=== PATIENT | male | born 1940 | race Caucasian/White ===

== ENCOUNTER → 2018-10-20 07:19 | Outpatient (CLI) | payer MEDICARE ==
[2012-05-14 18:00] VITALS: BMI 34.3
== END | disposition home or self-care (01) ==
LOC: D.CT 07:19
PROVIDERS: ATTEND Family Medicine
DX: R41.82 Altered mental status, unspecified (principal)

== ENCOUNTER 2019-01-10 18:09 | Inpatient (IN) | payer MEDICARE ==
[~2019-01-10] VITALS: Ht 185.4 cm; Wt 106.1 kg
[2019-01-11] MEDS ORDERED: ALPHAGAN P 0.155 ML EACH EYE (14:04)
[2019-01-11] MEDS ORDERED: LIPITOR80 MG PO (14:04)
[2019-01-11] MEDS ORDERED: BUPROPION HCL200 M1 PO (14:06)
[2019-01-11] MEDS ORDERED: BUSPAR10 MG PO (14:07)
[2019-01-11] MEDS ORDERED: COREG6.25 MG PO (14:08)
[2019-01-11] MEDS ORDERED: VITAMIN D31000 UNIT PO (14:08)
[2019-01-11 14:14] VITALS: BP 109/64
[2019-01-11] MEDS ORDERED: BENADRYL25 MG PO (14:17)
[2019-01-11] MEDS ORDERED: COLACE100 MG PO (14:18)
[2019-01-11] MEDS ORDERED: FUROSEMIDE40 MG PO (14:18)
[2019-01-11] MEDS ORDERED: CYMBALTA30 MG PO (14:18)
[2019-01-11] MEDS ORDERED: HYDROCODON-ACE1 EA10 PO (14:19)
[2019-01-11] MEDS ORDERED: ISOSORBIDE MONO30 M1 PO (14:20)
[2019-01-11] MEDS ORDERED: LANTUS SOL100 UNIT/1 SC (14:20)
[2019-01-11] MEDS ORDERED: ROBAXIN500 MG PO (14:21)
[2019-01-11] MEDS ORDERED: OMEPRAZOLE20 M1 PO (14:21)
[2019-01-11] MEDS ORDERED: NYSTATIN OINTME15 GM TOPICAL (14:21)
[2019-01-11] MEDS ORDERED: FLOMAX0.4 MG PO (14:22)
--- NOTE | 2019-01-11 15:01 | NUR ---
ALERT AND ORIENTED. ADMITTED FROM [facility] TO ROOM 1118A. L BUTTOCK HAS [address] 2 PU. R BUTTOCK HAS [address] 2 PU. BUTT CREASE HAS LINEAR ST 2 PU. L HEEL HAS SMALL ST 2 OPEN AREA X2. BUTTOCKS AND L HEEL HAVE UNBLANCHABLE REDNESS. B LE HAVE SCRATCHES/SORES. PATIENT HAS A CHRONIC LORA CATH THAT HE HAS HAD FOR MTHS. STATES IT WAS CHANGED LAST MTH. SAFETY PRECAUTIONS GIVEN TO USE CL FOR ASSIST. 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
--- NOTE | 2019-01-11 18:31 | NUR ---
NO CHANGE IN ASSESSMENT. NO C/O PAIN. CL IN REACH. BED ALARM IS ON.
--- NOTE | 2019-01-11 19:26 | NUR ---
PT. LAYING IN BED VISITING WITH NEIGHBOR IN NEXT BED. RESPIRATIONS EVEN. NO S/S OF DISTRESS. STATES THAT PAIN IS 8/10 BACK, SHOULDERS. CALL LIGHT IN REACH.
[2019-01-11 22:00] VITALS: BP 134/79
--- NOTE | 2019-01-12 02:20 | NUR ---
PT. RESTING QUIETLY WITH EYES CLOSED. RESPIRATIONS EVEN. NO S/S OF DISTRESS. SR UP X 2. BED IN LOWEST POSITION. CALL LIGHT IN REACH.
[2019-01-12 06:22] LABS: BASOPHILS 0.4 % (0-2); EOSINOPHILS 4.9 % (0-7); HEMATOCRIT 26.4 % (42.0-54.0); HEMOGLOBIN 8.2 g/dL (13.5-17.5); IMMATURE GRANULOCYTES 0.2 % (0-5); LYMPHOCYTES 38.9 % (15-50); MCH 27.9 pg (26.0-34.0); MCHC 31.1 g/dL (31.0-37.0); MCV 89.8 fL (80.0-100.0); MEAN PLATELET VOLUME 9.4 fL (7.4-10.4); MONOCYTES 10.7 % (2-11); NEUTROPHILS 44.9 % (40-80); RBC 2.94 10x6/uL (4.20-6.10); RDW 17.9 % (11.5-14.5); WBC 5.7 10x3/uL (4.8-10.8)
[2019-01-12 06:25] LABS: PLATELET COUNT 199 10x3/uL (130-400)
[2019-01-12 06:28] LABS: APPEARANCE HAZY (CLEAR); BILIRUBIN NEGATIVE (NEGATIVE); COLOR YELLOW (YELLOW); GLUCOSE NEGATIVE (NEGATIVE); KETONE NEGATIVE (NEGATIVE); NITRITE POSITIVE (NEGATIVE); PROTEIN TRACE mg/dL (NEGATIVE); UROBILINOGEN NORMAL (NORMAL)
[2019-01-12 06:29] LABS: BACTERIA MODERATE /hpf (NEGATIVE); EPITHELIAL CELLS NSEEN /hpf (0-5); RED CELLS - URINE 0-5 /hpf (0-5); WHITE CELLS - URINE 25-50 /hpf (NEGATIVE)
[2019-01-12 06:46] LABS: ANION GAP 12.1 mmol/L (8-16); CALCIUM 7.6 mg/dL (8.5-10.1); CARBON DIOXIDE 25.5 mmol/L (21.0-32.0); CREATININE - SERUM 1.6 mg/dL (0.6-1.3); POTASSIUM - SERUM 3.6 mmol/L (3.5-5.1)
[2019-01-12 08:00] VITALS: BP 109/58
--- NOTE | 2019-01-12 08:00 | NUR ---
SHIFT ASSMT COMPLETED.
[2019-01-12 10:10] VITALS: BMI 30.8
[2019-01-12 10:13] VITALS: BP 104/60
--- NOTE | 2019-01-12 12:00 | NUR ---
SITTING UP EATING LUNCH.
--- NOTE | 2019-01-12 13:43 | RHP ---
PATIENT: ELLIOTT SILVERIO MEDICAL RECORD: [id number] ACCOUNT: [id number] LOCATION:[facility]1118 : 41 ADMISSION DATE: 01/11/19 REHABILITATION HISTORY AND PHYSICAL EXAMINATION POST ADMISSION PHYSICIAN EXAMINATION DATE OF ADMISSION: 01/11/2019 ADMITTING DIAGNOSIS: Acute metabolic encephalopathy. HISTORY OF PRESENT ILLNESS: The patient is a 78-year-old gentleman who was recently in the hospital from 01/02/2019 to 01/04/2019 with acute kidney injury, he was felt to be discharged home. He was sent home alone without any type of rehab or anything. He did not do well at home, was brought back to the ED on 01/10 with confusion, covered in his own feces. Got a history of chronic back pain, blindness, hyperlipidemia, MRSA. He has had a cervical and lumbar pain. He has had a femur and knee surgery in the past and surgery on his forearm. He has had angioplasty, neck surgery, shoulder surgery. He had an IM nailing on 09/14/2018. He has currently got an elevated BUN and creatinine, is being followed closely, he has got acute mental status that seemed to be clearing. He has got elevated blood pressure. He has got a noted history of impaired mobility, gait disturbance, deconditioning, debility, high fall risk and self-care deficits. These are all barriers to his discharge home. He lives at home alone, uses a rolling walker and wheelchair for mobility. He was independent with ADLs. His daughter lives next door to him in and checks on him often. He is currently set at mod assist for his ADLs and mod assist to max assist for his mobility. He and his family plan for him to be able to return home at his prior level of functioning or better. COMORBIDITIES: Include chronic back pain, peripheral vascular disease. He has had a history of electrolyte abnormalities, chronic diabetes, debility, UTI, acute metabolic encephalopathy, ambulatory dysfunction and chronic indwelling catheter. PAST MEDICAL HISTORY: Significant for chronic pain, blindness, depression, diabetes, hyperlipidemia, MRSA and peripheral vascular disease. PAST SURGICAL HISTORY: Includes forearm surgery, back surgery, angioplasty, neck surgery, shoulder surgery, femur and knee surgery and an IM nailing. ALLERGIES: IODINE. CURRENT MEDICATIONS: Include Flomax 0.4 mg daily, isosorbide 30 mg daily, insulin 32 units daily. He is on Cymbalta 60 mg daily, vitamin D 2000 units daily, Protonix 40 mg daily. He is on Calmoseptine ointment. He is on Nystatin to apply daily, Robaxin 750 mg b.i.d., Colace 100 mg b.i.d., Wellbutrin 200 mg b.i.d., atorvastatin 80 mg at bedtime, Coreg 6.25 mg b.i.d. with meals. He is on a low-resistant sliding scale with insulin. He is on Neurontin 400 mg t.i.d., BuSpar 10 mg t.i.d., Alphagan eyedrops 1 drop t.i.d., glucose replacement protocol as needed. He is on Sears 10/325 one tab every 4 hours p.r.n., Lasix 40 mg daily, and Benadryl 25 mg as needed. HABITS: No current alcohol or tobacco use. FAMILY HISTORY: Noncontributory. HISTORY AND PHYSICAL [id number] ELLIOTT SILVERIO SOCIAL HISTORY: The patient hopes to return back home and get back to his prior level of functioning. REVIEW OF SYSTEMS: GENERAL: Does complain of weakness and fatigue. HEENT: Denies cold, cough, or congestion. CARDIOVASCULAR: Denies chest pain. PHYSICAL EXAMINATION: VITAL SIGNS: Stable, afebrile. GENERAL: A morbidly obese gentleman in no acute distress, alert upon exam. HEENT: Normocephalic and atraumatic. Mucosa moist. NECK: Supple. No lymphadenopathy. LUNGS: Clear in upper saenz. HEART: Regular rate and rhythm. No murmurs, rubs, or gallops. ABDOMEN: Soft, benign, and nondistended. Positive bowel sounds times 4. EXTREMITIES: Does have some peripheral edema. NEUROLOGIC: He does have noted decreased muscular strength in his proximal muscles of his thighs at about 3/5. LABORATORY DATA: His admit UA does show trace blood and positive nitrites, 25-50 white blood cells and moderate bacteria. His white count is 5.7, H&H 8.2 and 26.4 and platelet count is 199. Sodium 139, potassium 3.6, BUN and creatinine of 14 and 1.6, and blood sugar is 105. ASSESSMENT: This is a 78-year-old gentleman admitted to the rehab with a working diagnosis of metabolic encephalopathy. The patient has potential to make improvement. We instituted the following multidisciplinary therapies including, but not limited to physical, occupational, respiratory, speech, nutritional services, prosthetics and orthotics. Given his complex medical condition and risks of more complications, rehabilitation services cannot be provided at a low level of care such as halfway. PLAN: 1. Admit to [facility] for intensive inpatient therapy to include the following disciplines; A. Physical therapy to improve gait, all transfer skills and bed mobility to a modified independent level. B. Occupational therapy to a modified independent level. C. Case management to assist with discharge planning and placement options. D. Nutrition to assist with nutritional needs. E. Rehabilitation nursing to assist in monitoring the patient's underlying medical conditions and to assist with any type of bowel or bladder management. 2. I am going to go ahead and culture his urine and we will treat appropriately. 3. Watch his H&H closely and transfuse as needed. I feel like this is probably secondary to renal insufficiency and chronic illness. 4. We will see again in the a.m. TRANSINT:[id number] Voice Confirmation ID: [id number] DOCUMENT ID: [id number] TREVON notes whether there has been none or any medical/functional change since admission: HISTORY AND PHYSICAL [id number] NUSRATELLIOTT R - No change since prescreen. TREVON attests patient continues to be appropriate for IRF: - Continues to be appropriate. SATYA DONOHUE MD at 1343 CC: [id number] DICTATION DATE: 01/12/1914 BUFFING WHEEL FORMER MACHINE: 01/12/19 1055 ADM IN [facility] [address] [id number]
--- NOTE | 2019-01-12 20:00 | NUR ---
PATIENT RECEIVED SITTING UP IN BED. ASSESSMENT & VITAL SIGNS DONE. BED LOW. LORA PATENT WITH YELLOW COLOR URINE. BED LOW. CALL LIGHT WITHIN REACH. WILL CONTINUE TO MONITOR.
[2019-01-12 21:16] VITALS: BP 129/72
--- NOTE | 2019-01-13 02:32 | NUR ---
PATIENT EYES CLOSED. RESPIRATIONS 18 & EVEN. BED LOW. URINAL & CALL LIGHT WITHIN REACH. WILL CONTINUE TO MONITOR.
--- NOTE | 2019-01-13 02:35 | NUR ---
PAIN MEDICATION EFFECTIVE. BED LOW. CALL LIGTH WITHIN REACH. WILL CONTINUE TO MONITOR.
[2019-01-13 06:06] LABS: BASOPHILS 0.2 % (0-2); EOSINOPHILS 4.3 % (0-7); HEMATOCRIT 26.7 % (42.0-54.0); HEMOGLOBIN 8.3 g/dL (13.5-17.5); IMMATURE GRANULOCYTES 0.2 % (0-5); LYMPHOCYTES 32.8 % (15-50); MCH 27.7 pg (26.0-34.0); MCHC 31.1 g/dL (31.0-37.0); MEAN PLATELET VOLUME 9.1 fL (7.4-10.4); MONOCYTES 10.7 % (2-11); NEUTROPHILS 51.8 % (40-80); PLATELET COUNT 215 10x3/uL (130-400); RDW 17.9 % (11.5-14.5); WBC 6.3 10x3/uL (4.8-10.8)
[2019-01-13 06:31] LABS: ANION GAP 9.4 mmol/L (8-16); CALCIUM 7.4 mg/dL (8.5-10.1); CARBON DIOXIDE 29.8 mmol/L (21.0-32.0); CREATININE - SERUM 1.6 mg/dL (0.6-1.3)
[2019-01-13 06:32] LABS: POTASSIUM - SERUM 4.2 mmol/L (3.5-5.1)
[2019-01-13 08:00] VITALS: BP 128/71
--- NOTE | 2019-01-13 08:00 | NUR ---
SHIFT ASSMT COMPLETED.
--- NOTE | 2019-01-13 16:00 | NUR ---
WILL CONTINUE TO MONITOR
[2019-01-13 19:48] VITALS: BP 116/65
--- NOTE | 2019-01-13 19:52 | NUR ---
PT IS RESTING IN BED WITH EYES CLOSED. OPENED EYES TO VERBAL STIMULI. ALERT AND ORIENTED X 3. DENIES ACUTE PAIN OR DISCOMFORT. NO NEEDS VOICED. LORA CATH IS PAIENT AND DRAINING TO A GRAVITY BAG. SR'S ARE UP X2 IN BED. CALL LIGHT AND BEDSIDE TABLE ARE WITHIN EASY REACH.
--- NOTE | 2019-01-13 22:09 | NUR ---
PT IS RESTING QUIETLY IN BED WITH EYES CLOSED. NO DISTRESS NOTED.
--- NOTE | 2019-01-13 23:59 | NUR ---
I have reviewed this patient and I concur with the Shift Assessment completed by the Licensed Practical Nurse today this shift.
--- NOTE | 2019-01-14 03:32 | NUR ---
PT LYING IN BED EYES CLOSED RESTING QUIETLY. CL IN REACH.
--- NOTE | 2019-01-14 06:06 | NUR ---
PT RESTING IN BED WITH EYES CLOSED.
[2019-01-14 08:18] VITALS: BP 128/74
--- NOTE | 2019-01-14 18:02 | NUR ---
HAD SHOWER WITH MAX ASST. F/C PATENT WITH CLOUDY URINE. HAD LARGE BM.
--- NOTE | 2019-01-14 19:29 | NUR ---
PT IS RESTING IN WC AT BEDSIDE. ALERT AND ORIENTED X 3. PT IS NEARLY BLIND, AND IS VERY [place]. PT ASSISTED INTO BED WITH MIN ASSIST. LORA CATH IS PATENT AND DRAINING TO A GRAVITY BAG. SR'S ARE UP X 2 IN BED. CALL LIGHT AND BEDSIDE TABLE ARE WITHIN EASY REACH.
[2019-01-14 19:45] VITALS: BP 133/84
--- NOTE | 2019-01-14 21:46 | NUR ---
RESTING IN BED WITH EYES CLOSED.
--- NOTE | 2019-01-14 23:20 | NUR ---
I have reviewed this patient and I concur with the Shift Assessment completed by the Licensed Practical Nurse today this shift.
--- NOTE | 2019-01-15 03:09 | NUR ---
PT RESTING QUIETLY IN BED WITH EYES CLOSED. RESPS ARE EVEN AND UNLABORED. NO ACUTE DISTRESS NOTED.
--- NOTE | 2019-01-15 05:49 | NUR ---
PT IS RESTING IN BED WITH EYES CLOSED. AWOKE EASILY TO VERBAL STIMULI. NO NEEDS VOICED. TOLERATED AM MEDS WITHOUT DIFFICULTY.
[2019-01-15 08:00] VITALS: BP 117/57
--- NOTE | 2019-01-15 08:37 | NUR ---
SITTING UP IN BED FOR BREAKFAST. DENIES NEEDS OR C/O. FEEDS SELF. CALL LIGHT IN REACH
--- NOTE | 2019-01-15 17:23 | NUR ---
SITTING UP IN BED EATING SUPPER. IS PLEASANT BUT FORGETS WHAT RECENT EVENTS HAPPENED.....THINKS THIS NURSE JUST STARTED HER SHIFT AND IT IS 12:00 MIDNIGHT (IT WAS 1700 PM AND NURSE HAD BEEN HERE WITH HIM ALL DAY). CALL LIGHT IN REACH
--- NOTE | 2019-01-15 19:54 | NUR ---
PT IS RESTING IN BED WITH BLANKET PULLED UP OVER HIS HEAD. NO ACUTE DISTRESS NOTED. CALL LIGHT AND BEDSIDE TABLE ARE WITHIN EASY REACH.
[2019-01-15 20:51] VITALS: BP 129/74
--- NOTE | 2019-01-15 22:00 | NUR ---
PT INC. OF A MOD AMOUNT OF WATERY STOOL. MAX ASSIST GIVEN WITH NIKA CARE AND LINEN CHANGE.
--- NOTE | 2019-01-16 00:52 | NUR ---
PT RESTING QUIETLY IN BED WITH EYES CLOSED. RESPS ARE EVEN AND UNLABORED. NO ACUTE DISTRESS NOTED.
--- NOTE | 2019-01-16 01:45 | NUR ---
I have reviewed this patient and I concur with the Shift Assessment completed by the Licensed Practical Nurse today this shift.
--- NOTE | 2019-01-16 03:50 | NUR ---
PT LYING IN BED SUPINE EYES CLOSED RESTING QUIETLY. CL IN REACH
--- NOTE | 2019-01-16 06:16 | NUR ---
PT VOICED COMPLAINT OF BACK PAIN LEVEL OF 7. MEDICATED PER MAR.
[2019-01-16 06:29] LABS: BASOPHILS 0.2 % (0-2); EOSINOPHILS 3.7 % (0-7); HEMATOCRIT 24.6 % (42.0-54.0); HEMOGLOBIN 7.7 g/dL (13.5-17.5); LYMPHOCYTES 34.9 % (15-50); MCHC 31.3 g/dL (31.0-37.0); MCV 89.5 fL (80.0-100.0); MEAN PLATELET VOLUME 8.6 fL (7.4-10.4); MONOCYTES 10.5 % (2-11); NEUTROPHILS 50.7 % (40-80); PLATELET COUNT 179 10x3/uL (130-400); RBC 2.75 10x6/uL (4.20-6.10); RDW 18.4 % (11.5-14.5)
[2019-01-16 06:51] LABS: ANION GAP 11.7 mmol/L (8-16); CALCIUM 7.9 mg/dL (8.5-10.1); CARBON DIOXIDE 28.6 mmol/L (21.0-32.0); CREATININE - SERUM 1.5 mg/dL (0.6-1.3); POTASSIUM - SERUM 4.3 mmol/L (3.5-5.1)
[2019-01-16 07:47] VITALS: BP 24/64
[2019-01-16 14:06] VITALS: BMI 30.8
--- NOTE | 2019-01-16 14:52 | NUR ---
RESTING QUIETLY IN BED. EYES CLOSED. NO S/S DISTRESS. CALL LIGHT IN REACH
--- NOTE | 2019-01-16 19:40 | NUR ---
PT IS RESTING IN BED WITH EYES OPEN. ALERT TO SELF. CONFUSED TO TIME, PLACE AND SITUATION. PT TALKING ABOUT RANDOM SUBJECTS THAT MAKE NO SENSE TO ME. LORA CATH IS PATENT AND DRAINING TO A GRAVITY BAG. SR'S ARE UP X 3 IN BED. CALL LIGHT AND BEDSIDE TABLE ARE WITHIN EASY REACH.
[2019-01-16 20:47] VITALS: BP 131/68
--- NOTE | 2019-01-16 21:33 | NUR ---
PT IS RESTING QUIETLY IN BED WITH EYES CLOSED. RESPS ARE EVEN AND UNLABORED. NO ACUTE DISTRESS NOTED.
--- NOTE | 2019-01-16 23:00 | NUR ---
PATIENT RECEIVED LYING IN BED WITH HIS EYES CLOSED. RESPIRATIONS 18 & EVEN. BED LOW. ALARM ON. CALL LIGHT WITHIN REACH. WILL CONTINUE TO MONITOR.
--- NOTE | 2019-01-17 02:41 | NUR ---
PATIENT LYING ON BACK. C/O BEING COLD. BLANKETS APPLIED ON PATIENT'S BODY. HEAT ALSO TURNED ON. PATIENT BED LOW. CALL LIGHT WITHIN REACH. WILL CONTINUE TO MONITOR.
--- NOTE | 2019-01-17 03:33 | NUR ---
I have reviewed this patient and I concur with the Shift Assessment completed by the Licensed Practical Nurse today this shift.
--- NOTE | 2019-01-17 06:28 | NUR ---
PATIENT FSBS 93. PATIENT GIVEN VANILLA PUDDING PER HIS REQUEST. CALL LIGHT WITHIN REACH. WILL CONTINUE TO MONITOR.
--- NOTE | 2019-01-17 08:00 | NUR ---
SHIFT ASSMT COMPLETED.
[2019-01-17 08:22] VITALS: BP 114/60
--- NOTE | 2019-01-17 16:00 | NUR ---
WILL CONTIINUE TO MONITOR.
--- NOTE | 2019-01-17 20:00 | NUR ---
PATIENT RECEIVED LYING IN BED. ASSESSMENT & VITAL SIGNS DONE. NO C/O PAIN OR DISTRESS. BED LOW. CALL LIGHT WITHIN REACH. WILL CONTINUE TO MONITOR.
[2019-01-17 20:37] VITALS: BP 112/60
[2019-01-18 01:36] VITALS: BP 152/73
--- NOTE | 2019-01-18 01:36 | NUR ---
PATIENT WANTED FSBS CHECKED. FSBS 101. PATIENT GIVEN COLA & VANILLA PUDDING. WILL CONTINUE TO MONITOR.
--- NOTE | 2019-01-18 02:15 | NUR ---
I have reviewed this patient and I concur with the Shift Assessment completed by the Licensed Practical Nurse today this shift.
--- NOTE | 2019-01-18 02:36 | NUR ---
PATIENT EYES CLOSED. RESPIRATIONS 18 & EVEN. BED LOW. CALL LIGHT WITHIN REACH. WILL CONTINUE TO MONITOR.
[2019-01-18 03:10] VITALS: BP 94/45
--- NOTE | 2019-01-18 03:21 | NUR ---
PATIENT FSBS 82. WILL ORDER SANDWICH TRAY FOR NIGHT ON HIS MENU.
[2019-01-18 07:49] VITALS: BP 140/68
--- NOTE | 2019-01-18 08:00 | NUR ---
SHIFT ASSMT COMPLETED.DENIES NEEDS.MEAL SET-UP PROVIDED.CL IN REACH.
--- NOTE | 2019-01-18 12:00 | NUR ---
EATING LUNCH.DENIES NEEDS.
--- NOTE | 2019-01-18 16:00 | NUR ---
WILL CONTINUE TO MONITOR.
--- NOTE | 2019-01-18 16:47 | NUR ---
CARE TEAM MEETING: PATIENT DOING WELL IN THERAPY AND TENATIVE DSICHARGE DATE IS 01/26/19. WILL CONTINUE TO FOLLOW WITH PATIENT
--- NOTE | 2019-01-18 20:04 | NUR ---
PATIENT RECEIVED LYING IN BED. ASSESSMENT & VITAL SIGNS DONE. NO C/O PAIN OR DISTRESS. LORA CATHETER PATENT WITH DARK YELLOW COLOR URINE. BED LOW. CALL LIGHT WITHIN REACH. WILL CONTINUE TO MONITOR.
[2019-01-18 21:13] VITALS: BP 106/55
--- NOTE | 2019-01-19 01:05 | NUR ---
PATIENT FSBS 130. PATIENT GIVEN TURKEY SANDWICH & GRAPES. BED LOW. CALL LIGTH WITHIN REACH. WILL CONTINUE TO MONITOR.
--- NOTE | 2019-01-19 02:14 | NUR ---
I have reviewed this patient and I concur with the Shift Assessment completed by the Licensed Practical Nurse today this shift.
--- NOTE | 2019-01-19 03:45 | NUR ---
PATIENT AWAKE. PAIN LEVEL 2. BED LOW. CALL LIGHT WITHIN REACH. WILL CONTINUE TO MONITOR.
[2019-01-19 08:41] VITALS: BP 100/68
--- NOTE | 2019-01-19 10:06 | NUR ---
NUTRITION F/U CHART REVIEWED, PT OOR TO THERAPY. TOLERATING REG LOW FAT DIET WITH 75 TO 100% INTAKE RECENT MEALS. RD FOLLOWING
--- NOTE | 2019-01-19 10:40 | NUR ---
PARTICIPATED IN THERAPY THIS AM. NO C/O PAIN. RESTING IN BED AT THIS TIME. CL IN REACH.
--- NOTE | 2019-01-19 18:33 | NUR ---
NO CHANGE IN ASSESSMENT. CL IN REACH. RESP EVEN AND UNLABORED.
--- NOTE | 2019-01-19 19:20 | NUR ---
GREETED PATIENT AND INTRODUCED MYSELF HIS NURSE. PATIENT IS LAYING IN BED VISITING WITH NEIGHBOR FROM BED B. RESPIRATIONS EVEN. NO S/S OF DISTRESS. DENIES ANY PAIN AT THIS TIME. DENIES ANY FURTHER NEEDS. CALL LIGHT IN REACH.
[2019-01-19 19:40] VITALS: BP 113/68
--- NOTE | 2019-01-20 00:42 | NUR ---
PATIENT LAYING IN BED AWAKE. DENIES ANY NEEDS AT THIS TIME. CALL LIGHT IN REACH.
[2019-01-20 05:57] LABS: BASOPHILS 0.2 % (0-2); EOSINOPHILS 4.6 % (0-7); HEMATOCRIT 26.9 % (42.0-54.0); HEMOGLOBIN 8.4 g/dL (13.5-17.5); IMMATURE GRANULOCYTES 0.2 % (0-5); LYMPHOCYTES 37.8 % (15-50); MCH 28.1 pg (26.0-34.0); MCHC 31.2 g/dL (31.0-37.0); MEAN PLATELET VOLUME 9.5 fL (7.4-10.4); MONOCYTES 9.4 % (2-11); NEUTROPHILS 47.8 % (40-80); RBC 2.99 10x6/uL (4.20-6.10); RDW 18.6 % (11.5-14.5); WBC 5.6 10x3/uL (4.8-10.8)
[2019-01-20 06:12] LABS: PLATELET COUNT 230 10x3/uL (130-400)
[2019-01-20 06:22] LABS: ANION GAP 8.6 mmol/L (8-16); CALCIUM 8.3 mg/dL (8.5-10.1); CARBON DIOXIDE 29.8 mmol/L (21.0-32.0); CREATININE - SERUM 1.4 mg/dL (0.6-1.3); POTASSIUM - SERUM 4.4 mmol/L (3.5-5.1)
[2019-01-20 08:00] VITALS: BP 149/72
--- NOTE | 2019-01-20 08:00 | NUR ---
PATIENT IS ALERT/OREINT. CALL LIGHT WITHIN REACH. VOICES NO NEEDS AT THIS TIME. WILL CONTINUE WITH PLAN OF CARE
--- NOTE | 2019-01-20 10:10 | NUR ---
OCCUPATIONAL THERAPIST WORKING WITH PATIENT. PATIENT HELPED WITH SHOWER
--- NOTE | 2019-01-20 13:59 | NUR ---
PATIENT RESTING BACK IN BED AFTER LUNCH AND THERAPY. CALL LIGHT WITHIN REACH.
[2019-01-20 19:46] VITALS: BP 106/50
--- NOTE | 2019-01-20 19:55 | NUR ---
PT IS RESTING IN BED WITH EYES OPEN. AWOKE EASILY TO VERBAL STIMULI. PT IS CONFUSED TO TIME AND PLACE. I WAS UNABLE TO REORIENT PT AT THIS TIME. VSS. SR'S ARE UP X 3 IN BED. CALL LIGHT AND BEDSIDE TABLE ARE WITHIN EASY REACH.
--- NOTE | 2019-01-20 21:38 | NUR ---
PT RESTING IN BED WITH EYES OPEN. HE IS VERY CONFUSED TO TIME AND PLACE, AND SITUATION. UNABLE TO REORIENT PT. DENIES ANY NEEDS AT THIS TIME.
--- NOTE | 2019-01-21 00:10 | NUR ---
I have reviewed this patient and I concur with the Shift Assessment completed by the Licensed Practical Nurse today this shift.
--- NOTE | 2019-01-21 01:40 | NUR ---
PT CONTINUES TO BE CONFUSED. HE ATTEMPTS TO GET UP OUT OF BED OFTEN, SETTING OFF HIS BED ALARM. HE EITHER STATES HE WANT[facility] TO GO [facility].
--- NOTE | 2019-01-21 04:38 | NUR ---
PT CONTINUOUSLY ATTEMPTING TO CLIMB OUT OF BED.
--- NOTE | 2019-01-21 04:50 | NUR ---
PT SHOUTED OUT, OH OH OH, BED ALARM GOING OFF. PT NOTED SITTING ON THE FLOOR BETWEEN THE TWO BEDS IN HIS ROOM. NO OBVIOUS INJURY NOTED, BUT PT VOICED COMPLIANT OF LEFT HIP PAIN. PT ASSISTED INTO BED WITH 4 PERSON LIFT. BP 129/75, P 94, R 24, PULSE OX 92 %. TEMP 98.0.
--- NOTE | 2019-01-21 07:15 | NUR ---
PT ATTEMPTED TO GET OOB.ALARM RESET.POSITIONED UP IN BED.REMAINS VERY CONFUSED.CL IN REACH,WILL CLOSELY MONITOR.
[2019-01-21 08:00] VITALS: BP 131/92
--- NOTE | 2019-01-21 08:30 | NUR ---
FEEDING PT BREAKFAST D/T INABLE TO FEED SELF;SPILLING DRINKS ALL-OVER SELF.CONSUMED 50% OF MEAL AND CONTINUES TO TRY TO GET OOB W/O ASSIST.TAKEN TO BATHROOM.LARGE BM ;CLEANED AND PLACED BACK TO WC WITH PT YELLING OUT.NOTIFIED DAUGHTER.NO ANSWER.
--- NOTE | 2019-01-21 09:15 | NUR ---
PT YELLING AND TRYING TO BE COMBATIVE,TAKEN TO ROOM AND PLACED IN BED X3 PEOPLE.DOES NOT FOLLOW DIRECTION.TRYING TO KICK.CURSING.AND HALLUCINATING;TALKING TO PEOPLE THAT IS NOT THERE.PICKING IN AIR.DAUGHTER CALLED BACK AND STATED OK TO MOVE IF NEEDED.CONSULT PLACED FOR EVAL DETENTION PER .ALARM ON.
[2019-01-21 11:06] LABS: BASOPHILS 0.2 % (0-2); EOSINOPHILS 2.6 % (0-7); HEMATOCRIT 26.7 % (42.0-54.0); HEMOGLOBIN 8.4 g/dL (13.5-17.5); LYMPHOCYTES 31.7 % (15-50); MCH 28.3 pg (26.0-34.0); MCHC 31.5 g/dL (31.0-37.0); MCV 89.9 fL (80.0-100.0); MEAN PLATELET VOLUME 9.7 fL (7.4-10.4); MONOCYTES 12.1 % (2-11); NEUTROPHILS 53.4 % (40-80); PLATELET COUNT 222 10x3/uL (130-400); RBC 2.97 10x6/uL (4.20-6.10); RDW 18.4 % (11.5-14.5); WBC 6.2 10x3/uL (4.8-10.8)
[2019-01-21 11:13] LABS: ANION GAP 13.2 mmol/L (8-16); CALCIUM 8.3 mg/dL (8.5-10.1); CARBON DIOXIDE 24.8 mmol/L (21.0-32.0); CREATININE - SERUM 2.4 mg/dL (0.6-1.3)
--- NOTE | 2019-01-21 11:20 | NUR ---
AND TOM HARDWICK.ORDERS TO FOLLOW.
--- NOTE | 2019-01-21 12:00 | NUR ---
SITTING UP FOR MEAL.COOPERATIVE AND APPERCIATIVE.LUNCH GIVEN.FSBS 153.WILL NOT COVER WITH ss D/T POOR APPETITE.
[2019-01-21 12:06] LABS: APPEARANCE TURBID (CLEAR); BILIRUBIN NEGATIVE (NEGATIVE); COLOR YELLOW (YELLOW); GLUCOSE NEGATIVE (NEGATIVE); KETONE NEGATIVE (NEGATIVE); NITRITE NEGATIVE (NEGATIVE); PROTEIN 1+ mg/dL (NEGATIVE); SPECIFIC GRAVITY 1.015 (1.005-1.020); UROBILINOGEN NORMAL (NORMAL)
[2019-01-21 12:07] LABS: BACTERIA MODERATE /hpf (NEGATIVE); RED CELLS - URINE OCC /hpf (0-5); WHITE CELLS - URINE >50 /hpf (NEGATIVE)
--- NOTE | 2019-01-21 17:15 | NUR ---
AWAKENED OUT OF SLEEP.CONFUSED AND YELLS TO LEAVE HIM ALONE.CL IN REACH.
[2019-01-21 19:29] VITALS: BP 113/66
--- NOTE | 2019-01-21 19:39 | NUR ---
RESTING IN BED DOZING ON AND OFF. NOTED CONFUSED BUT CURRENTLY CALM. VITAL SIGNS TAKEN. AFEBRILE. RESPIRATIONS UNLABORED. NO ACUTE DISTRESS NOTED. CALL LIGHT IN REACH.
--- NOTE | 2019-01-22 00:48 | NUR ---
SLEEPING WITH RESPIRATIONS UNLABORED. NO DISTRESS NOTED. GENO PATENT. CALL LIGHT IN REACH.
--- NOTE | 2019-01-22 03:52 | NUR ---
HAS SLEPT IN LONG INTERVALS TONIGHT. WOKE UP AND REQUESTED TO GO TO BATHROOM FOR BM. ASSISTED X 2 STAFF TO TRANSFER TO BATHROOM AND HE TRANSFERRED WITH MODERATED ASSIST. HE PARTICIPATED BY STANDING AND FOLLOWING COMMANDS AND WAS VERY COOPERATIVE. APPEARS ORIENTED AND CALM. HAD VERY LARGE BM, CLEAN PAJAMAS PUT ON AND ASSISTED BACK TO BED. LEMON-NIKOLAI DRINK GIVEN AFTER HE REQUESTED A SPRITE. NOW RESTING IN BED WATCHING TV. NO ACUTE DISTRESS NOTED. CALL LIGHT IN REACH.
[2019-01-22 08:00] VITALS: BP 145/98
--- NOTE | 2019-01-22 09:00 | NUR ---
PATIENT ALERT/LESS CONFUSED. BED ALARM ON. CALL LIGHT WITHIN REACH. VOICES NO NEEDS AT THIS TIME. WILL CONTINUE WITH PLAN OF CARE
--- NOTE | 2019-01-22 10:45 | CN ---
PATIENT NAME:ELLIOTT SILVERIO MEDICAL RECORD: [id number] : 42 LOCATION:[facility].1110 ADMIT DATE: 01/11/19 ACCOUNT: [id number] CONSULTING PHYSICIAN: LINDEN SANTOS MD REFERRING PHYSICIAN: SATYA DONOHUE MD DATE OF CONSULTATION: 01/21/2019 PSYCHIATRIC CONSULTATION IDENTIFYING DATA: The patient is 78 years old and he is admitted to the rehabilitation service secondary to deconditioning. CHIEF COMPLAINT: Confusion and aggression. HISTORY OF PRESENT ILLNESS: The patient had an acute kidney injury in late December and was hospitalized for several days. He subsequently was sent home, but then on the 10 of January represented to the Emergency Department confused and covered in excrement. He was subsequently admitted to rehabilitation. He has a history of chronic back pain, visual impairment, MRSA, diabetes and some sort of visual impairment I am unclear on. He has been on rehab for about a week, but last night he became acutely agitated and combative with the nursing staff. MENTAL STATUS EXAMINATION: The patient is alert and oriented to person and place and somewhat to situation. He is not oriented to the date. His mood is euthymic. His affect is appropriate. Thought processes are generally goal directed. He denies that he would seek to harm himself or others as well as overt psychotic symptoms. ASSESSMENT: 1. Dementia, type uncertain. 2. Delirium. PLAN: At this time, the patient will be started on Namenda for the dementia. He is taking two antidepressants, Celexa and Wellbutrin. The Wellbutrin is at an unusually high dose of 400 mg a day. I am going to just flatly discontinue this since a significant portion of Wellbutrin is metabolized into an amphetamine type compound and this may be causing some of his agitation. He is also taking BuSpar, presumably for antidepressant enhancement and/or extra anxiolytic benefit, but I do not think that this medicine is needed. I am going to discontinue it. He has some p.r.n. Benadryl, which should absolutely not be given to him. I did not believe it was given, but it should not be given as with his age and dementia. Any medicine with antihistaminic or anticholinergic properties will cause a great deal of confusion. On the whole, I think the confusion is going to be intermittent and likely can be treated with a low dose of p.r.n. John. I will just go ahead and order that. He does have a Porter catheter. Thank you for allowing me to participate in the care of this patient. TRANSINT:[id number] Voice Confirmation ID: [id number] DOCUMENT ID: [id number] CONSULT REPORT [id number] NUSRAT,LINDEN LOPEZ MD at 1045 CC: [id number] DICTATION DATE: 01/21/19 1155 ANALOG CIRCUIT DESIGNER: 01/21/19 1239 ADM IN [id number] [place] [address]
--- NOTE | 2019-01-22 12:38 | NUR ---
PATIENT SITTING UP IN BED TO EAT LUNCH. GLUCOSE LEVEL 112. NO SLIDING SCALE INSULIN GIVEN PER ORDER. CALL LIGHT WITHIN REACH. NURSE ABLE TO WATCH PATIENT FROM NURSING STATION
--- NOTE | 2019-01-22 15:15 | NUR ---
PATIENT GIVEN SHOWER BY THIS NURSE. TOTAL ASST OF TWO FROM BED TO WHEELCHAIR AND WHEELCHAIR TO SHOWER CHAIR. PATIENT ABLE TO WASH AND DRY BODY. THIS NURSE HAD TO WASH AND DRY BACK AND LOWER EXTREMITIES
--- NOTE | 2019-01-22 16:48 | NUR ---
GLUCOSE LEVEL 156. PATIENT REFUSED REGULAR SLIDING SCALE INSULIN. WILL NOT TAKE SLIDING SCALE INSULIN UNLESS GLUCOSE LEVEL OVER 250
[2019-01-22 19:26] VITALS: BP 144/72
--- NOTE | 2019-01-22 19:29 | NUR ---
AWAKE AND ALERT. RESTING IN BED WITH RESPIRATIONS UNLABORED. CALM AND COOPERATIVE AT THIS TIME. ASK WHEN HE WAS MOVED TO THIS ROOM. I REMINDED HIM IT WAS WEDNESDAY AFTER HE HAD A FALL. HE STATES HE DOESNT REMEMBER IT. EDUCATION DONE ON FALL PRECAUTIONS. VOICES UNDERSTANDING. LORA PATENT. NO ACUTE DISTRESS NOTED. CALL LIGHT IN REACH.
--- NOTE | 2019-01-23 01:08 | NUR ---
SLEEPING WITH RESPIRATIONS UNLABORED. NO DISTRESS NOTED. GENO PATENT. CALL LIGHT IN REACH.
--- NOTE | 2019-01-23 05:24 | NUR ---
QUIET HOURS. NO ACUTE CHANGES IN CONDITION THIS SHIFT. GENO PHILIP. ASSISTED UP EARLIER TO BATHROOM AND HE TRANSFERED WITH MINIMAL ASSIST AND PROMPTING. RESTING IN BED NOW. MEDICATED FOR PAIN. SEE MAR. NO ACUTE DISTRESS NOTED. CALL LIGHT IN REACH.
[2019-01-23 06:31] LABS: BASOPHILS 0.4 % (0-2); HEMATOCRIT 28.2 % (42.0-54.0); HEMOGLOBIN 8.8 g/dL (13.5-17.5); IMMATURE GRANULOCYTES 0.2 % (0-5); LYMPHOCYTES 39.3 % (15-50); MCH 28.2 pg (26.0-34.0); MCHC 31.2 g/dL (31.0-37.0); MCV 90.4 fL (80.0-100.0); MEAN PLATELET VOLUME 9.5 fL (7.4-10.4); MONOCYTES 10.1 % (2-11); PLATELET COUNT 251 10x3/uL (130-400); RBC 3.12 10x6/uL (4.20-6.10); RDW 18.8 % (11.5-14.5); WBC 5.5 10x3/uL (4.8-10.8)
[2019-01-23 07:23] LABS: ANION GAP 9.4 mmol/L (8-16); CALCIUM 8.7 mg/dL (8.5-10.1); CARBON DIOXIDE 28.3 mmol/L (21.0-32.0); POTASSIUM - SERUM 3.7 mmol/L (3.5-5.1)
[2019-01-23 07:26] LABS: CREATININE - SERUM 1.3 mg/dL (0.6-1.3)
--- NOTE | 2019-01-23 07:59 | NUR ---
AELRT AND ORIENTED. RESP EVEN AND UNLABORED. EATING BREAKFAST. CL IN REACH.
[2019-01-23 08:03] VITALS: BP 141/67
--- NOTE | 2019-01-23 10:01 | NUR ---
REQUESTED VIT D FROM PHARMACY THIS AM. NONE IN PYXIS AT THIS TIME.
--- NOTE | 2019-01-23 12:58 | NUR ---
RESTING IN BED. NO DISTRESS. CL IN REACH.
--- NOTE | 2019-01-23 15:04 | NUR ---
late entry: Patient admitted to Rehab from an outside facility. His PCP is Dr. Love. dishcarge plans are for patient to return to his home. will continue to follow with patient.
--- NOTE | 2019-01-23 15:45 | NUR ---
NO CHANGE IN ASSESSMENT. ASSISTED TO BED FROM ASSIST X1. CL IN REACH.
--- NOTE | 2019-01-23 19:15 | NUR ---
BEDSIDE REPORT COMPLETE. PT LYING IN BED EYES CLOSED RESTING QUIETLY. RR EVEN AND UNLABORED. NO SIGNS OF DISTRESS NOTED. VS STABLE. SHIFT ASSESSMENT COMPLETE. CL IN REACH. FALL PRECAUTIONS IN PLACE. WILL CONTINUE TO MONITOR
[2019-01-23 21:02] VITALS: BP 142/69
--- NOTE | 2019-01-23 23:10 | NUR ---
QUIET HOURS. PT LYING IN BED SUPINE EYES CLOSED RESTING QUIETLY. NO SIGNS OF DISTRESS NOTED. CL IN REACH. WILL CONTINUE TO MONITOR
--- NOTE | 2019-01-24 03:25 | NUR ---
PT LYING IN BED SUPINE EYES CLOSED RESTING QUIETLY. RR EVEN AND UNLABORED. CL IN REACH
[2019-01-24 07:57] VITALS: BP 147/70
--- NOTE | 2019-01-24 14:49 | NUR ---
VISITING WITH PATIENT AND AT THIS TIME [facility] AND HAS CALLED [employer] TO [place] FOR HOME ASSISTANCE. [facility] . PATIENT HAS MEALS ON WHEELS. WILL CONTINUE TO FOLLOW WITH PATIENT AND WILL ASSIST NEEDED.
--- NOTE | 2019-01-24 15:15 | NUR ---
Nutrition Follow-up: Chart reviewed. Diet: Regular, low cholesterol, low fat PO intake: 77% average; Patient reports a good appetite. He was complaining of not getting any salt on his diet. Explained that diet was low cholesterol and low fat. There was not a sodium restriction written into original diet order however, noted that pt is on lasix. Noted pt was drinking a regular soda. Changed diet to Diabetic, AHA cardiac due to patient with PMH of diabetes and noted elevated blood sugars. Labs noted: glucose 132. Significant meds: levaquin, lantus, SSI, lasix. Noted stage II PU to left heel and buttocks in nursing skin assessment. Wt: 234# (01/16/19). +BM Diabetic diet restrition added. Cardiac diet restriction. Will add Leandro BID to meal trays to nutritionally aid in wound healing. RD will continue to follow.
--- NOTE | 2019-01-24 18:08 | NUR ---
PT UP WITH PT TOLERATING WELL WILL MONITER
--- NOTE | 2019-01-24 19:35 | NUR ---
BEDSIDE REPORT COMPLETE. PT LYING IN BED ALERT AND ORIENTED X3. DENIES ANY NEEDS OR PAIN. NO SIGNS OF DISTRESS NOTED. VS STABLE. SHIFT ASSESSMENT COMPLETE. CL IN REACH. FALL PRECAUTIONS IN PLACE. WILL CONTINUE TO MONITOR
[2019-01-24 20:56] VITALS: BP 118/62
--- NOTE | 2019-01-24 23:52 | NUR ---
QUIET HOURS. PT LYING IN BED ON LEFT SIDE EYES CLOSED RESTING. NO SIGNS OF ACUTE DISTRESS NOTED. CL IN REACH
--- NOTE | 2019-01-25 03:49 | NUR ---
PT LYING IN BED EYES CLOSED RESTING. NO SIGNS OF ACUTE DISTRESS NOTED. CL IN REACH
[2019-01-25 06:33] LABS: BASOPHILS 0.2 % (0-2); EOSINOPHILS 3.7 % (0-7); HEMATOCRIT 30.2 % (42.0-54.0); HEMOGLOBIN 9.4 g/dL (13.5-17.5); IMMATURE GRANULOCYTES 0.2 % (0-5); LYMPHOCYTES 35.4 % (15-50); MCH 28.2 pg (26.0-34.0); MCHC 31.1 g/dL (31.0-37.0); MCV 90.7 fL (80.0-100.0); MEAN PLATELET VOLUME 9.8 fL (7.4-10.4); MONOCYTES 10.3 % (2-11); NEUTROPHILS 50.2 % (40-80); PLATELET COUNT 250 10x3/uL (130-400); RBC 3.33 10x6/uL (4.20-6.10); RDW 18.4 % (11.5-14.5); WBC 5.7 10x3/uL (4.8-10.8)
[2019-01-25 06:46] LABS: ANION GAP 7.2 mmol/L (8-16); CALCIUM 8.5 mg/dL (8.5-10.1); CARBON DIOXIDE 30.4 mmol/L (21.0-32.0); CREATININE - SERUM 1.4 mg/dL (0.6-1.3); POTASSIUM - SERUM 3.6 mmol/L (3.5-5.1)
[2019-01-25 08:08] VITALS: BP 130/72
--- NOTE | 2019-01-25 09:43 | NUR ---
PT PARTICIPATING IN THERAPY. NOTIFIED OF PT HAVING LOOSE STOOLS, HEADACHED AND DIZZINESS. PT BP CHECKED, 74/47. PT ASSISTED BACK INTO BED, FEET ELEVATED. PT BP RECHEKED AT THIS TIME, 122/60. WCTM.
--- NOTE | 2019-01-25 11:40 | NUR ---
PT RETURNING FROM THERAPY AND AFTER STANDING WITH THERAPIST AND SITTING ON EDGE OF BED PT BECAME WEAK, DIZZY AND PASSED OUT MOMENTARILY. BP'S WHILE IN THERAPY WERE LAYING 146/68 SITTING 120/65, 114/60 STANDING 77/46, 80/48 AND CURRENTLY 70/38 PT FEEL ELEVATED.
--- NOTE | 2019-01-25 12:05 | NUR ---
PT BP RECHECK AT 119/65. PT SAT UP FOR LUNCH. WCTM.
--- NOTE | 2019-01-25 14:40 | NUR ---
Nutrition Note: Discussed in care team meeting. Patient has been having episodes of low BP. Changed diet to Diabetic, low cholesterol and discountinued Leandro (L-arginine in Leandro may exacerbate low BP). RD following.
--- NOTE | 2019-01-25 16:19 | NUR ---
CARE TEAM MEETING: PATIENT DISCHARGE IS PLACED ON HOLD AT THIS TIME DUE TO CHANGE IN MEDICAL CONDTITION. WILL CONTINUE TO FOLLOW WITH PATIENT.
--- NOTE | 2019-01-25 17:28 | NUR ---
PT EATING DINNER, BREA NEEDS. WCTM.
--- NOTE | 2019-01-25 19:41 | NUR ---
AWAKE AND ALERT. RESTING IN BED WITH RESPIRATIONS UNLABOBORED. LORA PATENT. NO ACUTE DISTRESS NOTED. CALL LIGHT IN REACH.
[2019-01-25 20:37] VITALS: BP 154/71
--- NOTE | 2019-01-26 02:39 | NUR ---
SLEEPING WITH RESPIRATIONS UNLABOBORED. NO DISTRESS NOTED. CALL LIGHT IN REACH.
--- NOTE | 2019-01-26 06:15 | NUR ---
QUIET HOURS. NO ACUTE CHANGES IN CONDITION THIS SHIFT. GENO RODRIGUEZ . INSTRUCTED TO NOTIFY NURSE WHEN HE VOIDS OR IF HE DOESNT VOID IN 4 HOURS. VOICES UNDERSTANDING.
[2019-01-26 08:28] VITALS: BP 146/66
--- NOTE | 2019-01-26 09:45 | NUR ---
PT AM MEDS ADMINISTERED. PT DENIES NEEDS. WCTM.
--- NOTE | 2019-01-26 19:59 | NUR ---
AWAKE AND ALERT. RESTING IN BED WITH RESPIRATIONS UNLABORED. NO DISTRESS NOTED. CALL LIGHT IN REACH.
[2019-01-26 21:11] VITALS: BP 128/66
--- NOTE | 2019-01-27 01:36 | NUR ---
SLEEPING WITH RESPIRATIONS UNLABORED. HAS VOIDED ONE TIME THIS SHIFT. WILL CONTINUE TO MONITOR. NO ACUTE DISTRESS NOTED. CALL LIGHT IN REACH.
--- NOTE | 2019-01-27 04:01 | NUR ---
HAS VOIDED 800ML SO FAR THIS SHIFT. STATES "YEAH I FINALLY STARTED GOING GOOD" NO DISTRESS NOTED.
[2019-01-27 08:00] VITALS: BP 164/84
--- NOTE | 2019-01-27 09:01 | NUR ---
PATIENT IS ALERT/FORGETFULL AT TIMES. CALL LIGHT WITHIN REACH. VOICES NO NEEDS AT THIS TIME. THERAPY IN ROOM TO WORK WITH PATIENT. B/P MONITORED. WILL CONTINUE WITH PLAN OF CARE
--- NOTE | 2019-01-27 12:58 | NUR ---
K.H. DR BRANDIN LYNNE MADE AWARE OF DROP IN BLOODPRESSURE WHEN PATIENT IS IN THERAPY
[2019-01-27 13:13] LABS: ANION GAP 10.4 mmol/L (8-16); CALCIUM 8.5 mg/dL (8.5-10.1); CARBON DIOXIDE 26.4 mmol/L (21.0-32.0); CREATININE - SERUM 1.4 mg/dL (0.6-1.3); POTASSIUM - SERUM 3.8 mmol/L (3.5-5.1)
--- NOTE | 2019-01-27 17:14 | NUR ---
PATIENT SITTING UP IN BED TO EAT SUPPER. VOICES NO NEEDS AT THIS TIME.
--- NOTE | 2019-01-27 21:00 | NUR ---
PT RESTING IN BED WITH EYES CLOSED. AWOKE EASILY TO VERBAL STIMULI. PT IS ALERT AND ORIENTED X 3. DENIES ANY DISCOMFORT AT THIS TIME. NO NEEDS VOICED. TOLERATED PM MEDS WITHOUT DIFFICULTY. SR'S ARE UP X 3 IN BED. CALL LIGHT AND BEDSIDE TABLE ARE WITHIN EASY REACH.
[2019-01-27 21:05] VITALS: BP 130/67
--- NOTE | 2019-01-27 23:17 | NUR ---
I have reviewed this patient and I concur with the Shift Assessment completed by the Licensed Practical Nurse today this shift.
--- NOTE | 2019-01-28 01:16 | NUR ---
PT IS RESTING IN BED WITH EYES CLOSED. NO DISTRESS NOTED.
--- NOTE | 2019-01-28 04:44 | NUR ---
RESTING IN BED WITH EYES CLOSED.
[2019-01-28 08:00] VITALS: BP 170/82
--- NOTE | 2019-01-28 08:50 | NUR ---
PATIENT HELPED INTO BATHROOM AFTER BREAKFAST. WASHED UP AT THE SINK. LINENS ON BED CHANGED. PATIENT IS ALERT/ORIENT. VOICES NO OTHER NEEDS AT THIS TIME. WILL CONTINUE WITH PLAN OF CARE
--- NOTE | 2019-01-28 12:43 | NUR ---
PATIENT DID NOT HAVE ANY THERAPY TODAY. SITTING UP IN BED TO EAT LUNCH. VOICES NO NEEDS. CALL LIGHT WITHIN REACH. VOICES NO NEEDS AT THIS TIME.
--- NOTE | 2019-01-28 21:09 | NUR ---
PT IS RESTING IN BED WITH EYES CLOSED. AWAKENS EASILY TO VERBAL STIMULI. DENIES ACUTE DISCOMFORT. PT STATES HE FEELS LIKE HE IS GETTING MUCH STRONGER, AND IS VERY THANKFUL FOR IT. SR'S ARE UP X 2 IN BED. CALL LIGHT AND BEDSIDE TABLE ARE WITHIN EASY REACH.
--- NOTE | 2019-01-29 00:11 | NUR ---
I have reviewed this patient and I concur with the Shift Assessment completed by the Licensed Practical Nurse today this shift.
--- NOTE | 2019-01-29 04:05 | NUR ---
RESITNG IN BED WITH EYES CLOSED.
--- NOTE | 2019-01-29 07:42 | NUR ---
PT RESTING IN BED WITH EYES OPEN CALL LIGHT IN REACH WILL MONITER
[2019-01-29 09:03] VITALS: BP 129/71
--- NOTE | 2019-01-29 17:59 | NUR ---
PT RESTING IN BED WITH EYES OPEN CALL LIGHT IN REACH NO PROBLEMS WILL MONITER
--- NOTE | 2019-01-29 19:00 | NUR ---
PATIENT ALERT AND ORIENTED IN BED WHEN ENTERING ROOM. PATIENT HAD BOWEL MOVEMENT IN BRIEF. ASSISTED TO BATHROOM VIA WHEELCHAIR. PATIENT TRANSFERRED SELF TO AND FROM WHEEL CHAIR WITH MINIMAL ASSISTANCE. PATIENT TO TOILET AND FINISHED BOWEL MOVEMENT WITH NO ISSUES. PROVIDED LINEN AND BRIEF CHANGE. ASSESSED VITAL SIGNS. STABLE AT THIS TIME. CURRENT OXYGEN SATURATION 98% ON ROOM AIR. NO IV AT THIS TIME. DENIES FURTHER NEEDS. DENIES DISCOMFORT, RETURNED TO BED WITH NO PROBLEMS. CALL LIGHT IN REACH. CPOC.
[2019-01-29 20:00] VITALS: BP 99/59
--- NOTE | 2019-01-29 21:00 | NUR ---
WOUND CARE PROVIDED TO LEFT HEEL AND BUTTOCKS
--- NOTE | 2019-01-30 02:55 | NUR ---
I have reviewed this patient and I concur with the Shift Assessment completed by the Licensed Practical Nurse today this shift.
[2019-01-30 05:48] LABS: BASOPHILS 0.1 % (0-2); EOSINOPHILS 4.2 % (0-7); HEMATOCRIT 31.4 % (42.0-54.0); HEMOGLOBIN 9.7 g/dL (13.5-17.5); IMMATURE GRANULOCYTES 0.3 % (0-5); LYMPHOCYTES 36.4 % (15-50); MCH 28.4 pg (26.0-34.0); MCHC 30.9 g/dL (31.0-37.0); MCV 91.8 fL (80.0-100.0); MEAN PLATELET VOLUME 9.6 fL (7.4-10.4); MONOCYTES 9.4 % (2-11); NEUTROPHILS 49.6 % (40-80); PLATELET COUNT 239 10x3/uL (130-400); RBC 3.42 10x6/uL (4.20-6.10); RDW 18.6 % (11.5-14.5); WBC 7.1 10x3/uL (4.8-10.8)
--- NOTE | 2019-01-30 06:04 | NUR ---
FSBS 87. PROVIDED AM MEDICATIONS. PATIENT TOLERATED WELL. DENIES FURTHER NEEDS AT THIS TIME. CALL LIGHT IN REACH. CPOC.
[2019-01-30 06:06] LABS: ANION GAP 11.6 mmol/L (8-16); CALCIUM 8.6 mg/dL (8.5-10.1); CARBON DIOXIDE 27.3 mmol/L (21.0-32.0); CREATININE - SERUM 1.3 mg/dL (0.6-1.3); POTASSIUM - SERUM 3.9 mmol/L (3.5-5.1)
--- NOTE | 2019-01-30 07:54 | NUR ---
REPORT RECIEVED. PT LYING IN BED. RR EVEN AND UNLABORED. NO DISTRESS NOTED. BED LOCKED AND IN LOWEST POSITION, CALL LIGHT WITHIN REACH. WILL CTM
[2019-01-30 08:14] VITALS: BP 128/56
--- NOTE | 2019-01-30 13:05 | NUR ---
Nutrition Follow-up. Charted reviewed. Note pt "still with orthostatic changes at times." per MD notes. Diet: Diabetic, low cholesterol PO intake: ~72% average x last 9 meals; patient reports a good appetite. Labs reviewed. Significant meds: lantus, SSI. Noted PU to L heel and reddened area to buttocks per nursing skin assessment. Wt: 234# (01/16/19), no new wt. Last BM 01/30/19. Continue current nutrition regimen. RD Following.
--- NOTE | 2019-01-30 19:43 | NUR ---
REC'D CHGE OF SHIFT WALKING ROUNDS IN BED ALERT ORIENTED X3.C/O SHOULDER PAIN/ HEADACHE. NORCO 10 ONE GIVEN PO REQUESTED. DENIES ANY OTHER DISCOMFORT WILL CONTINUE TO MONITOR FOR ANY CHGES. AND FOLLOW CURRENT PLAN OF CARE.
[2019-01-30 21:00] VITALS: BP 108/66
--- NOTE | 2019-01-31 02:38 | NUR ---
I have reviewed this patient and I concur with the Shift Assessment completed by the Licensed Practical Nurse today this shift.
--- NOTE | 2019-01-31 06:44 | NUR ---
FSBS 73 NONSYMPTOMATIC. REQUEST REGULAR COKE AT HOME WHEN SUGAR LOW WILL CONTINUE TO MONITOR FOR AND FOLLOW CURRENT PLAN OF CARE
[2019-01-31 08:21] VITALS: BP 145/74
--- NOTE | 2019-01-31 10:10 | NUR ---
PT AM MEDS ADMINISTERED. PT DENIES NEEDS. WCTM.
--- NOTE | 2019-01-31 13:27 | NUR ---
PT BP 64/40 IN THERAPY. PT RETURNED TO BED. BP NOW 99/51. WCTM.
[2019-01-31 15:41] VITALS: Ht 185.4 cm; Wt 106.1 kg
--- NOTE | 2019-01-31 17:10 | NUR ---
MAGED ROSENBAUM, PLACED ORDERS FOR TELEMETRY. STEAM TURBINE OPERATOR NOTIFIED. WILL OBTAIN.
--- NOTE | 2019-01-31 17:24 | NUR ---
TELEMETRY IN PLACE. PT RUNNING SR 75 AT THIS TIME.
--- NOTE | 2019-01-31 19:38 | NUR ---
AWAKE AND ALERT. RESTING IN BED. RESPIRATIONS UNLABORED. NO DISTRESS NOTED. CALL LIGHT IN REACH
[2019-01-31 21:05] VITALS: BP 103/55
--- NOTE | 2019-02-01 02:48 | NUR ---
SLEEPING WITH RESPIRATIONS UNLABORED. NO DISTRESS NOTED. CALL LIGHT IN REACH.
--- NOTE | 2019-02-01 05:56 | NUR ---
QUIET HOURS. RESTING IN BED. MEDICATED FOR C/O GENERALIZED PAIN. NO ACUTE DISTRESS NOTED. CALL LIGHT IN REACH.
[2019-02-01 08:16] VITALS: BP 121/79
--- NOTE | 2019-02-01 09:11 | NUR ---
PT AM MEDS ADMINISTERED. PT RESTING IN BED. PT DENIES NEEDS. WCTM.
--- NOTE | 2019-02-01 19:20 | NUR ---
BEDSIDE REPORT COMPLETE. PT SITTING UP IN BED WATCHING TV. DENIES ANY NEEDS OR PAIN. NO SIGNS OF ACUTE DISTRESS NOTED. VS STABLE. SHIFT ASSESSMENT COMPLETE. CL IN REACH. FALL PRECAUTIONS IN PLACE. WILL CONTINUE TO MONITOR
[2019-02-01 21:20] VITALS: BP 134/57
--- NOTE | 2019-02-01 23:10 | NUR ---
QUIET HOURS. PT SITTING UP IN BED EATING TURKEY SANDWICH. DENIES ANY NEEDS OR PAIN. NO SIGNS OF ACUTE DISTRESS NOTED. CL IN REACH.
--- NOTE | 2019-02-02 03:35 | NUR ---
PT LYING IN BED EYES CLOSED RESTING QUIETLY. RR EVEN AND UNLABORED. CL IN REACH
--- NOTE | 2019-02-02 06:34 | NUR ---
PT LYING IN BED WATCHING MORNING NEWS. DENIES ANY NEEDS OR PAIN. NO SIGNS OF ACUTE DISTRESS NOTED. CL IN REACH
--- NOTE | 2019-02-02 07:37 | NUR ---
REPORT RECIEVED. PT IN PT AT THIS TIME. RR EVEN AND UNLABORED. NO DISTRESS NOTED. WILL CTM
[2019-02-02 08:00] VITALS: BP 91/54
--- NOTE | 2019-02-02 08:00 | NUR ---
I have reviewed this patient and I concur with the Shift Assessment completed by the Licensed Practical Nurse today this shift.
--- NOTE | 2019-02-02 13:18 | NUR ---
NUTRITION F/U PT UP TO CHAIR FOR LUNCH. 100% INTAKE. +BM RECORDED 02/02/19. WILL CONTINUE TO PROVIDE DIABETIC DIET, MONITOR PO INTAKE. RD FOLLOWING
[2019-02-02 19:22] VITALS: BP 102/52
--- NOTE | 2019-02-02 19:30 | NUR ---
BEDSIDE REPORT COMPLETE. PT LYING IN BED EYES CLOSED RESTING. EASILY AROUSED WITH VERBAL STIMULI. DENIES ANY NEEDS OR PAIN. RR EVEN AND UNLABORED. VS STABLE. SHIFT ASSESSMENT COMPLETE. CL IN REACH. FALL PRECAUTIONS IN PLACE. WILL CONTINUE TO MONTIOR
--- NOTE | 2019-02-02 23:36 | NUR ---
QUIET HOURS. PT LYING IN BED EYES CLOSED RESTING QUIETLY. RR EVEN AND UNLABORED. CL IN REACH
--- NOTE | 2019-02-03 02:29 | NUR ---
PT LYING IN BED EYES CLOSED RESTING. RR EVEN AND UNLABORED. CL IN REACH
--- NOTE | 2019-02-03 07:56 | NUR ---
REPORT RECIEVED. PT DOING PT AT THIS TIME. RR EVEN AND UNLABORED. NO DISTRESS NOTED. WILL CTM
[2019-02-03 07:57] VITALS: BP 150/75
--- NOTE | 2019-02-03 10:10 | NUR ---
The patient is sitting up in bed. He is [place], but he is pleasant and says he is having a good day. He says he went to the gym already this am and worked out.
[2019-02-03 19:17] VITALS: BP 120/55
--- NOTE | 2019-02-03 19:26 | NUR ---
RESTING IN BED WITH RESPIRATIONS UNLABORED. NO ACUTE DISTRESS NOTED. CALL LIGHT IN REACH.
--- NOTE | 2019-02-03 23:19 | NUR ---
SLEEPING WITH RESPIRATIONS UNLABORED. NO DISTRESS NOTED. CALL LIGHT IN REACH.
--- NOTE | 2019-02-04 01:13 | NUR ---
CONTINUES SLEEPING WITH RESPIRATIONS UNLABORED. NO DISTRESS NOTED. CALL LIGHT IN REACH.
--- NOTE | 2019-02-04 06:23 | NUR ---
QUIET HOURS. NO ACUTE CHANGES IN CONDITION THIS SHIFT. MEDICATED FOR PAIN. SEE MAR. CALL LIGHT IN REACH.
[2019-02-04 07:46] VITALS: BP 158/74
--- NOTE | 2019-02-04 07:46 | NUR ---
PT SITTING UP EATING BREAKFAST, DENIES NEEDS. WCTM.
--- NOTE | 2019-02-04 08:22 | NUR ---
PT AM MEDS ADMINISTERED. PT DENIES NEEDS. WCTM.
--- NOTE | 2019-02-04 18:13 | NUR ---
PT RESTING IN BED, DENIES NEEDS. WCTM.
[2019-02-04 19:14] VITALS: BP 125/61
--- NOTE | 2019-02-04 19:27 | NUR ---
AWAKE AND ALERT. RESTING IN BED WITH RESPIRATIONS UNLABORED. NO DISTRESS NOTED. CALL LIGHT IN REACH.
--- NOTE | 2019-02-05 00:52 | NUR ---
SLEEPING WITH NO DISTRESS NOTED. CALL LIGHT IN REACH.
--- NOTE | 2019-02-05 02:17 | NUR ---
CONTINUES RESTING IN BED WITH RESPIRATIONS UNLABORED. NO DISTRESS NOTED. CALL LIGHT IN REACH.
--- NOTE | 2019-02-05 06:24 | NUR ---
QUIET HOURS. MEDICATED FOR C/O GENERALIZED PAIN. SEE MAR. NO ACUTE CHANGES IN CONDITION THIS SHIFT. NO DISTRESS NOTED.
--- NOTE | 2019-02-05 09:00 | NUR ---
PT AM MEDS ADMINISTERED. PT ASSISTED IN TO BATHROOM FOR SHOWER. PT SHOWERED SELF AND THEN ASSISTED BACK TO BED. BED LINENS CHANGED. PT DENIES NEEDS. AT THIS TIME. SILVIA.
[2019-02-05 10:02] VITALS: BP 126/81
[2019-02-05 18:58] VITALS: BP 132/57
--- NOTE | 2019-02-05 19:03 | NUR ---
AWAKE AND ALERT. RESTING IN BED WITH RESPIRATIONS UNLABORED. NO ACUTE DISTRESS NOTED. CALL LIGHT IN REACH.
--- NOTE | 2019-02-05 23:58 | NUR ---
RESTING IN BED WITH RESPIRATIONS UNLABORED. NO DISTRESS NOTED.
--- NOTE | 2019-02-06 02:49 | NUR ---
CONTINUES SLEEPING WITH RESPIRATIONS UNLABORED. NO DISTRESS NOTED.
[2019-02-06 06:24] LABS: BASOPHILS 0.2 % (0-2); EOSINOPHILS 3.2 % (0-7); HEMATOCRIT 32.3 % (42.0-54.0); HEMOGLOBIN 10.2 g/dL (13.5-17.5); IMMATURE GRANULOCYTES 0.2 % (0-5); LYMPHOCYTES 29.1 % (15-50); MCH 28.9 pg (26.0-34.0); MCHC 31.6 g/dL (31.0-37.0); MCV 91.5 fL (80.0-100.0); MEAN PLATELET VOLUME 9.9 fL (7.4-10.4); MONOCYTES 10.5 % (2-11); NEUTROPHILS 56.8 % (40-80); PLATELET COUNT 226 10x3/uL (130-400); RBC 3.53 10x6/uL (4.20-6.10); RDW 17.6 % (11.5-14.5); WBC 8.2 10x3/uL (4.8-10.8)
[2019-02-06 06:39] LABS: ANION GAP 10.9 mmol/L (8-16); CALCIUM 9.1 mg/dL (8.5-10.1); CARBON DIOXIDE 26.5 mmol/L (21.0-32.0); CREATININE - SERUM 1.1 mg/dL (0.6-1.3); POTASSIUM - SERUM 4.4 mmol/L (3.5-5.1)
[2019-02-06 07:45] VITALS: BP 97/66
--- NOTE | 2019-02-06 13:38 | NUR ---
SPOKE WITH ILSA BLACKMON WITH CARDIOLOGY. ILSA STATED SHE WOULD BE BY THIS AFTERNOON TO SEE PT .
[2019-02-06 19:25] VITALS: BP 107/48
--- NOTE | 2019-02-06 19:25 | NUR ---
BEDSIDE REPORT COMPLETE. PT LYING IN BED SUPINE WATCHING TV. ALERT AND ORIENTED X4. DENIES ANY NEEDS. C/O MILD NECK DISCOMFORT. LAST PAIN MEDICATION ADMININSTERED 1710. NO SIGNS OF ACUTE DISTRESS NOTED. VS STABLE. SHIFT ASSESSMENT COMPLETE. 64 SR WITH BB PER BUSINESS PLANNING ANALYST. CL IN REACH. FALL PRECAUTIONS IN PLACE. WILL CONTINUE TO MONITOR
--- NOTE | 2019-02-07 00:40 | NUR ---
QUIET HOURS. PT LYING IN BED SUPINE EYES CLOSED RESTING QUIETLY. RR EVEN AND UNLABORED. CL IN REACH
--- NOTE | 2019-02-07 04:12 | NUR ---
PT LYING IN BED SUPINE EYES CLOSED RESTING. RR EVEN AND UNLABORED. CL IN REACH
--- NOTE | 2019-02-07 06:43 | NUR ---
PT LYING IN BED SUPINE EYES CLOSED RESTING. RR EVEN AND UNLABORED. CL IN REACH
[2019-02-07 08:09] VITALS: BP 132/67
--- NOTE | 2019-02-07 14:24 | NUR ---
LEFT HEEL IS NEARLY HEALED. THERE IS A 0.3CM X 0.3CM SCABBED AREA WITH NO DEPTH OR DRAINAGE. THE SKIN BELOW IS DRY AND PEELING. COVERED WITH MEPILEX BORDER TO PROTECT.
[2019-02-07 19:10] VITALS: BP 119/59
--- NOTE | 2019-02-07 19:10 | NUR ---
BEDSIDE REPORT COMPLETE. PT LYING IN BED SUPINE EYES CLOSED RESTING. EASILY AROUSED WITH VERBAL STIMULI. DENIES ANY NEEDS OR PAIN. NO SIGNS OF ACUTE DISTRESS NOTED. LEFT HEEL DRESSING C/D/I. VS STABLE. SHIFT ASSESSMENT COMPLETE. CL IN REACH. FALL PRECAUTIONS IN PLACE. WILL CONTINUE TO MONITOR
--- NOTE | 2019-02-07 23:48 | NUR ---
QUIET HOURS. PT LYING IN BED SUPINE EYES CLOSED RESTING. RR EVEN AND UNLABORED. CL IN REACH
[2019-02-08] VITALS (8 sets, daily range): BP systolic 74–161; BP diastolic 43–80
--- NOTE | 2019-02-08 03:35 | NUR ---
PT LYING IN BED EYES CLOSED RESTING. NO SIGN OF ACUTE DISTRESS NOTED. CL IN REACH
--- NOTE | 2019-02-08 06:37 | NUR ---
PT LYING IN BED EYES CLOSED RESTING. RR EVEN AND UNLABORED. CL IN REACH.
--- NOTE | 2019-02-08 08:00 | NUR ---
SHIFT ASSMT COMPLETED.
[2019-02-08] MEDS ORDERED: NAMENDA5 MG PO (08:09)
[2019-02-08] MEDS ORDERED: COREG 3.1253.125 MG PO (08:10)
--- NOTE | 2019-02-08 11:09 | NUR ---
ILSA WITH CARDIOLOGY NOTIFIED D/T BP DROPPING IN 60'S/30'S.FOR MOMENT C/O DIZZIENESS.HAD TO PLACE BACK TO BED TO GET BP BACK UP TO 118/69.
--- NOTE | 2019-02-08 13:04 | NUR ---
Nutrition Follow-up: Diet: Diabetic PO intake: 100% Noted in new diet order pt is allowed regular soda with lunch and dinner trays. Wound to "left heel is nearly healed" per supplier specialist notes. Last BM= 02/08/19 x 2. Wt: 234# (01/16/19), no new wt. Significant meds: lantus, SSI. Labs noted: Glu 134. Continue current nutrition regimen. RD Following.
--- NOTE | 2019-02-08 14:07 | EC ---
PATIENT:ELLIOTT SILVERIO DATE OF SERVICE: 01/11/19 SEX: M MEDICAL RECORD: [id number] DATE OF : 42 LOCATION:[place] [address] AGE OF PATIENT: 78 ADMISSION DATE: 01/11/19 REFERRING PHYSICIAN: INTERPRETING PHYSICIAN: REINIER TERRY MD ECHOCARDIOGRAM REPORT ECHO CHARGES 4 ECHO COMPLETE Date: 02/01/19 CLINICAL DIAGNOSIS: MURMUR HX CAD/HTN ECHOCARDIOGRAPHIC MEASUREMENTS (adult normal given) AC root (d.<3.7cm) 4.2 cm LV Septum d (<1.2 cm> 1.3 cm Valve Excursion 1.4 cm LV Septum (systole) 1.5 cm Left Atria (s.<4.0cm> 3.9 cm LVPW d(<1.2cm) 1.3 cm RV (d.<2.3cm) 4.0 cm LVPW (sytole) 1.6 cm LV diastole(<5.6CM) 6.0 cm MV E-F(>70mm/sec) cm LV systole 4.6 cm LVOT Diameter 2.7 cm MV exc.(>10mm) 1.3 cm Est.ejection fraction (50-75%) % DOPPLER: LVIT cm/sec A 134.0cm/sec E 72.0 cm/sec LA cm/sec RVSP 24 mmHg LVOT 117 cm/sec AOP1/2T m/s Asc. Ao 235 cm/sec RVOT 61 cm/sec RA cm/sec PA 140 cm/sec AV Gradient Peak 22.0 mmHg AV Mean 11.26mmHg AV Area 3.1 cm MV Gradient Peak 10.32mmHg MV Mean 3.24 mmHg MV Area cm COMMENTS: Golf Cart Repairer: Mary Anne BLANCAS Assistant Track Coach: 1 Dr. Terry TAPE# PACS Pericardial Effusion N DATE OF SERVICE: 02/01/2019 FINDINGS: 1. Left ventricular chamber size is within normal limits. Left ventricular systolic function is normal. Overall ejection fraction estimated at 55% to 60%. 2. Left atrium is within normal limits at 3.9 cm. Right atrium and right ventricular chamber sizes are within normal limits. 3. Valvular structures: Aortic valve demonstrates mild calcific aortic stenosis. There is a gradient of 22 mm across the valve. The valve area calculates greater than 2.0 cm-squared. The remaining valvular structures have ECHOCARDIOGRAM REPORT [id number] NUSRAT,ELLIOTT Tra normal structure and motion. 4. Doppler interrogation elsewise reveals no other valvular insufficiency or stenosis. Pulmonary systolic pressure is normal estimated at 24 mmHg. 5. No evidence of pericardial effusion or left ventricular thrombus. TRANSINT:[id number] Voice Confirmation ID: [id number] DOCUMENT ID: [id number] REINIER TERRY MD at 1407 CC: [id number] DICTATION DATE: 02/01/19 1602 ROOFER APPLICATOR: 02/02/19 0020 ADM IN [place] [id number] [place] [id number]
--- NOTE | 2019-02-08 14:30 | NUR ---
ILSA LYNNE WITH CARDIOLOGY VISITED.WILL PLAN DC IN AM
--- NOTE | 2019-02-08 15:41 | NUR ---
CARE TEAM MEETING: PATIENT DOING WELL IN THERAPY. TENTIVE DISCHARGE DATE IS 02/09/19. WILL CONTINUE TO FOLLOW WITH PATIENT
--- NOTE | 2019-02-08 19:56 | NUR ---
AWAKE AND ALERT. RESTING IN BED WITH RESPIRATIONS UNLABORED. NO DISTRESS NOTED. CALL LIGHT IN REACH.
--- NOTE | 2019-02-09 03:13 | NUR ---
ASSISTED TO BATHROOM AND BACK TO BED. RESTING NOW WITH NO DISTRESS NOTED.
--- NOTE | 2019-02-09 06:17 | NUR ---
QUIET HOURS. NO ACUTE CHANGES IN CONDITION THIS SHIFT. NO DISTRESS NOTED. CALL LIGHT IN REACH.
--- NOTE | 2019-02-09 08:00 | NUR ---
SHIFT ASSMT COMPLETED.BREAKFAST GIVEN.CL IN REACH.
[2019-02-09 08:34] VITALS: BP 181/87
--- NOTE | 2019-02-09 09:39 | NUR ---
PATIENT DISCHARGING HOME TODAY WITH FAMILY. NO NEW DME NEEDED AT THIS TIME. [facility] FORM SIGNED, COPY GIVEN TO PATIENT AND FILED IN CHART. PATIENT WILL HAVE TO SEE PCP AT [place] BEFORE HOME HEALTH CAN BE ORDERED. DR. ARTEAGA AT [facility] 02/23/19 @ 1:00. DISCHARGE INSTRUCTIONS FAXED TO PCP.
--- NOTE | 2019-02-09 12:00 | NUR ---
DENIES NEEDS.REVIEWED MEDS.STATES [facility] TO TAKE CARE OF MEDICATIONS.EXPLAINED THAT MEDICATIONS HAS CHANGED.WILL SPEAK WITH SON IN LAW.
--- NOTE | 2019-02-09 17:10 | NUR ---
SON IN LAW HERE REVIEWED MEDS AND F/U APPT.DISCHARGED IN STABLE CONDITION.
== END 2019-02-09 17:13 | disposition home health service (06) | DRG 71 ==
LOC: D.REHAB 18:09
PROVIDERS: ADMIT Emergency Medicine; ATTEND Emergency Medicine
DX: G93.41 Metabolic encephalopathy (principal); N39.0 Urinary tract infection, site not specified; N17.9 Acute kidney failure, unspecified; R26.9 Unspecified abnormalities of gait and mobility; I73.9 Peripheral vascular disease, unspecified; G89.29 Other chronic pain; E11.9 Type 2 diabetes mellitus without complications; R53.81 Other malaise; E87.8 Other disorders of electrolyte and fluid balance, not elsewhere classified; I95.1 Orthostatic hypotension; E78.5 Hyperlipidemia, unspecified

== ENCOUNTER 2019-02-18 12:03 | Inpatient (IN) | payer MEDICARE ==
[~2019-02-18] VITALS: Ht 185.4 cm; Wt 106.1 kg
[~2019-02-18 12:03] MED LIST: ALPHAGAN P 0.155 ML EACH EYE; BENADRYL25 MG PO; BUPROPION HCL200 M1 PO; BUSPAR10 MG PO; COLACE100 MG PO; COREG 3.1253.125 MG PO; COREG6.25 MG PO; CYMBALTA30 MG PO; FLOMAX0.4 MG PO; FUROSEMIDE40 MG PO; HYDROCODON-ACE1 EA10 PO; ISOSORBIDE MONO30 M1 PO; LANTUS SOL100 UNIT/1 SC; LIPITOR80 MG PO; NAMENDA5 MG PO; NYSTATIN OINTME15 GM TOPICAL; OMEPRAZOLE20 M1 PO; ROBAXIN500 MG PO; VITAMIN D31000 UNIT PO
--- NOTE | 2019-02-18 12:31 | NUR ---
NIKA CARE PROVIDED TO PATIENT. LINENS CHANGED. PT REPORTS HE HAS BEEN SITTING IN HIS FECES FOR 2 DAYS. "MY DAUGHTER GOT A NEW BOYFRIEND AND SHE DON'T CARE ABOUT ME ANYMORE." PT REPORTS SINCE FRACTURING HIS FEMUR EARLIER IN THE YEAR, HE HAS BEEN IN AND OUT OF DIFFERENT REHABS AND CONTINUES TO BE UNABLE TO TAKE CARE OF HIMSELF.
[2019-02-18 12:42] LABS: APPEARANCE CLEAR (CLEAR); BILIRUBIN NEGATIVE (NEGATIVE); COLOR YELLOW (YELLOW); EPITHELIAL CELLS 0-5 /hpf (0-5); GLUCOSE 50 mg/dL (NEGATIVE); KETONE NEGATIVE (NEGATIVE); NITRITE NEGATIVE (NEGATIVE); PROTEIN NEGATIVE (NEGATIVE); RED CELLS - URINE 0-5 /hpf (0-5); UROBILINOGEN NORMAL (NORMAL)
[2019-02-18 12:43] LABS: BACTERIA MODERATE /hpf (NEGATIVE)
--- NOTE | 2019-02-18 12:44 | NUR ---
PATIENT ON BED BUI. HAD BM. PERICARE PROVIDED TO PATIENT.
[2019-02-18 13:11] LABS: UDS - AMPHET NEGATIVE QUAL (NEGATIVE); UDS - BARB NEGATIVE QUAL (NEGATIVE); UDS - BENZO NEGATIVE QUAL (NEGATIVE); UDS - COCAINE NEGATIVE QUAL (NEGATIVE); UDS - OPIATE POSITIVE QUAL (NEGATIVE); UDS - PCP NEGATIVE QUAL (NEGATIVE); UDS - THC NEGATIVE QUAL (NEGATIVE)
[2019-02-18 13:18] LABS: BASOPHILS 0.2 % (0-2); EOSINOPHILS 1.8 % (0-7); HEMATOCRIT 30.5 % (42.0-54.0); HEMOGLOBIN 9.7 g/dL (13.5-17.5); IMMATURE GRANULOCYTES 0.3 % (0-5); LYMPHOCYTES 16.3 % (15-50); MCH 28.9 pg (26.0-34.0); MCHC 31.8 g/dL (31.0-37.0); MCV 90.8 fL (80.0-100.0); MONOCYTES 7.5 % (2-11); NEUTROPHILS 73.9 % (40-80); RBC 3.36 10x6/uL (4.20-6.10); RDW 17.2 % (11.5-14.5); WBC 10.7 10x3/uL (4.8-10.8)
[2019-02-18 13:20] LABS: PLATELET COUNT 280 10x3/uL (130-400)
[2019-02-18 13:29] LABS: CALCIUM 8.9 mg/dL (8.5-10.1); CARBON DIOXIDE 26.7 mmol/L (21.0-32.0); CREATININE - SERUM 2.8 mg/dL (0.6-1.3); POTASSIUM - SERUM 4.7 mmol/L (3.5-5.1)
[2019-02-18 13:51] LABS: ALBUMIN 2.8 g/dL (3.4-5.0); BILIRUBIN - TOTAL 0.45 mg/dL (0.2-1.3); PROTEIN - SERUM 7.8 g/dL (6.4-8.2); THYROID STIMULATING HORMONE 2.32 uIU/mL (0.36-3.74)
[2019-02-18 13:52] LABS: TROPONIN-I 0.275 ng/mL (0.000-0.060)
[2019-02-18 14:29] VITALS: BP 162/77
--- NOTE | 2019-02-18 14:29 | NUR ---
PT HAD ANOTHER BM. PERICARE PROVIDED AND LINENS CHANGED. WILL MONITOR.
[2019-02-18 14:34] LABS: CKMB 5.9 U/L (0.0-3.6); CREATINE KINASE 532 UL (21-232); PRO BNP 6579 pg/mL (0-450)
[2019-02-18 14:49] LABS: INR 1.03 (0.85-1.17); PROTIME 13.1 SECONDS (11.6-15.0)
[2019-02-18 16:15] VITALS: BP 152/66
--- NOTE | 2019-02-18 17:00 | NUR ---
PT RESTING IN BED AT THIS TIME.
[2019-02-18 17:32] VITALS: BMI 30.9
--- NOTE | 2019-02-18 17:50 | NUR ---
ASSESSMENT COMPLETE RESP UNLABORED PT CONFUSED HALLUCINATING AND DELUSIONAL SEES THINGS THAT ARE NOT THERE AND SEES ITEMS AND THINKS THEY ARE SOMETHING ELSE ORIENTED TO SELF BED IN LOW POSITION YANICK MAT ON BED AND ALARM SET CALL LIGHT IN REACH SIDE RAILS UP X2 WILL MONITOR FREQUENTLY PT UNABLE TO TELL WHAT HOME MEDICATIONS HE IS PRESENTLY ON
--- NOTE | 2019-02-18 19:27 | NUR ---
INITIAL ROUNDS COMPLETED. PT INCONTINENT OF STOOL. VOIDED 150 OF CONCENTRATED URINE PER URINE. PT CLEANED, BED LINENS CHANGED. SR UP X2,CALL LIGHT WITHIN REACH AND BED ALRM ON.
[2019-02-18 20:00] VITALS: BP 152/72
--- NOTE | 2019-02-18 23:13 | NUR ---
ASSESSMENT COMPLETED AT 2000 HRS. VSS. PT ALERT, ORIENTED TO PERSON ONLY. PT HAVING VISUAL HALLUCINATIONS STATING THERE ARE 8 PEOPLE IN THE ROOM DANCING. INFORMED PT ONLY THE NURSE AND HIM ARE IN THE ROOM. PT THEN SAID" OH, I'M HAVING SOME MORE HALLUCINATIONS.". IV TO R WRIST WITH NS AT 100CC/HR. IV PATENT. LUNGS DIMINISHED IN BASES BILAT. BUTTOCKS EXCORIATED. LOWER LEGS RED WITH 1+ PITTING EDEMA. NUMEROUS SORES NOTED TO R FOOT. SORES NOTED TO L HAND. PT CURRENTLY RESTING WITH EYES CLOSED. RESP EVEN AND REGULAR. SR UPX2, CALL LIGHT WITHIN REACH AND BED ALARM ON.
[2019-02-19] VITALS (7 sets, daily range): BP systolic 103–154; BP diastolic 46–82
--- NOTE | 2019-02-19 00:38 | NUR ---
PT INCONTINENT OF URINE AND STOOL. INCONTINENT CARE DONE, BED LINENS CHANGED. PT TOLERATED ACTIVITY WELL. SR UP X2, CALL LIGHT WITHIN REACH AND BED ALARM ON.
--- NOTE | 2019-02-19 01:23 | NUR ---
PT RESTING WITH EYES CLOSED. RESP EVEN AND REGULAR. SR UP X2, CALL LIGHT WITHIN REACH AND BED ALARM ON.
--- NOTE | 2019-02-19 03:18 | NUR ---
PT RESTING WITH EYES CLOSED. RESP EVEN AND REGULAR. SR UP X2, CALL LIGHT WITHIN REACH.
--- NOTE | 2019-02-19 04:10 | NUR ---
PT RESTING WITH EYES CLOSED. RESP EVEN AND REGULAR. SR UP X2, CALL LIGHT WITHIN REACH.
--- NOTE | 2019-02-19 04:31 | NUR ---
PT INCONTINENT OF BOWEL AND BLADDER. INCONTINENT CARE DONE, BED LINENS CHANGED. PT TOLERTED ACTIVITY WELL. SR UP X2, CALL LIGHT WITHIN REACH AND BED ALARM ON.
[2019-02-19 05:41] LABS: BASOPHILS 0.3 % (0-2); EOSINOPHILS 5.3 % (0-7); HEMATOCRIT 30.3 % (42.0-54.0); HEMOGLOBIN 9.5 g/dL (13.5-17.5); IMMATURE GRANULOCYTES 0.3 % (0-5); LYMPHOCYTES 31.1 % (15-50); MCH 28.4 pg (26.0-34.0); MCHC 31.4 g/dL (31.0-37.0); MCV 90.7 fL (80.0-100.0); MEAN PLATELET VOLUME 9.9 fL (7.4-10.4); MONOCYTES 7.8 % (2-11); NEUTROPHILS 55.2 % (40-80); PLATELET COUNT 272 10x3/uL (130-400); RBC 3.34 10x6/uL (4.20-6.10); RDW 17.4 % (11.5-14.5); WBC 7.3 10x3/uL (4.8-10.8)
[2019-02-19 06:15] LABS: ALBUMIN 2.6 g/dL (3.4-5.0); ALKALINE PHOSPHATASE 203 U/L (46-116); ALT (SGPT) 49 U/L (10-68); BILIRUBIN - TOTAL 0.49 mg/dL (0.2-1.3); CALCIUM 8.9 mg/dL (8.5-10.1); CARBON DIOXIDE 24.4 mmol/L (21.0-32.0); CHLORIDE - SERUM 105 mmol/L (98-107); CREATINE KINASE 213 UL (21-232); CREATININE - SERUM 2.1 mg/dL (0.6-1.3); PROTEIN - SERUM 6.9 g/dL (6.4-8.2); SODIUM 138 mmol/L (136-145); UREA NITROGEN 77 mg/dL (7-18); eGFR NON AFRICAN AMERICAN 33 mL/min (90-120)
[2019-02-19 06:16] LABS: CALC OSMOLALITY 300 mosm/kg (275-300); GLUCOSE 129 mg/dL (74-106); POTASSIUM - SERUM 3.5 mmol/L (3.5-5.1); TROPONIN-I 0.215 ng/mL (0.000-0.060)
--- NOTE | 2019-02-19 06:16 | NUR ---
VSS THROUGHOUT NIGHT. SR PER CM. PT INCONTINENT OF URINE AND STOOL X3 DURING SHIFT. CONTINUES TO HAVE VISUAL HALLUCINATIONS. NEEDS MET; WILL CONTINUE TO MONITOR.
--- NOTE | 2019-02-19 07:00 | NUR ---
RECEIVED REPORT. BEDSIDE SHIFT REPORT COMPLETE. ASSUMED CARE OF PATIENT. PT RESTING WITH EYES CLOSED. EASILY AROUSED. RESP EVEN AND UNLABORED. IV IS POSITIONAL TO RIGHT THUMB/HAND. DENIES NEEDS. CALL LIGHT WITHIN REACH. NO DISTRESS.
--- NOTE | 2019-02-19 07:40 | NUR ---
20 GAUGE IV PLACED TO LEFT WRIST X 1 STICK. GOOD BLOOD RETURN, EASY FLUSH. TAPED, DATED, AND SECURED. TOLERATED IV PLACEMENT WELL. IV FLUIDS INFUSING ORDERED AT THIS TIME. CALL LIGHT WITHIN REACH. NO DISTRESS.
--- NOTE | 2019-02-19 11:30 | NUR ---
FSBS 208. 4 UNITS HUMULIN ADMINISTERED PER SLIDING SCALE. NO DISTRESS.
[2019-02-19 12:01] LABS: % SATURATION 18 % (15-55); IRON 28 ug/dl (35-150); TOTAL IRON BIND CAPACITY 151 ug/dl (260-445); UNSAT IRON BIND CAPACITY 123 ug/dl (150-375)
--- NOTE | 2019-02-19 14:00 | NUR ---
WOUND CARE PROVIDED TO LEFT HEEL PRESSURE INJURY. CLEANSED, ADAPTIC APPLIED TO WOUND BED AND COVER WITH DRY DRESSING. NO DRAINAGE NOTED. WOUND BED APPEARS RED AND HEALTHLY.
--- NOTE | 2019-02-19 16:25 | NUR ---
PHARMACY TO RETIME [facility] FOR 2099.
--- NOTE | 2019-02-19 16:56 | NUR ---
FSBS 256. 6 UNITS HUMULIN ADMINISTERED PER SLIDING SCALE. NO DISTRESS.
--- NOTE | 2019-02-19 19:20 | NUR ---
INITIAL ROUNDS COMPLETED. PT INCONTINENT OF STOOL. INCONTINENT CARE DONE, BED LINENS CHANGED. PT TOLERATED ACTIVITY WELL. SR UP X2, CALL LIGHT WITHIN REACH.
--- NOTE | 2019-02-19 22:36 | NUR ---
ASSESSMENT COMPLETED AT 2000 HRS. VSS. ALERT AND ORIENTED TO PERSON, PLACE AND TIME. ESPITIA. IV TO LFA WITH NS AT 75CC/HR. IV PATENT. LUNGS DIMINISHED IN BASES BILAT. BUTTOCKS EXCORIATED. DRESSING TO L HEEL CLEAN,DRY AND INTACT. NUMEROUS SORES NOTED TO LARM, L AND AND R FOOT. BILAT LOWER LEGS RE WITH 1+PITTING EDEMA. LUNGS DIMINISHED IN BASES BILAT. ABD SOFT WITH ACTIVE BS NOTED. 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 PM MEDS IGVEN. PM FSBS 141. NO COVERAGE NEEDED. PEANUT BUTTER AND CRACKERS GIVEN PER REQUEST. PT CURRENTLY RESTING WITH EYES CLOSED. RESP EVEN AND REGULAR. SR UP X2, CALL LIGHT WITHIN REACH AND BED ALARM ON.
[2019-02-20] VITALS: BP 101/40
--- NOTE | 2019-02-20 00:36 | NUR ---
PT STATES BACK PAIN NOW 07/13. STATES IV HURTING. SITE SWOLLEN. IV STOPPED.
--- NOTE | 2019-02-20 01:01 | NUR ---
IV TO INNER L FA DC'D WITH CATHETER INTACT. NEW IV STARTED #20 TO LFA WITH ATTEMPT X1. PT TOLERATED ACTIVITY WELL. NS RESTARTED AT 75CC/HR. SR UP X2, CALL LIGHT WITHIN REACH AND BED ALARM ON.
--- NOTE | 2019-02-20 01:50 | NUR ---
PT AWAKE; STATES CHRONIC BACK PIAN IN TOLERABLE. SR UP X2,CALL LIGHT WITHIN REACH AND BED ALARM ON.
--- NOTE | 2019-02-20 03:46 | NUR ---
PT INCONTINENT OF STOOL. INCONTINENT CARE DONE. CALL LIGHT WITHIN REACH.
[2019-02-20 04:00] VITALS: BP 104/45
[2019-02-20 05:26] LABS: BASOPHILS 0.3 % (0-2); EOSINOPHILS 5.7 % (0-7); HEMATOCRIT 25.8 % (42.0-54.0); HEMOGLOBIN 8.2 g/dL (13.5-17.5); IMMATURE GRANULOCYTES 0.3 % (0-5); LYMPHOCYTES 35.4 % (15-50); MCH 28.9 pg (26.0-34.0); MCHC 31.8 g/dL (31.0-37.0); MCV 90.8 fL (80.0-100.0); MEAN PLATELET VOLUME 9.9 fL (7.4-10.4); MONOCYTES 8.5 % (2-11); NEUTROPHILS 49.8 % (40-80); RBC 2.84 10x6/uL (4.20-6.10); RDW 17.7 % (11.5-14.5); WBC 7.2 10x3/uL (4.8-10.8)
[2019-02-20 05:32] LABS: PLATELET COUNT 216 10x3/uL (130-400)
[2019-02-20 05:51] LABS: CALCIUM 7.8 mg/dL (8.5-10.1); CARBON DIOXIDE 26.3 mmol/L (21.0-32.0); CREATININE - SERUM 1.9 mg/dL (0.6-1.3); POTASSIUM - SERUM 3.3 mmol/L (3.5-5.1)
--- NOTE | 2019-02-20 05:55 | NUR ---
VSS THROUGHOUT NIGHT. SR PER CM. PT STATED [place]CO CONTROLLED CHRONIC BACK PAIN. NEEDS MET; WILL CONTINUE TO MONITOR.
--- NOTE | 2019-02-20 09:29 | CN ---
PATIENT NAME:ELLIOTT SILVERIO MEDICAL RECORD: [id number] : 42 LOCATION:D. D.2124 ADMIT DATE: 02/18/19 ACCOUNT: [id number] CONSULTING PHYSICIAN: REINIER GARRISON MD REFERRING PHYSICIAN: MELISSA RAMIREZ MD DATE OF CONSULTATION: 02/19/2019 DIAGNOSES: 1. Non-Q-wave myocardial infarction, elevated troponin. 2. Anemia. 3. Mental status changes, confusion. 4. Hypertension. 5. Hyperlipidemia. 6. Diabetes. 7. Abnormal ECG. HISTORY OF PRESENT ILLNESS: This is a gentleman who was brought here by his family for a detention evaluation, now brought here for cardiac reasons, found to have elevated troponin at 0.25. He does have T-wave inversions in the lateral leads. He denies any chest pain. He is very confused. He does admit to shortness of breath. He has a history of hypertension, hyperlipidemia, diabetes. No history of ischemic heart disease. PHYSICAL EXAMINATION: CONSTITUTIONAL/GENERAL APPEARANCE: Well nourished, well developed, appears stated age. EYES: Lids and conjunctivae noninjected. No discharge. No pallor. ENT: Lips within normal limit. No cyanosis. No pallor. NECK: Carotid arteries, bilateral normal upstroke. No bruits. No thrills. No jugular venous pressure or distention. CERVICAL LYMPH NODES: Nontender. Nonenlarged. THYROID: Not enlarged. No nodules. CARDIOVASCULAR: Precordial exam, nondisplaced. No heaves or pericardial thrills. Rate and rhythm, regular. Heart sounds, normal S1, normal S2. No S3, no gallop, no rub. Systolic murmur, not heard. Diastolic murmur, not heard. RESPIRATORY: Respiratory effort, unlabored. Normal curvature. No thoracic deformity. No chest wall tenderness. Percussion, resonant. Auscultation, clear. No wheezes, no rales, no rhonchi. ABDOMEN: Soft, nondistended, nontender. No abdominal pain, no vomiting and normal appetite. MUSCULOSKELETAL: No joint tenderness, normal gait, normal tone. SKIN: Warm and dry. OVERALL IMPRESSION: Non-Q-wave myocardial infarction. At this time, due to his mental status changes in his other medical problems, we will treat medically. No other cardiac workup or treatment is necessary. He recently had an echocardiogram with a normal ejection fraction, mild calcific aortic stenosis. TRANSINT:[id number] Voice Confirmation ID: [id number] DOCUMENT ID: [id number] CONSULT REPORT [id number] NUSRAT,REINIER ACEVEDO MD at 0929 CC: [id number] DICTATION DATE: 02/19/19 1043 MERCHANDISING REPRESENTATIVE: 02/19/19 1058 ADM IN [place] [id number] [place] [id number]
[2019-02-20 11:13] VITALS: BP 98/51
--- NOTE | 2019-02-20 11:35 | NUR ---
BLOOD SUGAR OF 171, 2UNITS OF HUMULIN GIVEN PER S/S. PT RESTING COMFORTABLY IN BED, DENIES ANY NEEDS AT THIS TIME. CALL LIGHT IN REACH, NAD NOTED, WILL CONTINUE TO MONITOR.
--- NOTE | 2019-02-20 14:32 | NUR ---
PT HAS A HEALING STAGE 2 PRESSURE INJURY ON HIS LEFT HEEL. HE STATES IT HAS HEALED AND OPENED BACK UP NUMEROUS TIMES. THE WOUND MEASURES 1CM X 3CM X 0.5CM. WOUND BED IS RED AND PERIWOUND IS DRY. THERE IS NO ODOR OR DRAINAGE NOTED. PROTECTED WITH MEPILEX. RECOMMEND KEEPING COVERED WITH MEPILEX. BRIDGE/FLOAT HEELS WOUND CARE WILL CONTINUE MONITORING.
[2019-02-20 14:48] VITALS: Ht 185.4 cm; Wt 106.1 kg
[2019-02-20 14:57] VITALS: BP 123/52
[2019-02-20 17:33] VITALS: BP 140/66
--- NOTE | 2019-02-20 19:58 | NUR ---
RECEIVED BEDSIDE REPORT. PATIENT IS ALERT AND ORIENTED, RESTING COMFORTABLY IN BED. RESPIRATIONS ARE EVEN AND UNLABORED. NO S/S OF DISTRESS. NO C/O PAIN. CALL LIGHT WITHIN REACH. WILL CPOC.
[2019-02-20 20:34] VITALS: BP 112/67
[2019-02-21 01:10] VITALS: BP 150/72
[2019-02-21 05:30] LABS: BASOPHILS 0.1 % (0-2); EOSINOPHILS 6.3 % (0-7); HEMATOCRIT 27.9 % (42.0-54.0); HEMOGLOBIN 8.8 g/dL (13.5-17.5); IMMATURE GRANULOCYTES 0.3 % (0-5); LYMPHOCYTES 29.4 % (15-50); MCH 28.8 pg (26.0-34.0); MCHC 31.5 g/dL (31.0-37.0); MCV 91.2 fL (80.0-100.0); MEAN PLATELET VOLUME 9.8 fL (7.4-10.4); MONOCYTES 10.1 % (2-11); NEUTROPHILS 53.8 % (40-80); PLATELET COUNT 236 10x3/uL (130-400); RBC 3.06 10x6/uL (4.20-6.10); RDW 17.7 % (11.5-14.5); WBC 6.9 10x3/uL (4.8-10.8)
--- NOTE | 2019-02-21 05:30 | NUR ---
LEFT HEEL CLEANED. MEPILEX BORDERED GAUZE APPLIED TO LEFT HEEL.
[2019-02-21 05:33] LABS: ANION GAP 11.7 mmol/L (8-16); CALCIUM 8.1 mg/dL (8.5-10.1); CARBON DIOXIDE 25.8 mmol/L (21.0-32.0); CREATININE - SERUM 1.8 mg/dL (0.6-1.3); POTASSIUM - SERUM 3.5 mmol/L (3.5-5.1)
[2019-02-21 05:58] VITALS: BP 150/63
--- NOTE | 2019-02-21 08:43 | NUR ---
AM MEDS GIVEN AT THIS TIME. ALSO GAVE NORCO FOR PAIN LEVEL OF 10/10. PT DENIES ANY OTHER NEEDS AT THIS TIME. CALL LIGHT IN REACH, NAD NOTED,WILL CONTINUE TO MONITOR.
[2019-02-21 09:04] VITALS: BP 157/71
[2019-02-21 12:25] VITALS: BP 140/45
[2019-02-21 16:17] VITALS: BP 126/59
--- NOTE | 2019-02-21 17:05 | MORECARE ---
CASE MANAGEMENT DISCHARGE SUMMARY PATIENT: ELLIOTT SILVERIO UNIT: [id number] ADM DATE: 02/18/19 AGE: 78 : 41 SEX: M ROOM/BED: D.2124 AUTHOR: KATIE BLANCAS PHYSICIAN: REFERRING PHYSICIAN: MELISSA RAMIREZ MD DATE OF SERVICE: 02/21/19 Discharge Plan Patient Name: ELLIOTT SILVERIO [facility] [place] [facility] 1940 Planned Disposition: Assisted Living Anticipated Discharge Date: Discharge Date: Expected LOS: Initial Reviewer: [id number] Initial Review Date: 02/18/2019 Generated: 02/21/19 6:05 pm DCPIA - Discharge Planning Initial Assessment Updated by [id number]: Wil Dewitt on 02/21/19 5:01 pm * Is the patient Alert and Oriented? Yes * How many steps to enter\exit or inside your home? * PCP DR. ARTEAGA, [facility] * Pharmacy [facility] * Preadmission Environment Home Alone * ADLs Independent * Equipment Bedside Commode Cane Crutch Walker Wheelchair * Other Equipment [facility] * List name and contact numbers for known caregivers / representatives who currently or will assist patient after discharge: HARITHA SILVERIO, DTR, * Verbal permission to speak to the caregivers and representatives has been obtained from the patient. N/A * Community resources currently utilized None * Please name any agencies selected above. NONE * Additional services required to return to the preadmission environment? No * Can the patient safely return to the preadmission environment? Yes * Has this patient been hospitalized within the prior 30 days at any hospital? Yes Patient Name: ELLIOTT SILVERIO Page [phone] at 1705 All edits/amendments must be made on the electronic document DICTATION DATE: 02/21/191703 MOTOR GRADER OPERATOR: ERIC 02/21/191703 RPT#: [id number] DC DATE: STATUS: ADM IN [facility] [address] [place] [address] END OF REPORT
--- NOTE | 2019-02-21 17:07 | NUR ---
NOTIFIED BY MEDICAL ASSISTANT PRN THAT PT HAD 13 BEAT RUN OF [place]. NOTIFIED ILSA Lemons APRN WITH CARDIOLOGY.
--- NOTE | 2019-02-21 17:14 | MORECARE ---
CASE MANAGEMENT DISCHARGE SUMMARY PATIENT: ELLIOTT SILVERIO UNIT: [id number] ADM DATE: 02/18/19 AGE: 78 : 41 SEX: M ROOM/BED: D.8757 AUTHOR: MAGALIS,DOC PHYSICIAN: REFERRING PHYSICIAN: MELISSA RAMIREZ MD DATE OF SERVICE: 02/21/19 Discharge Plan Patient Name: ELLIOTT SILVERIO Facility: [facility]:[place] : 1940 Planned Disposition: Assisted Living Anticipated Discharge Date: Discharge Date: Expected LOS: Initial Reviewer: [id number] Initial Review Date: 02/18/2019 Generated: 02/21/19 6:13 pm Comments DCP- Discharge Planning Updated by [email or web address]: Wil Dewitt on 02/21/19 4:[address] Patient Name: ELLIOTT SILVERIO Admission Status: ER Accout number: [id number] Admission Date: 02-18-2019 : 1940 Admission Diagnosis: Attending: MELISSA RAMIREZ Current LOS: 3 Anticipated DC Date: Planned Disposition: Assisted Living Primary Insurance: MEDICARE PART A ONLY PLANNED EXTERNAL PROVIDER: [facility] Discharge Planning Comments: CM MET WITH PT IN ROOM TO DISCUSS DISCHARGE PLANNING AND NEEDS. PT REPORTS LIVING AT HOME INDEPENDENTLY AND ALONE. PT'S ADULT DAUGHTER AND SON IN LAW HAVE BEEN COMING OVER TO HELP PICK HIM UP WHEN HE FALLS AND CAN'T GET UP AND NOW ADULT PROTECTIVE SERVICES IS INVOLVED. PT REPORTS HE WANTS TO GO HOME BUT CANNOT CARE FOR HIMSELF ANY LONGER. PT HAS BEDSIDE COMMODE, CR[facility] PT HAS NO OUTSIDE SERVICES ASSISTING IN THE HOME. CM DISCUSSED AVAILABILITY OF HOME HEALTH, REHAB SERVICES AND MEDICAL EQUIPMENT. [facility]. CHOICE SIGNED FOR [facility] OR NO [facility]REFERENCE ON [facility]. IMPORTANT MESSAGE FROM MEDICARE PROVIDED AND EXPLAINED. CM TO WORK ON PLACEMENT IN [facility] FOR [facility] CARE. SECOND CHOICE IS ANY CORRECTION. Floors Buffer: Wil Dewitt DCPIA - Discharge Planning Initial Assessment Updated by [email or web address]: Wil Dewitt on 02/21/19 5:01 pm * Is the patient Alert and Oriented? Yes * How many steps to enter\exit or inside your home? * PCP DR. ARTEAGA, [facility] * Pharmacy [facility] * Preadmission Environment Home Alone * ADLs Independent * Equipment Bedside Commode Cane Crutch Walker Wheelchair * Other Equipment [facility] * List name and contact numbers for known caregivers / representatives who currently or will assist patient after discharge: HARITHA TABARESRP, DTR, * Verbal permission to speak to the caregivers and representatives has been obtained from the patient. N/A * Community resources currently utilized None * Please name any agencies selected above. NONE * Additional services required to return to the preadmission environment? No * Can the patient safely return to the preadmission environment? Yes * Has this patient been hospitalized within the prior 30 days at any hospital? Yes Coverage Notice Reviewer: ROMAINE Dewitt Notice Issued Date-Time: 02/21/2019 15:20 Notice Type: Patient Choice Letter Notice Delivered To: Patient Relationship to Patient: Digital Controls Technical Officer Name: Delivery Method: HAND - Hand Delivered Jessenia Days: Prior Verbal Notification: Recipient Understood Notice: Yes Recipient Signature: Yes Med Rec Note Co-signed by Attending: Coverage Notice Comment: [facility], NO PREFERENCE Reviewer: [id number] Dewitt Notice Issued Date-Time: 02/21/2019 15:20 Notice Type: IM Discharge Notice Notice Delivered To: Patient Relationship to Patient: Digital Controls Technical Officer Name: Delivery Method: HAND - Hand Delivered Jessenia Days: Prior Verbal Notification: Recipient Understood Notice: Yes Recipient Signature: Yes Med Rec Note Co-signed by Attending: Coverage Notice Comment: Last DP export: 02/21/19 4:05 Patient Name: ELLIOTT SILVERIO Page [phone] at 1714 All edits/amendments must be made on the electronic document DICTATION DATE: 02/21/191712 OPTIMIZATION CONSULTANT: ERIC 02/21/191712 RPT#: [id number] DC DATE: STATUS: ADM IN [facility] [address] [place] [address] END OF REPORT
[2019-02-21 20:00] VITALS: BP 119/54
--- NOTE | 2019-02-21 20:26 | NUR ---
EVENING ROUNDS COMPLETED. PT AAOX4, TANACROSS. NO S/S OF DISTRESS. ALTHOUGH PT C/O GENERALIZED PAIN 10/12. PRN NORCO GIVEN. FSBS 101. NO INSULIN GIVEN PER SLIDING SC. PT DENIES ANY FURTHER NEEDS AT THIS TIME. WILL CPOC.
[2019-02-22] VITALS: BP 136/56
[2019-02-22 04:00] VITALS: BP 143/66
[2019-02-22 06:02] LABS: HEMATOCRIT 29.6 % (42.0-54.0); HEMOGLOBIN 9.2 g/dL (13.5-17.5); IMMATURE GRANULOCYTES 0.3 % (0-5); MCH 28.4 pg (26.0-34.0); MCHC 31.1 g/dL (31.0-37.0); MCV 91.4 fL (80.0-100.0); PLATELET COUNT 248 10x3/uL (130-400); RBC 3.24 10x6/uL (4.20-6.10); RDW 17.8 % (11.5-14.5); WBC 7.1 10x3/uL (4.8-10.8)
[2019-02-22 06:12] LABS: ANION GAP 10.5 mmol/L (8-16); CALCIUM 8.1 mg/dL (8.5-10.1); CARBON DIOXIDE 26.2 mmol/L (21.0-32.0); POTASSIUM - SERUM 3.7 mmol/L (3.5-5.1)
[2019-02-22 06:20] LABS: CREATININE - SERUM 1.3 mg/dL (0.6-1.3)
--- NOTE | 2019-02-22 06:22 | NUR ---
PT FSBS 53. ALTHOUGH LAB STATES 93. 3 CANS OF OJ GIVEN WITH 2 PACKS OF SUGAR. AT THIS TIME. WILL CTM.
[2019-02-22 08:00] VITALS: BP 118/47; BP 150/66
[2019-02-22 09:30] LABS: EOSINOPHILS 7 % (0-7); LYMPHOCYTES 23 % (15-50); MONOCYTES 9 % (2-11); NEUTROPHILS 61 % (40-80); PLATELET ESTIMATE NORMAL
[2019-02-22 09:32] LABS: ROULEAUX OCC
--- NOTE | 2019-02-22 10:07 | NUR ---
AM MEDS GIVEN AT THIS TIME. ALSO GAVE NORCO FOR PAIN LEVEL OF 7/10. PT GOT PT UP TO BATHROOM AND BACK TO BED. PT RESTING COMFORTABLY NOW IN BED, DENIES ANY OTHER NEEDS AT THIS TIME. CALL LIGHT IN REACH, NAD NOTED, WILL CONTINUE TO MONITOR.
--- NOTE | 2019-02-22 11:02 | MORECARE ---
CASE MANAGEMENT DISCHARGE SUMMARY PATIENT: ELLIOTT SILVERIO UNIT: [id number] ADM DATE: 02/18/19 AGE: 78 : 41 SEX: M ROOM/BED: D.7443 AUTHOR: MAGALIS,DOC PHYSICIAN: REFERRING PHYSICIAN: MELISSA RAMIREZ MD DATE OF SERVICE: 02/22/19 Discharge Plan Patient Name: ELLIOTT SILVERIO Facility: [facility]:[place] : 1940 Planned Disposition: Inpatient Rehab Anticipated Discharge Date: 02/22/19 Discharge Date: Expected LOS: 4 Initial Reviewer: [email or web address] Initial Review Date: 02/18/2019 Generated: 02/22/19 12:01 pm Comments DCP- Discharge Planning Updated by [id number]: Wil Dewitt on 02/21/19 4:[address] Patient Name: ELLIOTT SILVERIO Admission Status: ER Accout number: [id number] Admission Date: 02-18-2019 : 1940 Admission Diagnosis: Attending: MELISSA RAMIREZ Current LOS: 3 Anticipated DC Date: Planned Disposition: Assisted Living Primary Insurance: MEDICARE PART A ONLY PLANNED EXTERNAL PROVIDER: [facility] Discharge Planning Comments: CM MET WITH PT IN ROOM TO DISCUSS DISCHARGE PLANNING AND NEEDS. PT REPORTS LIVING AT HOME INDEPENDENTLY AND ALONE. PT'S ADULT DAUGHTER AND SON IN LAW HAVE BEEN COMING OVER TO HELP PICK HIM UP WHEN HE FALLS AND CAN'T GET UP AND NOW ADULT PROTECTIVE SERVICES IS INVOLVED. PT REPORTS HE WANTS TO GO HOME BUT CANNOT CARE FOR HIMSELF ANY LONGER. PT HAS BEDSIDE COMMODE, CRUTCHES, CANE, WALKER AND [facility]IR [facility] [place] [facility]. PT HAS NO OUTSIDE SERVICES ASSISTING IN THE HOME. CM DISCUSSED AVAILABILITY OF HOME HEALTH, REHAB SERVICES AND MEDICAL EQUIPMENT. PT [place]ACEMENT IN [place] [facility] OR [facility]ED [facility]SING. [facility]ICE S[facility] FOR [facility] OR NO [facility]REFERENCE ON SKILLED NURSING. IMPORTANT MESSAGE FROM MEDICARE PROVIDED AND EXPLAINED. CM TO WORK ON PLACEMENT IN [facility] FOR [facility] CARE. SECOND CHOICE IS ANY SKILLED NURSING. Production Planning Manager: Wil Dewitt DCPIA - Discharge Planning Initial Assessment Updated by [id number]: Wil Dewitt on 02/21/19 5:01 pm * Is the patient Alert and Oriented? Yes * How many steps to enter\exit or inside your home? * PCP DR. ARTEAGA, [facility] * [facility]acy [facility] * Preadmission Environment Home Alone * ADLs Independent * Equipment Bedside Commode Cane Crutch Walker Wheelchair * Other Equipment [facility] * List name and contact numbers for known caregivers / representatives who currently or will assist patient after discharge: HARITHA SILVERIO, DTR, * Verbal permission to speak to the caregivers and representatives has been obtained from the patient. N/A * Community resources currently utilized None * Please name any agencies selected above. NONE * Additional services required to return to the preadmission environment? No * Can the patient safely return to the preadmission environment? Yes * Has this patient been hospitalized within the prior 30 days at any hospital? Yes Coverage Notice Reviewer: [id number] Dewitt Notice Issued Date-Time: 02/21/2019 15:20 Notice Type: Patient Choice Letter Notice Delivered To: Patient Relationship to Patient: Casino Dealer Name: Delivery Method: HAND - Hand Delivered Jessenia Days: Prior Verbal Notification: Recipient Understood Notice: Yes Recipient Signature: Yes Med Rec Note Co-signed by Attending: Coverage Notice Comment: [facility]UR[facility], NO PREFERENCE Reviewer: [id number] Dewitt Notice Issued Date-Time: 02/21/2019 15:20 Notice Type: IM Discharge Notice Notice Delivered To: Patient Relationship to Patient: Casino Dealer Name: Delivery Method: HAND - Hand Delivered Jessenia Days: Prior Verbal Notification: Recipient Understood Notice: Yes Recipient Signature: Yes Med Rec Note Co-signed by Attending: Coverage Notice Comment: Last DP export: 02/21/19 4:14 Patient Name: ELLIOTT SILVERIO Page [phone] at 1102 All edits/amendments must be made on the electronic document DICTATION DATE: 02/22/19 110 FARM IMPLEMENT ENGINE MECHANIC: ERIC 02/22/19 110 RPT#: [id number] DC DATE: STATUS: ADM IN [facility] [address] [place] [address] END OF REPORT
--- NOTE | 2019-02-22 11:19 | MORECARE ---
CASE MANAGEMENT DISCHARGE SUMMARY PATIENT: ELLIOTT SILVERIO UNIT: [id number] ADM DATE: 02/18/19 AGE: 78 : 41 SEX: M ROOM/BED: D.7817 AUTHOR: KATIE BLANCAS PHYSICIAN: REFERRING PHYSICIAN: MELISSA RAMIREZ MD DATE OF SERVICE: 02/22/19 Discharge Plan Patient Name: ELLIOTT SILVERIO [facility] [facility] 1940 Planned Disposition: Inpatient Rehab Anticipated Discharge Date: 02/22/19 Discharge Date: Expected LOS: 4 Initial Reviewer: [id number] Initial Review Date: 02/18/2019 Generated: 02/22/19 12:18 pm Comments DCP- Discharge Planning Updated by [email or web address]: Wil Dewitt on 02/22/19 10:[address] Patient Name: ELLIOTT SILVERIO Encounter No: [id number] : 1940 Primary Insurance: MEDICARE PART A ONLY Anticipated DC Date: 02-22-2019 Planned Disposition: Inpatient Rehab External Planned Provider: [facility] DCP follow-up note: CM CALLED [facility], , SPOKE TO KATHELEN WHO ADVISED THAT THE [facility] IS A PROCESS THAT MAY TAKE SOME TIME. SHE WILL HAVE CHEVY CALL CM BACK TO DISCUSS REFERRAL. PT'S CARE AND DISCHARGE PLANNING DISCUSSED IN INTERDISCIPLINARY TEAM MEETING, SUZY OF INPATIENT REHAB FEELS PT IS GOOD CANDIATE FOR REHAB, [facility] SCREENING FOR PLACEMENT IS NOT A QUICK PROCESS. MAGED SALINAS ORDERED INPATIENT REHAB PRESCREENING. CM SPOKE TO PT IN ROOM, DISCUSSED INPATIENT REHAB AT [facility], PT STATES HE WOULD LIKE TO RETURN THERE, HE HAS BEEN THERE IN THE PAST AND THEY GOT HIM TO WALKING IN 7 DAYS AND HE KNOWS THE PROGRAM THERE. PT IS ALSO INTERESTED IN LIVING IN A [facility]. CM WAITING INPATIENT REHAB PRESCREENING RESULTS AND ADMISSION DETERMINATION FROM [facility]. Wil Dewitt, CASE MANAGEMENT DCP- Discharge Planning Updated by [id number]: Wil Dewitt on 02/21/19 4:[address] Patient Name: ELLIOTT SILVERIO Admission Status: ER Accout number: [id number] Admission Date: 02-18-2019 : 1940 Admission Diagnosis: Attending: MELISSA RAMIREZ Current LOS: 3 Anticipated DC Date: Planned Disposition: Assisted Living Primary Insurance: MEDICARE PART A ONLY PLANNED EXTERNAL PROVIDER: [facility] Discharge Planning Comments: CM MET WITH PT IN ROOM TO DISCUSS DISCHARGE PLANNING AND NEEDS. PT REPORTS LIVING AT HOME INDEPENDENTLY AND ALONE. PT'S ADULT DAUGHTER AND SON IN LAW HAVE BEEN COMING OVER TO HELP PICK HIM UP WHEN HE FALLS AND CAN'T GET UP AND NOW ADULT PROTECTIVE SERVICES IS INVOLVED. PT REPORTS HE WANTS TO GO HOME BUT CANNOT CARE FOR HIMSELF ANY LONGER. PT HAS BEDSIDE COMMODE, CRUTCHES, CANE, WALKER AND WHEELCHAIR FROM [place] [facility]. PT HAS NO OUTSIDE SERVICES ASSISTING IN THE HOME. CM DISCUSSED AVAILABILITY OF HOME HEALTH, REHAB SERVICES AND MEDICAL EQUIPMENT. PT [facility]. CHOICE SIGNED FOR [facility] OR NO [facility]REFERENCE [facility]. IMPORTANT MESSAGE FROM MEDICARE PROVIDED AND EXPLAINED. CM TO WORK ON PLACEMENT IN [facility] FOR RETIREMENT CARE. SECOND CHOICE IS ANY [facility]. Inspector Metal Can: Wil Dewitt DCPIA - Discharge Planning Initial Assessment Updated by [id number]: Wil Dewitt on 02/21/19 5:01 pm * Is the patient Alert and Oriented? Yes * How many steps to enter\exit or inside your home? * PCP DR. ARTEAGA, [facility] * Pharmacy [facility] * Preadmission Environment Home Alone * ADLs Independent * Equipment Bedside Commode Cane Crutch Walker Wheelchair * Other Equipment [facility] * List name and contact numbers for known caregivers / representatives who currently or will assist patient after discharge: HARITHA SILVERIO, DTR, * Verbal permission to speak to the caregivers and representatives has been obtained from the patient. N/A * Community resources currently utilized None * Please name any agencies selected above. NONE * Additional services required to return to the preadmission environment? No * Can the patient safely return to the preadmission environment? Yes * Has this patient been hospitalized within the prior 30 days at any hospital? Yes Coverage Notice Reviewer: [id number] Sonia Dewitt Notice Issued Date-Time: 02/21/2019 15:20 Notice Type: Patient Choice Letter Notice Delivered To: Patient Relationship to Patient: Mac Developer Name: Delivery Method: HAND - Hand Delivered Jessenia Days: Prior Verbal Notification: Recipient Understood Notice: Yes Recipient Signature: Yes Med Rec Note Co-signed by Attending: Coverage Notice Comment: [facility], NO PREFERENCE Reviewer: [id number] Sonia Dewitt Notice Issued Date-Time: 02/21/2019 15:20 Notice Type: IM Discharge Notice Notice Delivered To: Patient Relationship to Patient: Mac Developer Name: Delivery Method: HAND - Hand Delivered Jessenia Days: Prior Verbal Notification: Recipient Understood Notice: Yes Recipient Signature: Yes Med Rec Note Co-signed by Attending: Coverage Notice Comment: Last DP export: 02/22/19 10:02 Patient Name: ELLIOTT SILVERIO Page [phone] at 1119 All edits/amendments must be made on the electronic document DICTATION DATE: 02/22/191117 BUYER RENTER: ERIC 02/22/191117 RPT#: [id number] DC DATE: STATUS: ADM IN [facility] [address] [place] [address] END OF REPORT
--- NOTE | 2019-02-22 11:32 | MORECARE ---
CASE MANAGEMENT DISCHARGE SUMMARY PATIENT: ELLIOTT SILVERIO UNIT: [id number] ADM DATE: 02/18/19 AGE: 78 : 41 SEX: M ROOM/BED: D.1241 AUTHOR: MAGALISDOC PHYSICIAN: REFERRING PHYSICIAN: MELISSA RAMIREZ MD DATE OF SERVICE: 02/22/19 Discharge Plan Patient Name: ELLIOTT SILVERIO [facility] [facility] 1940 Planned Disposition: Inpatient Rehab Anticipated Discharge Date: 02/22/19 Discharge Date: Expected LOS: 4 Initial Reviewer: [id number] Initial Review Date: 02/18/2019 Generated: 02/22/19 12:32 pm Comments DCP- Discharge Planning Updated by [id number]: Wil Dewitt on 02/22/19 10:[address] Patient Name: ELLIOTT SILVERIO Encounter No: [id number] : 1940 Primary Insurance: MEDICARE PART A ONLY Anticipated DC Date: 02-22-2019 Planned Disposition: Inpatient Rehab External Planned Provider: [facility] INPATIENT REHAB DCP follow-up note: [facility]ED [facility], , SPOKE TO KATHLEEN WHO ADVISED THAT THE [facility] PLACEMENT IS A PROCESS THAT MAY TAKE SOME TIME. SHE WILL HAVE CHEVY CALL CM BACK TO DISCUSS REFERRAL. PT'S CARE AND DISCHARGE PLANNING DISCUSSED IN INTERDISCIPLINARY TEAM MEETING, SUZY OF INPATIENT REHAB FEELS PT IS GOOD CANDIATE FOR REHAB, [facility] SCREENING FOR PLACEMENT IS NOT A QUICK PROCESS. MAGED SALINAS ORDERED INPATIENT REHAB PRESCREENING. CM SPOKE TO PT IN ROOM, DISCUSSED INPATIENT REHAB AT [place], PT STATES HE WOULD LIKE TO RETURN THERE, HE HAS BEEN THERE IN THE PAST AND THEY GOT HIM TO WALKING IN 7 DAYS AND HE KNOWS THE PROGRAM THERE. PT IS ALSO INTERESTED IN LIVING IN A [place] SHELTER. CM WAITING INPATIENT REHAB PRESCREENING RESULTS AND ADMISSION DETERMINATION FROM [facility] INPATIENT REH[facility]. Wil Dewitt, CASE MANAGEMENT Appended by Wli Dewitt on 02/22/2019 11:27 CARPENTER MOLD: CM RECEIVED CALL FROM CHEVY OF [facility], ; PT'S SOCIAL SECURITY IS $1759 MONTH, SAVINGS IS $600. PT'S WAS IN THE [employer] FROM FOR 4 1/2 YEARS. PT IS NOT A WARTIME . CHEVY ADVISED THAT PT DOES NOT QUALIFY FOR [facility]. CM TO WORK ON WALE SCREENING. REFERRAL [facility]ED TO [facility] P[facility]IT[facility] CARE. CM WAITING INPATIENT REHAB PRESCREENING RESULTS AND ADMISSION DETERMINATION FROM [facility] INPATIENT REHAB. Wil Dewitt, CASE MANAGEMENT DCP- Discharge Planning Updated by [id number]: Wil Dewitt on 02/21/19 4:[address] Patient Name: ELLIOTT SILVERIO Admission Status: ER Accout number: [id number] Admission Date: 02-18-2019 : 1940 Admission Diagnosis: Attending: MELISSA RAMIREZ Current LOS: 3 Anticipated DC Date: Planned Disposition: Assisted Living Primary Insurance: MEDICARE PART A ONLY PLANNED EXTERNAL PROVIDER: [facility] Discharge Planning Comments: CM MET WITH PT IN ROOM TO DISCUSS DISCHARGE PLANNING AND NEEDS. PT REPORTS LIVING AT HOME INDEPENDENTLY AND ALONE. PT'S ADULT DAUGHTER AND SON IN LAW HAVE BEEN COMING OVER TO HELP PICK HIM UP WHEN HE FALLS AND CAN'T GET UP AND NOW ADULT PROTECTIVE SERVICES IS INVOLVED. PT REPORTS HE WANTS TO GO HOME BUT CANNOT CARE FOR HIMSELF ANY LONGER. PT HAS BEDSIDE COMMODE, CRUTCHES, CANE, [facility]. PT HAS NO OUTSIDE SERVICES ASSISTING IN THE HOME. CM DISCUSSED AVAILABILITY OF HOME HEALTH, REHAB SERVICES AND MEDICAL EQUIPMENT. PT [facility]ACEMENT [facility]. CHOICE SIGNED FOR [facility] OR NO PREFERENCE ON SENIOR LIVING. IMPORTANT MESSAGE FROM MEDICARE PROVIDED AND EXPLAINED. CM TO WORK ON PLACEMENT IN [facility] C[facility]. SECOND CHOICE IS ANY SENIOR LIVING. Aircraft Load Controller: Wil Dewitt DCPIA - Discharge Planning Initial Assessment Updated by [id number]: Wil Dewitt on 02/21/19 5:01 pm * Is the patient Alert and Oriented? Yes * How many steps to enter\exit or inside your home? * PCP DR. ARTEAGA, [facility] * Pharmacy [facility] * Preadmission Environment Home Alone * ADLs Independent * Equipment Bedside Commode Cane Crutch Walker Wheelchair * Other Equipment [facility] * List name and contact numbers for known caregivers / representatives who currently or will assist patient after discharge: HARITHA SILVERIO, DTR, * Verbal permission to speak to the caregivers and representatives has been obtained from the patient. N/A * Community resources currently utilized None * Please name any agencies selected above. NONE * Additional services required to return to the preadmission environment? No * Can the patient safely return to the preadmission environment? Yes * Has this patient been hospitalized within the prior 30 days at any hospital? Yes Coverage Notice Reviewer: [id number] Dewitt Notice Issued Date-Time: 02/21/2019 15:20 Notice Type: Patient Choice Letter Notice Delivered To: Patient Relationship to Patient: Manager City Name: Delivery Method: HAND - Hand Delivered Jessenia Days: Prior Verbal Notification: Recipient Understood Notice: Yes Recipient Signature: Yes Med Rec Note Co-signed by Attending: Coverage Notice Comment: [facility] SHELTER OR SENIOR LIVING, NO PREFERENCE Reviewer: [id number] Dewitt Notice Issued Date-Time: 02/21/2019 15:20 Notice Type: IM Discharge Notice Notice Delivered To: Patient Relationship to Patient: Manager City Name: Delivery Method: HAND - Hand Delivered Jessenia Days: Prior Verbal Notification: Recipient Understood Notice: Yes Recipient Signature: Yes Med Rec Note Co-signed by Attending: Coverage Notice Comment: Last DP export: 02/22/19 10:19 Patient Name: ELLIOTT SILVERIO Page [id number] at 1132 All edits/amendments must be made on the electronic document DICTATION DATE: 02/22/19 113 DELINQUENT TAX COLLECTOR ASSISTANT: ERIC 02/22/19 1132 RPT#: [id number] DC DATE: STATUS: ADM IN [facility] [address] [place] [address] END OF REPORT
--- NOTE | 2019-02-22 11:39 | MORECARE ---
CASE MANAGEMENT DISCHARGE SUMMARY PATIENT: ELLIOTT SILVERIO UNIT: [id number] ADM DATE: 02/18/19 AGE: 78 : 41 SEX: M ROOM/BED: D.1466 AUTHOR: MAGALISDOC PHYSICIAN: REFERRING PHYSICIAN: MELISSA RAMIREZ MD DATE OF SERVICE: 02/22/19 Discharge Plan Patient Name: ELLIOTT SILVERIO [facility] [facility] 1940 Planned Disposition: Inpatient Rehab Anticipated Discharge Date: 02/22/19 Discharge Date: Expected LOS: 4 Initial Reviewer: [id number] Initial Review Date: 02/18/2019 Generated: 02/22/19 12:39 pm Comments DCP- Discharge Planning Updated by [id number]: Wil Dewitt on 02/22/19 10:[address] Patient Name: ELLIOTT SILVERIO Encounter No: [id number] : 1940 Primary Insurance: MEDICARE PART A ONLY Anticipated DC Date: 02-22-2019 Planned Disposition: Inpatient Rehab External Planned Provider: [facility] INPATIENT REH[facility] DCP follow-up note: CM CALLED [facility], , SPOKE TO KATHLEEN WHO ADVISED THAT THE [facility] PLACEMENT IS A PROCESS THAT MAY TAKE SOME TIME. SHE WILL HAVE CHEVY CALL CM BACK TO DISCUSS REFERRAL. PT'S CARE AND DISCHARGE PLANNING DISCUSSED IN INTERDISCIPLINARY TEAM MEETING, SUZY OF INPATIENT REHAB FEELS PT IS GOOD CANDIATE FOR REHAB, [facility] SCREENING FOR PLACEMENT IS NOT A QUICK PROCESS. MAGED SALINAS ORDERED INPATIENT REHAB PRESCREENING. CM SPOKE TO PT IN ROOM, DISCUSSED INPATIENT REHAB AT [place], PT STATES HE WOULD LIKE TO RETURN THERE, HE HAS BEEN THERE IN THE PAST AND THEY GOT HIM TO WALKING IN 7 DAYS AND HE KNOWS THE PROGRAM THERE. PT IS ALSO INTERESTED IN LIVING IN A [facility] INTER[facility]. CM WAITING INPATIENT REHAB PRESCREENING RESULTS AND ADMISSION DETERMINATION FROM [facility] INPATIENT REH[facility]. Wil Dewitt, CASE MANAGEMENT Appended by Wil Dewitt on 02/22/2019 11:27 DATA STORAGE SPECIALIST: CM RECEIVED CALL FROM CHEVY OF [facility], ; PT'S SOCIAL SECURITY IS $1759 MONTH, SAVINGS IS $600. PT'S WAS IN THE [employer] FROM FOR 4 1/2 YEARS. PT IS NOT A WARTIME . [facility] ADVISED THAT PT DOES NOT QUALIFY FOR [facility]. CM TO WORK ON WALE SCREENING. REFERRAL FAXED TO [facility] FOR ALF CARE. CM WAITING INPATIENT REHAB PRESCREENING RESULTS AND ADMISSION DETERMINATION FROM [facility] INPATIENT RE[facility]. Wil Dewitt, CASE MANAGEMENT DCP- Discharge Planning Updated by [id number]: Wil Dewitt on 02/21/19 4:[address] Patient Name: ELLIOTT SILVERIO Admission Status: ER Accout number: [id number] Admission Date: 02-18-2019 : 1940 Admission Diagnosis: Attending: MELISSA RAMIREZ Current LOS: 3 Anticipated DC Date: Planned Disposition: Assisted Living Primary Insurance: MEDICARE PART A ONLY PLANNED EXTERNAL PROVIDER: [facility] INTERMEDIATE Discharge Planning Comments: CM MET WITH PT IN ROOM TO DISCUSS DISCHARGE PLANNING AND NEEDS. PT REPORTS LIVING AT HOME INDEPENDENTLY AND ALONE. PT'S ADULT DAUGHTER AND SON IN LAW HAVE BEEN COMING OVER TO HELP PICK HIM UP WHEN HE FALLS AND CAN'T GET UP AND NOW ADULT PROTECTIVE SERVICES IS INVOLVED. PT REPORTS HE WANTS TO GO HOME BUT CANNOT CARE FOR HIMSELF ANY LONGER. PT HAS BEDSIDE COMMODE, CRUTCHES, CANE, WALKER AND [facility]. PT HAS NO OUTSIDE SERVICES ASSISTING IN THE HOME. CM DISCUSSED AVAILABILITY OF HOME HEALTH, REHAB SERVICES AND MEDICAL EQUIPMENT. PT WANTS PLACEMENT IN [facility] OR [facility]. CHOICE SIGNED FOR [facility] OR NO PREFERENCE ON USP. IMPORTANT MESSAGE FROM MEDICARE PROVIDED AND EXPLAINED. CM TO WORK ON PLACEMENT IN [facility] FOR [facility]F CARE. SECOND CHOICE IS ANY USP. Brick Loader: Wil Dewitt DCPIA - Discharge Planning Initial Assessment Updated by [email or web address]: Wil Dewitt on 02/21/19 5:01 pm * Is the patient Alert and Oriented? Yes * How many steps to enter\exit or inside your home? * PCP [facility] ARTEAGA, [facility] * [facility]acy [facility] * Preadmission Environment Home Alone * ADLs Independent * Equipment Bedside Commode Cane Crutch Walker Wheelchair * Other Equipment [facility] * List name and contact numbers for known caregivers / representatives who currently or will assist patient after discharge: HARITHA SILVERIO, DTR, * Verbal permission to speak to the caregivers and representatives has been obtained from the patient. N/A * Community resources currently utilized None * Please name any agencies selected above. NONE * Additional services required to return to the preadmission environment? No * Can the patient safely return to the preadmission environment? Yes * Has this patient been hospitalized within the prior 30 days at any hospital? Yes External [facility]iders [facility] Contact Date: 02/22/2019 Service Request Date: Service Type: Resolution: Reviewer: Comments: Coverage Notice Reviewer: [id number] Dewitt Notice Issued Date-Time: 02/21/2019 15:20 Notice Type: Patient Choice Letter Notice Delivered To: Patient Relationship to Patient: Steel Box Toe Inserter Name: Delivery Method: HAND - Hand Delivered Jessenia Days: Prior Verbal Notification: Recipient Understood Notice: Yes Recipient Signature: Yes Med Rec Note Co-signed by Attending: Coverage Notice Comment: [facility] OR [facility], NO PREFERENCE Reviewer: ROMAINE Dewitt Notice Issued Date-Time: 02/21/2019 15:20 Notice Type: IM Discharge Notice Notice Delivered To: Patient Relationship to Patient: Steel Box Toe Inserter Name: Delivery Method: HAND - Hand Delivered Jessenia Days: Prior Verbal Notification: Recipient Understood Notice: Yes Recipient Signature: Yes Med Rec Note Co-signed by Attending: Coverage Notice Comment: Last DP export: 02/22/19 10:32 Patient Name: ELLIOTT SILVERIO Page [phone] at 1139 All edits/amendments must be made on the electronic document DICTATION DATE: 02/22/19 113 VALIDATION ARCHITECT: ERIC 02/22/19 1139 RPT#: [id number] DC DATE: STATUS: ADM IN [facility] [address] [place] [address] END OF REPORT
[2019-02-22 12:00] VITALS: BP 151/72
--- NOTE | 2019-02-22 12:29 | NUR ---
Rehab Prescreening Consult recieved and the chart has been reviewed. He meets criteria and will be accepted today if physician agrees. Discussed with the CM Silver Dewitt. Simley Ortiz RN Clinical Liaison, Rehab
--- NOTE | 2019-02-22 13:48 | NUR ---
Nutrition Follow-up: Pt reports that he was eating well but now reports decreased appetite/PO intake 2/2 stress associated with family issues and placement. Ate ~75% of breakfast this AM but did not touch lunch tray. Agreed to drink Glucerna. Diet: Diabetic No new wt Last BM: 02/21 Labs noted: Glu 54, Ca 8.1 Meds noted: Lantus, Colace -Add Glucerna with meals. -RD following.
--- NOTE | 2019-02-22 14:10 | NUR ---
PT JUST GOT DONE WITH SHOWER BACK IN BED NOW, COMPLETE LINEN CHANGE PROVIDED BY BUILDINGS PAINTER. PT RESTING COMFORTABLY IN BED, DENIES ANY NEEDS AT THIS TIME, CALL LIGHT IN REACH, NAD NOTED, WILL CONTINUE TO MONITOR.
--- NOTE | 2019-02-22 14:46 | MORECARE ---
CASE MANAGEMENT DISCHARGE SUMMARY PATIENT: ELLIOTT SILVERIO UNIT: [id number] ADM DATE: 02/18/19 AGE: 78 : 41 SEX: M ROOM/BED: D.5865 AUTHOR: MAGALISDOC PHYSICIAN: REFERRING PHYSICIAN: MELISSA RAMIREZ MD DATE OF SERVICE: 02/22/19 Discharge Plan Patient Name: ELLIOTT SILVERIO [facility] [facility] 1940 Planned Disposition: Inpatient Rehab Anticipated Discharge Date: 02/22/19 Discharge Date: Expected LOS: 4 Initial Reviewer: [id number] Initial Review Date: 02/18/2019 Generated: 02/22/19 3:46 pm Comments DCP- Discharge Planning Updated by [id number]: Wil Godinez on 02/22/19 1:[address] Patient Name: ELLIOTT SILVERIO Encounter No: [id number] : 1940 Primary Insurance: MEDICARE PART A ONLY Anticipated DC Date: 02-22-2019 Planned Disposition: Inpatient Rehab External Planned Provider: [facility] DCP follow-up note: [facility]ED [facility], , SPOKE TO KATHLEEN WHO ADVISED THAT THE [facility] IS A PROCESS THAT MAY TAKE SOME TIME. SHE WILL HAVE CHEVY CALL CM BACK TO DISCUSS REFERRAL. PT'S CARE AND DISCHARGE PLANNING DISCUSSED IN INTERDISCIPLINARY TEAM MEETING, SUZY OF INPATIENT REHAB FEELS PT IS GOOD CANDIATE FOR REHAB, [facility] SCREENING FOR PLACEMENT IS NOT A QUICK PROCESS. MAGED SALINAS ORDERED INPATIENT REHAB PRESCREENING. CM SPOKE TO PT IN ROOM, DISCUSSED INPATIENT REHAB AT [place], PT STATES HE WOULD LIKE TO RETURN THERE, HE HAS BEEN THERE IN THE PAST AND THEY GOT HIM TO WALKING IN 7 DAYS AND HE KNOWS THE PROGRAM THERE. PT IS ALSO INTERESTED IN LIVING IN A [facility]. CM WAITING INPATIENT REHAB PRESCREENING RESULTS AND ADMISSION DETERMINATION FROM [facility]. Wil Godinez, CASE MANAGEMENT Appended by Wil Godinez on 02/22/2019 11:27 MARINE EQUIPMENT ENGINEER: CM RECEIVED CALL FROM CHEVY OF [facility], ; PT'S SOCIAL SECURITY IS $1759 MONTH, SAVINGS IS $600. PT'S WAS IN THE [employer] FROM FOR 4 1/2 YEARS. PT IS NOT A WARTIME . CHEVY ADVISED THAT PT DOES NOT QUALIFY FOR [facility]. CM TO WORK ON WALE SCREENING. REFERRAL FAXED TO [facility] FOR [facility] C[facility]. CM WAITING INPATIENT REHAB PRESCREENING RESULTS AND ADMISSION DETERMINATION FROM [facility]. Wil Godinez, CASE MANAGEMENT Appended by Wil Godinez on 02/22/2019 14:43 MARINE EQUIPMENT ENGINEER: CM SPOKE TO SUZY OF INPATIENT REHAB, THEY PLAN TO ACCEPT PT TODAY FOR REHAB; PT WILL BE BILLED FOR H&P AND DC SUMMARY MEDICARE PART A WILL NOT PAY FOR THIS. CM NOTIFIED PT WHO THINKS THE [facility] MAY PA[facility] FOR THIS HE DID NOT GET A BILL FOR HIS LAST STAY DOWN THERE. CM EXPLAINED THAT THE [facility] MAY NOT AND PT MAY GET A BILL FOR THE [facility]. PT IN AGREEMENT WITH DISCHARGE TO INPATIENT REHAB. MAGED SALINAS NOTIFIED AND WILL DISCHARGE TO REHAB TODAY. CM NOTIFED SUZY OF INPATIENT REHAB. PT ASSISTED WITH COMPLETING WALE ASSESSMENT. CM OBTAINED MAGED SALINASS SIGNATURE. PT STATES THAT HE MAY DECIDE TO GO HOME AFTER REHAB IF HE IS DOING WELL ENOUGH. CM EXPLAINED THAT PT MAY STILL CONSIDER [facility] CARE AND THAT THE PAPERWORK WILL BE FAXED IN CASE PT NEEDS PLACEMENT. PT REPORTED UNDERSTANDING. CM FAXED WALE SCREENING TO [facility].. CM CALLED AND NOTIFIED NAOMY WRIGHT OF ADULT PROTECTIVE SERVICES, , OF REHAB PLACEMENT AT [place]. [facility] TO CONTACT MED 2 NURSE WITH ROOM NUMBER WHEN READY TO ACCEPT PT AND NURSE REPORT. WIL GODINEZ, CASE MANAGEMENT DCP- Discharge Planning Updated by [id number]: Wil Godinez on 02/21/19 4:[address] Patient Name: ELLIOTT SILVERIO Admission Status: ER Accout number: [id number] Admission Date: 02-18-2019 : 1940 Admission Diagnosis: Attending: MELISSA RAMIREZ Current LOS: 3 Anticipated DC Date: Planned Disposition: Assisted Living Primary Insurance: MEDICARE PART A ONLY PLANNED EXTERNAL PROVIDER: [facility] CUSTODIAL Discharge Planning Comments: CM MET WITH PT IN ROOM TO DISCUSS DISCHARGE PLANNING AND NEEDS. PT REPORTS LIVING AT HOME INDEPENDENTLY AND ALONE. PT'S ADULT DAUGHTER AND SON IN LAW HAVE BEEN COMING OVER TO HELP PICK HIM UP WHEN HE FALLS AND CAN'T GET UP AND NOW ADULT PROTECTIVE SERVICES IS INVOLVED. PT REPORTS HE WANTS TO GO HOME BUT CANNOT CARE FOR HIMSELF ANY LONGER. PT HAS BEDSIDE COMMODE, CRUTCHES, CANE, WALKER AND [facility]IR [facility]. PT HAS NO OUTSIDE SERVICES ASSISTING IN THE HOME. CM DISCUSSED AVAILABILITY OF HOME HEALTH, REHAB SERVICES AND MEDICAL EQUIPMENT. PT WANTS PLACEMENT IN [facility] OR ASSISTED. CHOICE SIGNED FOR [facility]UST[facility] OR NO PREFERENCE ON ASSISTED. IMPORTANT MESSAGE FROM MEDICARE PROVIDED AND EXPLAINED. CM TO WORK ON PLACEMENT IN [facility] CUSTODIAL FOR APPEALS COURT ASSOCIATE JUSTICE CARE. SECOND CHOICE IS ANY ASSISTED. Wall Scraper: Wil Godinez DCPIA - Discharge Planning Initial Assessment Updated by ROMAINE: Wil Godinez on 02/21/19 5:01 pm * Is the patient Alert and Oriented? Yes * How many steps to enter\exit or inside your home? * PCP [facility] ARTEAGA, [facility] * [facility] * Preadmission Environment Home Alone * ADLs Independent * Equipment Bedside Commode Cane Crutch Walker Wheelchair * Other Equipment [employer] * List name and contact numbers for known caregivers / representatives who currently or will assist patient after discharge: HARITHA SILVERIO, DTR, * Verbal permission to speak to the caregivers and representatives has been obtained from the patient. N/A * Community resources currently utilized None * Please name any agencies selected above. NONE * Additional services required to return to the preadmission environment? No * Can the patient safely return to the preadmission environment? Yes * Has this patient been hospitalized within the prior 30 days at any hospital? Yes Coverage Notice Reviewer: [id number] Sonia Godinez Notice Issued Date-Time: 02/21/2019 15:20 Notice Type: Patient Choice Letter Notice Delivered To: Patient Relationship to Patient: Gold Prospector Name: Delivery Method: HAND - Hand Delivered Jessenia Days: Prior Verbal Notification: Recipient Understood Notice: Yes Recipient Signature: Yes Med Rec Note Co-signed by Attending: Coverage Notice Comment: [facility] OR [facility]ED, NO PREFERENCE Reviewer: [id number] Sonia Godinez Notice Issued Date-Time: 02/21/2019 15:20 Notice Type: IM Discharge Notice Notice Delivered To: Patient Relationship to Patient: Gold Prospector Name: Delivery Method: HAND - Hand Delivered Jessenia Days: Prior Verbal Notification: Recipient Understood Notice: Yes Recipient Signature: Yes Med Rec Note Co-signed by Attending: Coverage Notice Comment: Last DP export: 02/22/19 10:39 Patient Name: ELLIOTT SILVERIO Page [phone] at 1446 All edits/amendments must be made on the electronic document DICTATION DATE: 02/22/191445 QUALITY ASSURANCE CALIBRATOR: ERIC 02/22/19 1446 RPT#: [id number] DC DATE: STATUS: ADM IN [facility] [address] [place] [address] END OF REPORT
--- NOTE | 2019-02-22 15:06 | MORECARE ---
CASE MANAGEMENT DISCHARGE SUMMARY PATIENT: ELLIOTT SILVERIO UNIT: [id number] ADM DATE: 02/18/19 AGE: 78 : 41 SEX: M ROOM/BED: D.1203 AUTHOR: MAGALISDOC PHYSICIAN: REFERRING PHYSICIAN: MELISSA RAMIREZ MD DATE OF SERVICE: 02/22/19 Discharge Plan Patient Name: ELLIOTT SILVERIO [facility] [facility] 1940 Planned Disposition: Inpatient Rehab Anticipated Discharge Date: 02/22/19 Discharge Date: Expected LOS: 4 Initial Reviewer: [email or web address] Initial Review Date: 02/18/2019 Generated: 02/22/19 4:06 pm Comments DCP- Discharge Planning Updated by [id number]: Barbara Godinez on 02/22/19 1:[address] Patient Name: ELLIOTT SILVERIO Encounter No: [id number] : 1940 Primary Insurance: MEDICARE PART A ONLY Anticipated DC Date: 02-22-2019 Planned Disposition: Inpatient Rehab External Planned Provider: [facility] DCP follow-up note: CM CALLED [facility], , SPOKE TO KATHLEEN WHO ADVISED THAT THE [facility]AC[facility] IS A PROCESS THAT MAY TAKE SOME TIME. SHE WILL HAVE CHEVY CALL CM BACK TO DISCUSS REFERRAL. PT'S CARE AND DISCHARGE PLANNING DISCUSSED IN INTERDISCIPLINARY TEAM MEETING, [facility] OF INPATIENT REHAB FEELS PT IS GOOD CANDIATE FOR REHAB, [facility] SCREENING FOR PLACEMENT IS NOT A QUICK PROCESS. MAGED SALINAS ORDERED INPATIENT REHAB PRESCREENING. CM SPOKE TO PT IN ROOM, DISCUSSED INPATIENT REHAB AT [place], PT STATES HE WOULD LIKE TO RETURN THERE, HE HAS BEEN THERE IN THE PAST AND THEY GOT HIM TO WALKING IN 7 DAYS AND HE KNOWS THE PROGRAM THERE. PT IS ALSO INTERESTED IN LIVING IN A [facility]. CM WAITING INPATIENT REHAB PRESCREENING RESULTS AND ADMISSION DETERMINATION FROM [facility]. Barbara Godinez, CASE MANAGEMENT Appended by Barbara Godinez on 02/22/2019 11:27 TRUCK TRAILER MECHANIC: CM RECEIVED CALL FROM CHEVY OF [facility], ; PT'S SOCIAL SECURITY IS $1759 MONTH, SAVINGS IS $600. PT'S WAS IN THE [employer] FROM FOR 4 1/2 YEARS. PT IS NOT A W[employer]IME . CHEVY ADVISED THAT PT DOES NOT QUALIFY FOR [facility]. CM TO WORK ON WALE SCREENING. REFERRAL FAXED TO THE [facility] FOR LONG-TERM CARE. CM WAITING INPATIENT REHAB PRESCREENING RESULTS AND ADMISSION DETERMINATION FROM [facility]. Barbara Godinez, CASE MANAGEMENT Appended by Barbara Godinez on 02/22/2019 14:43 TRUCK TRAILER MECHANIC: CM SPOKE TO [facility] OF INPATIENT REHAB, THEY PLAN TO ACCEPT PT TODAY FOR REHAB; PT WILL BE BILLED FOR H&P AND DC SUMMARY MEDICARE PART A WILL NOT PAY FOR THIS. CM NOTIFIED PT WHO [facility] HE DID NOT GET A BILL FOR HIS LAST STAY DOWN THERE. CM EXPLAINED THAT [facility] MAY NOT AND PT MAY GET A BILL FOR THE [facility]. PT IN AGREEMENT WITH DISCHARGE TO INPATIENT REHAB. MAGED SALINAS NOTIFIED AND WILL DISCHARGE TO REHAB TODAY. CM NOTIFED [facility] OF INPATIENT REHAB. PT ASSISTED WITH COMPLETING WALE ASSESSMENT. CM OBTAINED MAGED SALINASS SIGNATURE. PT STATES THAT HE MAY DECIDE TO GO HOME AFTER REHAB IF HE IS DOING WELL ENOUGH. CM EXPLAINED THAT PT MAY STILL CONSIDER LONG-TERM CARE AND THAT THE PAPERWORK WILL BE FAXED IN CASE PT NEEDS PLACEMENT. PT REPORTED UNDERSTANDING. CM FAXED WALE SCREENING TO [facility].. CM CALLED AND NOTIFIED NAOMY WRIGHT OF [facility], , OF REHAB PLACEMENT AT [place]. [facility] IN[facility] TO CONTACT MED 2 NURSE WITH ROOM NUMBER WHEN READY TO ACCEPT PT AND NURSE REPORT. BARBARA GODINEZ, CASE MANAGEMENT DCP- Discharge Planning Updated by [email or web address]: Barbara Godinez on 02/21/19 4:[address] Patient Name: ELLIOTT SILVERIO Admission Status: ER Accout number: [id number] Admission Date: 02-18-2019 : 1940 Admission Diagnosis: Attending: MELISSA RAMIREZ Current LOS: 3 Anticipated DC Date: Planned Disposition: Assisted Living Primary Insurance: MEDICARE PART A ONLY PLANNED EXTERNAL PROVIDER: [facility] Discharge Planning Comments: CM MET WITH PT IN ROOM TO DISCUSS DISCHARGE PLANNING AND NEEDS. PT REPORTS LIVING AT HOME INDEPENDENTLY AND ALONE. PT'S ADULT DAUGHTER AND SON IN LAW HAVE BEEN COMING OVER TO HELP PICK HIM UP WHEN HE FALLS AND CAN'T GET UP AND NOW [facility]ULT PROTECTIVE SERVICES IS INVOLVED. PT REPORTS HE WANTS TO GO HOME BUT CANNOT CARE FOR HIMSELF ANY LONGER. PT HAS BEDSIDE COMMODE, CRUTCHES, CANE, [facility]. PT HAS NO OUTSIDE SERVICES ASSISTING IN THE HOME. CM DISCUSSED AVAILABILITY OF HOME HEALTH, REHAB SERVICES AND MEDICAL EQUIPMENT. PT [facility] PLACEMENT IN [facility]. CHOICE SIGNED FOR [facility] OR NO PREFERENCE ON PENITENTIARY. IMPORTANT MESSAGE FROM MEDICARE PROVIDED AND EXPLAINED. CM TO WORK ON PLACEMENT IN [facility] FOR [facility] C[facility]. SECOND CHOICE IS ANY PENITENTIARY. Ruling Machine Feeder: Barbara Godinez DCPIA - Discharge Planning Initial Assessment Updated by ROMAINE: Barbara Godinez on 02/21/19 5:01 pm * Is the patient Alert and Oriented? Yes * How many steps to enter\exit or inside your home? * PCP DR. ARTEAGA, [facility] * Pharmacy [facility] * Preadmission Environment Home Alone * ADLs Independent * Equipment Bedside Commode Cane Crutch Walker Wheelchair * Other Equipment [facility] * List name and contact numbers for known caregivers / representatives who currently or will assist patient after discharge: HARITHA SILVERIO, DTR, * Verbal permission to speak to the caregivers and representatives has been obtained from the patient. N/A * Community resources currently utilized None * Please name any agencies selected above. NONE * Additional services required to return to the preadmission environment? No * Can the patient safely return to the preadmission environment? Yes * Has this patient been hospitalized within the prior 30 days at any hospital? Yes External Providers External Provider: GIOVANNY Guillermo Next Contact Date: 02/22/2019 Service Request Date: Service Type: Resolution: Reviewer: Comments: Coverage Notice Reviewer: [id number] Sonia Godinez Notice Issued Date-Time: 02/21/2019 15:20 Notice Type: Patient Choice Letter Notice Delivered To: Patient Relationship to Patient: Hat Marker Name: Delivery Method: HAND - Hand Delivered Jessenia Days: Prior Verbal Notification: Recipient Understood Notice: Yes Recipient Signature: Yes Med Rec Note Co-signed by Attending: Coverage Notice Comment: [facility], NO PREFERENCE Reviewer: [id number] Godinez Notice Issued Date-Time: 02/21/2019 15:20 Notice Type: IM Discharge Notice Notice Delivered To: Patient Relationship to Patient: Hat Marker Name: Delivery Method: HAND - Hand Delivered Jessenia Days: Prior Verbal Notification: Recipient Understood Notice: Yes Recipient Signature: Yes Med Rec Note Co-signed by Attending: Coverage Notice Comment: Last DP export: 02/22/19 1:46 Patient Name: ELLIOTT SILVERIO Page [id number] at 1506 All edits/amendments must be made on the electronic document DICTATION DATE: 02/22/19 1506 POLYETHYLENE COMBINER: ERIC 02/22/19 1506 RPT#: [id number] DC DATE: STATUS: ADM IN [facility] [address] [place] [address] END OF REPORT
[2019-02-22 16:00] VITALS: BP 144/68
[2019-02-22] MEDS ORDERED: COREG6.25 MG PO (16:33)
--- NOTE | 2019-02-22 17:02 | NUR ---
ASKED PT IF HE WANTED THE FLU SHOT AND PT WANTS TO WAIT UNTIL AFTER HE GETS OUT FROM REHAB.
--- NOTE | 2019-02-22 17:23 | NUR ---
REPORT CALLED TO LORETTA DELEON IN INPATIENT REHAB, PT WILL HAVE DINNER AND THEN BE TAKEN DOWN TO REHAB.
--- NOTE | 2019-02-22 17:30 | NUR ---
PROVIDED VERBAL AND WRITTEN DISCHARGE TEACHING TO PT, WHO VERBALIZED UNERSTANDING REGARDING TEACHING. HEART MONITOR REMOVED AND TAKEN TO AIR HAMMER STRIPPER.
--- NOTE | 2019-02-22 18:18 | NUR ---
PT TRANSFERED TO DIALYSIS VIA BED, WITH ALL BELONGINGS, NAD NOTED.
== END 2019-02-22 18:19 | DRG 280 ==
LOC: D.ER 12:03 → D.M2 16:30
PROVIDERS: Family Medicine; ADMIT Internal Medicine Nephrology; ATTEND Internal Medicine Nephrology
DX: I21.4 Non-ST elevation (NSTEMI) myocardial infarction (principal); G92 Toxic encephalopathy; N39.0 Urinary tract infection, site not specified; N17.9 Acute kidney failure, unspecified; T43.95XA Adverse effect of unspecified psychotropic drug, initial encounter; D64.9 Anemia, unspecified; S91.302A Unspecified open wound, left foot, initial encounter; I10 Essential (primary) hypertension; E78.5 Hyperlipidemia, unspecified; E11.9 Type 2 diabetes mellitus without complications; F41.8 Other specified anxiety disorders; M54.2 Cervicalgia; M54.9 Dorsalgia, unspecified; G89.29 Other chronic pain; L89.622 Pressure ulcer of left heel, stage 2; E11.621 Type 2 diabetes mellitus with foot ulcer

== ENCOUNTER 2019-02-22 16:24 | Inpatient (IN) | payer MEDICARE ==
[~2019-02-22] VITALS: Ht 185.4 cm; Wt 106.1 kg
[2019-02-22] MEDS ORDERED: COREG6.25 MG PO (16:33)
--- NOTE | 2019-02-22 19:41 | NUR ---
AMITTED TO PHYSICAL REHAB AND SERVICES OF DR DONOHUE, AWAKE AND ALERT. RESPIRATIONS UNLABORED. MODERATE ASSIST FOR TRANSFERS. ASSISTED TO BATHROOM AND BACK TO BED. SEE ADMISSION ASSESSMENT. HAS SMALL STATE TWO WOUND ON LEFT HEEL. SKIN TEARS ON BILATERAL UPPER EXTREMITIES. VISION POOR WITH RIGHT EYE TUNNEL VISION AND BLIND IN LEFT EYE. RESTING NOW WITH NO DISTRESS NOTED. CALL LIGHT IN REACH.
[2019-02-22 19:54] VITALS: BP 142/70
[2019-02-22 20:12] VITALS: BP 142/70; BMI 30.9
--- NOTE | 2019-02-22 22:58 | NUR ---
COUOGHING AND CRYING. STATES HE WAS SEEING THINGS LIKE AN COW IN HIS BED. SINUSES DRAINING AND COUGHING. BLEW NOSE AND SIT UP ON SIDE OF BED. MEDICATED WITH BENADRYL. SEE MAR. REPORIENTED WITH PROMPTING FROM NURSE. WILL CONTINUE TO MONITOR.
--- NOTE | 2019-02-23 00:53 | NUR ---
ASSISTED TO BATHROOM AND BACK TO BED. HAD SMALL BM. SEEMS CALMER NOW.
--- NOTE | 2019-02-23 02:46 | NUR ---
SLEEPING NOW WITH NO DISTRESS NOTED. CALL LIGHT IN REACH.
--- NOTE | 2019-02-23 05:12 | NUR ---
RESTING WITH RESPIRATIONS UNLABORED. NO DISTRESS NOTED. CALL LIGHT IN REACH. HAS SLEPT IN SHORT INTERVALS THIS SHIFT.
[2019-02-23 08:00] VITALS: BP 144/61
[2019-02-23 08:08] LABS: BASOPHILS 0.3 % (0-2); EOSINOPHILS 5.3 % (0-7); HEMATOCRIT 28.8 % (42.0-54.0); IMMATURE GRANULOCYTES 0.2 % (0-5); LYMPHOCYTES 35.6 % (15-50); MCH 28.4 pg (26.0-34.0); MCHC 31.3 g/dL (31.0-37.0); MCV 90.9 fL (80.0-100.0); MEAN PLATELET VOLUME 9.9 fL (7.4-10.4); NEUTROPHILS 46.6 % (40-80); PLATELET COUNT 157 10x3/uL (130-400); RBC 3.17 10x6/uL (4.20-6.10); RDW 17.7 % (11.5-14.5); WBC 5.9 10x3/uL (4.8-10.8)
[2019-02-23 08:13] LABS: ANION GAP 9.9 mmol/L (8-16); CALCIUM 8.1 mg/dL (8.5-10.1); CARBON DIOXIDE 26.1 mmol/L (21.0-32.0); CREATININE - SERUM 1.3 mg/dL (0.6-1.3)
--- NOTE | 2019-02-23 08:36 | NUR ---
Pt has a healing stage 2 pressure injury on his left heel. Pt states it has healed and opened back up numerous times. Measurements 1cm x 3cm x 0.5cm. It is being protected with mepilex border. Recommendations: Protect with mepilex border Float heels off mattress/pillow while in bed Wound care will monitor.
[2019-02-23 08:50] VITALS: Ht 185.4 cm; Wt 106.1 kg
--- NOTE | 2019-02-23 20:00 | NUR ---
PATIENT RECEIVED SITTING UP IN BED. ASSESSMENT & VITAL SIGNS DONE. PATIENT TOILETED & HAD VOID & BM. PATIENT RETURNED TO LOW BED. ALARM ON. WILL CONTINUE TO MONITOR.
[2019-02-23 20:13] VITALS: BP 150/68
--- NOTE | 2019-02-24 01:00 | NUR ---
I have reviewed this patient and I concur with the Shift Assessment completed by the Licensed Practical Nurse today this shift.
--- NOTE | 2019-02-24 04:13 | NUR ---
PATIENT EYES CLOSED. RESPIRATIONS 18 & EVEN. BED LOW. CALL LIGHT WITHIN REACH. ALARM ON. WILL CONTINUE TO MONITOR.
[2019-02-24 08:00] VITALS: BP 136/72
[2019-02-24 08:04] LABS: CALCIUM 8.3 mg/dL (8.5-10.1); CARBON DIOXIDE 28.4 mmol/L (21.0-32.0); CREATININE - SERUM 1.2 mg/dL (0.6-1.3); POTASSIUM - SERUM 3.4 mmol/L (3.5-5.1)
[2019-02-24 08:20] LABS: HEMATOCRIT 27.6 % (42.0-54.0); HEMOGLOBIN 9.2 g/dL (13.5-17.5); LYMPHOCYTES 36.1 % (15-50); MCH 29.9 pg (26.0-34.0); MCHC 33.3 g/dL (31.0-37.0); MCV 89.6 fL (80.0-100.0); MEAN PLATELET VOLUME 9.6 fL (7.4-10.4); NEUTROPHILS 51.5 % (40-80); RBC 3.08 10x6/uL (4.20-6.10); RDW 17.4 % (11.5-14.5); WBC 6.2 10x3/uL (4.8-10.8)
[2019-02-24 08:21] LABS: PLATELET COUNT 196 10x3/uL (130-400)
--- NOTE | 2019-02-24 09:26 | RHP ---
PATIENT: ELLIOTT SILVERIO MEDICAL RECORD: [id number] ACCOUNT: [id number] LOCATION:[facility]1113 : [birth year] ADMISSION DATE: 02/22/19 REHABILITATION HISTORY AND PHYSICAL EXAMINATION POST ADMISSION PHYSICIAN EXAMINATION POST ADMISSION PHYSICAL EXAM AND HISTORY AND PHYSICAL DATE OF ADMISSION: 02/22/2019 ADMITTING DIAGNOSES: Non-Q-wave myocardial infarction. HISTORY OF PRESENT ILLNESS: The patient is a 78-year-old gentleman with a history of chronic back pain, depression, anxiety, hypertension, hyperlipidemia, who has got a history of coronary artery disease and had stent placement in the past. He came to the ED on 02/18/2019 with increasing confusion, shortness of breath, unable to care for himself. Lab work showed elevated troponin and cardiac enzymes. He had T-wave inversions in lateral leads. He is admitted to the [facility] for cardiac workup and cardiology consult. He was found to have a non-Q-wave UT. He is currently on telemetry. He has got acute pain. He has had a decreased H&H. His mental status is clearing slowly. He got impaired mobility, gait disturbance, deconditioning, weakness, debility, high fall risk and self-care deficits. These are barriers to his discharge home. He lives at home alone with using a rolling walker and a wheelchair for mobility. He was independent with ADLs. He has recently been in our rehab in the past and did very well, was discharged home. His daughter lives next door to him, checks on him often. He is currently set up for mod assist with his ADLs, mod assist to max assist for mobility. Him and his family would like for him to return home after this. COMORBIDITIES: Include elevated troponin, mental status changes, anemia, confusion, hyperlipidemia, diabetes, encephalopathy, anemia, kidney injury, depression, anxiety, fatigue, weakness, chronic back and neck pain. PAST MEDICAL HISTORY: Significant for cataracts, got a history of cardiovascular disease, had a history of constipation, arthritis, chronic back pain, chronic neck pain. He has got a history of postherpetic neuralgia, depression, and anxiety. PAST SURGICAL HISTORY: Please see previous charts. ALLERGIES: IODINE. CURRENT MEDICATIONS: Include Flomax 0.4 mg daily. He is on insulin. He is on a long-acting 32 mg or Lantus 32 units daily. He is on furosemide 40 mg daily, Cymbalta 60 mg daily, vitamin D 2000 units daily, carvedilol 6.25 mg b.i.d. with meals, Protonix 40 mg daily. He is on Alphagan drops 1 drop daily. He is on Robaxin 750 b.i.d., Namenda 5 mg b.i.d., Colace 100 mg b.i.d., Buspar 10 mg t.i.d., atorvastatin 80 mg at bedtime, Benadryl 25 mg q.6 hours p.r.n., and [place] 10/325 one tablet q.4-6 4 hours p.r.n. pain. HABITS: No alcohol or tobacco use. FAMILY HISTORY: Noncontributory. HISTORY AND PHYSICAL [id number] ELLIOTT SILVERIO SOCIAL HISTORY: The patient hopes to return back home and get back to his prior level of functioning. REVIEW OF SYSTEMS: GENERAL: Does complain of weakness and fatigue. HEENT: Denies cold, cough, or congestion. CARDIOVASCULAR: He denies any chest pain. LUNGS: He does complain of some shortness of breath with ambulation. PHYSICAL EXAMINATION: VITAL SIGNS: Stable, afebrile. GENERAL: A well-developed elderly gentleman, in no acute distress, alert upon exam. HEENT: Normocephalic and atraumatic. Mucosa moist. NECK: Supple. No lymphadenopathy. LUNGS: Clear in upper saenz, decreased breath sounds in the bases. CARDIOVASCULAR: Irregular rate and rhythm. He does have a II/ systolic ejection murmur. ABDOMEN: Soft, benign, nondistended. Positive bowel sounds times 4. EXTREMITIES: No clubbing, cyanosis or edema. NEUROLOGIC: He does have noted decreased strength in his proximal muscles of his thighs at 3/5. He has got good hand strength at 4/5 in his upper extremities. LABORATORY DATA: White count is 5.9, H&H 9 and 28, and platelet count is noted to be 157. His sodium is 139, potassium 4.0, BUN and creatinine of 22 and 1.3, and blood sugar is noted to be 93. ASSESSMENT: This is a 79-year-old gentleman admitted to the rehab with a working diagnosis of debility secondary to non-Q-wave. The patient has potential to make improvement. We instituted the following multidisciplinary therapies including, but not limited to, physical, occupational, respiratory, speech, nutritional services, prosthetics and orthotics. Given his complex medical condition and risks for more complications, rehabilitation services cannot be provided at a low level of care such as skilled facility. PLAN: 1. Admit to [facility] for intensive inpatient therapy to include the following disciplines: A. Physical therapy to improve gait, all transfer skills and bed mobility to a modified independent level. B. Occupational therapy to a modified independent level. C. Case management to assist with discharge planning and placement options. D. Nutrition to assist with nutritional needs. E. Rehabilitation nursing to assist in monitoring the patient's medical conditions and to assist with any type of bowel or bladder management. 2. The patient's current medications and medical care will be continued. 3. The patient will be placed on standard fall precautions. 4. The patient's estimated length of stay is approximately 7-10 days. 5. We will discuss this patient during care team staff meeting this week. TRANSINT:[id number] Voice Confirmation ID: [id number] DOCUMENT ID: [id number] TREVON notes whether there has been none or any medical/functional HISTORY AND PHYSICAL [id number] ELLIOTT SILVERIO change since admission: - No change since prescreen. TREVON attests patient continues to be appropriate for IRF: - Continues to be appropriate. SATYA DONOHUE MD at 0926 CC: [id number] DICTATION DATE: 02/23/19 0836 COTTON PULLER: 02/23/19 1032 ADM IN [address] [place] [address]
--- NOTE | 2019-02-24 13:48 | NUR ---
SITTING IN WC IN ROOM. CALL LIGHT IN REACH. POOR VISION AND WEAKNESS NOTED. FALLS RISK PRECAUTIONS IN PLACE. CALL LIGHT IN HAND
--- NOTE | 2019-02-24 19:25 | NUR ---
ASSISTED TO AND FROM BATHROOM VIA WALKER. MIN ASSIST. PT URINATED. PT BACK IN BED. CL IN REACH. DENIES FURTHER NEEDS. BED IN LOW SIDE RAILS X2. RESP EVEN AND UNLABORED. A/O X4. LUNGS CLEAR BOWEL ACTIVE X4. WILL CONTINUE TO MONITOR.
[2019-02-24 20:18] VITALS: BP 138/72
--- NOTE | 2019-02-25 02:17 | NUR ---
I have reviewed this patient and I concur with the Shift Assessment completed by the Licensed Practical Nurse today this shift.
[2019-02-25 09:52] VITALS: BP 121/75
--- NOTE | 2019-02-25 15:52 | NUR ---
RESTING QUIETLY IN BED. USES A WALKER FOR WALKING ASST FROM BED TO BATHROOM. STAFF IS WITH PT BUT STAND BY ASST IS OFTEN ALL HE NEEDS. PT IS BLIND IN ONE EYE AND CANT SEE OUT OF THE OTHER (RT SIDE HAS POOR VISION, LEFT SIDE IS BLIND). HE MOSTLY NEEDS HIS PANTS PULLED UP FROM THE FLOOR WHEN HE HAS URGE TO VISIT BATHROOM. CALL LIGHT IN REACH
--- NOTE | 2019-02-25 19:32 | NUR ---
ASSISTED TO AND FROM BATHROOM VIA WALKER. PT IS MIN ASSIST TO BATHROOM. PT BACK IN BED SITTING ON SIDE EATING SUPPER. DENIES NEEDS AT THIS TIME. BED IN LOW. A/O X4. LUNGS CLEAR. BOWEL ACTIVE X4. RESP EVEN AND UNLABORED. WILL CONTINUE TO MONITOR.
[2019-02-25 20:29] VITALS: BP 131/35
--- NOTE | 2019-02-26 00:03 | NUR ---
QUIET HOURS. PT LYING IN BED EYES CLOSED RESTING QUIETLY. RR EVEN AND UNLABORED. CL IN REACH. BED ALARM ON
--- NOTE | 2019-02-26 05:59 | NUR ---
I have reviewed this patient and I concur with the Shift Assessment completed by the Licensed Practical Nurse today this shift.
--- NOTE | 2019-02-26 06:34 | NUR ---
FSBS 84
[2019-02-26 08:00] VITALS: BP 127/62
--- NOTE | 2019-02-26 12:40 | NUR ---
SITTING ON POTTY "PRAYING". PO LAXATIVES GIVEN THIS AM REQUESTED. PT IS AMBULATORY WITH WALKER AND CONT OF B/B. POOR VISION NOTED. PLEASANT AND COOPERATIVE. DECLINED SHOWER AGAIN STATING HIS STOMACH IS "NOT RIGHT"...
--- NOTE | 2019-02-26 18:14 | NUR ---
RESTING QUIETLY IN BED. REFUSED SHOWER AGAIN STATING HE WAS TOO TIRED. IS PASSING SOME GAS BUT NO BM YET. DENIES CHANGES IN PAIN. CALL LIGHT IN REACH
--- NOTE | 2019-02-26 19:38 | NUR ---
ASSISTED TO AND FROM BATHROOM VIA WALKER. PT BACK IN BED. DENIES FURTHER NEEDS. CL IN REACH. BED IN LOW SIDE RAILS X2. A/O X4. LUNGS CLEAR. BOWEL ACTIVE X4. RESP EVEN AND UNLABORED. WILL CONTINUE TO MONITOR. BED ALARM ON.
[2019-02-26 20:32] VITALS: BP 140/41
--- NOTE | 2019-02-26 23:08 | NUR ---
QUIET HOURS. PT LYING IN BED SUPINE EYES CLOSED RESTING QUIETLY. RR EVEN AND UNLABORED. CL IN REACH
--- NOTE | 2019-02-27 02:32 | NUR ---
PT LYING IN BED ON LEFT SIDE EYES CLOSED RESTING COMFORTABLY. RR EVEN AND UNLABORED. CL IN REACH. BED ALARM ON
[2019-02-27 06:22] LABS: BASOPHILS 0.5 % (0-2); EOSINOPHILS 3.6 % (0-7); HEMATOCRIT 29.9 % (42.0-54.0); HEMOGLOBIN 9.3 g/dL (13.5-17.5); IMMATURE GRANULOCYTES 0.2 % (0-5); LYMPHOCYTES 35.6 % (15-50); MCH 28.4 pg (26.0-34.0); MCHC 31.1 g/dL (31.0-37.0); MCV 91.2 fL (80.0-100.0); MEAN PLATELET VOLUME 10.2 fL (7.4-10.4); MONOCYTES 10.5 % (2-11); NEUTROPHILS 49.6 % (40-80); PLATELET COUNT 230 10x3/uL (130-400); RBC 3.28 10x6/uL (4.20-6.10); RDW 17.5 % (11.5-14.5); WBC 6.7 10x3/uL (4.8-10.8)
[2019-02-27 06:53] LABS: ANION GAP 10.2 mmol/L (8-16); CALCIUM 8.2 mg/dL (8.5-10.1); CARBON DIOXIDE 29.6 mmol/L (21.0-32.0); CREATININE - SERUM 1.3 mg/dL (0.6-1.3); POTASSIUM - SERUM 3.8 mmol/L (3.5-5.1)
[2019-02-27 07:31] VITALS: BP 160/71
--- NOTE | 2019-02-27 14:51 | NUR ---
SITTING IN WC IN ROOM. HEAD LEANED DOWN AND EYES CLOSED. HAD LARGE BM FEW MINUTES AGO AND STATES HE FEELS SO MUCH BETTER. POOR EYESIGHT NOTED. USES WALKER AND WC FOR MOTION ASST. CALL LIGHT IN REACH
--- NOTE | 2019-02-27 15:37 | NUR ---
Nutrition Follow-up: Diet: Diabetic diet PO intake: ~54% average x last 6 meals. Reports appetite is "improved." He wants Glucerna on trays. States that he does not have an iodine allergy and is wanting salt on trays. He c/o constipation. Last BM: 02/24/19. Wt: 234# (02/23/19) Significant meds: lantus, lasix. Labs reviewed, noted Glu currently WNL. Continue current nutrition regimen. Will add Glucerna to trays per request. RD Following.
--- NOTE | 2019-02-27 18:20 | NUR ---
NOW HAVING LOOSE STOOLS....
--- NOTE | 2019-02-27 19:20 | NUR ---
ASSISTED TO AND FROM BATHROOM. PT IS HAVING DIARRHEA. PT SITTING UP IN WHEELCHAIR. CL IN REACH. DENIES NEEDS AT THIS TIME. RESP EVEN AND UNLABORED. A/O X4. LUNGS CLEAR. BOWEL ACTIVE X4. WILL CONTINUE TO MONITOR.
[2019-02-27 19:23] VITALS: BP 102/61
--- NOTE | 2019-02-28 02:53 | NUR ---
PT LYING IN BED EYES OPEN AND ALERT. DENIES ANY NEEDS OR PAIN. RR EVEN AND UNLABORED. CL IN REACH
--- NOTE | 2019-02-28 03:54 | NUR ---
I have reviewed this patient and I concur with the Shift Assessment completed by the Licensed Practical Nurse today this shift.
--- NOTE | 2019-02-28 08:00 | NUR ---
PT RESTING IN BED WITH EYES OPEN CALL LIGHT IN REACH NO PROBLEMS WILL MONITER
[2019-02-28 08:18] VITALS: BP 115/58
--- NOTE | 2019-02-28 11:00 | NUR ---
I have reviewed this patient and I concur with the Shift Assessment completed by the Licensed Practical Nurse today this shift.
--- NOTE | 2019-02-28 18:20 | NUR ---
PT RESTING IN BED WITH EYES OPEN CALL LIGHT IN REACH NO PROBLEMS WILL MONITER
--- NOTE | 2019-02-28 19:18 | NUR ---
GREETED PATIENT AND INTRODUCED MYSELF HIS NURSE. PATIENT IS SITTING ON SIDE OF THE BED AT THIS TIME. RESPIRATIONS EVEN. NO S/S OF DISTRESS. CALL LIGHT IN REACH. ASSISTED PATIENT TO BATHROOM USING WHEELCHAIR. PATIENT BACK TO BED AND REPOSITIONED FOR COMFORT.
[2019-02-28 20:00] VITALS: BP 117/63
--- NOTE | 2019-03-01 00:51 | NUR ---
PT. RESTING QUIETLY WITH EYES OPEN LAYING IN BED. RESPIRATIONS EVEN. NO S/S OF DISTRESS. SR UP X 2. BED IN LOWEST POSITION. CALL LIGHT IN REACH. DENIES ANY NEEDS AT THIS TIME.
[2019-03-01 05:58] LABS: BASOPHILS 0.3 % (0-2); EOSINOPHILS 4.7 % (0-7); HEMATOCRIT 29.1 % (42.0-54.0); HEMOGLOBIN 9.1 g/dL (13.5-17.5); IMMATURE GRANULOCYTES 0.1 % (0-5); MCH 28.4 pg (26.0-34.0); MCHC 31.3 g/dL (31.0-37.0); MCV 90.9 fL (80.0-100.0); MEAN PLATELET VOLUME 10.4 fL (7.4-10.4); MONOCYTES 9.5 % (2-11); NEUTROPHILS 54.4 % (40-80); PLATELET COUNT 214 10x3/uL (130-400); RDW 17.3 % (11.5-14.5); WBC 6.8 10x3/uL (4.8-10.8)
[2019-03-01 06:00] LABS: ANION GAP 8.4 mmol/L (8-16); CALCIUM 8.1 mg/dL (8.5-10.1); CARBON DIOXIDE 29.4 mmol/L (21.0-32.0); CREATININE - SERUM 1.4 mg/dL (0.6-1.3); POTASSIUM - SERUM 3.8 mmol/L (3.5-5.1)
[2019-03-01 08:00] VITALS: BP 127/58
--- NOTE | 2019-03-01 08:00 | NUR ---
PATIENT SITTING UP IN WHEELCHAIR FOR BREAKFAST. ALERT/ORIENT. CALL LIGHT WITHIN REACH. VOICES NO NEEDS AT THIS TIME. WILL CONTINUE WITH PLAN OF CARE
--- NOTE | 2019-03-01 09:49 | NUR ---
PATIENT IN REHAB ROOM. WORKIGN WITH PHYSICAL THERAPIST. DENIES ANY PAIN/DISC AT THIS TIME.
--- NOTE | 2019-03-01 11:00 | NUR ---
I have reviewed this patient and I concur with the Shift Assessment completed by the Licensed Practical Nurse today this shift.
--- NOTE | 2019-03-01 13:05 | NUR ---
PATIENT TAKING A SHOWER. NURSE ASST HELPING WITH SHOWER.
--- NOTE | 2019-03-01 13:57 | NUR ---
Nutrition Follow-up: Diet: Diabetic + Glucerna TID PO intake: 75-100%. Reports good appetite. Last BM: 02/28/19 x 7. Wt: 234# (02/23/19) Significant meds: MOM, dulcolax, lantus, lasix. Labs and nursing skin assessment reviewed. Continue current nutrition regimen. RD Following.
--- NOTE | 2019-03-01 14:54 | NUR ---
CARE TEAM MEETING: PATIENT DOING WELL IN THERAPY. TENATIVE DISCHARGE DATE IS 03/08/19. WILL CONTINUE TO FOLLOW WITH PATIENT.
--- NOTE | 2019-03-01 17:33 | NUR ---
PATIENT SITTING UP IN BED TO EAT SUPPER. VOICES NO NEEDS. CALL LIGHT WITHIN REACH
--- NOTE | 2019-03-01 19:35 | NUR ---
GREETED PATIENT AND INTRODUCED MYSELF HIS NURSE. PATIENT IS LAYING IN BED RESTING QUIETLY AT THIS TIME. RESPIRATIONS EVEN. NO S/S OF DISTRESS. CALL LIGHT IN REACH. DENIES ANY FURTHER NEEDS AT THIS TIME.
[2019-03-01 20:00] VITALS: BP 128/65
--- NOTE | 2019-03-02 02:08 | NUR ---
PATIENT RESTING QUIETLY WITH EYES CLOSED LAYING IN SUPINE POSITION. HOB AT 15 DEGREES. RESPIRATIONS EVEN. NO S/S OF DISTRESS. CALL LIGHT IN REACH.
[2019-03-02 08:00] VITALS: BP 110/52
--- NOTE | 2019-03-02 09:00 | NUR ---
PT AM MEDS ADMINISTERED. PT DENIES NEEDS. WCTM.
--- NOTE | 2019-03-02 19:57 | NUR ---
PATIENT RECIEVED SITTING UP IN BED. ASSESSMENT & VITAL SIGNS DONE. C/O PAIN TO BACK,SIDE & NECK LEVEL 8. PAIN MEDICATION GIVEN. BED LOW. ALARM ON. CALL LIGHT & URINAL WITHIN REACH. WILL CONTINUE TO MONITOR.
[2019-03-02 20:00] VITALS: BP 154/82
--- NOTE | 2019-03-03 00:21 | NUR ---
QUIET HOURS. PT LYING IN BED ON LEFT SIDE EYES CLOSED RESTING QUIETLY. RR EVEN AND UNLABORED. CL IN REACH. BED ALARM ON.
--- NOTE | 2019-03-03 01:59 | NUR ---
I have reviewed this patient and I concur with the Shift Assessment completed by the Licensed Practical Nurse today this shift.
--- NOTE | 2019-03-03 03:30 | NUR ---
PATIENT EYES CLOSED. RESPIRATIONS 18 & EVEN. BED LOW. ALARM ON. CALL LIGHT WITHIN REACH. WILL CONTINUE TO MONITOR.
[2019-03-03 06:12] LABS: CALCIUM 8.3 mg/dL (8.5-10.1); CARBON DIOXIDE 27.4 mmol/L (21.0-32.0); CREATININE - SERUM 1.5 mg/dL (0.6-1.3); POTASSIUM - SERUM 4.4 mmol/L (3.5-5.1)
[2019-03-03 06:23] LABS: BASOPHILS 0.5 % (0-2); EOSINOPHILS 5.1 % (0-7); HEMATOCRIT 30.2 % (42.0-54.0); HEMOGLOBIN 9.3 g/dL (13.5-17.5); IMMATURE GRANULOCYTES 0.2 % (0-5); LYMPHOCYTES 27.8 % (15-50); MCH 28.4 pg (26.0-34.0); MCHC 30.8 g/dL (31.0-37.0); MCV 92.4 fL (80.0-100.0); MONOCYTES 8.7 % (2-11); NEUTROPHILS 57.7 % (40-80); PLATELET COUNT 208 10x3/uL (130-400); RBC 3.27 10x6/uL (4.20-6.10); RDW 17.3 % (11.5-14.5); WBC 6.7 10x3/uL (4.8-10.8)
[2019-03-03 08:00] VITALS: BP 140/62
--- NOTE | 2019-03-03 08:00 | NUR ---
PATIENT IS ALERT/ORIENT. SITTING UP AT THE SIDE OF THE BED TO EAT BREAKFAST. CALL LIGHT WITHIN REACH. VOICES NO NEEDS AT THIS TIME. WILL CONTINUE WITH PLAN OF CARE
--- NOTE | 2019-03-03 14:12 | NUR ---
PATIENT IN REHAB ROOM. WORKING WITH OCCUPATIONAL THERPIST. DENIES ANY PAIN/DISC AT THIS TIME.
--- NOTE | 2019-03-03 16:45 | NUR ---
PATIENT REFUSED SHOWER AT THIS TIME. STATED HE WOULD TAKE AFTER SUPPER. NURSE ASST AWARE OF
--- NOTE | 2019-03-03 19:00 | NUR ---
PT IS RESTING IN BED WITH EYES OPEN. ALERT AND ORIENTED X 3. DENIES ACUTE PAIN OR DISCOMFORT AT THIS TIME. NO NEEDS VOICED. PT IS HARD OF HEARING, AND HAS VERY POOR VISION. MIN ASSIST REQUIRED FOR MOST CARE. SR'S ARE UP X 2 IN BED. CALL LIGHT AND BEDSIDE TABLE ARE WITHIN EASY REACH.
[2019-03-03 19:46] VITALS: BP 135/71
--- NOTE | 2019-03-03 22:00 | NUR ---
PT IS RESTING IN BED WITH EYES OPEN. NO NEEDS VOICED.
--- NOTE | 2019-03-04 01:00 | NUR ---
PT RESTING IN BED WITH EYES CLOSED.
--- NOTE | 2019-03-04 02:10 | NUR ---
I have reviewed this patient and I concur with the Shift Assessment completed by the Licensed Practical Nurse today this shift.
--- NOTE | 2019-03-04 04:59 | NUR ---
PT RESTING IN BED WITH EYES CLOSED. NO DISTRESS NOTED.
--- NOTE | 2019-03-04 07:07 | NUR ---
GREETED PATIENT AND INTRODUCED MYSELF HIS NURSE. PATIENT IS LAYING IN BED RESTING AT THIS TIME. RESPIRATIONS EVEN. NO S/S OF DISTRESS. STATES THAT PAIN IS 6/10 IN BACK. CALL LIGHT IN REACH. DENIES ANY FURHTER NEEDS AT THIS TIME.
[2019-03-04 07:45] VITALS: BP 110/56
--- NOTE | 2019-03-04 10:00 | NUR ---
PT. IN THERAPY AT THIS TIME.
--- NOTE | 2019-03-04 12:43 | NUR ---
PT. BACK TO ROOM FROM THERAPY AND BACK TO BED AND REPOSITIONED FOR COMFORT. CALL LIGHT IN REACH.
[2019-03-04 19:30] VITALS: BP 144/65
--- NOTE | 2019-03-04 19:43 | NUR ---
PT ASSISTED UP TO THE BATHROOM WITH MIN ASSIST. VOIDED WITHOUT DIFFICULTY. SMALL BM NOTED. NO FURTHER NEEDS VOICED.
--- NOTE | 2019-03-04 22:26 | NUR ---
PT IS RESTING QUIETLY IN BED WITH EYES CLOSED. RESPS ARE EVEN AND UNLABORED. NO ACUTE DISTRESS NOTED.
--- NOTE | 2019-03-05 00:42 | NUR ---
RESTING QUIETLY IN BED WITH EYES CLOSED. RESPS ARE EVEN AND UNLABORED. NO ACUTE DISTRESS NOTED.
--- NOTE | 2019-03-05 01:30 | NUR ---
I have reviewed this patient and I concur with the Shift Assessment completed by the Licensed Practical Nurse today this shift.
--- NOTE | 2019-03-05 06:25 | NUR ---
PT ASSISTED TO THE BATHROOM WITH MIN ASSIST.
--- NOTE | 2019-03-05 06:55 | NUR ---
GREETED PATIENT AND INTRODUCED MYSELF HIS NURSE. PATIENT IS LAYING IN BED RESTING QUIETLY AT THIS TIME. RESPIRATIONS EVEN. NO S/S OF DISTRESS. DENIES ANY NEEDS AT THIS TIME. CALL LIGHT IN REACH.
[2019-03-05 07:30] VITALS: BP 155/71
--- NOTE | 2019-03-05 13:18 | NUR ---
PT. SITTING UP EATING LUNCH. DENIES ANY NEEDS AT THIS TIME. CALL LIGHT IN REACH.
--- NOTE | 2019-03-05 16:30 | NUR ---
PTS. SHOWER COMPLETE. BACK TO BED AND REPOSITIONED FOR COMFORT. CALL LIGHT IN REACH.
--- NOTE | 2019-03-05 17:16 | NUR ---
PT. SITTING ON SIDE OF BED EATING DINNER. DENIES ANY NEEDS AT THIS TIME. CALL LIGHT IN REACH.
--- NOTE | 2019-03-05 19:16 | NUR ---
PT IS RESTING QUIETLY IN BED WITH EYES CLOSED.
[2019-03-05 20:58] VITALS: BP 148/71
--- NOTE | 2019-03-05 22:02 | NUR ---
RESTING QUIETLY IN BED WITH EYES CLOSED. NO DISTRESS NOTED.
--- NOTE | 2019-03-06 00:07 | NUR ---
I have reviewed this patient and I concur with the Shift Assessment completed by the Licensed Practical Nurse today this shift.
--- NOTE | 2019-03-06 04:46 | NUR ---
RESTING IN BED WITH EYES CLOSED.
[2019-03-06 07:15] LABS: BASOPHILS 0.3 % (0-2); HEMATOCRIT 28.4 % (42.0-54.0); IMMATURE GRANULOCYTES 0.2 % (0-5); MCH 28.8 pg (26.0-34.0); MCHC 31.7 g/dL (31.0-37.0); MEAN PLATELET VOLUME 10.2 fL (7.4-10.4); MONOCYTES 10.5 % (2-11); PLATELET COUNT 207 10x3/uL (130-400); RBC 3.12 10x6/uL (4.20-6.10); RDW 17.3 % (11.5-14.5); WBC 6.6 10x3/uL (4.8-10.8)
[2019-03-06 07:17] LABS: ANION GAP 7.6 mmol/L (8-16); CALCIUM 8.6 mg/dL (8.5-10.1); CARBON DIOXIDE 30.2 mmol/L (21.0-32.0); CREATININE - SERUM 1.2 mg/dL (0.6-1.3); POTASSIUM - SERUM 3.8 mmol/L (3.5-5.1)
[2019-03-06 07:46] VITALS: BP 115/56
--- NOTE | 2019-03-06 09:13 | NUR ---
NUTRITION F/U PT REPORTS HE "TORE IT UP" WHEN ASKED ABOUT BREAKFAST THIS MORNING. 100% PLUS 100% GLUCERNA SHAKE. NO COMPLAINTS. BM RECORDED 03/06/19. RD FOLLOWING
--- NOTE | 2019-03-06 12:18 | NUR ---
SITTING UP IN ROOM FOR LUNCH. HAS BEEN UP MOST OF MORNING FOR THERAPY. DENIES INCREASED PAIN. CALL LIGHT IN REACH
--- NOTE | 2019-03-06 14:57 | NUR ---
SITTING ON BED IN HIS ROOM WORKING WITH Lesly
[2019-03-06 20:00] VITALS: BP 148/77
--- NOTE | 2019-03-06 20:00 | NUR ---
PATIENT USED CALL LIGHT FOR ASSIST. PATIENT STOOD UP. ALARM ON & TURNED OFF. PATIENT USED WALKER, SLOW STEADY GAIT. PATIENT HAD VOID ONLY. PATIENT RETURNED TO BED. ALARM ON. CALL LIGHT WITHIN REACH. BED LOW. WILL CONTINUE TO MONITOR.
--- NOTE | 2019-03-06 20:00 | NUR ---
PATIENT RECEIVED SITTING UP IN BED. ASSESSMENT & VITAL SIGNS DONE. ALARM ON. BED LOW. CALL LIGHT WITHIN REACH. WILL CONTINUE TO MONITOR.
--- NOTE | 2019-03-06 23:09 | NUR ---
PATIENT TOILETED. HAD VOID & SMALL BM. PATIENT RETURNED TO BED. CALL LIGHT WITHIN REACH. ALARM ON. WILL CONTINUE TO MONITOR.
--- NOTE | 2019-03-07 02:11 | NUR ---
PATIENT USED CALL LIGHT WITHIN REACH FOR ASSIST. PATIENT STOOD UP & AMBULATED WITH SLOW, STEADY GAIT USING HIS WALKER. PATIENT HAD VOID & RETURNED TO BED. ALARM ON. CALL LIGHT WITHIN REACH. WILL CONTINUE TO MONITOR.
--- NOTE | 2019-03-07 04:02 | NUR ---
I have reviewed this patient and I concur with the Shift Assessment completed by the Licensed Practical Nurse today this shift.
--- NOTE | 2019-03-07 04:07 | NUR ---
PATIENT EYES CLOSED. RESPIRATIONS 18 & EVEN. BED LOW. ALARM ON. CALL LIGHT WITHIN REACH. WILL CONTINUE TO MONITOR.
--- NOTE | 2019-03-07 07:54 | NUR ---
ALERT AND ORIENTED. NO DISTRESS NOTED. CL IN REACH. RESP EVEN AND UNLAOBRD.
[2019-03-07 08:08] VITALS: BP 139/60
--- NOTE | 2019-03-07 08:41 | NUR ---
SHOWER PER OT.
--- NOTE | 2019-03-07 12:53 | NUR ---
SPOKE WITH DAUGHTER HARITHA AND SHE IS WORKING ON GETTING HER FATHER ON MEDICAID. SHE WILL CALL BHAVNA ACEVEDO REGARDING BEING ADMITTED TO [facility].
--- NOTE | 2019-03-07 13:30 | NUR ---
NO C/O PAIN. RESP EVEN AND UNLABORED. CL IN REACH.
--- NOTE | 2019-03-07 15:22 | NUR ---
PT HAS A STAGE 2 PRESSURE INJURY ON HIS LEFT HEEL MEASURING 1CM X 3CM X 0.4CM. SURROUNDING SKIN IS MACERATED CALLOUS. NO DRAINAGE OR ODOR IS NOTED. RIGHT HEEL HAS A RUPTURED BLLISTER (STAGE 2 PRESSURE INJURY) MEASURING 3CM X 4CM. SURROUNDING SKIN IS MACERATED. RECOMMENDED KEEPING DRY AND COVERED FOR PROTECTION. WOUND CARE CONTINUES TO MONITOR.
--- NOTE | 2019-03-07 16:41 | NUR ---
NO CHANGE IN ASSESSMENT. SITTING IN WC FOR DINNER. NO DISTRESS. CL IN REACH.
--- NOTE | 2019-03-07 19:40 | NUR ---
BEDSIDE REPORT COMPLETE. PT LYING IN BED SUPINE EYES CLOSED RESTING. RR EVEN AND UNLABORED. CL IN REACH. BED ALARM ON. WILL CONTINUE TO MONITOR
[2019-03-07 19:50] VITALS: BP 142/64
--- NOTE | 2019-03-08 00:50 | NUR ---
ASSISTED PT TO RESTROOM AND BACK TO BED WITH SBA. CL IN REACH. BED ALARM ON
--- NOTE | 2019-03-08 03:43 | NUR ---
PT LYING IN BED EYES CLOSED RESTING QUIETLY. RR EVEN AND UNLABORED. CL IN REACH. BED ALARM ON
[2019-03-08 08:04] VITALS: BP 145/58
--- NOTE | 2019-03-08 13:02 | NUR ---
I have reviewed this patient and I concur with the Shift Assessment completed by the Licensed Practical Nurse today this shift.
--- NOTE | 2019-03-08 17:48 | NUR ---
PT RESTING IN BED WITH EYES OPEN CALL LIGHT IN REACH NO PROBLEMS WILL MONITER
--- NOTE | 2019-03-08 19:23 | NUR ---
GREETED PATIENT AND INTRODUCED MYSELF HIS NURSE. PATIENT IS LAYING IN BED RESTING AT THIS TIME. STATES THAT PAIN IS 7/10 IN BACK AT THIS TIME. RESPIRATIONS EVEN. NO S/S OF DISTRESS. CALL LIGHT IN REACH.
[2019-03-08 19:30] VITALS: BP 100/50
--- NOTE | 2019-03-09 02:12 | NUR ---
SITTING ON SIDE OF BED WATCHING TV. DENIES ANY NEEDS AT THIS TIME. CALL LIGHT IN REACH.
--- NOTE | 2019-03-09 06:30 | NUR ---
PT. AWAKE LAYING IN BED. DENIES ANY NEEDS. CALL LIGHT IN REACH.
--- NOTE | 2019-03-09 08:00 | NUR ---
PATIENT IS ALERT/ORIENT. CALL LIGHT WITHIN REACH. VOICES NO NEEDS AT THIS TIME. PLAN TO DISCHARGE PATIENT TO [facility]
[2019-03-09 08:23] VITALS: BP 101/58
--- NOTE | 2019-03-09 08:23 | NUR ---
PRN PAIN MEDICATION GIVEN PER PATIENT REQUEST
[2019-03-09] MEDS ORDERED: COREG 3.1253.125 MG PO (08:28)
--- NOTE | 2019-03-09 08:30 | NUR ---
DR Cleveland DONOHUE INTO SEE PATIENT NEW ORDERS RECEIVED FOR DISCHARGE
--- NOTE | 2019-03-09 12:00 | NUR ---
I have reviewed this patient and I concur with the Shift Assessment completed by the Licensed Practical Nurse today this shift.
[2019-03-09 19:00] VITALS: BP 142/77
--- NOTE | 2019-03-09 19:11 | NUR ---
GREETED PATIENT AND INTRODUCED MYSELF HIS NURSE. PATIENT IS LAYING IN BED WATCHING TV AT THIS TIME. RESPIRATIONS EVEN. NO S/S OF DISTRESS. STATES THAT PAIN IS 7/10 IN BACK AT THIS TIME. CALL LIGHT IN REACH.
--- NOTE | 2019-03-10 00:25 | NUR ---
PT. RESTING QUIETLY WITH EYES CLOSED. RESPIRAITONS EVEN. NO S/S OF DISTRESS. CALL LIGHT IN REACH.
--- NOTE | 2019-03-10 05:00 | NUR ---
PT. HAS HAD THREE DIARRHEA EPISODES.
[2019-03-10 08:13] VITALS: BP 98/56
[2019-03-10] MEDS ORDERED: HYDROCODON-ACE1 EA10 PO (08:26)
--- NOTE | 2019-03-10 10:46 | NUR ---
IS SCHEDULED TO GO HOME TODAY. HAS BEEN SOME CHANGES IN DC PLANS OF TODAY. HE HAS BEEN RESTING IN BED THIS MORNING. DENIES NEEDS OR INCREASED PAIN. CALL LIGHT IN REACH
--- NOTE | 2019-03-10 11:55 | NUR ---
PATIENT DISCHARGING HOME TODAY. [facility] WILL TRANSPORT PATIENT HOME. DR. ARTEAGA AT THE [facility] WILL CALL PATIENT WITH AN APPOINTMENT AND WILL EVAL FOR HOME HEALTH. NO NEW DME NEEDED AT THIS TIME. [facility] FORM SIGNED, COPY GIVEN TO PATIENT AND FILED IN CHART. DISCHARGE RECORDS HAVE BEEN FAXED TO PCP AT [facility] AND REVIEWED WITH PATIENT.
--- NOTE | 2019-03-10 18:05 | NUR ---
FINISHING SUPPER. RESTING QUIETLY IN BED. DENIES NEEDS OR C/O. CALL LIGHT IN REACH
--- NOTE | 2019-03-10 19:30 | NUR ---
PT IS RESTING IN BED WATCHING TV. ALERT AND ORIENTED X 3. DENIES ACUTE PAIN OR DISCOMFORT AT THIS TIME. NO NEEDS VOICED. PT IS HARD OF HEARING AND HAS POOR VISION, BUT COMMUNICATES WELL. ANXIOUS TO DC IN AM. SR'S ARE UP X 2 IN BED. CALL LIGHT AND BEDSIDE TABLE ARE WITHIN EASY REACH.
--- NOTE | 2019-03-10 22:20 | NUR ---
PT ASSISTED TO THE BATHROOM WITH SBA. NO FURTHER NEEDS VOICED.
--- NOTE | 2019-03-11 01:11 | NUR ---
I have reviewed this patient and I concur with the Shift Assessment completed by the Licensed Practical Nurse today this shift.
--- NOTE | 2019-03-11 05:21 | NUR ---
RESTING IN BED WITH EYES CLOSED.
[2019-03-11 08:00] VITALS: BP 169/88
--- NOTE | 2019-03-11 08:00 | NUR ---
PATIENT IS ALERT/ORIENT. CALL LIGHT WITHIN REACH. VOICES NO NEEDS AT THIS TIME. PLAN IS TO DISCHARGE TO HOME.
--- NOTE | 2019-03-11 09:00 | NUR ---
DR Cleveland DONOHUE INTO SEE PATIENT. NEW ORDER FOR DISCHARGE TO HOME.
--- NOTE | 2019-03-11 13:18 | NUR ---
DISCHARGE INSTRUCTIONS GONE OVER WITH PATIENTS. DISCHARGE MEDICATIONS CALLED INTO [facility] ON [address]. SON IN LAW HERE TO TAKE HOME. STAFF HELPED PATIENT OUT TO CAR
== END 2019-03-11 13:28 | disposition home or self-care (01) | DRG 280 ==
LOC: D.REHAB 16:24
PROVIDERS: ADMIT Emergency Medicine; ATTEND Emergency Medicine
DX: I21.4 Non-ST elevation (NSTEMI) myocardial infarction (principal); G92 Toxic encephalopathy; N39.0 Urinary tract infection, site not specified; N17.9 Acute kidney failure, unspecified; D64.9 Anemia, unspecified; S91.302A Unspecified open wound, left foot, initial encounter; I10 Essential (primary) hypertension; E78.5 Hyperlipidemia, unspecified; R53.81 Other malaise; Z91.81 History of falling; F41.8 Other specified anxiety disorders; N40.0 Benign prostatic hyperplasia without lower urinary tract symptoms; R53.83 Other fatigue; R53.1 Weakness

== ENCOUNTER 2019-03-16 10:19 | Emergency (ER) | payer OTHER ==
[~2019-03-16] VITALS: Ht 185.4 cm; Wt 106.4 kg
[2019-03-16 10:25] VITALS: Ht 185.4 cm; Wt 106.4 kg
[2019-03-16 11:09] LABS: BASOPHILS 0.4 % (0-2); EOSINOPHILS 2.8 % (0-7); HEMOGLOBIN 9.3 g/dL (13.5-17.5); IMMATURE GRANULOCYTES 0.3 % (0-5); LYMPHOCYTES 32.1 % (15-50); MCH 28.6 pg (26.0-34.0); MCHC 32.1 g/dL (31.0-37.0); MCV 89.2 fL (80.0-100.0); MEAN PLATELET VOLUME 9.9 fL (7.4-10.4); MONOCYTES 9.3 % (2-11); NEUTROPHILS 55.1 % (40-80); PLATELET COUNT 206 10x3/uL (130-400); RBC 3.25 10x6/uL (4.20-6.10); RDW 16.5 % (11.5-14.5); WBC 7.9 10x3/uL (4.8-10.8)
[2019-03-16 11:12] LABS: CALC OSMOLALITY 283 mosm/kg (275-300); CALCIUM 8.7 mg/dL (8.5-10.1); CARBON DIOXIDE 26.5 mmol/L (21.0-32.0); CHLORIDE - SERUM 98 mmol/L (98-107); SODIUM 131 mmol/L (136-145); UREA NITROGEN 52 mg/dL (7-18); eGFR NON AFRICAN AMERICAN 34 mL/min (90-120)
[2019-03-16 11:13] LABS: GLUCOSE 228 mg/dL (74-106)
[2019-03-16 11:16] LABS: INR 1.06 (0.85-1.17); PROTIME 13.3 SECONDS (11.6-15.0)
[2019-03-16 11:17] LABS: D-DIMER-QUANTITATIVE 2.54 ug/mLFEU (0.20-0.54)
[2019-03-16 11:31] LABS: ALKALINE PHOSPHATASE 144 U/L (46-116); ALT (SGPT) 17 U/L (10-68); CKMB 3.1 U/L (0.0-3.6); CREATINE KINASE 130 UL (21-232); MAGNESIUM - SERUM 1.7 mg/dL (1.8-2.4); PRO BNP 2757 pg/mL (0-450); PROTEIN - SERUM 7.3 g/dL (6.4-8.2); THYROID STIMULATING HORMONE 2.77 uIU/mL (0.36-3.74)
[2019-03-16 11:43] LABS: UDS - AMPHET NEGATIVE QUAL (NEGATIVE); UDS - BARB NEGATIVE QUAL (NEGATIVE); UDS - BENZO NEGATIVE QUAL (NEGATIVE); UDS - COCAINE NEGATIVE QUAL (NEGATIVE); UDS - OPIATE POSITIVE QUAL (NEGATIVE); UDS - PCP NEGATIVE QUAL (NEGATIVE); UDS - THC NEGATIVE QUAL (NEGATIVE)
[2019-03-16 12:03] LABS: APPEARANCE SL CLDY (CLEAR); BACTERIA FEW /hpf (NEGATIVE); BILIRUBIN NEGATIVE (NEGATIVE); COLOR YELLOW (YELLOW); EPITHELIAL CELLS 0-5 /hpf (0-5); GLUCOSE NEGATIVE (NEGATIVE); KETONE NEGATIVE (NEGATIVE); MUCUS <1+ /lpf (NONE SEEN); NITRITE NEGATIVE (NEGATIVE); PROTEIN NEGATIVE (NEGATIVE); RED CELLS - URINE RARE /hpf (0-5); UROBILINOGEN NORMAL (NORMAL); WHITE CELLS - URINE 0-5 /hpf (NEGATIVE)
[2019-03-16 17:04] VITALS: BP 129/64
== END 2019-03-16 17:05 | disposition other institution (70) ==
LOC: D.ER 10:19
PROVIDERS: Family Medicine
DX: D64.89 Other specified anemias (principal); R55 Syncope and collapse; R79.1 Abnormal coagulation profile; R53.1 Weakness; E11.9 Type 2 diabetes mellitus without complications; Z79.4 Long term (current) use of insulin; N28.9 Disorder of kidney and ureter, unspecified; I10 Essential (primary) hypertension; H40.9 Unspecified glaucoma; F32.9 Major depressive disorder, single episode, unspecified; M54.9 Dorsalgia, unspecified; M50.90 Cervical disc disorder, unspecified, unspecified cervical region

== ENCOUNTER 2020-06-14 13:54 | Inpatient (IN) | payer OTHER ==
[~2020-06-14] VITALS: Ht 185.4 cm; Wt 107.0 kg
[2020-06-14 14:02] VITALS: BP 136/73
--- NOTE | 2020-06-14 14:07 | NUR ---
CHART PLACED IN RACK IN DOCTOR'S STATION.
[2020-06-14 15:26] VITALS: BP 172/90
[2020-06-14 15:35] LABS: BASOPHILS 0.1 % (0-2); EOSINOPHILS 0.1 % (0-7); HEMATOCRIT 35.7 % (42.0-54.0); HEMOGLOBIN 11.9 g/dL (13.5-17.5); IMMATURE GRANULOCYTES 0.4 % (0-5); LYMPHOCYTE ABS# 1.45 10x3/uL (1.32-3.57); LYMPHOCYTES 8.7 % (15-50); MCH 30.4 pg (26.0-34.0); MCHC 33.3 g/dL (31.0-37.0); MCV 91.1 fL (80.0-100.0); MEAN PLATELET VOLUME 9.5 fL (7.4-10.4); MONOCYTES 10.2 % (2-11); NEUTROPHIL ABS# 13.36 10x3/uL (1.78-5.38); NEUTROPHILS 80.5 % (40-80); RBC 3.92 10x6/uL (4.20-6.10); RDW 14.6 % (11.5-14.5); WBC 16.6 10x3/uL (4.8-10.8)
[2020-06-14 15:59] LABS: APTT 24.8 SECONDS (22.8-39.4)
[2020-06-14 16:00] LABS: INR 1.29 (0.85-1.17); PROTIME 14.9 SECONDS (11.6-15.0)
[2020-06-14 16:02] LABS: PLATELET COUNT 271 10x3/uL (130-400)
[2020-06-14 16:05] LABS: ALBUMIN 2.2 g/dL (3.4-5.0); ALKALINE PHOSPHATASE 131 U/L (30-120); ALT (SGPT) 32 U/L (10-68); BILIRUBIN - TOTAL 1.07 mg/dL (0.2-1.3); CALC OSMOLALITY 281 mosm/kg (275-300); CALCIUM 8.5 mg/dL (8.5-10.1); CARBON DIOXIDE 26.5 mmol/L (21.0-32.0); CHLORIDE - SERUM 100 mmol/L (98-107); CKMB 2.8 U/L (0.0-3.6); CREATINE KINASE 285 UL (21-232); CREATININE - SERUM 1.9 mg/dL (0.6-1.3); GLUCOSE 189 mg/dL (74-106); PROTEIN - SERUM 7.1 g/dL (6.4-8.2); SODIUM 135 mmol/L (136-145); UREA NITROGEN 31 mg/dL (7-18); eGFR NON AFRICAN AMERICAN 36 mL/min (90-120)
[2020-06-14 16:07] LABS: POTASSIUM - SERUM 2.8 mmol/L (3.5-5.1); TROPONIN-I 0.066 ng/mL (0.000-0.060)
--- NOTE | 2020-06-14 16:55 | NUR ---
URINE COLLECTED VIA IN AND OUT CATH AND SENT TO LAB.
[2020-06-14 17:15] LABS: BILIRUBIN NEGATIVE (NEGATIVE); KETONE NEGATIVE (NEGATIVE); NITRITE NEGATIVE (NEGATIVE); UROBILINOGEN NORMAL mg/dL (< 2)
--- NOTE | 2020-06-14 17:30 | NUR ---
ALERT AND ORIENTED TO SELF AND PLACE. PATINET ABLE TO ROLL TO BED UNASISTED WITH TRANSFER. DIABETIC ULCERS NOTED TO BILAT FEET WITH ULDERS TO DIGITS AND MEDIAL ASPECT OF PLANTER ON RIGHT FOOT. SKIN WARM AND DRY WITH ESHCAR NOTED TO FEET. DENIES ANY PAIN OR DISCOMFORT AT THIS TIME.DR. DIAS AND DR. HALE HERE FOR CONSULT.IVF INFUSING TO RIGHT F/A WITH NO S/S OF INFECTION/INFILTRATION
[2020-06-14 18:40] VITALS: BP 164/74
[2020-06-14 20:16] VITALS: BP 120/78
[2020-06-14 22:43] LABS: CKMB 2.3 U/L (0.0-3.6); CREATINE KINASE 192 UL (21-232)
[2020-06-15 00:38] VITALS: BP 132/75
--- NOTE | 2020-06-15 02:36 | NUR ---
I have reviewed this patient and I concur with the Shift Assessment completed by the Licensed Practical Nurse today this shift.
[2020-06-15 03:45] LABS: BASOPHILS 0.1 % (0-2); EOSINOPHILS 0.5 % (0-7); HEMOGLOBIN 11.4 g/dL (13.5-17.5); IMMATURE GRANULOCYTES 0.3 % (0-5); LYMPHOCYTES 13.4 % (15-50); MCH 30.5 pg (26.0-34.0); MCHC 33.5 g/dL (31.0-37.0); MCV 90.9 fL (80.0-100.0); MEAN PLATELET VOLUME 9.5 fL (7.4-10.4); MONOCYTES 10.2 % (2-11); NEUTROPHIL ABS# 8.98 10x3/uL (1.78-5.38); NEUTROPHILS 75.5 % (40-80); PLATELET COUNT 286 10x3/uL (130-400); RBC 3.74 10x6/uL (4.20-6.10); RDW 14.6 % (11.5-14.5)
[2020-06-15 03:47] LABS: WBC 11.9 10x3/uL (4.8-10.8)
[2020-06-15 04:15] LABS: ALKALINE PHOSPHATASE 116 U/L (30-120); ALT (SGPT) 25 U/L (10-68); BILIRUBIN - TOTAL 0.88 mg/dL (0.2-1.3); CALC OSMOLALITY 280 mosm/kg (275-300); CALCIUM 7.9 mg/dL (8.5-10.1); CARBON DIOXIDE 28.4 mmol/L (21.0-32.0); CHLORIDE - SERUM 103 mmol/L (98-107); CKMB 2.4 U/L (0.0-3.6); CREATINE KINASE 179 UL (21-232); CREATININE - SERUM 1.9 mg/dL (0.6-1.3); GLUCOSE 107 mg/dL (74-106); PROTEIN - SERUM 6.4 g/dL (6.4-8.2); SODIUM 137 mmol/L (136-145); UREA NITROGEN 31 mg/dL (7-18); VANCOMYCIN - RANDOM 10.6 ug/mL (10.0-20.0); eGFR NON AFRICAN AMERICAN 36 mL/min (90-120)
[2020-06-15 04:22] LABS: POTASSIUM - SERUM 2.7 mmol/L (3.5-5.1)
[2020-06-15 04:23] LABS: TROPONIN-I 0.062 ng/mL (0.000-0.060)
[2020-06-15 04:27] LABS: ERYTHROCYTE SEDIMENTATION RATE 24 mm/hr (0-20)
[2020-06-15 04:57] VITALS: BP 126/53
[2020-06-15 07:13] VITALS: BMI 31.1
[2020-06-15 07:39] VITALS: BP 127/75
[2020-06-15 09:06] VITALS: Ht 185.4 cm; Wt 107.0 kg
[2020-06-15 09:36] LABS: CREATINE KINASE 136 UL (21-232); TROPONIN-I 0.045 ng/mL (0.000-0.060)
[2020-06-15 11:47] VITALS: BP 156/118
[2020-06-15 15:30] VITALS: BP 140/67
--- NOTE | 2020-06-15 19:00 | NUR ---
BEDSIDE REPORT RECEIVED AND CARE OF PT ASSUMED. PT LYING IN LOW VAN'S POSITION. IV TO RIGHT WRIST PATENT WITH NS INFUSING AT 75 ML/HR. IS AT BEDSIDE AND ENCOURAGED USE BY PT. TELEMETRY IN PLACE PER ORDER AND PT READING 78 SR AT THIS ASSESSMENT. WILL MONITOR FOR NEEDS.
--- NOTE | 2020-06-15 19:58 | NUR ---
HS MEDICATIONS GIVEN. FSBS 148 THIS CHECK REQUIRING NO COVERAGE PER SLIDING SCALE.
[2020-06-15 20:02] VITALS: BP 143/59
[2020-06-16 00:41] VITALS: BP 119/80
[2020-06-16 04:52] VITALS: BP 136/71
[2020-06-16 06:49] LABS: MAGNESIUM - SERUM 1.4 mg/dL (1.8-2.4); VANCOMYCIN - RANDOM 10.2 ug/mL (10.0-20.0)
[2020-06-16] MEDS ORDERED: BUPROPION HCL200 M1 PO (07:31)
[2020-06-16] MEDS ORDERED: DORZOLAMIDE-TI1 EACH EACH EYE (07:33)
[2020-06-16] MEDS ORDERED: NEURONTIN800 MG PO (07:33)
[2020-06-16] MEDS ORDERED: OSTEO BI-FLEX1 EAC1 PO (07:35)
[2020-06-16] MEDS ORDERED: HYDROCHLOROTHIA25 MG PO (07:35)
[2020-06-16] MEDS ORDERED: MELATONIN 3 MG1 TAB PO (07:36)
[2020-06-16] MEDS ORDERED: LIDODERM 5 %1 PATCH TRANSDERM (07:36)
[2020-06-16] MEDS ORDERED: METHOCARBAMOL750 MG NG (07:37)
[2020-06-16] MEDS ORDERED: PIOGLITAZONE15 MG PO (07:37)
[2020-06-16] MEDS ORDERED: SUDAFED 30 MG T30 MG PO (07:38)
[2020-06-16] MEDS ORDERED: TRAZODONE HCL50 MG PO (07:40)
--- NOTE | 2020-06-16 09:00 | NUR ---
DRESSING CHANGE DONE TO BLE WITH WET TO DRY DRESSINGS. NORCO GIVEN FOR PAIN MANAGEMENT 5/10 PRIOR TO DRESSING CHANGE. REQUIRES ASSIST AND VERBAL CUES WITH MEALS. FALL PERCAUTIONS IN PLACE WITH HEELS FLOATED AND SHEET OFF OF FEET.
[2020-06-16 09:33] VITALS: BP 127/57
[2020-06-16 12:23] VITALS: BP 117/58
[2020-06-16 16:00] VITALS: BP 116/58
--- NOTE | 2020-06-16 19:00 | NUR ---
BEDSIDE REPORT RECEIVED AND CARE OF PT ASSUMED. PT LYING IN SUPINE POSITION WITH EYES CLOSED AND EASY RESPIRATIONS. IV TO RIGHT WRIST PATENT WITH NS INFUSING AT 75 ML/HR. TELEMETRY IN PLACE PER ORDER AND READING 67 SR AT THIS ASSESSMENT. SCD'S IN PLACE ON BLE PER ORDER. LORA CATHETER DRAINING TO GRAVITY WITH YELLOW URINE IN COLLECTION BAG. WILL MONITOR FOR NEEDS.
[2020-06-16 19:44] VITALS: BP 126/68
--- NOTE | 2020-06-16 20:22 | NUR ---
HS MEDICATIONS GIVEN, TO INCLUDE MAG-OX 400 MG PO PER THE ELECTROLYTE PROTOCOL. WILL RE-CHECK IN AM.
[2020-06-17 04:52] LABS: BASOPHILS 0.1 % (0-2); HEMOGLOBIN 10.5 g/dL (13.5-17.5); IMMATURE GRANULOCYTES 0.4 % (0-5); LYMPHOCYTE ABS# 1.24 10x3/uL (1.32-3.57); LYMPHOCYTES 11.7 % (15-50); MCH 29.7 pg (26.0-34.0); MCHC 31.8 g/dL (31.0-37.0); MCV 93.5 fL (80.0-100.0); MEAN PLATELET VOLUME 9.5 fL (7.4-10.4); MONOCYTES 8.2 % (2-11); NEUTROPHIL ABS# 8.37 10x3/uL (1.78-5.38); NEUTROPHILS 78.6 % (40-80); PLATELET COUNT 238 10x3/uL (130-400); RBC 3.53 10x6/uL (4.20-6.10); RDW 15.4 % (11.5-14.5); WBC 10.6 10x3/uL (4.8-10.8)
[2020-06-17 05:18] LABS: ANION GAP 7.2 mmol/L (8-16); CALCIUM 7.8 mg/dL (8.5-10.1); CARBON DIOXIDE 27.1 mmol/L (21.0-32.0); CREATININE - SERUM 1.6 mg/dL (0.6-1.3); MAGNESIUM - SERUM 1.5 mg/dL (1.8-2.4); POTASSIUM - SERUM 3.3 mmol/L (3.5-5.1); VANCOMYCIN - RANDOM 17.9 ug/mL (10.0-20.0)
[2020-06-17 08:36] VITALS: BP 112/55
[2020-06-17 12:26] VITALS: BP 126/60
--- NOTE | 2020-06-17 16:30 | MORECARE ---
CASE MANAGEMENT DISCHARGE SUMMARY PATIENT: ELLIOTT SILVERIO UNIT: [id number] ADM DATE: 06/14/20 AGE: 80 : 41 SEX: M ROOM/BED: D.2222 AUTHOR: KATIE BLANCAS PHYSICIAN: REFERRING PHYSICIAN: BRIAN DIAS MD DATE OF SERVICE: 06/17/20 Discharge Plan Patient Name: ELLIOTT SILVERIO Facility: [facility]:[place] : 1940 Planned Disposition: Inpatient Rehab Anticipated Discharge Date: Discharge Date: Expected LOS: Initial Reviewer: [email or web address] Initial Review Date: 06/14/2020 Generated: 06/17/20 5:30 pm Comments DCP- Discharge Planning Updated by [email or web address]: Kate Hoover on 06/17/20 2:[address] Patient Name: ELLIOTT SILVERIO Admission Status: ER Accout number: [id number] Admission Date: 06-14-2020 : 1940 Admission Diagnosis:SEPSIS, UNSPECIFIED ORGANISM Attending: BRIAN DIAS Current LOS: 3 Anticipated DC Date: Planned Disposition: Inpatient Rehab Primary Insurance: [employer] Discharge Planning Comments: CM met with patient at bedside after obtaining verbal consent. CM discussed availability / needs of home health, REHAB and medical equipment. Patient states he will need inpatient rehab if he decides to have the leg surgery. He is still thinking about it and says he may want to go home first and think on it. MIESHA signed for [facility] inpatient Rehab. Tammy at the [place] is his case aide. I will contact her to assist with DC planning since he is [place]. Cm to follow and assist as needed. Director Card: Kate Hoover DCPIA - Discharge Planning Initial Assessment Updated by [email or web address]: Kate Hoover on 06/17/20 4:26 pm * Is the patient Alert and Oriented? Yes * PCP [facility] [place] * Pharm[place] * Preadmission Environment Home with Family * Other Equipment CANE, WALKER, WC * List name and contact numbers for known caregivers / representatives who currently or will assist patient after discharge: CHALO, DAUGHTER, * Community resources currently utilized Private Duty Care * Please name any agencies selected above. HOME CARE THREE DAYS A WEEK * Can the patient safely return to the preadmission environment? Yes * Has this patient been hospitalized within the prior 30 days at any hospital? No Coverage Notice Reviewer: [id number] Sonia Hoover Notice Issued Date-Time: 06/17/2020 16:28 Notice Type: Patient Choice Letter Notice Delivered To: Patient Relationship to Patient: Technician Test Systems Name: Delivery Method: - Jessenia Days: Prior Verbal Notification: Recipient Understood Notice: Yes Recipient Signature: Yes Med Rec Note Co-signed by Attending: Coverage Notice Comment: [facility] Patient Name: ELLIOTT SILVERIO Page [phone] at 1630 All edits/amendments must be made on the electronic document DICTATION DATE: 06/17/201629 INDEPENDENT DISTRIBUTOR: ERIC 06/17/20 1630 RPT#: [id number] DC DATE: STATUS: ADM IN [facility] [address] [place] [address] END OF REPORT
[2020-06-17 17:00] VITALS: BP 110/55
--- NOTE | 2020-06-17 19:00 | NUR ---
BEDSIDE REPORT RECEIVED AND CARE OF PT ASSUMED. PT LYING IN LOW VAN'S POSITION WITH EYES CLOSED AND EASY RESPIRAITONS. IV TO RIGHT WRIST PATENT WITH NS INFUSING AT 75 ML/HR. TELEMETRY IN PLACE AND READING SR AT THIS ASSESSMENT. LORA CATHETER DRAINING TO GRAVITY WITH YELLOW URINE IN COLLECTION BAG. DRESSINGS ON BILATERAL FEET CLEAN AND DRY...CHANGED TODAY BY DAY SHIFT NURSE.
[2020-06-17 20:00] VITALS: BP 103/52
--- NOTE | 2020-06-17 21:07 | NUR ---
HS MEDICATIONS GIVEN. WILL CONTINUE TO MONITOR FOR NEEDS.
[2020-06-18 04:00] VITALS: BP 112/61
--- NOTE | 2020-06-18 06:16 | NUR ---
PT WAS NPO AFTER MIDNIGHT EXCEPT FOR SIPS WITH MEDS. HE REFUSED TO SIGN CONSENTS FOR SURGERY TODAY, STATING THAT HE NEEDS MORE TIME TO THINK ABOUT IT.
[2020-06-18 06:30] LABS: BASOPHILS 0.1 % (0-2); EOSINOPHILS 0.7 % (0-7); IMMATURE GRANULOCYTES 0.3 % (0-5); LYMPHOCYTE ABS# 1.06 10x3/uL (1.32-3.57); LYMPHOCYTES 9.1 % (15-50); MCH 29.3 pg (26.0-34.0); MCHC 31.3 g/dL (31.0-37.0); MCV 93.8 fL (80.0-100.0); MEAN PLATELET VOLUME 9.8 fL (7.4-10.4); MONOCYTES 8.1 % (2-11); NEUTROPHIL ABS# 9.55 10x3/uL (1.78-5.38); NEUTROPHILS 81.7 % (40-80); PLATELET COUNT 232 10x3/uL (130-400); RBC 3.41 10x6/uL (4.20-6.10); RDW 15.6 % (11.5-14.5); WBC 11.7 10x3/uL (4.8-10.8)
[2020-06-18 06:44] LABS: ANION GAP 9.9 mmol/L (8-16); CARBON DIOXIDE 23.6 mmol/L (21.0-32.0); CREATININE - SERUM 1.3 mg/dL (0.6-1.3); MAGNESIUM - SERUM 1.7 mg/dL (1.8-2.4); POTASSIUM - SERUM 3.5 mmol/L (3.5-5.1); VANCOMYCIN - RANDOM 22.1 ug/mL (10.0-20.0)
--- NOTE | 2020-06-18 06:56 | NUR ---
POTASSIUM LEVEL 3.5 THIS AM REQUIRING COVERAGE WITH 40 MEQ K DUR, AND MAG LEVEL 1.7 REQUIRING COVERAGE WITH 400 MG MAG OZ Q4HR X2 DOSES...FIRST DOSE GIVEN.
[2020-06-18 08:26] VITALS: BP 122/55
[2020-06-18 12:43] VITALS: BP 122/62
--- NOTE | 2020-06-18 13:16 | NUR ---
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 RDN will follow-up: 06/20/20
--- NOTE | 2020-06-18 18:00 | NUR ---
PATIENT BACK TO ROOM FROM SURGERY. NO COMPLAINTS OR SIGNS OF DISTRESS. VS STABLE. SAYS HE HAS NO PAIN. LORA AND IV INTACT. CALL LIGHT WITHIN REACH. WILL CONTINUE TO MONITOR.
--- NOTE | 2020-06-18 18:45 | NUR ---
PATIENT IN BED WITH IV INTACT. NO COMPLAINTS OR SIGNS OF DISTRESS. VS STABLE. WILL CONTINUE TO MONITOR. CALL LIGHT WITHIN REACH.
--- NOTE | 2020-06-18 19:15 | NUR ---
PATIENT PULLED IV OUT. LORA INTACT. TELEMETRY PLACED ON PATIENT. STILL NO COMPLAINTS OR PAIN. FAMILY AT BEDSIDE. CALL LIGHT WITHIN REACH.
--- NOTE | 2020-06-18 21:00 | NUR ---
PT RIGHT BKA DRESSING CDI AND LEFT FOOT DRESSING CDI, PROPPED ON PILLOWS. PT INCONTINENT OF BOWEL, PROVIDED NIKA CARE AND LINENS CHANGED, GOWN CHANGED, LORA CARE. TELE IN PLACE. PLACED IV TO LEFT AC X1 ATTEMPT. TOOK HS MEDS WITHOUT DIFFICULTY. STATES PAIN TO BILAT LEGS 10/10, GAVE NORCO ORDERED. DENIES OTHER NEEDS. BED ALARM ON, CL IN REACH
--- NOTE | 2020-06-18 23:03 | OP ---
PATIENT NAME: ELLIOTT SILVERIO MEDICAL RECORD: [id number] :[birth year] LOCATION:[facility] ADMISSION DATE:06/14/20 SURGEON: ANDREW SHIN DO DATE OF OPERATION: 06/18/2020 PROCEDURE PERFORMED: Right below-knee amputation and left second through fifth toe amputation on the left foot. PREOPERATIVE DIAGNOSES: Left foot infection, osteomyelitis and right foot infection, osteomyelitis. POSTOPERATIVE DIAGNOSES: Left foot infection, osteomyelitis and right foot infection, osteomyelitis. INDICATIONS: Mr. Silverio is a 80-year-old male who is unknown how long the infection of his left and right feet. The right was certainly worse. It is red and inflamed, has osteomyelitis. On the CT of the left foot, he has necrotic toes. The second through fifth toes are all necrotic. He was admitted a few days ago, started on IV antibiotics and I started to discuss with him and his family via telephone what we needed to do due to the infection as there is low likelihood of healing as he had an open ulcer approximately 4-5 cm in diameter on the medial aspect of the right foot. I would be doing an amputation on that one, a below-knee amputation, and the left toe is essentially rotten off and totally necrotic and I would take them off leaving the great toe. He would be at risk for further infection, bleeding, damage to nerves, vessel in the area, continued pain, stump site pain, phantom limb pain, need for further surgery, continued infection, bleeding and even and they signed the consent. SURGEON: Andrew Shin DO. DESCRIPTION OF PROCEDURE: The patient was taken to the operative suite, laid in supine position, given general anesthetic and LMA was placed. He was given 2 grams of Ancef as he was on scheduled antibiotics. The right lower extremity was addressed first and I lifted it up to exsanguinate it and tourniquet was inflated to 350 mmHg. It was up for 17 minutes. I then began by marking out a fishmouth incision, making careful dissection down through the skin and going compartment by compartment, then cutting the tibia and the fibula 1 cm proximal to the tibial cut, then tied off the vessels and did a traction neurotomy of the posterior tibial nerve. I then let the tourniquet down and coagulated bleeding with Aquamantys and Bovie, debulked through the stump site. I drilled holes in the tibia and bevelled it and brought the gastroc up over the tip of the tibia with #2 Ethibond in a Bob-Atul type stitch. I then closed the fascia with #1 Vicryl in giemvi-qz-oufog fashion and the skin with 2-0 Prolene and 0 Prolene in a modified Donati in horizontal mattress fashion. I then addressed the left foot. The foot had been prepped and draped prior to doing the right wound. The incision was marked out and then cut down through the incision making full flaps. We then removed the toes except the great toe and I rongeured back the heads of the metatarsals at each toe. We then irrigated and closed with a modified Donati using 2-0 Prolene. He was then dressed with Adaptic, 4 x 4, ABD, Kerlix and Laurent wrap on both sides. He was awakened and taken to recovery in stable condition. BLOOD LOSS: Minimal. COMPLICATIONS: None. OPERATIVE REPORT [id number] ELLIOTT SILVERIO TRANSINT:[id number] Voice Confirmation ID: [id number] DOCUMENT ID: [id number] ANDREW SHIN DO at 2303 CC: [id number] DICTATION DATE: 06/18/20 170 DRAPERY EXAMINER: 06/18/202135 ADM IN [facility] [address] [place] [address]
[2020-06-19] VITALS: BP 121/67
[2020-06-19 04:00] VITALS: BP 122/57
[2020-06-19 06:39] LABS: CREATININE - SERUM 1.3 mg/dL (0.6-1.3); MAGNESIUM - SERUM 1.5 mg/dL (1.8-2.4); VANCOMYCIN - RANDOM 17.5 ug/mL (10.0-20.0)
[2020-06-19 08:17] VITALS: BP 146/76
--- NOTE | 2020-06-19 10:31 | NUR ---
ASSESSMENT PER FLOW SHEET. PATIENT IS WITHOUT DISTRESS.FALL PREVENTION WITH BED ALARM. VERY SLEEPY THIS AM. DOOR OPEN TO MONITOR
[2020-06-19 12:12] VITALS: BP 121/55
--- NOTE | 2020-06-19 15:57 | NUR ---
SLEEPING NOW,BUT HAD FAMILY TO VISIT EARLIER. HE IS WITHOUT SIGNS OF DISTRESS.MONITOR
[2020-06-19 17:30] VITALS: BP 149/56
--- NOTE | 2020-06-19 21:00 | NUR ---
PT SITTING UP IN BED WITHOUT DISTRESS, CONFUSED TO TIME AND SITUATION AT TIMES. IV LEFT AC INFUSING NS @ 75. DRESSINGS TO BILAT LOWER EXT CDI. PROPPED ON PILLOWS. PT HAD LIQUID BM, PROVIDED NIKA CARE AND LORA CARE. DENIES PAIN OR NEEDS AT THIS TIME. CL IN REACH BED ALARM ON
[2020-06-20] VITALS: BP 95/58
--- NOTE | 2020-06-20 03:00 | NUR ---
PT GIVEN BED BATH AT THIS TIME. LINENS CHANGE, LORA CARE PROVIDED
[2020-06-20 04:00] VITALS: BP 161/73
[2020-06-20 06:28] LABS: BASOPHILS 0.1 % (0-2); EOSINOPHILS 1.2 % (0-7); HEMATOCRIT 28.9 % (42.0-54.0); HEMOGLOBIN 9.3 g/dL (13.5-17.5); IMMATURE GRANULOCYTES 0.5 % (0-5); LYMPHOCYTE ABS# 0.79 10x3/uL (1.32-3.57); LYMPHOCYTES 7.9 % (15-50); MCH 29.6 pg (26.0-34.0); MCHC 32.2 g/dL (31.0-37.0); MEAN PLATELET VOLUME 9.1 fL (7.4-10.4); MONOCYTES 9.2 % (2-11); NEUTROPHIL ABS# 8.16 10x3/uL (1.78-5.38); NEUTROPHILS 81.1 % (40-80); PLATELET COUNT 228 10x3/uL (130-400); RBC 3.14 10x6/uL (4.20-6.10); RDW 15.4 % (11.5-14.5); WBC 10.1 10x3/uL (4.8-10.8)
[2020-06-20 07:04] LABS: ANION GAP 12.1 mmol/L (8-16); CALCIUM 7.4 mg/dL (8.5-10.1); CARBON DIOXIDE 22.7 mmol/L (21.0-32.0); CREATININE - SERUM 1.2 mg/dL (0.6-1.3); MAGNESIUM - SERUM 1.7 mg/dL (1.8-2.4); POTASSIUM - SERUM 3.8 mmol/L (3.5-5.1); VANCOMYCIN - RANDOM 17.4 ug/mL (10.0-20.0)
[2020-06-20 08:14] VITALS: BP 128/68
--- NOTE | 2020-06-20 09:00 | NUR ---
ASSESSMENT PER FLOW SHEET. PATIENT IS WITHOUT DISTRESS.MONITOR FOR NEEDS. BED ALARM ON FOR FALL PREVENTION.DOOR OPEN
--- NOTE | 2020-06-20 11:10 | NUR ---
CM SPOKE WITH LUIS ALBERTO AT [facility] IN [place] AND REFAXED CLINICALS TO [phone]. WAITING CALL BACK TO SEE IF THEY ARE GOING TO ACCEPT PATIENT. CM TO FOLLOW AND ASSIST NEEDED.
--- NOTE | 2020-06-20 11:15 | NUR ---
IV SITED TO RIGHT WRIST X3 STICKS,ASEPTIC TECH.22G. IV DCD FROM LEFT AC WITH CATH TIP INTACT.
--- NOTE | 2020-06-20 12:01 | MORECARE ---
CASE MANAGEMENT DISCHARGE SUMMARY PATIENT: ELLIOTT SILVERIO UNIT: [id number] ADM DATE: 06/14/20 AGE: 80 : 41 SEX: M ROOM/BED: D.2222 AUTHOR: MAGALIS,DOC PHYSICIAN: REFERRING PHYSICIAN: BRIAN DIAS MD DATE OF SERVICE: 06/20/20 Case Management Discharge Planning Summary DCP REVIEW SUMMARY ANTICIPATED D/C DATE: EXPECTED LOS : CASE STATUS: DCP Initiated INITIAL REVIEW: 06/18/2020 INITIAL REVIEWER: Kate Hoover FINAL DISCHARGE DISPOSITION: : FINAL REVIEWER: FINAL REVIEW DATE: DCP Focus Questions & Answers - Added on: QUESTION: ANSWER : PATIENT: ELLIOTT SILVERIO ENCOUNTER: [id number] MEDICAL RECORD#: [id number] ADMISSION DATE: 06/14/2020 DISCHARGE DATE: ATTENDING MD: BRIAN DEE : AGE: 80 MARITAL STATUS: D DC PLAN ID: [id number] FACILITY: [facility] PRINTED ON: 06/20/20 12:01 CT All edits/amendments must be made on the electronic document DICTATION DATE: 06/20/20 120 OUTSOLE SCHEDULER: DM 06/20/20 1201 RPT#: [id number] DC DATE: STATUS: ADM IN [facility] [address] [place] [address] END OF REPORT
[2020-06-20 12:24] VITALS: BP 134/66
--- NOTE | 2020-06-20 15:29 | NUR ---
REPORT TO [facility] ON REHAB. PATIENT WILL GO TO ROOM 1111A.
--- NOTE | 2020-06-20 15:38 | NUR ---
OT NOTE: PERFORMED BED MOB WITH MOD/MAX ASSIST TO GET TO EOB; SITTING BALANCE WAS FAIR. PT REMAINS VERY LETHARGIC.. CONTINUAL CUES TO KEEP EYES OPEN WHILE SITTING UP.. ATTEMPTED TO STAND WITH WALKER X 2 ATTEMPTS WITH MAX ASSIST X2.. PT HAVING DIFFICULTY WITH WT BEARING THROUGH HEAL. UE AROM EXS WHILE ON EOB WITH CONSTANT CUES. ABLE TO WASH FACE WITH CLOTH AND SET UP; MOD ASSIST TO COMB HAIR. MIN ASSIST TO HOLD CUP OF WATER (DUE TO LETHARGY) DUSTY BAKER, OTR/L [id number]
--- NOTE | 2020-06-20 15:54 | NUR ---
PATIENT MAX ASST TO GET UP TO BEDSIDE. PATIENT MAX ASST X2 TO ATTEMPT TO STAND , BUT WAS UNABLE TO STAND PATIENT FULLY UP.
--- NOTE | 2020-06-20 16:15 | NUR ---
TO REHAB BED
--- NOTE | 2020-06-20 16:19 | NUR ---
DRESSING CHANGE TO BLE ORDERED. PATIENT TOLERATED WELL. SON IN ROOM THIS AFTERNOON, INSTRUCTED OF PATIENTS DISCHARGE TO REHAB EVENING.
--- NOTE | 2020-06-20 16:42 | NUR ---
CALL TO [facility]. SHE IS INFORMED OF PATIENT TRANSFER TO REHAB 1111A.
--- NOTE | 2020-06-20 16:42 | MORECARE ---
CASE MANAGEMENT DISCHARGE SUMMARY PATIENT: ELLIOTT SILVERIO UNIT: [id number] ADM DATE: 06/14/20 AGE: 80 : 41 SEX: M ROOM/BED: D.2222 AUTHOR: MAGALIS,DOC PHYSICIAN: REFERRING PHYSICIAN: BRIAN DIAS MD DATE OF SERVICE: 06/20/20 Case Management Discharge Planning Summary DCP REVIEW SUMMARY ANTICIPATED D/C DATE: EXPECTED LOS : CASE STATUS: DCP Initiated INITIAL REVIEW: 06/18/2020 INITIAL REVIEWER: Kate Hoover FINAL DISCHARGE DISPOSITION: : FINAL REVIEWER: FINAL REVIEW DATE: DCP Focus Questions & Answers - Added on: QUESTION: ANSWER : PATIENT: ELLIOTT SILVERIO ENCOUNTER: [id number] MEDICAL RECORD#: [id number] ADMISSION DATE: 06/14/2020 DISCHARGE DATE: 06/20/2020 ATTENDING MD: BRIAN DEE : AGE: 80 MARITAL STATUS: D DC PLAN ID: [id number] FACILITY: [facility] PRINTED ON: 06/20/20 16:42 CT All edits/amendments must be made on the electronic document DICTATION DATE: 06/20/201641 LEAD SHIPPER: DM 06/20/201641 RPT#: [id number] DC DATE:06/20/20 STATUS: DIS IN [facility] [address] [place] [address] END OF REPORT
--- NOTE | 2020-06-20 17:00 | NUR ---
OT NOTE: PT REQUIRED MAX A FOR SIMPLE BED MOB TASKS. PT COMPLETED SUPINE TO SIT WITH MAX A. PT COMPLETED FACE HYGIENE WITH SETUP. PT COMPLETED ORAL CARE WITH MIN A. [id number] JONNATHAN MALAGON COTA
--- NOTE | 2020-06-21 08:29 | MORECARE ---
CASE MANAGEMENT DISCHARGE SUMMARY PATIENT: ELLIOTT SILVERIO UNIT: [id number] ADM DATE: 06/14/20 AGE: 80 : 41 SEX: M ROOM/BED: D.2222 AUTHOR: MAGALIS,DOC PHYSICIAN: REFERRING PHYSICIAN: BRIAN DIAS MD DATE OF SERVICE: 06/21/20 Case Management Discharge Planning Summary DCP REVIEW SUMMARY ANTICIPATED D/C DATE: EXPECTED LOS : CASE STATUS: DCP Initiated INITIAL REVIEW: 06/18/2020 INITIAL REVIEWER: Kate Hoover FINAL DISCHARGE DISPOSITION: : FINAL REVIEWER: FINAL REVIEW DATE: DCP Focus Questions & Answers - Added on: QUESTION: ANSWER : PATIENT: ELLIOTT SILVERIO ENCOUNTER: [id number] MEDICAL RECORD#: [id number] ADMISSION DATE: 06/14/2020 DISCHARGE DATE: 06/20/2020 ATTENDING MD: BRIAN DEE : AGE: 80 MARITAL STATUS: D DC PLAN ID: [id number] FACILITY: [facility] PRINTED ON: 06/21/20 8:29 CT All edits/amendments must be made on the electronic document DICTATION DATE: 06/21/20828 COUNTER WEIGHER: DM 06/21/20828 RPT#: [id number] DC DATE:06/20/20 STATUS: DIS IN [place] [address] [place] [address] END OF REPORT
== END 2020-06-20 16:15 | DRG 853 ==
LOC: D.ER 13:54 → D.MS 16:45
PROVIDERS: Emergency Medicine; Orthopaedic Surgery; ADMIT Family Medicine; ATTEND Family Medicine
PROC: 0Y6Y0Z0 Detachment at Left 5th Toe, Complete, Open Approach (ICD-10-PCS; 2020-06-18)
PROC: 0Y6W0Z0 Detachment at Left 4th Toe, Complete, Open Approach (ICD-10-PCS; 2020-06-18)
PROC: 0Y6U0Z0 Detachment at Left 3rd Toe, Complete, Open Approach (ICD-10-PCS; 2020-06-18)
PROC: 0Y6H0Z1 Detachment at Right Lower Leg, High, Open Approach (ICD-10-PCS; principal; 2020-06-18 12:30)
PROC: 0Y6S0Z0 Detachment at Left 2nd Toe, Complete, Open Approach (ICD-10-PCS; 2020-06-18 12:30)
DX: A41.9 Sepsis, unspecified organism (principal); G93.41 Metabolic encephalopathy; I21.4 Non-ST elevation (NSTEMI) myocardial infarction; I13.0 Hypertensive heart and chronic kidney disease with heart failure and stage 1 through stage 4 chronic kidney disease, or unspecified chronic kidney disease; M86.171 Other acute osteomyelitis, right ankle and foot; M86.172 Other acute osteomyelitis, left ankle and foot; R65.20 Severe sepsis without septic shock; S91.302A Unspecified open wound, left foot, initial encounter; S91.301A Unspecified open wound, right foot, initial encounter; E11.22 Type 2 diabetes mellitus with diabetic chronic kidney disease; N18.9 Chronic kidney disease, unspecified; D72.829 Elevated white blood cell count, unspecified

== ENCOUNTER 2020-06-20 16:21 | Inpatient (IN) | payer OTHER ==
[~2020-06-20] VITALS: Ht 185.4 cm; Wt 102.1 kg
[~2020-06-20 16:21] MED LIST changes: +DORZOLAMIDE-TI1 EACH EACH EYE; +HYDROCHLOROTHIA25 MG PO; +LIDODERM 5 %1 PATCH TRANSDERM; +MELATONIN 3 MG1 TAB PO; +METHOCARBAMOL750 MG NG; +NEURONTIN800 MG PO; +OSTEO BI-FLEX1 EAC1 PO; +PIOGLITAZONE15 MG PO; +SUDAFED 30 MG T30 MG PO; +TRAZODONE HCL50 MG PO
[2020-06-20 18:27] VITALS: BP 125/55; BMI 29.7
[2020-06-20 19:58] VITALS: BP 108/59
[2020-06-20 22:55] LABS: BILIRUBIN NEGATIVE (NEGATIVE); KETONE NEGATIVE (NEGATIVE); NITRITE NEGATIVE (NEGATIVE); UROBILINOGEN NORMAL mg/dL (< 2)
[2020-06-20 22:57] LABS: BACTERIA MODERATE HPF (NONE SEEN); SQUAMOUS EPITHELIAL NONE SEEN HPF (0-4); WHITE CELLS - URINE 0-5 HPF (0-1)
[2020-06-20 22:58] LABS: AMORPHOUS SEDIMENT MODERATE LPF (NONE SEEN)
--- NOTE | 2020-06-21 00:43 | NUR ---
PT RESTING WITH EYES CLOSED. REPIRATIONS EVEN AND UNLABORED. HIS BED IS LOW, BED ALARM ON AND CALL LIGHT WITHIN REACH.
[2020-06-21 07:06] LABS: BASOPHILS 0.2 % (0-2); EOSINOPHILS 1.7 % (0-7); HEMATOCRIT 32.2 % (42.0-54.0); HEMOGLOBIN 9.9 g/dL (13.5-17.5); IMMATURE GRANULOCYTES 0.5 % (0-5); LYMPHOCYTE ABS# 1.64 10x3/uL (1.32-3.57); LYMPHOCYTES 17.2 % (15-50); MCHC 30.7 g/dL (31.0-37.0); MCV 97.6 fL (80.0-100.0); MEAN PLATELET VOLUME 9.2 fL (7.4-10.4); MONOCYTES 10.2 % (2-11); NEUTROPHIL ABS# 6.67 10x3/uL (1.78-5.38); NEUTROPHILS 70.2 % (40-80); PLATELET COUNT 212 10x3/uL (130-400); RDW 15.8 % (11.5-14.5); WBC 9.5 10x3/uL (4.8-10.8)
[2020-06-21 07:11] LABS: ANION GAP 11.2 mmol/L (8-16); CALCIUM 7.7 mg/dL (8.5-10.1); CARBON DIOXIDE 21.4 mmol/L (21.0-32.0); CREATININE - SERUM 1.2 mg/dL (0.6-1.3); POTASSIUM - SERUM 3.6 mmol/L (3.5-5.1)
--- NOTE | 2020-06-21 07:29 | NUR ---
PT RESTING IN BED WITH OPEN CALL LIGHT IN REACH WILL MONITER
--- NOTE | 2020-06-21 10:04 | NUR ---
PATIENT ADMITTED TO REHAB FROM ACUTE FLOOR. HE IS A VET. DISCHARGE PLANS ARE UNCERTAIN AT THIS TIME. WILL CONTINUE TO FOLLOW WITH PATIENT.
[2020-06-21 13:55] VITALS: BP 126/57
[2020-06-21 15:27] VITALS: Ht 185.4 cm; Wt 102.1 kg
--- NOTE | 2020-06-21 18:43 | NUR ---
PT RESTING IN BED WITH EYES OPEN CALL LIGHT IN REACH NO PROBLEMS WILL MONITER
[2020-06-21 20:03] VITALS: BP 152/68
--- NOTE | 2020-06-21 20:30 | NUR ---
PATIENT RECEIVED LAYING IN BED. ASSESSMENT & VITAL SIGNS DONE. NO C/O PAIN OR DISTRESS. BED LOW. CALL LIGHT & BEDSIDE TABLE WITHIN REACH. WILL CONTINUE TO MONITOR.
--- NOTE | 2020-06-22 03:56 | NUR ---
PATIENT EYES CLOSED. RESPIRATIONS 20 & EVEN. URINALYSIS RESULT NO GROWTH IN 2 DAYS. BED LOW. ALARM ON. CALL LIGHT WITHIN REACH. WILL CONTINUE TO MONITOR.
--- NOTE | 2020-06-22 04:13 | NUR ---
I have reviewed this patient and I concur with the Shift Assessment completed by the Licensed Practical Nurse today this shift.
--- NOTE | 2020-06-22 05:20 | NUR ---
PATIENT AWAKE. FSBS 74. PATIENT ATE VANILLA PUDDING. DRANK MORE WATER. WILL CONTINUE TO MONITOR
[2020-06-22 08:18] VITALS: BP 112/51
--- NOTE | 2020-06-22 10:40 | NUR ---
HE HAS BEEN WORKING WITH PT THIS MORNING. HE TOOK HIS MEDICAITONS WITHOUT ANY PROBLEMS. HE HAS A DRESSING ON HIS LEFT FOOT AND A DRESSING TO HIS RIGHT STUMP. THE CALL LIGHT IS WITHIN REACH AND THE BED ALARM IS ON.
[2020-06-22 17:06] VITALS: BP 121/67
--- NOTE | 2020-06-22 18:26 | NUR ---
PLACED 16 [place] LORA CATH, TIMES 2 ATTEMPTS, USED HIBICLENS, HE HAS AN IODINE ALLERGY. BLADDER SCAN SAID [id number] CC, GOT 700 CC IN THE LORA. THE CALL LIGHT IS WITHIN REACH.
[2020-06-22 19:00] VITALS: BP 118/62
--- NOTE | 2020-06-22 19:48 | NUR ---
PATIENT RECEIVED SITTING UP IN BED. ASSESSMENT & VITAL SIGNS DONE. LORA PATENT WITH YELLOW COLOR URINE. BED LOW. ALARM ON. CALL LIGHT WITHIN REACH. WILL CONTINUE TO MONITOR.
--- NOTE | 2020-06-23 03:36 | NUR ---
PATIENT EYES CLOSED. RESPIRATIONS 20 & EVEN. BED LOW. BEDSIDE TABLE & CALL LIGHT WITHIN REACH. WILL CONTINUE TO MONITOR.
[2020-06-23 08:48] VITALS: BP 120/55
[2020-06-23 16:25] VITALS: BP 119/58
--- NOTE | 2020-06-23 18:41 | NUR ---
I SPOKE WITH DR. SHIN REGARDING THE RIGHT STUMP AND THE LEFT AMPUTATED TOES. HE STATED TO PLACE ADD AN ABD PAD TO THE STUMP FOR THE BLISTERS. THE STUMP IS RED AND WARM, DARK ON THE OUTER SIDE OF THE KNEE, SUTURES INTACT, BLISTERS. THE LEFT FOOT HAS A DARK AREA BY THE BIG TOE.
[2020-06-23 19:00] VITALS: BP 129/66
--- NOTE | 2020-06-23 19:34 | NUR ---
PATIENT RECEIVED SITTING UP IN BED. ASSESSMENT & VITAL SIGNS DONE. NO C/O PAIN OR DISTRESS. ALARM ON. CALL LIGTH & BEDSIDE TABLE WITHIN REACH. WILL CONTINUE TO MONITOR.
--- NOTE | 2020-06-23 20:20 | NUR ---
PATIENT FSBS 70. PATIENT ENCOURAGED TO EAT D/T LOW BLOOD SUGAR. PATIENT ATE HIS STEAK, MASHED POTATOES, & GRAPES. DRANK ALL OF HIS 2% MILK. PATIENT BEDSIDE TABLE & CALL LIGHT WITHIN REACH. WILL CONTINUE TO MONITOR.
--- NOTE | 2020-06-24 01:35 | NUR ---
I have reviewed this patient and I concur with the Shift Assessment completed by the Licensed Practical Nurse today this shift.
--- NOTE | 2020-06-24 03:11 | NUR ---
PATIENT C/O PAIN TO LOWER BACK. PAIN MEDICATION GIVEN. BED LOW. ALARM ON. CALL LIGHT WITHIN REACH. WILL CONTINUE TO MONITOR.
[2020-06-24 07:27] LABS: BASOPHILS 0.1 % (0-2); EOSINOPHILS 1.1 % (0-7); HEMOGLOBIN 8.8 g/dL (13.5-17.5); IMMATURE GRANULOCYTES 0.5 % (0-5); LYMPHOCYTES 18.3 % (15-50); MCH 29.3 pg (26.0-34.0); MCHC 31.4 g/dL (31.0-37.0); MCV 93.3 fL (80.0-100.0); MEAN PLATELET VOLUME 9.2 fL (7.4-10.4); NEUTROPHIL ABS# 6.21 10x3/uL (1.78-5.38); PLATELET COUNT 247 10x3/uL (130-400); RDW 15.7 % (11.5-14.5); WBC 8.8 10x3/uL (4.8-10.8)
[2020-06-24 07:33] LABS: ANION GAP 6.8 mmol/L (8-16); CALCIUM 8.2 mg/dL (8.5-10.1); CARBON DIOXIDE 26.7 mmol/L (21.0-32.0); CREATININE - SERUM 1.2 mg/dL (0.6-1.3); POTASSIUM - SERUM 3.5 mmol/L (3.5-5.1)
--- NOTE | 2020-06-24 07:40 | NUR ---
PT RESTING IN BED WITH EYES OPEN CALL LIGHT IN REACH WILL MONITER
[2020-06-24 07:47] VITALS: BP 154/61
--- NOTE | 2020-06-24 13:30 | NUR ---
I have reviewed this patient and I concur with the Shift Assessment completed by the Licensed Practical Nurse today this shift.
--- NOTE | 2020-06-24 17:52 | NUR ---
PT RESTING IN BED WITH EYES OPEN CALL LIGHT IN REACH NO PROBLEMS WILL MONITER
[2020-06-24 19:09] VITALS: BP 125/41
--- NOTE | 2020-06-24 20:00 | NUR ---
PATIENT IS ALERT. VERY CONFUSED. BED ALARM ON. CALL LIGHT WITHIN REACH. VOICES NO NEEDS AT THIS TIME. WILL CONTINUE WITH PLAN OF CARE
--- NOTE | 2020-06-25 00:35 | NUR ---
PATIENT RESTLESS. PULLED UP IN BED. MAX ASST OF TWO PEOPLE TO REARRANGE PATIENT IN BED
--- NOTE | 2020-06-25 04:31 | NUR ---
PATIENT RESTING WELL. EYES CLOSED. CALL LIGHT WITHIN REACH. BED ALARM ON
--- NOTE | 2020-06-25 07:37 | NUR ---
PT RESTING IN BED WITH EYES OPEN CALL LIGHT IN REACH NO PROBLEMS WILL MONITER
[2020-06-25 07:55] VITALS: BP 145/82
[2020-06-25 12:04] LABS: HEMATOCRIT 31.5 % (42.0-54.0); HEMOGLOBIN 10.1 g/dL (13.5-17.5); LYMPHOCYTES 15.9 % (15-50); MCH 30.4 pg (26.0-34.0); MCHC 32.1 g/dL (31.0-37.0); MCV 94.9 fL (80.0-100.0); NEUTROPHILS 76.8 % (40-80); PLATELET COUNT 276 10x3/uL (130-400); RBC 3.32 10x6/uL (4.20-6.10); WBC 8.6 10x3/uL (4.8-10.8)
--- NOTE | 2020-06-25 16:11 | NUR ---
Nutrition Follow-up Diet: [facility] with ground meats + Glucerna TID PO intake: ~36% average x last 9 meals Last BM: 06/23/20 Wt: 225# (06/21/20) Meds noted: lantus, SSI Labs noted: POC Glu 82(WNL) Skin: stage II coccyx Recommend continue current diet (or BROKER recommendations). Continue Glucerna TID. RD will follow-up 06/28/20.
--- NOTE | 2020-06-25 18:38 | NUR ---
PT RESTING IN BED WITH EYES OPEN CALL LIGHT IN REACH NO PROBLEMS WILL MONITER
--- NOTE | 2020-06-25 19:43 | NUR ---
PT IN BED WATCHING TV, NO IMMEDIATE NEEDS NOTED, FLUIDS/CL WITHINREACH
[2020-06-25 20:00] VITALS: BP 139/64
[2020-06-26 07:06] LABS: BASOPHILS 0.2 % (0-2); EOSINOPHILS 2.8 % (0-7); HEMATOCRIT 27.7 % (42.0-54.0); HEMOGLOBIN 8.9 g/dL (13.5-17.5); IMMATURE GRANULOCYTES 0.2 % (0-5); LYMPHOCYTE ABS# 1.47 10x3/uL (1.32-3.57); LYMPHOCYTES 17.2 % (15-50); MCH 29.7 pg (26.0-34.0); MCHC 32.1 g/dL (31.0-37.0); MEAN PLATELET VOLUME 9.1 fL (7.4-10.4); MONOCYTES 8.9 % (2-11); NEUTROPHIL ABS# 6.04 10x3/uL (1.78-5.38); NEUTROPHILS 70.7 % (40-80); PLATELET COUNT 261 10x3/uL (130-400); RDW 15.6 % (11.5-14.5); WBC 8.6 10x3/uL (4.8-10.8)
[2020-06-26 07:10] LABS: MCV 92.3 fL (80.0-100.0)
[2020-06-26 07:13] LABS: ANION GAP 7.1 mmol/L (8-16); CALCIUM 7.7 mg/dL (8.5-10.1); CARBON DIOXIDE 29.2 mmol/L (21.0-32.0); CREATININE - SERUM 1.1 mg/dL (0.6-1.3)
[2020-06-26 07:15] LABS: POTASSIUM - SERUM 4.3 mmol/L (3.5-5.1)
[2020-06-26 07:41] VITALS: BP 130/51
--- NOTE | 2020-06-26 16:05 | NUR ---
CARE TEAM MEETING: PATIENT IS SLOWLY PROGRESSING IN THERAPY. HIS TENATIVE DC DATE IS 07/05/20. WILL CONTINUE TO FOLLOW WITH PATIENT AND WILL ASSIST WITH DC NEEDS.
--- NOTE | 2020-06-26 20:00 | NUR ---
AWAKE AND ALERT. RESPIRATIONS UNLABORED. LORA PATENT. NOTED POOR VISION. RIGHT BKA WITH ADRIANNA WRAP AND BANDAGE IN PLACE. LEFT FOOT HAS AMPUTATION OF ALL DIGITS EXCEPT GREAT TOE. NO ACUTE DISTRESS NOTED. CALL LIGHT IN REACH.
[2020-06-26 20:04] VITALS: BP 134/67
--- NOTE | 2020-06-27 00:32 | RHP ---
PATIENT: ELLIOTT SILVERIO MEDICAL RECORD: [id number] ACCOUNT: [id number] [facility] ADMISSION DATE: 06/20/20 REHABILITATION HISTORY AND PHYSICAL EXAMINATION POST ADMISSION PHYSICIAN EXAMINATION ADMITTING DIAGNOSIS: Right ofzmq-uvf-pvhs amputation. HISTORY OF PRESENT ILLNESS: The patient is 80-year-old gentleman who was admitted for a right snlwj-evs-syrs amputation. He presented to the ER via EMS with worsening complaints of problems with his lower extremity. He reportedly had fallen earlier recently. He was unaware of the extensive ulcerations on his feet. Imaging showed no acute fractures or dislocations. He did have erosive changes medial aspect of the navicular bone and possible of the medial cuneiform and adjacent soft tissues suggesting osteomyelitis. The patient had questionable soft tissue deficits in the medial aspect of his proximal left foot with sclerosis of the adjacent navicular bone noted. Also, ultrasound and Dopplers were done, they show that he had moderately to severe peripheral arterial disease. He was admitted to surgery for further workup. He had elevated troponin, hypokalemia, leukocytosis, sepsis and open wound to his foot, depression and anxiety. The patient also has a history of diabetes. Prior to this admission, he was living alone and using a rolling walker. He stated that he also uses a wheelchair at times. He is currently max assist for supine to sit and 2-person assist from sit to supine. He also has 2-person assist and he is weightbearing only through his left heel. The patient appears to have decreased motor control of his lower extremities. He has been monitored closely for lab values, cognition, medication adjustment, pain control, decreased activity tolerance, balance deficit, impaired mobility, high fall risk and self-care deficits. These are all barriers to his discharge home. Hopefully, he will go home better than his prior level of functioning. COMORBIDITIES: Include qqdqo-qc-mdndjxd renal failure, acute encephalopathy, acute mental status changes, anemia, anxiety, chronic kidney disease, cognitive deficits, decrease in physical functioning, dementia, depression, difficulty walking, metabolic encephalopathy, obesity. PAST MEDICAL HISTORY: Significant for glaucoma, diabetes, arthritis, depression, dementia, coronary artery disease, DFU and peripheral arterial disease. PAST SURGICAL HISTORY: Includes neck surgery and also lumbar surgery times 2, now fhatx-bel-hliv amputation. ALLERGIES: IODINE. CURRENT MEDICATIONS: Timolol eyedrops daily, he is on Trusopt daily, he is on Flomax 0.4 mg daily, Actos 45 mg daily, Lidoderm patch to apply daily, insulin 32 units daily, he is on a glucose replacement protocol, Cymbalta 60 mg daily, vitamin D 2000 units daily, carvedilol 3.125 mg b.i.d. with meals, Protonix 40 mg daily, he is on Robaxin 750 b.i.d., Namenda 5 mg b.i.d., melatonin 3 mg at bedtime, Neurontin 800 mg b.i.d., Colace 100 mg b.i.d., BuSpar 10 mg t.i.d., Wellbutrin 200 mg b.i.d., atorvastatin 80 mg at bedtime, MiraLax 17 grams in 8 ounces of water daily, trazodone 50 mg at bedtime, [place]ariscotta 10/325 one tab every 4 hours p.r.n., Lasix 40 mg daily as needed and Benadryl p.r.n. HISTORY AND PHYSICAL [id number] ELLIOTT SILVERIO HABITS: No current alcohol or tobacco use. FAMILY HISTORY: Noncontributory. SOCIAL HISTORY: The patient hopes to return back home and get back to his prior level of functioning. REVIEW OF SYSTEMS: GENERAL: He does complain of weakness and fatigue. HEENT: Denies cold, cough or congestion. CARDIOVASCULAR: Denies any chest pain. PHYSICAL EXAMINATION: VITAL SIGNS: Stable, afebrile. GENERAL: Elderly gentleman in no acute distress upon exam. HEENT: Normocephalic and atraumatic. Mucosa moist. NECK: Supple. No lymphadenopathy. LUNGS: Clear in the upper saenz. No wheezing or rales. HEART: Regular rate and rhythm. No murmurs, rubs or gallops. ABDOMEN: Soft, benign, obese. EXTREMITIES: No clubbing, cyanosis. He does have a noted right ywmsn-xqg-lzpd amputation, postoperative area looks pretty good. NEUROLOGIC: He has got diffuse weakness. LABORATORY DATA: His white count is 9.5, H&H 9.9 and 32.2 and platelet count is 212. Sodium 136, potassium 3.6, BUN and creatinine of 12 and 1.2, and blood sugar is noted to be 140. His admit UA did show 2+ blood and moderate bacteria. ASSESSMENT: This is a 80-year-old gentleman admitted to the rehab with a working diagnosis of feuoo-uou-cirb amputation. The patient has potential to make improvement. We instituted the following multidisciplinary therapies include, not limited to physical, occupational, respiratory, speech, nutritional services, prosthetics and orthotics. Given his complex medical condition and risks for more complications, rehabilitation services cannot be provided at a low level of care such as residential facility. PLAN: 1. Admit to [facility] for intensive inpatient therapy to include the following disciplines; A. Physical therapy to improve gait, all transfer skills and bed mobility to a modified independent level. B. Occupational therapy to improve activities of daily living. C. Case management to help with discharge planning and placement options. D. Nutrition to assist with nutritional needs. E. Rehabilitation nursing to assist in monitoring the patient's underling medical condition and to assist with any type bowel or bladder management. 2. The patient's current medication and Medicare will be continued. 3. The patient will be placed on standard fall precautions. 4. The patient's estimated length of stay is approximately 7-10 days. 5. I will discuss this patient during care team staff meeting this week. TRANSINT:[id number] Voice Confirmation ID: [id number] DOCUMENT ID: [id number] 06/25/2020 james LESTER. HISTORY AND PHYSICAL [id number] NUSRATELLIOTT RONDON notes whether there has been none or any medical/functional change since admission: - No change since preadmission screen. TREVON attests patient continues to be appropriate for IRF: - Continues to be appropriate. SATYA DONOHUE MD at 0032 CC: [id number] DICTATION DATE: 06/21/20 0834 MALTED MILK MASHER: 06/21/20 0908 ADM IN [address] [place] [address]
--- NOTE | 2020-06-27 05:15 | NUR ---
QUIET HOURS. NO ACUTE CHANGES IN CONDITION THIS SHIFT. RESTING IN BED WITH NO DISTRESS NOTED. GENO PATENT. CALL LIGHT IN REACH.
[2020-06-27 07:34] VITALS: BP 143/67
--- NOTE | 2020-06-27 08:38 | NUR ---
HE IS CONFUSED TODAY. HE TOOK HIS MEDICATIONS WITHOUT ANY PROBLEMS. HE HAS A LORA. DRESSING CHANGED TO HIS LEFT FOOT AND RIGHT STUMP. THE CALL LIGHT IS WITHIN REACH AND THE BED ALAMR IS ON.
[2020-06-27 16:28] VITALS: BP 121/62
--- NOTE | 2020-06-27 19:19 | NUR ---
AWAKE AND ALERT BUT CONFUSED. RAMBLING. TRYING TO TELL A STORY BUT ISNT MAKING SENSE. USED BED BUI AND HAD A LARGE SOFT BM. BED LINENS CHANGED. LORA PATENT. REDNESS AND SHEARING BREAKDOWN ON BUTTOCKS. CALMOSEPTINE APPLIED. CALL LIGHT IN REACH.
[2020-06-27 19:47] VITALS: BP 128/64
--- NOTE | 2020-06-27 23:03 | NUR ---
CONTINUES TO BE RESTLESS AND PUTTING LEGS OUT OF BED. PULLS OFF BANDAGES ON AMPUTATION SITES. REDRESSED AND SAFETY MEASURES IN PLACE.
--- NOTE | 2020-06-28 05:22 | NUR ---
SLEEPING NOW. WAS AWAKE AND RESTLESS UNTIL 329 WITH RAMBLING SPEECH AND MOVING LEGS OUT OF BED. NOW RESTING WITH RESPIRATIONS UNLABORED. GENO PATENT. CALL LIGHT IN REACH.
[2020-06-28 07:36] VITALS: BP 138/74
--- NOTE | 2020-06-28 08:30 | NUR ---
HE IS STILL SLEEPING. HE DID NOT SLEEP UNTIL 3:30 THIS MORNING. THE CALL LIGHT IS WITHIN REACH AND THE BED ALARM IS ON.
--- NOTE | 2020-06-28 14:20 | NUR ---
Nutrition Follow-up: Diet: Diabetic/AHA [facility] Soft with Ground Meats + Glucerna TID PO intake: ~35% average x last 9 meals. He ate 100% of breakfast and 100% of lunch today. He states that his appetite is "good" and that he is drinking the Glucerna Last BM: 06/25/20 Wt: 225# (06/21/20) Meds noted: lantus, SSI Labs noted: POC Glu 86(WNL) Skin: stage II PU to coccyx Recommend: -Continue current PO diet (or per COLLAR SETTER recommendations). -Will continue Glucerna TID for added protein to help with wound healing needs. -RD will follow-up 07/03/20.
[2020-06-28 16:25] VITALS: BP 134/68
[2020-06-28 20:00] VITALS: BP 127/59
--- NOTE | 2020-06-28 20:20 | NUR ---
PATIENT RECEIVED SITTING UP IN BED. PATIENT SPOKEN TO & PATIENT SPOKE BACK TO THIS NURSE. REMEMBERED MY NAME. ASSESSMENT & VITAL SIGNS DONE. LORA CATHETER HAS CLEAR YELLOW URINE. PATIENT GIVEN WATER & DRANK MOST OF IT. BED LOW. CALL LIGHT & BEDSIDE TABLE WITHIN REACH. WILL CONTINUE TO MONITOR.
--- NOTE | 2020-06-28 21:15 | NUR ---
PATIENT DRANK WATER & SWALLOWED ALL HIS MEDICATIONS WITHOUT DIFFICULTY. PATIENT FSBS 158, INSULIN GIVEN PER ORDER. PATIENT FED CONTAINER OF VANILLA PUDDING. PATIENT DRANK MORE WATER. THIS NURSE MAX ASSIST WITH BRUSHING TEETH. PATIENT COOPERATIVE RINSED & SPIT OUT TOOTHPASTE WATER. PATIENT TURNED TO LEFT SIDE, LIDOCAINE PATCH TAKEN OFF LOWER BACK. PATIENT COVERED UP. BED LOW. ALARM ON. CALL LIGHT WITHIN REACH. WILL CONTINUE TO MONITOR.
[2020-06-28 22:12] LABS: BASOPHILS 0.3 % (0-2); EOSINOPHILS 3.5 % (0-7); HEMATOCRIT 28.2 % (42.0-54.0); HEMOGLOBIN 8.7 g/dL (13.5-17.5); IMMATURE GRANULOCYTES 0.3 % (0-5); LYMPHOCYTE ABS# 1.23 10x3/uL (1.32-3.57); LYMPHOCYTES 15.7 % (15-50); MCHC 30.9 g/dL (31.0-37.0); MEAN PLATELET VOLUME 9.2 fL (7.4-10.4); MONOCYTES 8.3 % (2-11); NEUTROPHIL ABS# 5.63 10x3/uL (1.78-5.38); NEUTROPHILS 71.9 % (40-80); PLATELET COUNT 266 10x3/uL (130-400); RDW 15.8 % (11.5-14.5); WBC 7.8 10x3/uL (4.8-10.8)
[2020-06-28 22:20] LABS: ANION GAP 6.6 mmol/L (8-16); CALCIUM 8.3 mg/dL (8.5-10.1); CARBON DIOXIDE 30.5 mmol/L (21.0-32.0); CREATININE - SERUM 1.2 mg/dL (0.6-1.3); POTASSIUM - SERUM 4.1 mmol/L (3.5-5.1)
--- NOTE | 2020-06-28 22:33 | NUR ---
I have reviewed this patient and I concur with the Shift Assessment completed by the Licensed Practical Nurse today this shift.
--- NOTE | 2020-06-29 03:46 | NUR ---
PATIENT EYES CLOSED. RESPIRATIONS 18 & EVEN. LORA PATENT WITH CLEAR YELLOW URINE. BED LOW. CALL LIGHT & BEDSIDE TABLE WITHIN REACH. WILL CONTINUE TO MONITOR.
--- NOTE | 2020-06-29 04:38 | NUR ---
PATIENT ON ROUNDS BRIEF CHECKED. NO BM. SPECIMEN CONTAINER & TONGUE DEPRESSOR ON BEDSIDE TABLE. PATIENT LORA PULLING ON PENIS. NEW STAT ENRRIQUE PLACED. LOAR LOOSE NO LONGER PULLING. PATIENT PULLED UP IN BED. CALL LIGHT WITHIN REACH. ALARM ON. WILL CONTINUE TO MONITOR.
[2020-06-29 06:22] LABS: % SATURATION 25 % (15-55); IRON 25 ug/dl (35-150); TOTAL IRON BIND CAPACITY 99 ug/dl (260-445); UNSAT IRON BIND CAPACITY 74 ug/dl (150-375)
--- NOTE | 2020-06-29 07:30 | NUR ---
AWAKE AND ALERT. ORIENTED X3. NO C/O AT THIS TIME. LUNGS ARE CLEAR BILATERALLY, NO COUGH NOTED. REPORTS USING IS INSTRUCTED. SKIN IS INTACT WITHOUT REDNESS EXCEPT DRESSING TO RIGHT BKA AND LEFT FOOT TOES WHICH ARE CLEAN AND DRY. NO NEEDS. NOTED.
[2020-06-29 08:00] VITALS: BP 113/50
--- NOTE | 2020-06-29 08:00 | NUR ---
FEED BREAKFAST PER STAFF. ATE ABOUT 75% OF MEAL. NO NEEDS NOTED.
--- NOTE | 2020-06-29 09:30 | NUR ---
TOOK AM MEDS WITHOUT DIFFICULTY. DENIES NEEDS.
--- NOTE | 2020-06-29 11:30 | NUR ---
DRESSINGS CHANGED TO LEFT FOOT AND RIGHT BKA. INCISION LINES ARE CLEAN AND DRY, WELL APPROXIMATED. PLACED ON BED BUI PER STAFF. HAD LARGE SOFT FORMED LIGHT BROWN STOOL. SPECIMEN SENT TO LAB. FSBS 133. NO COVERAGE REQUIRED. DENIES NEEDS.
--- NOTE | 2020-06-29 13:24 | NUR ---
REFUSED TO EAT LUNCH TRAY. STATED "I'M STILL FULL FROM BREAKFAST." DENIES NEEDS.
--- NOTE | 2020-06-29 16:45 | NUR ---
FSBS 122. NO COVERAGE REQUIRED.
--- NOTE | 2020-06-29 17:48 | NUR ---
ATE OVER HALF OF SUPPER TRAY. STAFF FEED SUPPER. DENIES NEEDS. NO CHANGES NOTED.
--- NOTE | 2020-06-29 19:52 | NUR ---
PATIENT RECEIVED SITTING UPIN BED. ASSESSMENT & VITAL SIGNS DONE. NO C/O PAIN OR DISTRESS AT THIS TIME. LORA CATHETER PATENT WITH CLEAR YELLOW URINE. BED LOW. ALARM ON. CALL LIGHT WITHIN REACH. WILL CONTINUE TO MONITOR.
[2020-06-29 20:00] VITALS: BP 122/52
--- NOTE | 2020-06-29 20:52 | NUR ---
PATIENT FOLATE GIVEN. TAKEN FROM ANOTHER AREA.
--- NOTE | 2020-06-29 22:33 | NUR ---
I have reviewed this patient and I concur with the Shift Assessment completed by the Licensed Practical Nurse today this shift.
--- NOTE | 2020-06-30 03:32 | NUR ---
PATIENT EYES CLOSED. RESPIRATIONS 18 & EVEN. LORA CATHETER HAS CLEAR YELLOW URINE. CALL LIGHT & BEDSIDE TABLE WITHIN REACH. ALARM ON. WILL CONTINUE TO MONITOR.
--- NOTE | 2020-06-30 07:40 | NUR ---
PT RESTING IN BED WITH EYES OPEN CALL LIGHT IN REACH WILL MONITER
--- NOTE | 2020-06-30 07:59 | NUR ---
PT RESTING IN BED WITH EYES OPEN CALL LIGHT IN REACH WILL MONITER
[2020-06-30 08:00] VITALS: BP 147/75
--- NOTE | 2020-06-30 18:37 | NUR ---
PT HAS TEMP OF 99.5 [facility]
[2020-06-30 19:38] VITALS: BP 107/54
--- NOTE | 2020-06-30 19:40 | NUR ---
PATIENT RECEIVED SITTING UP IN LOW BED. ASSESSMENT & VITAL SIGNS DONE. NO C/O PAIN OR DISTRESS AT THIS TIME. ALARM ON. CALL LIGHT WITHIN REACH. WILL CONTINUE TO MONITOR.
--- NOTE | 2020-06-30 19:55 | NUR ---
PATIENT USED CALL LIGHT FOR ASSIST. PATIENT PLACED ON BEDPAN. MEDIUM SOFT BM. PATIENT BUTTOCKS CLEANED & CALMOSEPTINE APPLIED. BED LOW. ALARM ON. CALL LIGHT & BEDSIDE TABLE WITHIN REACH. WILL CONTINUE TO MONITOR.
--- NOTE | 2020-07-01 01:32 | NUR ---
PATIENT EYES CLOSED. RESPIRATIONS 18 & EVEN. BEDSIDE TABLE & CALL LIGHT WITHIN REACH. ALARM ON. WILL CONTINUE TO MONITOR.
--- NOTE | 2020-07-01 04:30 | NUR ---
PATIENT AWAKE DURING ROUNDS. PATIENT BATH GIVEN, SKIN MOISTURIZED WITH LOTION. LINENS CHANGED. BED LOW. CALL LIGHT WITHIN REACH. WILL CONTINUE TO MONITOR.
--- NOTE | 2020-07-01 06:09 | NUR ---
I have reviewed this patient and I concur with the Shift Assessment completed by the Licensed Practical Nurse today this shift.
[2020-07-01 07:27] LABS: BASOPHILS 0.2 % (0-2); EOSINOPHILS 2.5 % (0-7); HEMATOCRIT 25.9 % (42.0-54.0); HEMOGLOBIN 8.2 g/dL (13.5-17.5); IMMATURE GRANULOCYTES 0.4 % (0-5); LYMPHOCYTE ABS# 1.57 10x3/uL (1.32-3.57); LYMPHOCYTES 15.5 % (15-50); MCH 29.4 pg (26.0-34.0); MCHC 31.7 g/dL (31.0-37.0); MCV 92.8 fL (80.0-100.0); MEAN PLATELET VOLUME 9.4 fL (7.4-10.4); MONOCYTES 11.8 % (2-11); NEUTROPHIL ABS# 7.06 10x3/uL (1.78-5.38); NEUTROPHILS 69.6 % (40-80); PLATELET COUNT 271 10x3/uL (130-400); RBC 2.79 10x6/uL (4.20-6.10); RDW 15.5 % (11.5-14.5); WBC 10.1 10x3/uL (4.8-10.8)
[2020-07-01 08:02] VITALS: BP 124/64
[2020-07-01 09:11] LABS: ANION GAP 6.1 mmol/L (8-16); CALCIUM 8.3 mg/dL (8.5-10.1); CARBON DIOXIDE 29.8 mmol/L (21.0-32.0); CREATININE - SERUM 1.1 mg/dL (0.6-1.3); POTASSIUM - SERUM 3.9 mmol/L (3.5-5.1)
--- NOTE | 2020-07-01 09:25 | NUR ---
HE IS SETTING UP IN THE BED EATING BREAKFAST. HE HAS A LORA. HE TOOK HIS MEDICATION WITHOUT ANY PROBLEMS. THE CALL LIGHT IS WITHIN REACH AND THE BED ALARM IS ON.
[2020-07-01 17:05] VITALS: BP 146/62
[2020-07-01 19:21] VITALS: BP 118/74
--- NOTE | 2020-07-01 19:33 | NUR ---
AWAKE AND SOMEWHAT CONFUSED. ORIENTED TO SELF. FORGETFUL AND HAS RAMBLING SPEECH AT TIMES. VISION POOR. LORA PATENT. NO ACUTE DISTRESS NOTED. CALL LIGHT IN REACH.
--- NOTE | 2020-07-02 01:25 | NUR ---
EYES CLOSED AND RESPIRATIONS UNLABORED. NO ACUTE DISTRESS NOTED.
--- NOTE | 2020-07-02 05:14 | NUR ---
SLEPT UNTIL AROUND 2AM. HAS BEEN TALKING TO HIMSELF FOR MOST OF THE REST OF THIS SHIFT. VERY CONFUSED. YELLED OUT AT ONE POINT "LANRE DE DIOS!' I CHECKED ON HIM AND CALLED HIS NAME AND HE STOPPED YELLING. NOW TALKING OUTLOUD TO HIMSELF AT INTERVALS AND QUIET AT TIMES. RESPIRATIONS UNLABORED. LORA PATENT. CALL LIGHT IN REACH.
--- NOTE | 2020-07-02 06:55 | NUR ---
PATIENT BED ALARM SOUNDED AND I WENT INTO ROOM AND PAITENT WAS NOTED SITTING ON FLOOR NEXT TO BED. NO APPARANT INJURY. ROLL OVER PRESS OPERATOR JONNATHAN NOTIFIED AND MESSAGE LEFT DR DONOHUE ON ROUNDING SHEET. PATIENT WAS ASSISTED BACK TO BED WITH PHYSICAL THERAPIST, ADMINISTRATIVE STAFF MEMBER AND NURSES.
[2020-07-02 07:05] LABS: ANION GAP 7.9 mmol/L (8-16); CALCIUM 7.9 mg/dL (8.5-10.1); CREATININE - SERUM 1.2 mg/dL (0.6-1.3); POTASSIUM - SERUM 3.9 mmol/L (3.5-5.1)
[2020-07-02 07:06] LABS: BASOPHILS 0.2 % (0-2); EOSINOPHILS 2.3 % (0-7); HEMATOCRIT 25.6 % (42.0-54.0); IMMATURE GRANULOCYTES 0.3 % (0-5); LYMPHOCYTE ABS# 1.31 10x3/uL (1.32-3.57); MCH 29.2 pg (26.0-34.0); MCHC 31.3 g/dL (31.0-37.0); MCV 93.4 fL (80.0-100.0); MEAN PLATELET VOLUME 9.5 fL (7.4-10.4); MONOCYTES 11.7 % (2-11); NEUTROPHILS 71.5 % (40-80); PLATELET COUNT 281 10x3/uL (130-400); RBC 2.74 10x6/uL (4.20-6.10); RDW 15.5 % (11.5-14.5); WBC 9.4 10x3/uL (4.8-10.8)
[2020-07-02 08:00] VITALS: BP 135/71
--- NOTE | 2020-07-02 08:16 | NUR ---
HE IS CONFUSED, TALKING TO HIMSELF. HE DID FEED HIMSELF, TOOK HIS MEDICATIONS. HE HAS A LORA. ROSARIO APPLIED TO HIS BOTTOM. DRESSING INTACT TO HIS RIGHT STUMP AND LEFT FOOT. THE CALL LIGHT IS WITHIN REACH AND THE BED ALARM IS IN PLACE.
--- NOTE | 2020-07-02 13:23 | NUR ---
HE IS YELLING OUT, TALKING TO PEOPLE THAT ARE NOT THERE. HE IS LOOKING AT THE WALL AND HAVING A CONVERSATION. THE CALL LIGHT IS WITHIN REACH AND THE BED ALARM IS ON.
--- NOTE | 2020-07-02 14:14 | NUR ---
DRESSING CHANGED TO THE RIGHT STUMP AND LEFT FOOT. SUTURES INTACT TO BOTH WOUNDS. HIS DAUGHTER IS AT THE BEDSIDE. THE CALL LIGHT IS WITHIN REACH AND THE BED ALARM IS ON.
[2020-07-02 16:07] VITALS: BP 115/65
--- NOTE | 2020-07-02 20:21 | NUR ---
AWAKE AND VERY CONFUSED. TALKING AND YELLING OUT TO SELF. RESTLESS IN BED. CONTSTANTLY MOVING LEGS AND ARMS. DISORIENTED TO PLACE TIME AND SITUATION. ORIENTED TO SELF ONLY. FOLLOWS SIMPLE COMMANDS. LORA PATENT. RESPIRATIONS UNLABORED. BED ALARM ON. CALL LIGHT IN REACH.
--- NOTE | 2020-07-03 01:27 | NUR ---
CONTINUES TO TALK LOUDLY, YELL OUT AND MOVE AROUND IN BED. VERY CONFUSUSED. JUMPS FROM RANDOM TOPICS AND SPEECH, TONE AND SUBJECT VARIES. IS NOT COMFORTED BY NURSE SPEAKING TO HIM AND DOESNT SEEM TO REALIZE WHERE HE IS OR HIS SITUATION. HE CAN GET VERY LOUD AT TIMES. HAS NOT STOPPED TALKING TO SELF ALL THIS SHIFT. BEING MONITORED CLOSESLY.
--- NOTE | 2020-07-03 05:23 | NUR ---
SLEPT BREIFLY BETWEEN 4 AND 5 AM. NOW AWAKE AGAIN AND CONTINUES TO BE CONFUSED AND TALKING TO HIMSELF ALTHOUGH NOT LOUDLY AND FREQUENTLY BEFORE HIS BRIEF SLEEP. MESSAGE OF PATIENTS BEHAVIOR LEFT ON ROUNDING SHEET FOR DR DONOHUE. GENO PATENT. SAFETY MEASURES IN PLACE.
--- NOTE | 2020-07-03 05:58 | NUR ---
BLOOD SUGAR 65. 4OZ ORANGE JUICE WAS ALL I COULD GET HIM TO TAKE. SKIN WARM AND DRY. CONTINUES TO BE CONFUSED.
[2020-07-03 07:09] LABS: BASOPHILS 0.2 % (0-2); HEMATOCRIT 23.7 % (42.0-54.0); HEMOGLOBIN 7.6 g/dL (13.5-17.5); IMMATURE GRANULOCYTES 0.1 % (0-5); LYMPHOCYTE ABS# 1.26 10x3/uL (1.32-3.57); LYMPHOCYTES 14.2 % (15-50); MCH 29.7 pg (26.0-34.0); MCHC 32.1 g/dL (31.0-37.0); MCV 92.6 fL (80.0-100.0); MEAN PLATELET VOLUME 9.1 fL (7.4-10.4); MONOCYTES 12.4 % (2-11); NEUTROPHIL ABS# 6.22 10x3/uL (1.78-5.38); NEUTROPHILS 70.1 % (40-80); PLATELET COUNT 257 10x3/uL (130-400); RBC 2.56 10x6/uL (4.20-6.10); RDW 15.2 % (11.5-14.5); WBC 8.9 10x3/uL (4.8-10.8)
[2020-07-03 07:55] LABS: ANION GAP 7.1 mmol/L (8-16); CARBON DIOXIDE 28.6 mmol/L (21.0-32.0); CREATININE - SERUM 1.2 mg/dL (0.6-1.3); POTASSIUM - SERUM 3.7 mmol/L (3.5-5.1)
[2020-07-03] MEDS ORDERED: REMOVE PATCH TD (12:58)
--- NOTE | 2020-07-03 14:18 | NUR ---
DUE TO CHANGE IN MEDICAL CONDITION PATIENT IS DISCHARGED FROM [facility] AND ADMITTED TO ACUTE FLOOR.
--- NOTE | 2020-07-03 14:43 | NUR ---
DISCHARGE RECORDS HAVE BEEN FAXED TO ME @ [phone], AUTH. # [id number] WITH FAX CONFORMATION RECIEVED
== END 2020-07-03 14:47 | disposition short-term general hospital (02) | DRG 559 ==
LOC: D.REHAB 16:21
PROVIDERS: ADMIT Emergency Medicine; ATTEND Emergency Medicine
DX: Z47.81 Encounter for orthopedic aftercare following surgical amputation (principal); G93.41 Metabolic encephalopathy; A41.9 Sepsis, unspecified organism; N17.9 Acute kidney failure, unspecified; Z89.511 Acquired absence of right leg below knee; E11.22 Type 2 diabetes mellitus with diabetic chronic kidney disease; N18.9 Chronic kidney disease, unspecified; D64.9 Anemia, unspecified; F41.9 Anxiety disorder, unspecified; F03.90 Unspecified dementia, unspecified severity, without behavioral disturbance, psychotic disturbance, mood disturbance, and anxiety; F32.9 Major depressive disorder, single episode, unspecified; E66.9 Obesity, unspecified; I25.10 Atherosclerotic heart disease of native coronary artery without angina pectoris; R26.2 Difficulty in walking, not elsewhere classified; Z68.33 Body mass index [BMI] 33.0-33.9, adult

== ENCOUNTER 2020-07-03 14:03 | Inpatient (IN) | payer MEDICARE, OTHER ==
[~2020-07-03] VITALS: Ht 185.4 cm; Wt 116.1 kg
[~2020-07-03 14:03] MED LIST changes: +REMOVE PATCH TD
[2020-07-03 15:58] VITALS: BP 146/75; BMI 33.8
--- NOTE | 2020-07-03 18:22 | NUR ---
RECHECK GLUCOSE OF 80
[2020-07-03 20:00] VITALS: BP 99/46
[2020-07-04] VITALS: BP 101/51
[2020-07-04 04:00] VITALS: BP 101/51; BP 123/43
[2020-07-04 05:59] LABS: BASOPHILS 0.3 % (0-2); EOSINOPHILS 2.2 % (0-7); HEMATOCRIT 26.2 % (42.0-54.0); HEMOGLOBIN 8.1 g/dL (13.5-17.5); IMMATURE GRANULOCYTES 0.1 % (0-5); LYMPHOCYTE ABS# 0.93 10x3/uL (1.32-3.57); LYMPHOCYTES 12.6 % (15-50); MCH 29.1 pg (26.0-34.0); MCHC 30.9 g/dL (31.0-37.0); MCV 94.2 fL (80.0-100.0); MONOCYTES 8.7 % (2-11); NEUTROPHIL ABS# 5.63 10x3/uL (1.78-5.38); NEUTROPHILS 76.1 % (40-80); PLATELET COUNT 297 10x3/uL (130-400); RBC 2.78 10x6/uL (4.20-6.10); RDW 15.1 % (11.5-14.5); WBC 7.4 10x3/uL (4.8-10.8)
[2020-07-04 06:38] LABS: CALCIUM 8.2 mg/dL (8.5-10.1); CARBON DIOXIDE 28.1 mmol/L (21.0-32.0); CREATININE - SERUM 1.1 mg/dL (0.6-1.3); POTASSIUM - SERUM 4.1 mmol/L (3.5-5.1)
--- NOTE | 2020-07-04 07:11 | NUR ---
PATIENT DENIED PAIN, COMPLIED WITH REQUESTS, JE APPEARED TO REST WELL THROUGH THE NIGHT.
--- NOTE | 2020-07-04 07:31 | NUR ---
ALERT AND ORIENTED TO SELF. ASSESSMENT COMPLETE. BED LOW. BED ALARM ON. CALL ROB AND PERSONAL ITEMS IN REACH. WILL CONTINUE TO MONITOR.
--- NOTE | 2020-07-04 08:18 | NUR ---
SPOKE WITH DARNELL IN MATERIALS FOR PREVINA WOUND VAC. STATES WILL BRING TO FLOOR.
[2020-07-04 08:21] VITALS: BP 121/63
--- NOTE | 2020-07-04 08:37 | NUR ---
SPOKE WITH ASHLEY DELEON AT DR DIAS'S OFFICE TO NOTIFY THAT PATIENT DOES NOT HAVE DIET ORDER. STATES WILL TALK TO DR DIAS AND CALL BACK.
--- NOTE | 2020-07-04 08:52 | NUR ---
SPOKE WITH DR DIAS WHO STATES THAT HE CAN'T GIVE A DIET ORDER BECAUSE THE PATIENT SHOULD NOT BE ADMITTED UNDER HIM. STATES THAT HE WAS NOT CALLED FOR A CONSULT OR NOTIFIED THAT THE PATIENT WAS ADMITTED YESTERDAY. PATIENT WAS SENT UP FROM REHAB YESTERDAY AND PATIENT WAS ORIGINALLY DR DIAS'S PATIENT ON FLOOR PRIOR TO REHAB. WHEN ASKED WHAT NURSE SHOULD DO ABOUT PATIENT BEING ADMITTED UNDER DR DIAS, REPLIED "I DON'T KNOW. Y'ALL NEED TO FIGURE THAT OUT." SPOKE WITH DR SHIN WHO STATES OK TO PLACE PATIENT ON REGULAR DIABETIC DIET. ORDER PLACED. SPOKE WITH NURSE PERSONAL FITNESS TRAINER HAYLEY ABOUT WHAT TO DO ABOUT SITUATION. NURSE PERSONAL FITNESS TRAINER STATES THAT DR DIAS IS PATIENT'S ADMITTING MD.
--- NOTE | 2020-07-04 09:10 | NUR ---
SPOKE WITH MARIAMA DE SANTIAGO, WHO STATES PATIENT SHOULD HAVE BEEN ADMITTED UNDER [facility]AN[facility]. MED CONSTRUCTION CARPENTER PATIENT. NURSING MESSAGE PLACED PER REQUEST OF ADMISSIONS.
[2020-07-04 12:42] VITALS: BP 106/57
[2020-07-04 13:21] VITALS: Ht 185.4 cm; Wt 116.1 kg
[2020-07-04 17:39] VITALS: BP 121/59
--- NOTE | 2020-07-04 18:09 | NUR ---
PATIENT WOUND VAC ALARMING, SEAL LEAK, REINFORCEDWOUND VAC AND AFTER AN HOUR OR SO, WOUND VAC STARTED TO ALARM AGAIN, SPOKE TO DR SHIN WHO STATED HE IS AWARE THAT THE WOUND VAC WAS NOT SEALING CORRECTLY AND IF CONTINUES TO DO SO REMOVE AND PLACE AG DRESSING. REPLACED WOUND VAC WITH DRESSING ORDERED, PATIENT NURSE ADMINISTERED PRN PAIN MEDICATION DURING DRESSING CHANGE, CONTINUE WITH PLAN OF CARE
[2020-07-04 20:00] VITALS: BP 104/40
--- NOTE | 2020-07-04 20:30 | NUR ---
PT SITTING UP IN BED WITHOUT DISTRESS, SON CALLING TO SPEAK TO PT. GAVE PT ROOM PHONE TO SPEAK WITH SON. PT TOOK MEDS AT THIS TIME WITHOUT DIFFICULTY. FSBS 126, NO COVERAGE PER SS. DENIES OTHER NEEDS AT THIS TIME. CL IN REACH, BED ALARM ON
--- NOTE | 2020-07-04 23:00 | NUR ---
PLACED PT ON AND OFF BEDPAN TO HAVE BM, PROVIDED NIKA CARE. DENIES OTHER NEEDS, CL IN REACH
[2020-07-05] VITALS: BP 121/49
[2020-07-05 04:00] VITALS: BP 139/41
[2020-07-05 06:08] LABS: BASOPHILS 0.5 % (0-2); HEMATOCRIT 25.5 % (42.0-54.0); HEMOGLOBIN 7.8 g/dL (13.5-17.5); IMMATURE GRANULOCYTES 0.3 % (0-5); LYMPHOCYTE ABS# 1.19 10x3/uL (1.32-3.57); MCH 28.7 pg (26.0-34.0); MCHC 30.6 g/dL (31.0-37.0); MCV 93.8 fL (80.0-100.0); MONOCYTES 11.3 % (2-11); NEUTROPHILS 63.9 % (40-80); PLATELET COUNT 281 10x3/uL (130-400); RBC 2.72 10x6/uL (4.20-6.10); RDW 15.3 % (11.5-14.5); WBC 6.3 10x3/uL (4.8-10.8)
[2020-07-05 06:36] LABS: ALBUMIN 1.4 g/dL (3.4-5.0); BILIRUBIN - TOTAL 0.45 mg/dL (0.2-1.3); CALCIUM 8.4 mg/dL (8.5-10.1); CARBON DIOXIDE 27.3 mmol/L (21.0-32.0); CREATININE - SERUM 1.1 mg/dL (0.6-1.3); PROTEIN - SERUM 6.2 g/dL (6.4-8.2)
[2020-07-05 06:57] LABS: ANION GAP 11.5 mmol/L (8-16); POTASSIUM - SERUM 3.8 mmol/L (3.5-5.1)
--- NOTE | 2020-07-05 08:00 | NUR ---
ALERT AND ORIENTED TO SELF. ASSESSMENT COMPLETE. BED LOW. CALL ROB AND PERSONAL ITEMS IN REACH. WILL CONTINUE TO MONITOR.
[2020-07-05 08:02] VITALS: BP 131/63
--- NOTE | 2020-07-05 11:27 | NUR ---
PHONE CONSENT OBTAINED BY TWO NURSES FOR PATIENT'S PROCEDURE FROM OLGA SILVERIO, PATIENT'S SON.
[2020-07-05 14:10] VITALS: BP 133/62
[2020-07-05 16:57] VITALS: BP 144/60
--- NOTE | 2020-07-05 18:12 | NUR ---
PATIENT SLEEPING. BED LOW. CALL ROB AND PERSONAL ITEMS IN REACH. WILL CONTINUE TO MONITOR.
[2020-07-05 20:12] VITALS: BP 121/43
[2020-07-06 01:17] VITALS: BP 145/66
[2020-07-06 05:31] VITALS: BP 134/67
[2020-07-06 07:45] LABS: BASOPHILS 0.3 % (0-2); EOSINOPHILS 4.3 % (0-7); HEMATOCRIT 25.6 % (42.0-54.0); IMMATURE GRANULOCYTES 0.1 % (0-5); LYMPHOCYTE ABS# 1.11 10x3/uL (1.32-3.57); LYMPHOCYTES 15.4 % (15-50); MCH 29.3 pg (26.0-34.0); MCHC 31.3 g/dL (31.0-37.0); MCV 93.8 fL (80.0-100.0); MEAN PLATELET VOLUME 9.6 fL (7.4-10.4); MONOCYTES 9.6 % (2-11); NEUTROPHIL ABS# 5.05 10x3/uL (1.78-5.38); NEUTROPHILS 70.3 % (40-80); PLATELET COUNT 297 10x3/uL (130-400); RBC 2.73 10x6/uL (4.20-6.10); RDW 15.1 % (11.5-14.5); WBC 7.2 10x3/uL (4.8-10.8)
[2020-07-06 07:54] LABS: ALBUMIN 1.5 g/dL (3.4-5.0); ANION GAP 9.4 mmol/L (8-16); BILIRUBIN - TOTAL 0.46 mg/dL (0.2-1.3); CALCIUM 8.2 mg/dL (8.5-10.1); CARBON DIOXIDE 28.4 mmol/L (21.0-32.0); CREATININE - SERUM 1.2 mg/dL (0.6-1.3); POTASSIUM - SERUM 3.8 mmol/L (3.5-5.1); PROTEIN - SERUM 6.4 g/dL (6.4-8.2)
[2020-07-06 08:07] VITALS: BP 127/65
[2020-07-06 12:10] VITALS: BP 140/70
[2020-07-06 15:54] LABS: BILIRUBIN NEGATIVE (NEGATIVE); KETONE SMALL mg/dL (NEGATIVE); NITRITE NEGATIVE (NEGATIVE); UROBILINOGEN NORMAL mg/dL (< 2)
[2020-07-06 15:58] LABS: WHITE CELLS - URINE 0-5 HPF (0-1)
[2020-07-06 16:00] LABS: BACTERIA FEW HPF (NONE SEEN)
[2020-07-06 20:00] VITALS: BP 147/79
[2020-07-07] VITALS: BP 106/39
[2020-07-07 04:00] VITALS: BP 118/63
--- NOTE | 2020-07-07 04:00 | NUR ---
Pt was hollering out from room. This nurse went to check on him and he had pulled IV out to Lt wrist and was pulling on guillaume cath. Assisted to reposition in bed. Pt teaching regarding Guillaume cath and pt verbalized understanding. IV resited with 4 tries to Lt hand. successful sticks with valves or vein blowing with flush. IV infusing per order at this time.
[2020-07-07 05:09] LABS: BASOPHILS 0.4 % (0-2); HEMATOCRIT 24.2 % (42.0-54.0); IMMATURE GRANULOCYTES 0.4 % (0-5); LYMPHOCYTE ABS# 0.85 10x3/uL (1.32-3.57); LYMPHOCYTES 10.2 % (15-50); MCH 28.8 pg (26.0-34.0); MCHC 30.6 g/dL (31.0-37.0); MCV 94.2 fL (80.0-100.0); MEAN PLATELET VOLUME 9.5 fL (7.4-10.4); MONOCYTES 8.3 % (2-11); NEUTROPHIL ABS# 6.59 10x3/uL (1.78-5.38); NEUTROPHILS 78.7 % (40-80); PLATELET COUNT 299 10x3/uL (130-400); RBC 2.57 10x6/uL (4.20-6.10); RDW 15.1 % (11.5-14.5); WBC 8.4 10x3/uL (4.8-10.8)
[2020-07-07 05:12] LABS: HEMOGLOBIN 7.4 g/dL (13.5-17.5)
[2020-07-07 05:22] LABS: ALBUMIN 1.6 g/dL (3.4-5.0); ANION GAP 11.1 mmol/L (8-16); BILIRUBIN - TOTAL 0.31 mg/dL (0.2-1.3); CALCIUM 8.2 mg/dL (8.5-10.1); CARBON DIOXIDE 26.9 mmol/L (21.0-32.0); CREATININE - SERUM 1.1 mg/dL (0.6-1.3); PROTEIN - SERUM 6.3 g/dL (6.4-8.2)
--- NOTE | 2020-07-07 05:23 | NUR ---
Pt has a critical Hgb - 7.4 and called to o/yue for himself. Provider stated he would address when he gets to facility.
[2020-07-07 08:04] VITALS: BP 127/76
--- NOTE | 2020-07-07 08:08 | NUR ---
PT PULLED UP IN BED. NO NEEDS AT THIS TIME. STATES HE IS STILL HAVING NIGHTMARES. CL IN REACH. BED ALARM ON. SCD ON RIGHT LEG. WILL NEED TO GET IV THERAPY RESTARTED SINCE HE HAS NONE AT THIS TIME. WCTM
--- NOTE | 2020-07-07 09:30 | OP ---
PATIENT NAME: ELLIOTT SILVERIO MEDICAL RECORD: [id number] :42 LOCATION:[facility] ADMISSION DATE:07/03/20 SURGEON: JOSÉ MIGUEL SHIN DO DATE OF OPERATION: 07/06/2020 PROCEDURE PERFORMED: Right below-knee amputation stump incision and debridement with Kerecis and wound VAC application. PREOPERATIVE DIAGNOSIS: Right below-knee amputation site wound dehiscence. POSTOPERATIVE DIAGNOSIS: Right below-knee amputation site wound dehiscence. INDICATIONS: Mr. Silverio is a 80-year-old male who underwent right BKA, I believe, 3 or 4 weeks ago, came back from rehab into the hospital as he is not progressing well there. He said he has been having crazy dreams and thrashing about and he dehisced his BKA site. I attempted to put a Prevena VAC on in the floor, but it was not adequate enough and put him on a schedule for today. I explained to his family also that what I will be doing, do an I&D with a Kerecis application and put a wound VAC on it and hope that it would get to heal, that he was at risk for infection, bleeding, damage to nerves or vessels, need for further surgery, above-knee amputation, continued pain and prolonged wound VAC use. They were okay with that and signed a consent. SURGEON: José Miguel Shin DO. DESCRIPTION OF PROCEDURE: The patient was taken to the operative suite, laid in supine position, given general anesthetic and LMA was placed. He was given 2 grams of Ancef preoperatively. The right lower extremity was prepped and draped in sterile fashion. Timeout was performed. Everybody was in agreement with correct side, site, patient and procedure. I then used a 10-blade scalpel and a pickup and made an incision around the dehisced part of the whole incision of the BKA to get bleeding surface. Once I got a good bleeding edge, I used a curette to curette the soft tissue that was in the open wound and removed any tissue. Once that was debrided back adequately, I then irrigated with 3 liters normal saline and then placed Kerecis on the open site using 2 Kerecis implants and sutured them into place using a 4-0 Monocryl running stitch. We then dried the thing off, put on a Cavilon and put a Prevena Restor back on. He was then awakened and taken to recovery in stable condition. BLOOD LOSS: Minimal. COMPLICATIONS: None. TRANSINT:[id number] Voice Confirmation ID: [id number] DOCUMENT ID: [id number] JOSÉ MIGUEL SHIN DO at 0930 CC: [id number] DICTATION DATE: 07/06/20 1334 MILL HAND: 07/06/20 2150 ADM IN [facility] [id number] [place] [address]
[2020-07-07 11:35] VITALS: BP 125/68
--- NOTE | 2020-07-07 13:56 | NUR ---
IV THERAPY RESTARTED IN RIGHT WRIST 20 G BY PANCHO FRENCH WITH ONE ATTEMPT. I ATTEMPTED TWICE AND FAILED. IV FLUIDS RESTARTED. CL IN REACH. BED ALARM ON. DAUGHTER RUTH IN ROOM. TM
[2020-07-07 16:00] VITALS: BP 131/65
--- NOTE | 2020-07-07 18:00 | NUR ---
NOTIFIED BY MATCHER LEATHER PARTS PT HAS NO OUTPUT. PT HAS LORA. TRIED TO MANIPULATE CATH TO RELEASE URINE FROM THE BLADDER WITH LITTLE SUCCESS. BLADDER SCAN SHOWED 847 ML. FLUSHED BLADDER WITH 5 NS FLUSHES. STILL LITTLE SUCCESS. EMPTIED BALLOON. ADDED 10 ML TO BALLOON AFTER GETTING 6 ML OUT. FLUSHED BAG SIDE OF LINE. FINALLY SUCCEEDED IN URINE OUTPUT. LORA CARE PROVIDED. CL IN REACH. WCTM
[2020-07-07 20:00] VITALS: BP 110/50
[2020-07-08] VITALS: BP 119/54
[2020-07-08 04:00] VITALS: BP 116/8
--- NOTE | 2020-07-08 04:49 | NUR ---
Pt has rested in bed this night. IV has remained patent with fluids/meds as ordered. Wound vac functioning appropriately. Pt does answer questions appropriately when awake. Sleepy this night but, arouses easily to voice or stimuli. Denies pain/discomfort.
[2020-07-08 05:31] LABS: BASOPHILS 0.2 % (0-2); EOSINOPHILS 5.2 % (0-7); HEMATOCRIT 24.7 % (42.0-54.0); HEMOGLOBIN 7.6 g/dL (13.5-17.5); IMMATURE GRANULOCYTES 0.2 % (0-5); LYMPHOCYTE ABS# 1.15 10x3/uL (1.32-3.57); LYMPHOCYTES 13.9 % (15-50); MCH 29.2 pg (26.0-34.0); MCHC 30.8 g/dL (31.0-37.0); MEAN PLATELET VOLUME 9.7 fL (7.4-10.4); MONOCYTES 10.9 % (2-11); NEUTROPHIL ABS# 5.76 10x3/uL (1.78-5.38); NEUTROPHILS 69.6 % (40-80); PLATELET COUNT 305 10x3/uL (130-400); RDW 15.6 % (11.5-14.5); WBC 8.3 10x3/uL (4.8-10.8)
[2020-07-08 06:05] LABS: ALBUMIN 1.6 g/dL (3.4-5.0); ANION GAP 7.4 mmol/L (8-16); BILIRUBIN - TOTAL 0.36 mg/dL (0.2-1.3); CALCIUM 7.9 mg/dL (8.5-10.1); CARBON DIOXIDE 29.8 mmol/L (21.0-32.0); CREATININE - SERUM 1.3 mg/dL (0.6-1.3); POTASSIUM - SERUM 4.2 mmol/L (3.5-5.1)
--- NOTE | 2020-07-08 07:23 | NUR ---
VITAL SIGNS PER ROUTE SALES DRIVER. PATIENT IS WITHOUT DISTRESS.DOOR OPEN TO MONITOR
[2020-07-08 09:36] VITALS: BP 124/64
--- NOTE | 2020-07-08 10:00 | MORECARE ---
CASE MANAGEMENT DISCHARGE SUMMARY PATIENT: ELLIOTT SILVERIO UNIT: [id number] ADM DATE: 07/03/20 AGE: 80 : 41 SEX: M ROOM/BED: D.2227 AUTHOR: MAGALIS,DOC PHYSICIAN: REFERRING PHYSICIAN: SATYA DONOHUE MD DATE OF SERVICE: 07/08/20 Case Management Discharge Planning Summary CT Patient Name: ELLIOTT SILVERIO Attending MD : MARQUEZ CARTER Medical Record: [id number] Encounter : [id number] Facility : [address] [place] [address] Admission Date : 115:35 Center Discharge Date : [address] [place] [address] Date of : DC Plan ID : [id number] Age/Sex/Martia : 80/ M/D Printed on : 07/08/20 9:59 CT DCP Review Details Anticipated D/C: Expected LOS : Case Status : INITIATED - Initial Reviewe: [id number] - Kate Hoover Initial Review: 07/03/2020 Planned Disposi: - Final Discharge: - Final Reviewer : : Final Review : Comments CT Entered Date Type Reviewer 07/08/20 9:53 CT Discharge Planning Kate Hoover Comment PATIENT WAS ADMITTED FROM INPATIENT REHAB. PRIOR TO REHAB HE LIVED ALONE AND HAD HOME CARE 3 DAYS PER WEEK. LOOKING AT HIS CURRENT SITUATION HE WILL MOST LIKELY NEED NIGHT CLERK AUDITOR CARE. [facility], I AM WAITING CALL BACK. SCOTT WITH [facility]PS HAS ALSO REACHED OUT TO ME AND STATES THEY HAD A CALL ABOUT THIS PATIENT NOT BEING ABLE TO CARE FOR HIMSELF AT HOME. I WILL CONTINUE TO FOLLOW AND ASSIST WITH THIS PATIENT. DCP Focus Questions & Answers DCP Screen High Risk Factors: Poor social support DCP Evaluation Family / Caregiver's ability to cope with chronic c. Inadequate (Enables pt. to make bad illness: choices, cannot meet pt's. needs, difficult family dynamics) Patient's current cognitive status: Intermittently confused / memory changes Patient's ability to cope with chronic illness c. Inadequate (3+ ED visits in 6 mos., readmits within 30 days, 2+ hospital admissions in 1 yr.) Functional screen assessment: Unable to manage ADLs without immediate ongoing assistance Family / Caregiver's ability to cope with chronic c. Inadequate (Enables pt. to make bad illness: choices, cannot meet pt's. needs, difficult family dynamics) Physical Status: Partial care dependence Physical Status: Mobility impaired Is there a likelihood that the patient will Yes require additional services to return to the preadmission environment? Living Arrangements: Home Alone with No Support Partial Dependence, assistance required for: Dressing Partial Dependence, assistance required for: Bathing Partial Dependence, assistance required for: Ambulation / Mobility Patient with capacity for self-care or can be No cared for in same environment as prior to hospitalization? Baseline cognitive status: Needs prompting and supervision Comments: PATIENT ADMITTED FROM REHAB. LIVED ALONE PRIOR, MAY NEED INTERMEDIATE CARE. Medication Management: Multiple Pharmacy Use Pharmacy name(s): [facility] Would patient like to participate in any Care Not applicable Coordination programs (if applicable): Equipment in use: Wheelchair Equipment in use: Walker - Rolling Equipment in use: Cane - Single Leg Mental health screen: No mental health history Psychosocial status: Adult with physical limitations DCP Re-evaluation Would patient like to participate in any Care Not applicable Coordination programs (if applicable): ELLIOTT SILVERIO MR#: [id number] /Age/Sex/Npkovl84-Kyl-63 //M /D Attending Physician Name: KEN DONOHUE [id number] Patient Account:[id number] [facility] Page -1 of 1 All edits/amendments must be made on the electronic document DICTATION DATE: 07/08/20958 CONSOLIDATION ACCOUNTANT: ERIC 07/08/20958 RPT#: [id number] DC DATE: STATUS: ADM IN [facility] [address] [place] [address] END OF REPORT
--- NOTE | 2020-07-08 10:06 | NUR ---
REHAB PRESCREEN RECEIVED. UNFORTUNATELY, AT THIS TIME, WE WILL BE UNABLE TO TAKE THE PATIENT. I HAVE SPOKEN WITH PANCHO MONTANO CM IN REGARDS TO THIS. THANK YOU VERY MUCH FOR THE REFERRAL. CHARISMA LESLIE RN CLINICAL LIAISON, INPATIENT REHAB.
--- NOTE | 2020-07-08 10:38 | NUR ---
ASSISTED PATIENT WITH BREAKFAST THIS MORNING, HE ATE 25% OF BISCUIT AND GRAVY, ALL OF SAUSAGE AND 3 BITES OF EGG. DRANK HIS ORANGE JUICE AND HALF HIS MILK. NO OTHER NEEDS VOICED AT THIS TIME. CONTINUE WITH DEREK OF CARE
--- NOTE | 2020-07-08 11:22 | NUR ---
PATIENT WAS MOD ASST TO GET UP TO BEDSIDE. PATIENT ABLE TO HOLD HIMSELF UP WHILE SITTING. PATIENT WAS MOD-MAX TO LAY BACK IN BED.
[2020-07-08 12:29] VITALS: BP 111/57
--- NOTE | 2020-07-08 13:37 | MORECARE ---
CASE MANAGEMENT DISCHARGE SUMMARY PATIENT: ELLIOTT SILVERIO UNIT: [id number] ADM DATE: 07/03/20 AGE: 80 : 41 SEX: M ROOM/BED: D.2227 AUTHOR: MAGALIS,DOC PHYSICIAN: REFERRING PHYSICIAN: SATYA DONOHUE MD DATE OF SERVICE: 07/08/20 Case Management Discharge Planning Summary CT Patient Name: ELLIOTT SILVERIO Attending MD : MARQUEZ CARTER Medical Record: [id number] Encounter : [id number] Facility : [address] [place] [address] Admission Date : 115:35 Center Discharge Date : [address] [place] [address] Date of : DC Plan ID : [id number] Age/Sex/Martia : 80/ M/D Printed on : 07/08/20 13:36 CT DCP Review Details Anticipated D/C: Expected LOS : Case Status : INITIATED - Initial Reviewe: [id number] - Kate Hoover Initial Review: 07/03/2020 Planned Disposi: - Final Discharge: - Final Reviewer : : Final Review : Comments CT Entered Date Type Reviewer 07/08/20 13:05 CT Discharge Planning Kate Hoover Comment SPOKE WITH PATIENT'S DAUGHTER HARITHA SILVERIO AND SHE STATES HE WILL NEED [facility] CARE. STATES [facility] WAS LOOKING AT HIM. I WILL CONTACT THE [facility] AND FAX THEM CLINICALS. WAITING TO HEAR BACK FROM THE [facility]. CM TO FOLLOW. 07/08/20 9:53 CT Discharge Planning Kate Hoover Comment PATIENT WAS ADMITTED FROM INPATIENT REHAB. PRIOR TO REHAB HE LIVED ALONE AND HAD HOME CARE 3 DAYS PER WEEK. LOOKING AT HIS CURRENT SITUATION HE WILL MOST LIKELY NEED USP CARE. [facility]ED [facility] TO HELP WITH THIS, I AM WAITING CALL BACK. SCOTT WITH [facility]PS HAS ALSO REACHED OUT TO ME AND STATES THEY HAD A CALL ABOUT THIS PATIENT NOT BEING ABLE TO CARE FOR HIMSELF AT HOME. I WILL CONTINUE TO FOLLOW AND ASSIST WITH THIS PATIENT. DCP Focus Questions & Answers DCP Screen High Risk Factors: Poor social support DCP Evaluation Family / Caregiver's ability to cope with chronic c. Inadequate (Enables pt. to make bad illness: choices, cannot meet pt's. needs, difficult family dynamics) Patient's current cognitive status: Intermittently confused / memory changes Patient's ability to cope with chronic illness c. Inadequate (3+ ED visits in 6 mos., readmits within 30 days, 2+ hospital admissions in 1 yr.) Functional screen assessment: Unable to manage ADLs without immediate ongoing assistance Family / Caregiver's ability to cope with chronic c. Inadequate (Enables pt. to make bad illness: choices, cannot meet pt's. needs, difficult family dynamics) Physical Status: Partial care dependence Physical Status: Mobility impaired Is there a likelihood that the patient will Yes require additional services to return to the preadmission environment? Living Arrangements: Home Alone with No Support Partial Dependence, assistance required for: Dressing Partial Dependence, assistance required for: Bathing Partial Dependence, assistance required for: Ambulation / Mobility Patient with capacity for self-care or can be No cared for in same environment as prior to hospitalization? Baseline cognitive status: Needs prompting and supervision Comments: PATIENT ADMITTED FROM REHAB. LIVED ALONE PRIOR, MAY NEED USP CARE. Medication Management: Multiple Pharmacy Use Pharmacy name(s): [facility] Would patient like to participate in any Care Not applicable Coordination programs (if applicable): Equipment in use: Wheelchair Equipment in use: Walker - Rolling Equipment in use: Cane - Single Leg Mental health screen: No mental health history Psychosocial status: Adult with physical limitations DCP Re-evaluation Would patient like to participate in any Care Not applicable Coordination programs (if applicable): [facility] ELLIOTT SILVERIO MR#: [id number] /Age/Sex/Wtomzi14-Dvj-60 /80/M /D Attending Physician Name: KEN DONOHUE [id number] Patient Account:[id number] [facility] Page -1 of 1 All edits/amendments must be made on the electronic document DICTATION DATE: 07/08/201335 SECURITY MONITOR: ERIC 07/08/20 133 RPT#: [id number] DC DATE: STATUS: ADM IN [facility] [address] [place] [address] END OF REPORT
--- NOTE | 2020-07-08 13:39 | NUR ---
Nutrition follow-up: Diet order: Consistent CHO PO intake ~58% avereage of last 3 meals Labs reviewed; glucose under good control Wt: 256# +BM Wt: 256# Pt with fair po intake at this time RDN will order Glucerna Shake BID to increase kcal, protein intake Will follow-up on pts progress toward goals: 07/12/20
--- NOTE | 2020-07-08 14:24 | NUR ---
PATIENT ASLEEP, EASILY AWAKENED ,HAS DAUGHTER AND AUTO ELECTRICIAN WITH [facility] IN ROOM. NO NEEDS VOICED BY ANY PARTIES, CONTINUE WITH PLAN OF CARE
[2020-07-08 16:18] VITALS: BP 117/61
[2020-07-08 20:00] VITALS: BP 104/47
--- NOTE | 2020-07-08 21:00 | NUR ---
WOUND VAC ALARM SOUNDING. SEAL TUBING REPLACED, PATENT. CTM.
--- NOTE | 2020-07-08 21:00 | NUR ---
RIGHT ARM RED AND SWOLLEN. DRESSING AND CLOTH OF IV IN IN RIGHT ARM APPEARS TIGHT. FLUIDS STOPPED. IV FLUSHES, BUT NO BLOOD RETURN. DRESSINGS REMOVED. ATTEMPT TO RESITE IV WITH NO RESULTS, ER CALLED TO SITE. CTM
[2020-07-09] VITALS: BP 103/52
--- NOTE | 2020-07-09 02:30 | NUR ---
20G IV SITED TO LEFT WRIST BY KNITTER HAND. PATENT, CTM.
[2020-07-09 04:00] VITALS: BP 111/61
--- NOTE | 2020-07-09 04:14 | NUR ---
I have reviewed this patient and I concur with the Shift Assessment completed by the Licensed Practical Nurse today this shift.
[2020-07-09 05:46] LABS: BASOPHILS 0.2 % (0-2); EOSINOPHILS 3.5 % (0-7); HEMATOCRIT 23.5 % (42.0-54.0); IMMATURE GRANULOCYTES 0.2 % (0-5); LYMPHOCYTES 14.7 % (15-50); MCH 29.6 pg (26.0-34.0); MCHC 31.5 g/dL (31.0-37.0); MEAN PLATELET VOLUME 9.8 fL (7.4-10.4); MONOCYTES 7.5 % (2-11); NEUTROPHIL ABS# 6.04 10x3/uL (1.78-5.38); NEUTROPHILS 73.9 % (40-80); PLATELET COUNT 289 10x3/uL (130-400); RDW 15.6 % (11.5-14.5); WBC 8.2 10x3/uL (4.8-10.8)
[2020-07-09 05:48] LABS: HEMOGLOBIN 7.4 g/dL (13.5-17.5)
[2020-07-09 05:50] LABS: ALBUMIN 1.5 g/dL (3.4-5.0); ANION GAP 9.3 mmol/L (8-16); BILIRUBIN - TOTAL 0.33 mg/dL (0.2-1.3); CALCIUM 8.3 mg/dL (8.5-10.1); CARBON DIOXIDE 28.7 mmol/L (21.0-32.0); CREATININE - SERUM 1.2 mg/dL (0.6-1.3); PROTEIN - SERUM 6.2 g/dL (6.4-8.2)
[2020-07-09 09:00] VITALS: BP 119/61
--- NOTE | 2020-07-09 12:31 | NUR ---
OT NOTE: PT RESTING BUT EASILY AROUSED. BED MOB WITH EXT TIME AND MIN ASSIST FOR SUPINE TO SIT; MIN ASSIST FOR ROLLING SIDE TO SIDE; UPON SITTING UP ON EOB, PTS 02 SATS DROPPED TO 84%..PT REPORTED SOB BUT NO DIZZINESS. NURSING INFORMED AND CAME TO PTS ROOM, HOWEVER, SATS HAD RETURNED TO 94% AND HE WAS DOING WELL. UE/LE EXS WHILE SITTING ON EOB. BACK TO BED WITH MIN ASSIST WITH LE MGMT. MAX ASSIST TO REPOSITION PT UP IN BED. DUSTY MEAD, OTR/L [phone]
[2020-07-09 13:50] VITALS: BP 114/58
--- NOTE | 2020-07-09 14:27 | NUR ---
PATIENT MOD ASST TO GET UP TO BEDSIDE. PATIENT ABLE TO HOLD HIMSELF UP WHILE SITTING. PATIENT MOD ASST TO LAY BACK DOWN.
--- NOTE | 2020-07-09 16:23 | NUR ---
OT NOTE: PT COMPLETED SIDE ROLLING WITH MOD A. PT COMPLETED SUPINE TO SIT WITH MOD A. PT COMPLETED BUE AROM EXS TOLERATED. PT COMPLETED FACE AND HAND HYGIENE WITH SETUP. [phone] THANK YOU,JOSE RAUL CUMMINGS
[2020-07-09 17:39] VITALS: BP 122/65
[2020-07-09 20:00] VITALS: BP 109/54
--- NOTE | 2020-07-09 22:19 | NUR ---
PT SEEN ATTEMPTING TO GET OOB. WOUND VAC STILL PATENT. READJUSTED BACK IN BED, SCD IN USE TO LLE. DENIES PAIN, PLEASANTLY CONFUSED, CTM.
--- NOTE | 2020-07-09 23:51 | NUR ---
I have reviewed this patient and I concur with the Shift Assessment completed by the Licensed Practical Nurse today this shift.
[2020-07-10] VITALS: BP 105/61
[2020-07-10 04:00] VITALS: BP 119/64
[2020-07-10 06:07] LABS: BASOPHILS 0.3 % (0-2); EOSINOPHILS 4.5 % (0-7); HEMATOCRIT 23.4 % (42.0-54.0); IMMATURE GRANULOCYTES 0.3 % (0-5); LYMPHOCYTE ABS# 1.19 10x3/uL (1.32-3.57); LYMPHOCYTES 16.8 % (15-50); MCH 28.5 pg (26.0-34.0); MCHC 30.3 g/dL (31.0-37.0); MEAN PLATELET VOLUME 9.8 fL (7.4-10.4); NEUTROPHIL ABS# 4.76 10x3/uL (1.78-5.38); NEUTROPHILS 67.1 % (40-80); PLATELET COUNT 281 10x3/uL (130-400); RBC 2.49 10x6/uL (4.20-6.10); RDW 15.9 % (11.5-14.5); WBC 7.1 10x3/uL (4.8-10.8)
[2020-07-10 06:23] LABS: HEMOGLOBIN 7.1 g/dL (13.5-17.5)
[2020-07-10 06:28] LABS: ALBUMIN 1.5 g/dL (3.4-5.0); BILIRUBIN - TOTAL 0.36 mg/dL (0.2-1.3); CALCIUM 8.1 mg/dL (8.5-10.1); CARBON DIOXIDE 28.7 mmol/L (21.0-32.0); CREATININE - SERUM 1.3 mg/dL (0.6-1.3); POTASSIUM - SERUM 3.7 mmol/L (3.5-5.1); PROTEIN - SERUM 6.2 g/dL (6.4-8.2)
[2020-07-10 09:08] VITALS: BP 120/66
--- NOTE | 2020-07-10 13:35 | NUR ---
OT NOTE: PT DOING WELL THIS AM. ABLE TO PERFORM SIMPLE GROOMING TASKS WITH SET UP; FEEDING WITH MIN/SET UP AND VC. BED MOB WITH MOD ASSIST; ROLLING SIDE TO SIDE IN BED WITH MIN ASSIST. DUSTY MEAD, OTR/L [phone]
[2020-07-10 14:48] VITALS: BP 125/70
--- NOTE | 2020-07-10 14:49 | NUR ---
PATIENT MOD-HIGH MOD ASST TO GET UP TO BEDSIDE. PATIENT ABLE TO HOLD HIMSELF UP WHILE SITTING BUT WOULD FATIGUE AND NEED ASST TO STAY SITTING UP. PATIENT MOD ASST TO LAY BACK IN BED.
--- NOTE | 2020-07-10 17:29 | NUR ---
OT NOTE: PT SEEN AGAIN IN PM..DTR IN ROOM. PT SLIGHTLY MORE CONFUSED IN PM VS AM. PT WAS ORIENTED TO TIME AND PLACE, BUT INITIALLY CONFUSED TO WHO THIS THERAPIST IS AND WHAT WE WERE DOING.. DIFFICULTY INITIALLY WITH FOLLOWING COMMANDS, HOWEVER, ONCE PT WAS UP ON EOB, HE WAS MORE ALERT AND IMPROVED WITH FOLLOWING COMMANDS. EOB SITTING WITH SBA; PERFORMED UE/LE EXS..PRACTICED BED MOB INCLUDING EDUCATION ON PT SCOOTING HIMSELF UP IN THE BED.. PERFORMED MUCH BETTER WITH THIS TODAY, REQUIRING ONLY MIN ASSIST AND VERBAL CUES. DUSTY BAKER, OTR/L [phone]
[2020-07-10 17:47] VITALS: BP 112/63
--- NOTE | 2020-07-10 17:50 | NUR ---
PT EXHIBITING INCREASED CONFUSION, GRABBING OBJECTS THAT ARE NOT THERE AND TALKING TO NONEXISTENT PEOPLE, DISORIENTED TO PLACE TIME AND SITUATION.
[2020-07-10 20:00] VITALS: BP 124/71
--- NOTE | 2020-07-10 23:00 | NUR ---
IV ALARM SOUNDING. LEFT WRIST RED/SWOLLEN AROUND INSERTION SITE OF IV. IV PUMP TURNED OFF.
--- NOTE | 2020-07-10 23:51 | NUR ---
I have reviewed this patient and I concur with the Shift Assessment completed by the Licensed Practical Nurse today this shift.
[2020-07-11] VITALS: BP 104/62
--- NOTE | 2020-07-11 00:15 | NUR ---
PT PLEASANTLY CONFUSED. 2 ATTEMPTS TO RESITE NEW IV, WITHOUT SUCCESS. CALLED ER TO SITE IV. CTM.
--- NOTE | 2020-07-11 00:45 | NUR ---
ER NURSE ENTERED ROOM, PT BECAME AGITATED AND REFUSED SITING OF IV. THIS NURSE ENTERED ROOM AFTER HEARING PT SHOUTING THREATS AT INDIVIDUAL SMALL GROUP INSTRUCTOR, HEARD FROM OTHER SIDE OF THE UNIT. ATTEMPTED TO REORIENT PT. TRIED TO POINT OUT WHERE INFILTRATED IV IS, PT BALLED HIS FISTS AND BEGAN SHAKING THEM AT US, VOICING MORE THREATS. ER NURSE STATES SHE WILL COME BACK AFTER PT HAS CALMED SOME, AND TRY. CTM.
--- NOTE | 2020-07-11 03:00 | NUR ---
FLORICULTURIST, JEFFERY SALINAS, NOTIFIED OF PTs BEHAVIOR AND REFUSAL OF IV. ALSO, INFORMED OF HBG TRENDING DOWNWARD. FLORICULTURIST STATES IF PERIPHERAL IV IS UINABL TO BE OBTAINED, TO ENTER ORDERS FOR PICC THIS AM. ALSO, IF HGB IS < 7.0, TO ORDER AND ADMINISTER 2 UNITS PRBCs. CTM.
[2020-07-11 04:00] VITALS: BP 116/69
[2020-07-11 07:17] LABS: BASOPHILS 0.4 % (0-2); EOSINOPHILS 2.9 % (0-7); HEMATOCRIT 23.2 % (42.0-54.0); IMMATURE GRANULOCYTES 0.3 % (0-5); LYMPHOCYTE ABS# 1.21 10x3/uL (1.32-3.57); LYMPHOCYTES 15.8 % (15-50); MCHC 30.6 g/dL (31.0-37.0); MCV 94.7 fL (80.0-100.0); MEAN PLATELET VOLUME 9.8 fL (7.4-10.4); MONOCYTES 9.4 % (2-11); NEUTROPHIL ABS# 5.47 10x3/uL (1.78-5.38); NEUTROPHILS 71.2 % (40-80); PLATELET COUNT 293 10x3/uL (130-400); RBC 2.45 10x6/uL (4.20-6.10); RDW 15.9 % (11.5-14.5); WBC 7.7 10x3/uL (4.8-10.8)
[2020-07-11 07:23] LABS: HEMOGLOBIN 7.1 g/dL (13.5-17.5)
[2020-07-11 07:24] LABS: ALBUMIN 1.7 g/dL (3.4-5.0); BILIRUBIN - TOTAL 0.45 mg/dL (0.2-1.3); CALCIUM 8.1 mg/dL (8.5-10.1); CARBON DIOXIDE 27.1 mmol/L (21.0-32.0); CREATININE - SERUM 1.2 mg/dL (0.6-1.3); POTASSIUM - SERUM 4.1 mmol/L (3.5-5.1); PROTEIN - SERUM 6.2 g/dL (6.4-8.2)
--- NOTE | 2020-07-11 07:30 | NUR ---
CRITICAL LAB OF HGB 7.1 RECD. NURSE MESSAGE ORDER TO TRANSFUSE PRBC IF HGB IS < 7.0.
--- NOTE | 2020-07-11 07:40 | NUR ---
PT IS RESTING IN BED WITH EYES CLOSED. RESPIRATIONS ARE EVEN AND UNLABORED. PT IS MOUTH BREATHING AND IS CONFUSED X 4. PT IS UNABLE TO BE REORIENTED AT THIS TIME. PT IS UNCOOPERATIVE WITH ASSESSMENT AND REFUSES TO KEEP HOSPITAL GOWN ON AT THIS TIME. LORA CATHETER NOTED AND DRAINING WITHOUT COMPROMISE. DARK YELLOW URINE NOTED TO COLLECTION BAG. STAT LOCK TO LEFT UPPER THIGH. PIV TO LEFT THUMB INFUSING AT KVO WITHOUT DIFFICULTY. PIV SITE WRAPPED FOR PT SAFETY. PT ATTEMPTING TO PULL PIV OUT. ATTEMPT MADE TO REDIRECT PT ATTENTION AT THIS TIME. WOUND VAC NOTED TO RIGHT BKA STUMP AND WITHOUT COMPROMISE. LEFT TOE AMUPTATION X 4 AND SKIN ABRASION NOTED. SCD TO LEFT LEG IS ON AND WORKING. BED ALARM IS ON AND WORKING. INCENTIVE SPIROMETER AT BEDSIDE AND ENCOURAGED. PT IS UNABLE TO DEMONSTRATE IS AT THIS TIME. BED IS IN THE LOWEST POSITION. CALL LIGHT AND BEDSIDE TABLE ARE WITHIN REACH. SIDE RAILS X 2. PT ROOM CLOSE TO NURSE STATION. WILL CONT TO MONITOR.
[2020-07-11 08:11] VITALS: BP 115/62
--- NOTE | 2020-07-11 08:50 | NUR ---
PT IS UNCOOPERATIVE AND CONFUSED. NEW ONSET OF BEHAVIOR PER MARYAM RUSSELL AND NEHEMIAH AMADOR TABLET TESTER. PT CONFUSED X 4 AND UNABLE TO BE REORIENTED AT THIS TIME. PT SPEECH IS SLURRED AND PT IS UNCOOPERATIVE WITH BREAKFAST FEED. ATTEMPT MADE FOR PT TO SWALLOW ORANGE JUICE AND PT IS UNCOOPERATIVE. UNABLE TO GIVE MORNING PO MEDS AT THIS TIME. WILL PLACE ORDER FOR SWALLOW STUDY TO ASSESS ASPIRATION. ANYI ARCHER APRN NOTIFIED OF PT STATE. WILL AWAIT FURTHER ORDERS. ALL FALL PRECAUTIONS IN PLACE. BED IS IN THE LOWEST POSITION. CALL LIGHT AND BEDSIDE TABLE ARE WITHIN REACH. SIDE RAILS X 2. PT ROOM CLOSE TO NURSE STATION. WILL CONT TO MONITOR.
--- NOTE | 2020-07-11 09:56 | MORECARE ---
CASE MANAGEMENT DISCHARGE SUMMARY PATIENT: ELLIOTT SILVERIO UNIT: [id number] ADM DATE: 07/03/20 AGE: 80 : 41 SEX: M ROOM/BED: D.2227 AUTHOR: MAGALIS,DOC PHYSICIAN: REFERRING PHYSICIAN: SATYA DONOHUE MD DATE OF SERVICE: 07/11/20 Case Management Discharge Planning Summary COMMENTS ENTERED DATE: 07/11/20 9:49 CT COMMENT TYPE: Discharge Planning REVIEWER: Kate Hoover RECEIVED WALE AND FAXED TO THE [facility]. WAITING FOR APPROVAL FROM [facility] FOR SNF. CM TO FOLLOW AND ASSIST NEEDED. ENTERED DATE: 07/08/20 13:05 CT COMMENT TYPE: Discharge Planning REVIEWER: Kate Hoover SPOKE WITH PATIENT'S DAUGHTER HARITHA SILVERIO AND SHE STATES HE WILL NEED ASPHALT MIXER CARE. STATES THE [facility] WAS LOOKING AT HIM. I WILL CONTACT THE [facility] AND FAX THEM CLINICALS. WAITING TO [facility]AR BACK FROM THE [facility]. CM TO FOLLOW. ENTERED DATE: 07/08/20 9:53 CT COMMENT TYPE: Discharge Planning REVIEWER: Kate Hoover PATIENT WAS ADMITTED FROM INPATIENT REHAB. PRIOR TO REHAB HE LIVED ALONE AND HAD HOME CARE 3 DAYS PER WEEK. LOOKING AT HIS CURRENT SITUATION HE WILL MOST LIKELY NEED ASPHALT MIXER CARE. I HAVE CALLED THE [facility] TO HELP WITH THIS, I AM WAITING CALL BACK. SCOTT WITH APS HAS ALSO REACHED OUT TO ME AND STATES THEY HAD A CALL ABOUT THIS PATIENT NOT BEING ABLE TO CARE FOR HIMSELF AT HOME. I WILL CONTINUE TO FOLLOW AND ASSIST WITH THIS PATIENT. DCP REVIEW SUMMARY ANTICIPATED D/C DATE: EXPECTED LOS : CASE STATUS: DCP Initiated INITIAL REVIEW: 07/03/2020 INITIAL REVIEWER: Kate Hoover FINAL DISCHARGE DISPOSITION: : FINAL REVIEWER: FINAL REVIEW DATE: DCP Focus Questions & Answers DCP Screen QUESTION: ANSWER High Risk Factors: : Poor social support DCP Evaluation QUESTION: ANSWER Family / Caregiver's ability to cope with chronic illness: : c. Inadequate (Enables pt. to make bad choices, cannot meet pt's. needs, difficult family dynamics) Patient's current cognitive status: : Intermittently confused / memory changes Patient's ability to cope with chronic illness : c. Inadequate (3+ ED visits in 6 mos., readmits within 30 days, 2+ hospital admissions in 1 yr.) Functional screen assessment: : Unable to manage ADLs without immediate ongoing assistance Family / Caregiver's ability to cope with chronic illness: : c. Inadequate (Enables pt. to make bad choices, cannot meet pt's. needs, difficult family dynamics) Physical Status: : Partial care dependence Physical Status: : Mobility impaired Is there a likelihood that the patient will require additional services to return to the preadmission environment? : Yes Living Arrangements: : Home Alone with No Support Partial Dependence, assistance required for: : Dressing Partial Dependence, assistance required for: : Bathing Partial Dependence, assistance required for: : Ambulation / Mobility Patient with capacity for self-care or can be cared for in same environment as prior to hospitalization? : No Baseline cognitive status: : Needs prompting and supervision Comments: : PATIENT ADMITTED FROM REHAB. LIVED ALONE PRIOR, MAY NEED ASPHALT MIXER CARE. Medication Management: : Multiple Pharmacy Use Pharmacy name(s): : [facility] Would patient like to participate in any Care Coordination programs (if applicable): : Not applicable Equipment in use: : Wheelchair Equipment in use: : Walker - Rolling Equipment in use: : Cane - Single Leg Mental health screen: : No mental health history Psychosocial status: : Adult with physical limitations DCP Re-evaluation QUESTION: ANSWER Would patient like to participate in any Care Coordination programs (if applicable): : Not applicable PROVIDER NETWORKING REVIEW DATE: 07/08/2020 SERVICE TYPE: Detention Facility REVIEWER: Kate Hoover PATIENT: ELLIOTT SILVERIO ENCOUNTER: [id number] MEDICAL RECORD#: [id number] ADMISSION DATE: 07/03/2020 DISCHARGE DATE: ATTENDING MD: MARQUEZ THOMPSON : AGE: 80 MARITAL STATUS: D DC PLAN ID: [id number] FACILITY: [facility] PRINTED ON: 07/11/20 9:56 CT All edits/amendments must be made on the electronic document DICTATION DATE: 07/11/20955 SLURRY BLENDER: ERIC 07/11/20955 RPT#: [id number] DC DATE: STATUS: ADM IN [facility] [address] [place] [address] END OF REPORT
--- NOTE | 2020-07-11 11:30 | NUR ---
(1) UNIT PRBC TRANSFUSION INITIATED. PRBC VERIFIED WITH JAYME JOSEPH RN AT BEDSIDE. PRE TRANSFUSION VS STABLE. SEE TRANSFUSION SHEET. PT CONTINUES WITH BEING UNCOOPERATIVE AT THIS TIME. PT IS CONFUSED X 4 AND IS DIFFICULTY TO AROUSE. PT AROUSED WITH STERNAL RUB. PT SPEECH IS SLURRED AND GARBLED. ANYI ARCHER APRN NOTIFIED. PRBC INFUSING WITHOUT DIFFICULTY/COMPROMISE. WILL STAY IN PT ROOM FOR FIRST 15 MINUTES OF TRANSFUSION AND MONITOR CLOSELY.
[2020-07-11 11:40] VITALS: BP 142/70
--- NOTE | 2020-07-11 11:44 | NUR ---
(1) UNIT OF PRBC INFUSING PER ORDER WITHOUT DIFFICULTY/COMPROMISE. VSS. SEE TRANSFUION CARD. 15 MINUTES OF CLOSE OBSERVATION COMPLETED. NO APPARENT S/S OF DISTRESS NOTED AT THIS TIME. FALL PRECAUTIONS IN PLACE. BED IS INT HE LOWEST POSITION. CALL LIGHT AND BEDSIDE TABLE ARE WITHIN REACH. SIDE RAILS X 2. PT ROOM CLOSE TO NURSE STATION. WILL CONT TO MONITOR.
--- NOTE | 2020-07-11 12:31 | MORECARE ---
CASE MANAGEMENT DISCHARGE SUMMARY PATIENT: ELLIOTT SILVERIO UNIT: [id number] ADM DATE: 07/03/20 AGE: 80 : 41 SEX: M ROOM/BED: D.2227 AUTHOR: MAGALIS,DOC PHYSICIAN: REFERRING PHYSICIAN: SATYA DONOHUE MD DATE OF SERVICE: 07/11/20 Case Management Discharge Planning Summary COMMENTS ENTERED DATE: 07/11/20 12:21 CT COMMENT TYPE: Discharge Planning REVIEWER: Kate Hoover CM SPOKE WITH BENIGNO AT THE [facility] TODAY AND THEY WILL ACCEPT PATIENT. WE WILL NOTIFY THEM WHEN HE IS MEDICALLY STABLE AND READY FOR DISCHARGE. CM TO FOLLOW AND ASSIT NEEDED. ENTERED DATE: 07/11/20 9:49 CT COMMENT TYPE: Discharge Planning REVIEWER: Kate Hoover RECEIVED WLAE AND FAXED TO THE [facility]. WAITING FOR APPROVAL FROM [facility] FOR SNF. CM TO FOLLOW AND ASSIST NEEDED. ENTERED DATE: 07/08/20 13:05 CT COMMENT TYPE: Discharge Planning REVIEWER: Kate Sneha SPOKE WITH PATIENT'S DAUGHTER HARITHA SILVERIO AND SHE STATES HE WILL NEED DIAGRAM CLERK CARE. STATES THE [facility] WAS LOOKING AT HIM. I WILL CONTACT THE [facility] AND FAX THEM CLINICALS. WAITING TO HEAR BACK FROM THE [facility]. CM TO FOLLOW. ENTERED DATE: 07/08/20 9:53 CT COMMENT TYPE: Discharge Planning REVIEWER: Kate Hoover PATIENT WAS ADMITTED FROM INPATIENT REHAB. PRIOR TO REHAB HE LIVED ALONE AND HAD HOME CARE 3 DAYS PER WEEK. LOOKING AT HIS CURRENT SITUATION HE WILL MOST LIKELY NEED DIAGRAM CLERK CARE. I HAVE CALLED THE [facility] TO HELP WITH THIS, I AM WAITING CALL BACK. SCOTT WITH [facility] HAS ALSO REACHED OUT TO ME AND STATES THEY HAD A CALL ABOUT THIS PATIENT NOT BEING ABLE TO CARE FOR HIMSELF AT HOME. I WILL CONTINUE TO FOLLOW AND ASSIST WITH THIS PATIENT. DCP REVIEW SUMMARY ANTICIPATED D/C DATE: EXPECTED LOS : CASE STATUS: DCP Initiated INITIAL REVIEW: 07/03/2020 INITIAL REVIEWER: Kate Hoover FINAL DISCHARGE DISPOSITION: : FINAL REVIEWER: FINAL REVIEW DATE: DCP Focus Questions & Answers DCP Screen QUESTION: ANSWER High Risk Factors: : Poor social support DCP Evaluation QUESTION: ANSWER Family / Caregiver's ability to cope with chronic illness: : c. Inadequate (Enables pt. to make bad choices, cannot meet pt's. needs, difficult family dynamics) Patient's current cognitive status: : Intermittently confused / memory changes Patient's ability to cope with chronic illness : c. Inadequate (3+ ED visits in 6 mos., readmits within 30 days, 2+ hospital admissions in 1 yr.) Functional screen assessment: : Unable to manage ADLs without immediate ongoing assistance Family / Caregiver's ability to cope with chronic illness: : c. Inadequate (Enables pt. to make bad choices, cannot meet pt's. needs, difficult family dynamics) Physical Status: : Partial care dependence Physical Status: : Mobility impaired Is there a likelihood that the patient will require additional services to return to the preadmission environment? : Yes Living Arrangements: : Home Alone with No Support Partial Dependence, assistance required for: : Dressing Partial Dependence, assistance required for: : Bathing Partial Dependence, assistance required for: : Ambulation / Mobility Patient with capacity for self-care or can be cared for in same environment as prior to hospitalization? : No Baseline cognitive status: : Needs prompting and supervision Comments: : PATIENT ADMITTED FROM REHAB. LIVED ALONE PRIOR, MAY NEED SENIOR LIVING CARE. Medication Management: : Multiple Pharmacy Use Pharmacy name(s): : [facility] Would patient like to participate in any Care Coordination programs (if applicable): : Not applicable Equipment in use: : Wheelchair Equipment in use: : Walker - Rolling Equipment in use: : Cane - Single Leg Mental health screen: : No mental health history Psychosocial status: : Adult with physical limitations DCP Re-evaluation QUESTION: ANSWER Would patient like to participate in any Care Coordination programs (if applicable): : Not applicable PROVIDER NETWORKING REVIEW DATE: 07/08/2020 SERVICE TYPE: Snf Facility REVIEWER: Kate Hoover PATIENT: ELLIOTT SILVERIO ENCOUNTER: [id number] MEDICAL RECORD#: [id number] ADMISSION DATE: 07/03/2020 DISCHARGE DATE: ATTENDING MD: MARQUEZ THOMPSON : AGE: 80 MARITAL STATUS: D DC PLAN ID: [id number] FACILITY: [facility] PRINTED ON: 07/11/20 12:31 CT All edits/amendments must be made on the electronic document DICTATION DATE: 07/11/20 123 LOADER DEMOLDER: DM 07/11/20 1230 RPT#: [id number] DC DATE: STATUS: ADM IN [facility] [address] [place] [address] END OF REPORT
--- NOTE | 2020-07-11 13:35 | NUR ---
PT RESTING IN BED WITH EYES CLOSED. PT RESPIRATIONS ARE EVEN AND UNLABORED. PRBC TRANSFUSING INFUSING WITHOUT DIFFICULTY/COMPROMISE. NO APPARENT S/S OF DISTRESS NOTED. FALL PRECAUTIONS IN PLACE. BED IS IN THE LOWEST POSITION. CALL LIGHT AND BEDSIDE TABLE ARE WITHIN REACH. SIDE RAILS X 2. WILL CONT TO MONITOR.
--- NOTE | 2020-07-11 13:56 | NUR ---
PATIENT ON HOLD PER NSG. PATIENT VERY AGGITATED.
--- NOTE | 2020-07-11 14:29 | NUR ---
(1) UNIT OF PRBC INFUSION COMPLETE. NO APPARENT S/S OF DISTRESS NOTED. VSS. SEE TRANSFUSION CARD. FALL PRECAUTIONS IN PLACE. BED IS IN THE LOWEST POSITION. CALL LIGHT AND BEDSIDE TABLE ARE WITHIN REACH. SIDE RAILS X 2. PT RESTING WITH EYES CLOSED. RESPIRATIONS ARE EVEN AND UNLABORED. ROOM CLOSE TO NURSE STATION. WILL CONT TO MONITOR.
[2020-07-11 15:08] LABS: HEMATOCRIT 26.6 % (42.0-54.0); HEMOGLOBIN 8.2 g/dL (13.5-17.5)
[2020-07-11 15:44] VITALS: BP 114/79
[2020-07-11 20:00] VITALS: BP 115/63
--- NOTE | 2020-07-11 21:48 | NUR ---
PT IS ALERT. ABLE TO MAKE WANTS AND NEEDS KNOWN AT THIS TIME. WAS GIVEN REPORT THAT PATIENTS BEHAVIOR WAS UNCOOPERATIVE AND WAS A BIT DROWSY. PT HAS BEEN AWAKE AND TALKING TO STAFF SINCE MOMD TEACHER STARTED. WAS ABLE TO SWALLOW PILLS AND JUICE WHOLE WITH NO DIFFICULTES. PT CURRENTLY RESTING IN BED WITH HIS COVERS OVER HIS HEAD. NO COMPLAINTS OF PAIN NOR DISTRESS NOTED AT THIS TIME. BED IN LOWEST POSITION WITH CALL LIGHT IN REACH.
[2020-07-12 00:48] VITALS: BP 116/68
[2020-07-12 04:00] VITALS: BP 167/90
[2020-07-12 07:06] LABS: ALBUMIN 1.5 g/dL (3.4-5.0); ANION GAP 10.7 mmol/L (8-16); BILIRUBIN - TOTAL 0.32 mg/dL (0.2-1.3); CALCIUM 8.4 mg/dL (8.5-10.1); CREATININE - SERUM 1.1 mg/dL (0.6-1.3); POTASSIUM - SERUM 3.7 mmol/L (3.5-5.1); PROTEIN - SERUM 6.4 g/dL (6.4-8.2)
--- NOTE | 2020-07-12 07:27 | NUR ---
BLOOD SUGAR 68 THIS MORNING PER JAVA XML DEVELOPER NURSE, JANETH. GIVEN JUICE AND RECHECKED. BLOOD SUAGAR 103 ON RECHECK BY JAVA XML DEVELOPER RN PRIOR TO LEAVING UNIT. STATES PATIENT DID NOT EAT YESTERDAY. WILL HOLD LANTUS THIS AM AND RECHECK BLOOD SUGAR AGAIN LATER TODAY.
--- NOTE | 2020-07-12 07:27 | NUR ---
PATIENT SLEEPING. ASSESSMENT COMPLETE. BED LOW. CALL ROB AND PERSONAL ITEMS IN REACH. WILL CONTINUE TO MONITOR.
[2020-07-12 07:29] LABS: BASOPHILS 0.6 % (0-2); EOSINOPHILS 7.9 % (0-7); HEMATOCRIT 27.5 % (42.0-54.0); HEMOGLOBIN 8.4 g/dL (13.5-17.5); IMMATURE GRANULOCYTES 0.8 % (0-5); LYMPHOCYTE ABS# 0.98 10x3/uL (1.32-3.57); LYMPHOCYTES 18.4 % (15-50); MCH 28.6 pg (26.0-34.0); MCHC 30.5 g/dL (31.0-37.0); MCV 93.5 fL (80.0-100.0); MEAN PLATELET VOLUME 9.9 fL (7.4-10.4); MONOCYTES 14.1 % (2-11); NEUTROPHIL ABS# 3.11 10x3/uL (1.78-5.38); NEUTROPHILS 58.2 % (40-80); PLATELET COUNT 289 10x3/uL (130-400); RBC 2.94 10x6/uL (4.20-6.10); RDW 16.9 % (11.5-14.5)
[2020-07-12 07:53] LABS: WBC 5.3 10x3/uL (4.8-10.8)
[2020-07-12 08:34] VITALS: BP 140/54
--- NOTE | 2020-07-12 12:30 | NUR ---
PATIENT UP WITH PT AND TURNED TO LEFT SIDE IN BED.
--- NOTE | 2020-07-12 13:03 | NUR ---
Nutrition reassessment: Pt sleeping at time of RDN rounds. Diet order: regular puree with thin liquids PO intake continues to be poor Pt POD6 of right BKA Labs reviewed Wt: 256# Nutrition needs remain the same as initial assessment on 07/04/20 Nutrition diagnosis: Inadequate oral intake R/T recent surgery AEB observed poor po intake now. Nutrition goals: - PO intake will increase to =/> 75% of meals, snacks - Meet estimated fluid needs - Stable wt Interventions: Will continue to provide food choices with selective menus and honor food preferences within diet restrictions. Recommendations: Pt may benefit from an appetite stimulant Due to surgical wound, recommend daily MVI, 220 mg Zinc, 1000 mg vitamin C and Leandro nutritional supplement, 1 pkt BID mixed in juice all to aid with wound healing. RDN follow-up: 07/15/20
[2020-07-12 13:06] VITALS: BP 156/88
--- NOTE | 2020-07-12 15:59 | NUR ---
PATIENT TURNED TO RIGHT SIDE AND PILLOW UNDER LEFT SIDE.
--- NOTE | 2020-07-12 16:25 | NUR ---
OT NOTE: PT REQUIRED MAX X 2 FOR BED MOB TASKS AND POSITIONING. [phone] THANK YOU,JOSE RAUL CUMMINGS
[2020-07-12 17:11] VITALS: BP 156/77
[2020-07-12 21:00] VITALS: BP 139/69
--- NOTE | 2020-07-12 22:51 | NUR ---
PT IS AWAKE IN BED WITH HEAD COVER. ABLE TO MAKE WANTS AND NEEDS KNOWN. IN A PLEASANT MOOD TONIGHT. BED IN LOWEST POSITION. CALL ROB LIGHT IN REACH.
[2020-07-13 00:54] VITALS: BP 112/62
[2020-07-13 05:00] VITALS: BP 104/47
[2020-07-13 07:17] LABS: ALBUMIN 1.4 g/dL (3.4-5.0); ANION GAP 5.5 mmol/L (8-16); BILIRUBIN - TOTAL 0.39 mg/dL (0.2-1.3); CALCIUM 8.2 mg/dL (8.5-10.1); CARBON DIOXIDE 30.2 mmol/L (21.0-32.0); CREATININE - SERUM 1.2 mg/dL (0.6-1.3); POTASSIUM - SERUM 3.7 mmol/L (3.5-5.1)
[2020-07-13 07:25] LABS: BASOPHILS 0.2 % (0-2); EOSINOPHILS 4.5 % (0-7); HEMATOCRIT 26.3 % (42.0-54.0); HEMOGLOBIN 8.1 g/dL (13.5-17.5); IMMATURE GRANULOCYTES 0.3 % (0-5); LYMPHOCYTE ABS# 1.41 10x3/uL (1.32-3.57); LYMPHOCYTES 22.6 % (15-50); MCH 28.6 pg (26.0-34.0); MCHC 30.8 g/dL (31.0-37.0); MCV 92.9 fL (80.0-100.0); MEAN PLATELET VOLUME 9.9 fL (7.4-10.4); MONOCYTES 13.4 % (2-11); NEUTROPHIL ABS# 3.69 10x3/uL (1.78-5.38); PLATELET COUNT 324 10x3/uL (130-400); RBC 2.83 10x6/uL (4.20-6.10); RDW 16.9 % (11.5-14.5); WBC 6.3 10x3/uL (4.8-10.8)
--- NOTE | 2020-07-13 07:30 | NUR ---
RESTING IN BED WITH EYES CLOSED, EASILY AROUSED TO SPEECH. ALERT AND ORIENTED, NO CURRENT S/S OF DISTRESS AT THIS TIME. IV LOCATED TO RIGHT AC CURRENTLY RUNNING 1/2NS @ [employer]. DENIES NEEDS AT THIS TIME. WILL CONT TO MONITOR.
[2020-07-13 08:08] VITALS: BP 100/56
[2020-07-13 11:24] VITALS: BP 117/63
[2020-07-13 17:17] VITALS: BP 118/74
[2020-07-13 20:00] VITALS: BP 114/62
[2020-07-14] VITALS: BP 119/64
--- NOTE | 2020-07-14 00:15 | NUR ---
I have reviewed this patient and I concur with the Shift Assessment completed by the Licensed Practical Nurse today this shift.
[2020-07-14 04:00] VITALS: BP 126/69
[2020-07-14 06:13] LABS: BASOPHILS 0.3 % (0-2); EOSINOPHILS 2.5 % (0-7); HEMATOCRIT 27.8 % (42.0-54.0); HEMOGLOBIN 8.6 g/dL (13.5-17.5); IMMATURE GRANULOCYTES 0.4 % (0-5); LYMPHOCYTE ABS# 1.23 10x3/uL (1.32-3.57); LYMPHOCYTES 16.1 % (15-50); MCH 28.7 pg (26.0-34.0); MCHC 30.9 g/dL (31.0-37.0); MCV 92.7 fL (80.0-100.0); MEAN PLATELET VOLUME 9.7 fL (7.4-10.4); MONOCYTES 10.9 % (2-11); NEUTROPHIL ABS# 5.33 10x3/uL (1.78-5.38); NEUTROPHILS 69.8 % (40-80); PLATELET COUNT 317 10x3/uL (130-400); WBC 7.6 10x3/uL (4.8-10.8)
[2020-07-14 06:27] LABS: ALBUMIN 1.5 g/dL (3.4-5.0); BILIRUBIN - TOTAL 0.34 mg/dL (0.2-1.3); CALCIUM 8.2 mg/dL (8.5-10.1); CARBON DIOXIDE 30.9 mmol/L (21.0-32.0); CREATININE - SERUM 1.3 mg/dL (0.6-1.3); PROTEIN - SERUM 6.4 g/dL (6.4-8.2)
[2020-07-14 06:32] LABS: ANION GAP 9.4 mmol/L (8-16); POTASSIUM - SERUM 4.3 mmol/L (3.5-5.1)
--- NOTE | 2020-07-14 07:27 | NUR ---
RECIEVED BEDSIDE REPORT. IN BED RESTING. BED LOW POSITION, CALL LIGHT IN REACH. WILL CONTINUE TO MONITOR.
--- NOTE | 2020-07-14 09:56 | CN ---
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 EF this admission 40%, has been having problem with increasing volume overload over the past few days here in the hospital. Exacerbating factors include anemia as well as hypoalbuminemia, making him more likely for third spacing, albumin actually 1.5 at this point. We are asked to see him concerning his cardiovascular status. PAST MEDICAL HISTORY: Include, 1. History of peripheral vascular disease described above. 2. Hypertension. 3. Hyperlipidemia. 4. Diabetes mellitus. ALLERGIES: IODINE. MEDICATIONS: Maintenance include Benadryl 25 mg p.o. q hours p.r.n. itching, Flomax 0.4 every day, Robaxin 75 mg p.o. b.i.d., atorvastatin 80 every day, carvedilol 3.125 b.i.d., Wellbutrin 200 mg b.i.d., Cymbalta 60 every day, Neurontin 800 b.i.d., Strang 10/325 q.4 p.r.n., Namenda 5 mg p.o. b.i.d., trazodone 50 at bedtime, BuSpar 10 mg t.i.d., Lasix 40 every day, Pioglitazone 45 mg p.o. every day, lidocaine patch, and insulin per scale. REVIEW OF SYSTEMS: The patient reports easy bruising but reports no swollen glands. The patient reports no fever, no night sweats, no significant weight gain, no significant weight loss. No significant exercise tolerance. The patient reports no dry eyes, no irritation, no vision change. Patient reports no difficulty hearing and no ear pain. Patient reports no frequent nose bleeds or nose and sinus problems. Patient reports on arm pain on exertion. No shortness of breath while lying down. No history of heart murmur. Patient reports no cough, no wheezing or coughing up blood. Patient reports no abdominal pain, no vomiting. Normal appetite. No diarrhea and not vomiting blood. No nausea and no constipation. Patient reports no incontinence. No difficulty urinating. No hematuria. No increased frequency. Patient reports no muscle aches. No weakness, no arthralgias, no back pain. No swelling of the extremities. Patient reports no abnormal mole, no jaundice, no rashes. Reports no loss of consciousness. No weakness and no numbness. No seizures, dizziness, or headaches. The patient reports no depression, no sleep disturbance, feeling safe in a relationship and no alcohol abuse. Patient reports on fatigue. Reports no runny nose or sinus pressure. No itching, no hives, and no frequent sneezing. PHYSICAL EXAMINATION: GENERAL: Appears stated age. Somewhat chronically ill. VITAL SIGNS: Blood pressure 156/80, pulse 81 and regular. HEENT: Normocephalic, atraumatic. NECK: No JVD or bruit. HEART: Regular. S3 gallop is noted. CONSULT REPORT [id number] NUSRATELLIOTT RONDON LUNGS: Diminished air excursion. ABDOMEN: Soft, nontender. IMPRESSION: Cardiomyopathy. Multiple exacerbating factors including anemia, hypoalbuminemia, tendency for third spacing. We will begin diuresis with loop diuretic as well as low-dose Aldactone, already on beta blockade. Could consider addition of ARB and/or Entresto as blood pressure tolerates. Thank you for this consultation. TRANSINT:[id number] Voice Confirmation ID: [id number] DOCUMENT ID: [id number] YESSI ORDONEZ MD at 0956 CC: [id number] DICTATION DATE: 07/12/20 165 GEOLOGICAL SCOUT: 07/13/20 0107 ADM IN [place] [id number] [place] [address]
[2020-07-14 10:07] VITALS: BP 130/62
--- NOTE | 2020-07-14 11:49 | NUR ---
PATIENT HAD BM AND NEEDED TO BE CLEANED UP. PATIENT MOVED AROUND IN BED WITH MIN-MOD ASST.
--- NOTE | 2020-07-14 14:58 | NUR ---
IN BED RESTING. AROUSES TO VOICE. DENIES NEEDS AT THIS TIME. BED LOW POSITION, CALL LIGHT IN REACH. WILL COTNINUE TO MONITOR.
[2020-07-14 15:00] VITALS: BP 104/54
[2020-07-14 18:28] VITALS: BP 114/46
--- NOTE | 2020-07-14 19:35 | NUR ---
RE-SITED IV TO LEFT AC USING 20 GUAGE CATHETER. IV FLUIDS RE-STARTED AND REMOVED IV TO LEFT THUMB WITH CATHETER TIP INTACT. CHANGED BEDDING AND GOWN DUE TO IV FLUID LEAKAGE. POSITIONED FOR COMFORT.
[2020-07-14 20:00] VITALS: BP 104/60
[2020-07-15] VITALS: BP 118/60
--- NOTE | 2020-07-15 01:05 | NUR ---
I have reviewed this patient and I concur with the Shift Assessment completed by the Licensed Practical Nurse today this shift.
[2020-07-15 04:00] VITALS: BP 166/65
--- NOTE | 2020-07-15 07:29 | NUR ---
RECIEVED BEDSIDE REPORT. PT CONFUSED, FREE FROM SIGNS OF DISTRESS. BED LOW POSITION, CALL LIGHT IN REACH. WILL CONTINUE TO MONITOR.
[2020-07-15 07:55] LABS: ALBUMIN 1.8 g/dL (3.4-5.0); ANION GAP 6.4 mmol/L (8-16); BILIRUBIN - TOTAL 0.4 mg/dL (0.2-1.3); CALCIUM 8.3 mg/dL (8.5-10.1); CARBON DIOXIDE 32.6 mmol/L (21.0-32.0); CREATININE - SERUM 1.3 mg/dL (0.6-1.3); PROTEIN - SERUM 6.3 g/dL (6.4-8.2)
[2020-07-15 08:06] LABS: BASOPHILS 0.1 % (0-2); EOSINOPHILS 3.8 % (0-7); HEMATOCRIT 28.4 % (42.0-54.0); HEMOGLOBIN 8.6 g/dL (13.5-17.5); IMMATURE GRANULOCYTES 0.9 % (0-5); LYMPHOCYTE ABS# 1.48 10x3/uL (1.32-3.57); LYMPHOCYTES 21.8 % (15-50); MCH 28.2 pg (26.0-34.0); MCHC 30.3 g/dL (31.0-37.0); MCV 93.1 fL (80.0-100.0); MONOCYTES 9.6 % (2-11); NEUTROPHIL ABS# 4.34 10x3/uL (1.78-5.38); NEUTROPHILS 63.8 % (40-80); PLATELET COUNT 321 10x3/uL (130-400); RBC 3.05 10x6/uL (4.20-6.10); WBC 6.8 10x3/uL (4.8-10.8)
--- NOTE | 2020-07-15 13:52 | NUR ---
Nutrition follow-up: Pts diet upgraded to consistent CHO mechanical soft with thin liquids PO intake continues to be poor; only 50% of 1 meal 07/14/20 Nurse reports some confuion noted Labs reviewed WT: 256# +BM Recommendations: Appetite stimulant Will offer nutritional supplements. RDN follow-up: 07/18/20
[2020-07-15 15:25] VITALS: BP 129/69
--- NOTE | 2020-07-15 16:43 | NUR ---
PATIENT PULLED WOUND VAC CORD OFF. REAPPLIED NEW CORD AND SEALED ANY LEAKS PRESENT. WILL CONTINUE TO MONITOR.
[2020-07-15 18:35] VITALS: BP 138/80
--- NOTE | 2020-07-15 18:44 | NUR ---
IV WENT BAD. REMOVED, CATH TIP INTACT. NEW IV STARTED IN LEFT UPPER ARM, 22 GAUGE. X2 ATTEMPTS. IV MEDS RESUMED.
[2020-07-15 20:00] VITALS: BP 137/78
[2020-07-16 04:00] VITALS: BP 111/65
--- NOTE | 2020-07-16 05:34 | NUR ---
I have reviewed this patient and I concur with the Shift Assessment completed by the Licensed Practical Nurse today this shift.
[2020-07-16 05:46] LABS: ALBUMIN 1.8 g/dL (3.4-5.0); ANION GAP 7.7 mmol/L (8-16); BILIRUBIN - TOTAL 0.36 mg/dL (0.2-1.3); CALCIUM 8.5 mg/dL (8.5-10.1); CARBON DIOXIDE 31.8 mmol/L (21.0-32.0); CREATININE - SERUM 1.2 mg/dL (0.6-1.3); POTASSIUM - SERUM 3.5 mmol/L (3.5-5.1); PROTEIN - SERUM 6.8 g/dL (6.4-8.2)
[2020-07-16 06:52] LABS: BASOPHILS 0.4 % (0-2); EOSINOPHILS 4.3 % (0-7); HEMATOCRIT 27.6 % (42.0-54.0); HEMOGLOBIN 8.5 g/dL (13.5-17.5); IMMATURE GRANULOCYTES 0.6 % (0-5); LYMPHOCYTE ABS# 1.53 10x3/uL (1.32-3.57); LYMPHOCYTES 22.2 % (15-50); MCHC 30.8 g/dL (31.0-37.0); MCV 94.2 fL (80.0-100.0); MEAN PLATELET VOLUME 9.9 fL (7.4-10.4); MONOCYTES 9.6 % (2-11); NEUTROPHIL ABS# 4.34 10x3/uL (1.78-5.38); NEUTROPHILS 62.9 % (40-80); PLATELET COUNT 314 10x3/uL (130-400); RBC 2.93 10x6/uL (4.20-6.10); WBC 6.9 10x3/uL (4.8-10.8)
--- NOTE | 2020-07-16 07:35 | NUR ---
DR. SHIN PRESENT TO REMOVE WOUND VAC. DRESSING PLACED TO EXTREMITY, WRAPPED WITH KERLEX AND ADRIANNA WRAP. PT REMAINS ASLEEP DURING PROCEDURE, HE DOES AROUSE HE HEARS STAFF COMMUNICATING. IV TO RIGHT SHOULDER WITH 1/2 NS @ KVO INFUSING VIA PUMP. SITE WITHOUT REDNESS OR EDEMA. F/C PATENT TO GRAVITY, DRAINING YELLOW URINE. DOES NOT PRESENT WITH PAIN AT THIS TIME. CL WITHIN REACH. ENCOURAGED TO CALL WITH [facility]. SARBJIT POC
[2020-07-16 08:50] VITALS: BP 113/57
--- NOTE | 2020-07-16 08:57 | NUR ---
ATTEMPTED TO ARROUSE PT TO TAKE AM MEDICATIONS. PT AWAKENS, BUT IS EXTREMELY GROGGY, WITH NAME CALLED. UNABLE TO ADMINISTER AM MEDICATIONS AT THIS TIME DUE TO SAFELY ADMINISTERING WITHOUT ASPIRATING. WILL CONTINUE TO ATTEMPT TO AWAKEN AND ADMINISTER.
[2020-07-16 13:10] VITALS: BP 138/60
--- NOTE | 2020-07-16 16:04 | NUR ---
OT NOTE: PT REQUIRED EXTENSIVE CUES SECONDARY TO CONFUSION. NURSING AWARE. PT COMPLETED SIMPLE HYGIENE TASKS WITH MOD-MAX A. PT REQUIRED EXTENDED TIME. PT REQUIRED MAX A FOR POSITIONING IN BED. [phone] THANK YOU,JOSE RAUL CUMMINGS
[2020-07-16 17:09] VITALS: BP 117/61
[2020-07-16 20:00] VITALS: BP 124/66
--- NOTE | 2020-07-17 02:17 | NUR ---
I have reviewed this patient and I concur with the Shift Assessment completed by the Licensed Practical Nurse today this shift.
[2020-07-17 04:00] VITALS: BP 127/51
[2020-07-17 05:04] LABS: BASOPHILS 0.2 % (0-2); HEMATOCRIT 28.4 % (42.0-54.0); HEMOGLOBIN 8.7 g/dL (13.5-17.5); IMMATURE GRANULOCYTES 0.6 % (0-5); LYMPHOCYTE ABS# 1.46 10x3/uL (1.32-3.57); LYMPHOCYTES 22.7 % (15-50); MCH 28.6 pg (26.0-34.0); MCHC 30.6 g/dL (31.0-37.0); MCV 93.4 fL (80.0-100.0); MEAN PLATELET VOLUME 9.8 fL (7.4-10.4); MONOCYTES 10.9 % (2-11); NEUTROPHIL ABS# 4.02 10x3/uL (1.78-5.38); NEUTROPHILS 62.6 % (40-80); PLATELET COUNT 304 10x3/uL (130-400); RBC 3.04 10x6/uL (4.20-6.10); RDW 17.3 % (11.5-14.5); WBC 6.4 10x3/uL (4.8-10.8)
[2020-07-17 05:26] LABS: ALBUMIN 1.7 g/dL (3.4-5.0); ANION GAP 7.6 mmol/L (8-16); BILIRUBIN - TOTAL 0.39 mg/dL (0.2-1.3); CALCIUM 8.5 mg/dL (8.5-10.1); CARBON DIOXIDE 33.2 mmol/L (21.0-32.0); CREATININE - SERUM 1.2 mg/dL (0.6-1.3); POTASSIUM - SERUM 3.8 mmol/L (3.5-5.1); PROTEIN - SERUM 6.6 g/dL (6.4-8.2)
[2020-07-17 08:56] VITALS: BP 120/70
[2020-07-17 12:59] VITALS: BP 113/60
--- NOTE | 2020-07-17 13:55 | NUR ---
Nutrition follow-up: Pt sleeping during breakfast; pt sleeping during most meals and po intake continues to be very poor. Diet order: consistent CHO mechanical soft with thin liquids; Glucerna Shake, magic cup ordered with meals Labs reviewed Wt: 256# Recommendations: Nutrition support via NGT vs PEG tube placement and TF started for long-term nutrition support. ProcalAmine PPN @ 100 ml/hr for short-term nutrition support due to pt not meeting estimated nutritional needs. RDN follow-up: 07/19/20
--- NOTE | 2020-07-17 14:42 | NUR ---
PATIENT MOD ASST X2 TO GET UP TO BEDSIDE. PATIENT ABLE TO HOLD HIMSELF UP WHILE SITTING ONCE FULLY SITTING UP. PATIENT MOD ASST TO LAY BACK IN BED.
--- NOTE | 2020-07-17 17:08 | NUR ---
OT NOTE: PT COMPLETED SUPINE TO SIT WITH MOD A. PT COMPLETED EOB SITTING WITH SBA. PT COMPLETED SHAVING TASKS WITH TOTAL A. PT COMPLETED HAIR HYGIENE WITH TOTAL A. PT COMPLETED HAIR GROOMING WITH MOD A WITH EXTENSIVE CUES. PT REQUIRED CUES SECONDARY TO CONFUSION. PT UNABLE TO PROCESS STEPS FOR ADL TASKS AT THIS TIME. PT WAS PLEASANT. PT EXHIBITED INCREASED ALERTNESS AND SITTING BALANCE. [phone] THANK YOU,JOSE RAUL CUMMINGS
[2020-07-17 18:03] VITALS: BP 112/65
[2020-07-17 20:00] VITALS: BP 115/50
--- NOTE | 2020-07-17 22:37 | NUR ---
PT SLEEPING IN BED. EASY TO BE AWAKEN. ALERT AND ORIENTED TO SELF. ABLE TO MAKE SOME WANTS AND NEEDS KNOWN TO STAFF. NO COMPLAINTS OF PAIN NOR DISTRESS. BED IN LOWEST POSITION. CALL LIGHT IN REACH.
[2020-07-18] VITALS: BP 104/53
[2020-07-18 04:00] VITALS: BP 126/71
[2020-07-18 06:26] LABS: BASOPHILS 0.3 % (0-2); EOSINOPHILS 2.9 % (0-7); HEMATOCRIT 28.8 % (42.0-54.0); HEMOGLOBIN 8.7 g/dL (13.5-17.5); IMMATURE GRANULOCYTES 0.4 % (0-5); LYMPHOCYTE ABS# 1.62 10x3/uL (1.32-3.57); LYMPHOCYTES 23.3 % (15-50); MCH 28.6 pg (26.0-34.0); MCHC 30.2 g/dL (31.0-37.0); MCV 94.7 fL (80.0-100.0); MONOCYTES 12.4 % (2-11); NEUTROPHIL ABS# 4.21 10x3/uL (1.78-5.38); NEUTROPHILS 60.7 % (40-80); PLATELET COUNT 293 10x3/uL (130-400); RBC 3.04 10x6/uL (4.20-6.10); RDW 17.7 % (11.5-14.5); WBC 6.9 10x3/uL (4.8-10.8)
[2020-07-18 06:36] LABS: ALBUMIN 1.6 g/dL (3.4-5.0); ANION GAP 6.1 mmol/L (8-16); BILIRUBIN - TOTAL 0.41 mg/dL (0.2-1.3); CALCIUM 8.4 mg/dL (8.5-10.1); CARBON DIOXIDE 34.9 mmol/L (21.0-32.0); CREATININE - SERUM 1.4 mg/dL (0.6-1.3); PROTEIN - SERUM 6.5 g/dL (6.4-8.2)
--- NOTE | 2020-07-18 07:23 | NUR ---
PT IS RESTING IN BED WITH EYES CLOSED. RESPIRATIONS ARE EVEN AND UNLABORED. PT WITH COVERS PULLED OVER FACE. PT AROUSABLE WITH VERBAL STIMULATION AND IS CONFUSED X 4 UPON AROUSAL. PT DENIES PRESENCE OF PAIN. 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 RIGHT BKA NOTED. DRESSING IS CDI. LEFT TOE AMPUTATIONS NOTED WITH SCABBING. LEFT HEEL PROTECTOR IN PLACE. LORA CATHETER NOTED AND DRAINING WITHOUT DIFFICULTY. DARK YELLOW URINE NOTED TO COLLECTION BAG. STAT LOCK TO LEFT UPPER THIGH. LORA CARE PERFORMED AT THIS TIME. INCENTIVE SPIROEMTER AT BEDSIDE AND ENCOURAGED. PT UNCOOPERATIVE WITH IS AT THIS TIME. PT REFUSING TO DRINK WHEN PROMPTED. MEPILEX NOTED TO COCCYX AND IS CDI. NO REDNESS TO COCCYX NOTED AT THIS TIME. FALL PRECAUTIONS IN PLACE. BED IS IN THE LOWEST POSITION. CALL LIGHT AND BEDSIDE TABLE ARE WITHIN REACH. SIDE RAILS X 2. ROOM CLOSE TO NURSE STATION. PT DENIES FURTHER NEEDS. WILL CONT TO MONITOR.
[2020-07-18 09:11] VITALS: BP 116/59
[2020-07-18] MEDS ORDERED: ALDACTONE25 MG PO (10:56)
[2020-07-18] MEDS ORDERED: BUMEX2 MG PO (10:56)
[2020-07-18] MEDS ORDERED: PROTONIX40 MG PO (10:57)
[2020-07-18] MEDS ORDERED: FOLATE0.4 MG PO (10:57)
[2020-07-18] MEDS ORDERED: FLORAJEN3 CAPS460 MG PO (10:57)
[2020-07-18] MEDS ORDERED: FLUCONAZOLE150 MG PO (10:58)
[2020-07-18] MEDS ORDERED: CIPRO250 MG PO (10:59)
--- NOTE | 2020-07-18 11:39 | NUR ---
LORA CATHETER CLAMPPED TO INITIATE BLADDER TRAINING. WILL CONT TO MONITOR FREQUENTLY. FALL PRECAUTIONS IN PLACE. BED IS IN THE LOWEST POSITION. CALL LIGHT AND BEDSIDE TABLE ARE WITHIN REACH. SIDE RAILS X 2. ROOM CLOSE TO NURSE STATION. WILL CONT TO MONITOR.
--- NOTE | 2020-07-18 12:13 | NUR ---
REPORT CALLED TO MAGDIEL SOUSA LPN AT THE [facility]. ALL QUESTIONS ANSWERED. PT IS UNABLE TO SIGN DISCHARGE INSTRUCTIONS. (1) PRINTED RX WITH PT DISCHARGE INSTRUCTIONS SENT. NO FURTHER QUESTIONS PER MAGDIEL CORDOVA.
--- NOTE | 2020-07-18 12:25 | NUR ---
DISCHARGE INSTRUCTIONS PROVIDED. PT IS UNABLE TO SIGN DISCHARGE PAPERS. PT CONFUSED X 4. PIV TO RIGHT AC REMOVED WITH CATHETER TIP INTACT. DRESSING APPLIED. PT ASSISTED WITH GATHERING PERSONAL BELONGINGS. WILL AWAIT FOR [facility] TRANSPORT TO ARRIVE.
--- NOTE | 2020-07-18 12:35 | MORECARE ---
CASE MANAGEMENT DISCHARGE SUMMARY PATIENT: ELLIOTT SILVERIO UNIT: [id number] ADM DATE: 07/03/20 AGE: 80 : 41 SEX: M ROOM/BED: D.2227 AUTHOR: MAGALIS,DOC PHYSICIAN: REFERRING PHYSICIAN: SATYA DONOHUE MD DATE OF SERVICE: 07/18/20 Case Management Discharge Planning Summary COMMENTS ENTERED DATE: 07/18/20 12:29 CT COMMENT TYPE: Discharge Planning REVIEWER: Kate Hoover PATIENT TO DC TO THE [facility] TODAY. THEY ARE SENDING A VAN TO HEAD END DESIZING MACHINE OPERATOR. I HAVE FAXED DISCHARGE AND MAR TO THE [facility]. ENTERED DATE: 07/11/20 12:21 CT COMMENT TYPE: Discharge Planning REVIEWER: Kate Sneha CM SPOKE WITH BENIGNO AT THE [facility] TODAY AND THEY WILL ACCEPT PATIENT. WE WILL NOTIFY THEM WHEN HE IS MEDICALLY STABLE AND READY FOR DISCHARGE. CM TO FOLLOW AND ASSIT NEEDED. ENTERED DATE: 07/11/20 9:49 CT COMMENT TYPE: Discharge Planning REVIEWER: Kate Hoover RECEIVED WALE AND FAXED TO THE [facility]. WAITING FOR APPROVAL FROM [facility] FOR SNF. CM TO FOLLOW AND ASSIST NEEDED. ENTERED DATE: 07/08/20 13:05 CT COMMENT TYPE: Discharge Planning REVIEWER: Kate Hoover SPOKE WITH PATIENT'S DAUGHTER HARITHA SILVERIO AND SHE STATES HE WILL NEED AIX SYSTEM ADMINISTRATOR CARE. STATES THE [facility] WAS LOOKING AT HIM. I WILL CONTACT THE [facility] AND FAX THEM CLINICALS. [facility] CM TO FOLLOW. ENTERED DATE: 07/08/20 9:53 CT COMMENT TYPE: Discharge Planning REVIEWER: Kate Sneha PATIENT WAS ADMITTED FROM INPATIENT REHAB. PRIOR TO REHAB HE LIVED ALONE AND HAD HOME CARE 3 DAYS PER WEEK. LOOKING AT HIS CURRENT SITUATION HE WILL MOST LIKELY NEED AIX SYSTEM ADMINISTRATOR CARE. [facility] TO [facility], I AM WAITING CALL BACK. SCOTT WITH [facility] HAS ALSO REACHED OUT TO ME AND STATES THEY HAD A CALL ABOUT THIS PATIENT NOT BEING ABLE TO CARE FOR HIMSELF AT HOME. I WILL CONTINUE TO FOLLOW AND ASSIST WITH THIS PATIENT. DCP REVIEW SUMMARY ANTICIPATED D/C DATE: EXPECTED LOS : CASE STATUS: DCP Initiated INITIAL REVIEW: 07/03/2020 INITIAL REVIEWER: Kate Hoover FINAL DISCHARGE DISPOSITION: : FINAL REVIEWER: FINAL REVIEW DATE: DCP Focus Questions & Answers DCP Screen QUESTION: ANSWER High Risk Factors: : Poor social support DCP Evaluation QUESTION: ANSWER Family / Caregiver's ability to cope with chronic illness: : c. Inadequate (Enables pt. to make bad choices, cannot meet pt's. needs, difficult family dynamics) Patient's current cognitive status: : Intermittently confused / memory changes Patient's ability to cope with chronic illness : c. Inadequate (3+ ED visits in 6 mos., readmits within 30 days, 2+ hospital admissions in 1 yr.) Functional screen assessment: : Unable to manage ADLs without immediate ongoing assistance Family / Caregiver's ability to cope with chronic illness: : c. Inadequate (Enables pt. to make bad choices, cannot meet pt's. needs, difficult family dynamics) Physical Status: : Partial care dependence Physical Status: : Mobility impaired Is there a likelihood that the patient will require additional services to return to the preadmission environment? : Yes Living Arrangements: : Home Alone with No Support Partial Dependence, assistance required for: : Dressing Partial Dependence, assistance required for: : Bathing Partial Dependence, assistance required for: : Ambulation / Mobility Patient with capacity for self-care or can be cared for in same environment as prior to hospitalization? : No Baseline cognitive status: : Needs prompting and supervision Comments: : PATIENT ADMITTED FROM REHAB. LIVED ALONE PRIOR, MAY NEED SNF CARE. Medication Management: : Multiple Pharmacy Use [facility] Would patient like to participate in any Care Coordination programs (if applicable): : Not applicable Equipment in use: : Wheelchair Equipment in use: : Walker - Rolling Equipment in use: : Cane - Single Leg Mental health screen: : No mental health history Psychosocial status: : Adult with physical limitations DCP Re-evaluation QUESTION: ANSWER Would patient like to participate in any Care Coordination programs (if applicable): : Not applicable PROVIDER NETWORKING REVIEW DATE: 07/08/2020 [facility]ICE [facility] REVIEWER: Kate Hoover PATIENT: ELLIOTT SILVERIO ENCOUNTER: [id number] MEDICAL RECORD#: [id number] ADMISSION DATE: 07/03/2020 DISCHARGE DATE: ATTENDING MD: MARQUEZ THOMPSON : AGE: 80 MARITAL STATUS: D DC PLAN ID: [id number] FACILITY: [facility] PRINTED ON: 07/18/20 12:35 CT All edits/amendments must be made on the electronic document DICTATION DATE: 07/18/20 123 CLOCK ASSEMBLER: ERIC 07/18/20 1234 RPT#: [id number] DC DATE: STATUS: ADM IN [facility] [address] [place] [address] END OF REPORT
--- NOTE | 2020-07-18 12:39 | NUR ---
[employer] AR[employer]. PT ASSISTED FROM BED TO WHEELCHAIR X 3 ASSIST. LORA CATHETER UNCLAMPPED AT THIS TIME. CLEAR YELLOW URINE DRAINS WITHOUT COMPROMISE. ALL DISCHARGE INSTRUCTIONS AND (1) PRINTED RX GIVEN TO [employer]. ALL PT PERSONAL BELONGINGS SENT. [employer] ESCORTS PT FROM ROOM VIA WHEELCHAIR AND DENIES FURTHER QUESTIONS/CONCERNS/NEEDS.
--- NOTE | 2020-07-18 12:59 | MORECARE ---
CASE MANAGEMENT DISCHARGE SUMMARY PATIENT: ELLIOTT SILVERIO UNIT: [id number] ADM DATE: 07/03/20 AGE: 80 : 41 SEX: M ROOM/BED: D.2227 AUTHOR: MAGALIS,DOC PHYSICIAN: REFERRING PHYSICIAN: SATYA DONOHUE MD DATE OF SERVICE: 07/18/20 Case Management Discharge Planning Summary COMMENTS ENTERED DATE: 07/18/20 12:29 CT COMMENT TYPE: Discharge Planning REVIEWER: Kate Hoover PATIENT TO DC TO THE [facility] TODAY. THEY ARE SENDING A VAN TO [facility]. I HAVE FAXED DISCHARGE AND MAR TO THE [facility]. ENTERED DATE: 07/11/20 12:21 CT COMMENT TYPE: Discharge Planning REVIEWER: Kate Sneha CM SPOKE WITH BENIGNO AT THE [facility] TODAY AND THEY WILL ACCEPT PATIENT. WE WILL NOTIFY THEM WHEN HE IS MEDICALLY STABLE AND READY FOR DISCHARGE. CM TO FOLLOW AND ASSIT NEEDED. ENTERED DATE: 07/11/20 9:49 CT COMMENT TYPE: Discharge Planning REVIEWER: Kate Hoover RECEIVED WALE AND FAXED TO THE [facility]. WAITING FOR APPROVAL FROM [facility] FOR SNF. CM TO FOLLOW AND ASSIST NEEDED. ENTERED DATE: 07/08/20 13:05 CT COMMENT TYPE: Discharge Planning REVIEWER: Kate Hoover SPOKE WITH PATIENT'S DAUGHTER HARITHA SILVERIO AND SHE STATES HE WILL NEED SPORTS NUTRITIONIST CARE. STATES THE [facility] WAS LOOKING AT HIM. I WILL CONTACT THE [facility] AND FAX THEM CLINICALS. [facility] CM TO FOLLOW. ENTERED DATE: 07/08/20 9:53 CT COMMENT TYPE: Discharge Planning REVIEWER: Kate Sneha PATIENT WAS ADMITTED FROM INPATIENT REHAB. PRIOR TO REHAB HE LIVED ALONE AND HAD HOME CARE 3 DAYS PER WEEK. LOOKING AT HIS CURRENT SITUATION HE WILL MOST LIKELY NEED SPORTS NUTRITIONIST CARE. [facility] TO [facility], I AM WAITING CALL BACK. SCOTT WITH [facility] HAS ALSO REACHED OUT TO ME AND STATES THEY HAD A CALL ABOUT THIS PATIENT NOT BEING ABLE TO CARE FOR HIMSELF AT HOME. I WILL CONTINUE TO FOLLOW AND ASSIST WITH THIS PATIENT. DCP REVIEW SUMMARY ANTICIPATED D/C DATE: EXPECTED LOS : CASE STATUS: DCP Initiated INITIAL REVIEW: 07/03/2020 INITIAL REVIEWER: Kate Hoover FINAL DISCHARGE DISPOSITION: : FINAL REVIEWER: FINAL REVIEW DATE: DCP Focus Questions & Answers DCP Screen QUESTION: ANSWER High Risk Factors: : Poor social support DCP Evaluation QUESTION: ANSWER Family / Caregiver's ability to cope with chronic illness: : c. Inadequate (Enables pt. to make bad choices, cannot meet pt's. needs, difficult family dynamics) Patient's current cognitive status: : Intermittently confused / memory changes Patient's ability to cope with chronic illness : c. Inadequate (3+ ED visits in 6 mos., readmits within 30 days, 2+ hospital admissions in 1 yr.) Functional screen assessment: : Unable to manage ADLs without immediate ongoing assistance Family / Caregiver's ability to cope with chronic illness: : c. Inadequate (Enables pt. to make bad choices, cannot meet pt's. needs, difficult family dynamics) Physical Status: : Partial care dependence Physical Status: : Mobility impaired Is there a likelihood that the patient will require additional services to return to the preadmission environment? : Yes Living Arrangements: : Home Alone with No Support Partial Dependence, assistance required for: : Dressing Partial Dependence, assistance required for: : Bathing Partial Dependence, assistance required for: : Ambulation / Mobility Patient with capacity for self-care or can be cared for in same environment as prior to hospitalization? : No Baseline cognitive status: : Needs prompting and supervision Comments: : PATIENT ADMITTED FROM REHAB. LIVED ALONE PRIOR, MAY NEED FPC CARE. Medication Management: : Multiple Pharmacy Use [facility] Would patient like to participate in any Care Coordination programs (if applicable): : Not applicable Equipment in use: : Wheelchair Equipment in use: : Walker - Rolling Equipment in use: : Cane - Single Leg Mental health screen: : No mental health history Psychosocial status: : Adult with physical limitations DCP Re-evaluation QUESTION: ANSWER Would patient like to participate in any Care Coordination programs (if applicable): : Not applicable PROVIDER NETWORKING REVIEW DATE: 07/08/2020 SERVICE TYPE: [facility] REVIEWER: Kate Hoover PATIENT: ELLIOTT SILVERIO ENCOUNTER: [id number] MEDICAL RECORD#: [id number] ADMISSION DATE: 07/03/2020 DISCHARGE DATE: 07/18/2020 ATTENDING MD: MARQUEZ THOMPSON : AGE: 80 MARITAL STATUS: D DC PLAN ID: [id number] FACILITY: [facility] PRINTED ON: 07/18/20 12:59 CT All edits/amendments must be made on the electronic document DICTATION DATE: 07/18/20 125 PACKING ROOM WORKER: DM 07/18/20 1259 RPT#: [id number] DC DATE:07/18/20 STATUS: DIS IN [facility] [address] [place] [address] END OF REPORT
== END 2020-07-18 12:52 | DRG 40 ==
LOC: D.M2 14:03 → D.MS 15:35
PROVIDERS: Emergency Medicine; Family Medicine; Orthopaedic Surgery; ADMIT Emergency Medicine; ATTEND Emergency Medicine
PROC: 0HR Skin and Breast, Replacement (ICD-10-PCS; principal; 2020-07-06 09:30)
PROC: 0JBN0ZZ Excision of Right Lower Leg Subcutaneous Tissue and Fascia, Open Approach (ICD-10-PCS; 2020-07-06 09:30)
DX: G72.81 Critical illness myopathy (principal); G93.41 Metabolic encephalopathy; I50.23 Acute on chronic systolic (congestive) heart failure; E43 Unspecified severe protein-calorie malnutrition; J18.9 Pneumonia, unspecified organism; I42.9 Cardiomyopathy, unspecified; I13.0 Hypertensive heart and chronic kidney disease with heart failure and stage 1 through stage 4 chronic kidney disease, or unspecified chronic kidney disease; D50.9 Iron deficiency anemia, unspecified; E11.65 Type 2 diabetes mellitus with hyperglycemia; H40.9 Unspecified glaucoma; I25.10 Atherosclerotic heart disease of native coronary artery without angina pectoris; F32.9 Major depressive disorder, single episode, unspecified; E66.9 Obesity, unspecified; Z91.14 Patient's other noncompliance with medication regimen; E11.22 Type 2 diabetes mellitus with diabetic chronic kidney disease; N18.9 Chronic kidney disease, unspecified; T87.81 Dehiscence of amputation stump; Z68.33 Body mass index [BMI] 33.0-33.9, adult

== ENCOUNTER 2020-07-22 21:23 | Inpatient (IN) | payer MEDICARE, OTHER ==
[~2020-07-22] VITALS: Ht 185.4 cm; Wt 107.0 kg
[~2020-07-22 21:23] MED LIST changes: +ALDACTONE25 MG PO; +BUMEX2 MG PO; +CIPRO250 MG PO; +FLORAJEN3 CAPS460 MG PO; +FLUCONAZOLE150 MG PO; +FOLATE0.4 MG PO; +PROTONIX40 MG PO
[2020-07-22] MEDS ORDERED: FLORANEX / LACT1 TAB (21:33)
[2020-07-22] MEDS ORDERED: ASCORBIC ACID500 MG PO (21:34)
[2020-07-22] MEDS ORDERED: PIOGLITAZONE15 MG PO (21:34)
[2020-07-22] MEDS ORDERED: LIPITOR80 MG PO (21:34)
[2020-07-22] MEDS ORDERED: BANOPHEN25 MG PO (21:35)
[2020-07-22] MEDS ORDERED: ALPHAGAN 0.2%5 ML EACH EYE (21:36)
[2020-07-22] MEDS ORDERED: COREG 3.1253.125 MG PO (21:40)
[2020-07-22] MEDS ORDERED: BUMEX2 MG PO (21:40)
[2020-07-22] MEDS ORDERED: VITAMIN D325 MC1 PO (22:00)
[2020-07-22] MEDS ORDERED: CIPRO250 MG PO (22:01)
[2020-07-22] MEDS ORDERED: COLACE100 MG PO (22:01)
[2020-07-22] MEDS ORDERED: FLOMAX0.4 MG PO (22:02)
[2020-07-22] MEDS ORDERED: TRUSOPT 2 % OPT10 ML EACH EYE (22:02)
[2020-07-22] MEDS ORDERED: CYMBALTA60 MG PO (22:02)
[2020-07-22] MEDS ORDERED: NEURONTIN 400400 MG PO (22:03)
[2020-07-22] MEDS ORDERED: FOLATE0.4 MG PO (22:03)
[2020-07-22] MEDS ORDERED: GLUCOSAMINE HC500 MG PO ×2 (22:04→22:05)
[2020-07-22] MEDS ORDERED: BASAGLAR K100 UNIT/1 SC (22:05)
[2020-07-22] MEDS ORDERED: LIDODERM 5 %1 PATCH TRANSDERM (22:06)
[2020-07-22] MEDS ORDERED: NAMENDA5 MG PO (22:06)
[2020-07-22] MEDS ORDERED: MELATONIN 3 MG1 TAB PO (22:06)
[2020-07-22] MEDS ORDERED: MULTI-DAY VITAM1 TAB PO (22:07)
[2020-07-22] MEDS ORDERED: HYDROCODON-ACE1 EAC7 PO (22:08)
[2020-07-22] MEDS ORDERED: PROTONIX40 MG PO (22:09)
[2020-07-22] MEDS ORDERED: ALDACTONE50 MG PO (22:09)
[2020-07-22] MEDS ORDERED: TRAZODONE HCL50 MG PO (22:09)
[2020-07-22] MEDS ORDERED: SANTYL30 GM TP (22:09)
[2020-07-22] MEDS ORDERED: BUPROPION XL150 MG PO (22:10)
[2020-07-22 22:21] VITALS: BP 115/98
[2020-07-22 22:28] LABS: NITRITE NEGATIVE (NEGATIVE)
[2020-07-22 22:29] LABS: BILIRUBIN NEGATIVE (NEGATIVE); KETONE NEGATIVE (NEGATIVE); UROBILINOGEN NORMAL mg/dL (< 2)
--- NOTE | 2020-07-22 23:45 | NUR ---
NEW ADMIT FROM THE [facility] TO DR SANTOS FOR ALTERED MENTAL STATUS AND AGGRESSION WITH STAFF AT THE [facility]. RECEIVED VIA EMS. TRANSFERED TO BED. PT IS VERY CONFUSED. HALLUCINATIONS AT TIMES. PATIENT DAUGHTER "RUTH" CALLED AND ADMIT CONSENT RECEIVED. CODE STATUS OF FULL CODE RECEIVED. PATIENT SECURITY CODE OF 9584 GIVEN. DAUGHTER STATES THAT PT HAS AN ADDICTION TO [place] AND HE GETS LIKE THIS WHEN HE IS IN WITHDRAWS. RIGHT BKA. COOPERATIVE WITH COVID TEST AND U/A RECEIVED WITHOUT AGGRESSION. RESTING IN BED WITH EYES CLOSED AT THIS TIME. YELLS OUT FROM BED.
--- NOTE | 2020-07-23 05:14 | NUR ---
PT YELLING OUT AT UNSEEN OTHERS IN THE ROOM. YELLING OUT PRAYERS. EASY TO REDIRECT BUT REQUIRES CONSTANT REDIRECTION.
[2020-07-23 07:25] LABS: BASOPHILS 0.3 % (0-2); EOSINOPHILS 2.3 % (0-7); HEMATOCRIT 30.9 % (42.0-54.0); HEMOGLOBIN 9.5 g/dL (13.5-17.5); IMMATURE GRANULOCYTES 0.4 % (0-5); LYMPHOCYTE ABS# 1.44 10x3/uL (1.32-3.57); LYMPHOCYTES 18.7 % (15-50); MCH 28.9 pg (26.0-34.0); MCHC 30.7 g/dL (31.0-37.0); MCV 93.9 fL (80.0-100.0); MEAN PLATELET VOLUME 10.6 fL (7.4-10.4); MONOCYTES 11.9 % (2-11); NEUTROPHIL ABS# 5.11 10x3/uL (1.78-5.38); NEUTROPHILS 66.4 % (40-80); PLATELET COUNT 235 10x3/uL (130-400); RBC 3.29 10x6/uL (4.20-6.10); RDW 17.5 % (11.5-14.5); WBC 7.7 10x3/uL (4.8-10.8)
[2020-07-23 08:11] LABS: ALBUMIN 2.2 g/dL (3.4-5.0); ANION GAP 9.5 mmol/L (8-16); BILIRUBIN - TOTAL 0.39 mg/dL (0.2-1.3); CALCIUM 8.5 mg/dL (8.5-10.1); CARBON DIOXIDE 34.3 mmol/L (21.0-32.0); CHOL - HDL RATIO 1.6 ratio (2.3-4.9); CREATININE - SERUM 1.3 mg/dL (0.6-1.3); LDL-HDL RATIO 0.4 ratio (1.5-3.5); POTASSIUM - SERUM 3.8 mmol/L (3.5-5.1); PROTEIN - SERUM 7.1 g/dL (6.4-8.2); THYROID STIMULATING HORMONE 2.87 uIU/mL (0.36-3.74)
[2020-07-23 08:43] VITALS: BP 121/63
--- NOTE | 2020-07-23 18:51 | NUR ---
RECEIVED THIS AM IN BED.REMAINS IN ISOLATION PENDING RESULTS OF COVID TEST.IS VERY CONFUSED AND DISORIENTED.HAS VISUAL AND AUDITORY HALLUCINATIONS.WILL CONTINUE WITH CURRENT PLAN OF CARE,MONITOR FOR CHANGES AND SAFETY.
--- NOTE | 2020-07-23 21:46 | NUR ---
RECEIVED IN BEDROOM. RESTING IN BED WITH EYES CLOSED. RESPONDS TO VOICE. CALM AND COOPERATIVE WITH CARE AND ASSESSMENT. NO SIGNS OF AGGRESSION. REDIRECT AND REORIENT NEEDED. CONTINUES TO REST QUIETLY IN BED. CONTINUE PLAN OF CARE.
[2020-07-23 22:26] VITALS: BP 130/73
[2020-07-24 07:15] LABS: RAPID PLASMA REAGIN Non Reactive (Non Reactive)
[2020-07-24 08:00] VITALS: BP 107/44
--- NOTE | 2020-07-24 09:55 | NUR ---
NURSE SPOKE WITH DR. SALEH IN REGARDS TO PT RIGHT BKA WITH YELLOW DRAINAGE AND REDNESS NOTED AROUND OUTSIDE OF STUMP. DR. SALEH ORDERED TO CONSULT ORTHO AND HAVE THEM LOOK AT THE WOUND. WILL NOTIFY DR. SHIN.
--- NOTE | 2020-07-24 09:58 | NUR ---
NURSE NOTIFY DR. SHIN IN REGARDS TO PT RIGHT BKA WITH DRAINAGE AND REDNESS NOTED TO OUTSIDE WOUND WELL. NO NEW ORDERS WERE GIVEN. DR. SHIN STATED THAT WOUND IS HEALING THE YELLOW DRAINAGE IS SUPPOSE TO HELP THE WOUND HEAL BUT WOULD REQUIRE CONTINUITIES DRESSING CHANGES TO THAT BKA. HE STATED HE WOULD COME SEE THE WOUND THIS SHIFT BUT NO ORDERS AT THIS TIME. NURSE THANKED DR. SHIN.
[2020-07-24 13:11] VITALS: Ht 185.4 cm; Wt 107.0 kg
--- NOTE | 2020-07-24 15:56 | PSY ---
PATIENT NAME:ELLIOTT SILVERIO MEDICAL RECORD: [id number] : 42 LOCATION:[facility] ADMISSION DATE: 07/22/20 ACCOUNT: [id number] PSYCHIATRIC EVALUATION DATE OF EVALUATION: 07/23/20 IDENTIFYING DATA: The patient is 80 years old and he is referred to us by the [facility]. CHIEF COMPLAINT: Aggression. HISTORY OF PRESENT ILLNESS: The patient is a very poor historian. He is angry and not very cooperative. The retirement tells us that he has been sexually inappropriate, although I do not have the details of how well. They say he has been yelling out, which I understand he has been doing that here. He also has been confused. Clearly, he has an advanced dementia, perhaps they mean the confusion has worsened. He has been a resident there for 6 years. They also indicate he has been hyper-holiness that has not been observed since he has been here. The patient when I tried to speak with him is obviously impaired and confused, but he does not answer questions appropriately. He becomes angry and irritated. 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 PAST PSYCHIATRIC HISTORY: Significant for a longstanding history of dementia. FAMILY HISTORY: Unknown. ALLERGIES: IODINE. CURRENT MEDICATIONS: Include Namenda and Coreg. SOCIAL HISTORY: The patient is denying drug and alcohol use. He lives in a retirement and does not answer questions about his occupation or family. MENTAL STATUS EXAMINATION: The patient is alert and oriented to person only. His mood is angry. His affect is constricted. Memory, concentration, and abstraction abilities could not be tested because of poor cooperation, but based on the context they can be inferred to be severely impaired. He does deny any thoughts of harming himself. He also denies angrily that he would hurt anyone else. ASSESSMENT: AXIS I: Right below-knee amputation, osteomyelitis of the foot and ankle, chronic kidney disease, anemia, hypertension, metabolic encephalopathy, hyperlipidemia, and benign prostatic hypertrophy. AXIS IV: Severe. AXIS V: Global assessment of functioning is 20. PLAN: At this time, the patient is admitted to the hospital secondary to aggressive behavior at the retirement that makes him dangerous and unmanageable there. He is otherwise not aggressive or disruptive at this point. He will be monitored for clinical changes with regard to his current medications. TRANSINT:[id number] Voice Confirmation ID: [id number] DOCUMENT ID: [id number] LINDEN SANTOS MD at 1556 CC: [id number] DICTATION DATE: 07/23/20 162 WAXED BAG MACHINE OPERATOR: 07/23/20 1704 ADM IN [place] [id number] [place] [id number]
--- NOTE | 2020-07-24 17:01 | NUR ---
Rec'd patient this am lying in bed. He is restless and somewhat aggitated. He is talking about "needing to pee...I layed here 8 hours and no one came and I told them to not take my cath out...that this would happen" He is A/O to person but very confused to situation. He has a right BKA that he has loosen the dressing till it came off that was on his stump. There is all areas of the stump area exposed of tissue, ligaments, etc...The tissue around the stump area is very reddened and slightly warm but not hot.There is a dressing to his left toe area that exposes his great toe and the nail and foot has sensation and slow cap refill. He has slow pedal pulses and they are diff. to palpate. Two thru 4. toes have been removed and only tissue remains. The tissue has some open areas with slight drainage and all areas are not proximal. Dr. Love present on unit and request referral to surgeon. Areas cleaned with wound cleanser, pat dried, covered with a non-adhereing dressing, titi wrap and taped in place. His funimlayo-area and coccyx is reddened. Earlier this day, he had yelled out but he took his am meds without difficulty and has slept most of the day. He has shown no aggression or sexuality inappro. behavior today. He is on droplet precautions for admission covid testing. He is med compliant
--- NOTE | 2020-07-24 18:46 | NUR ---
THE [facility] CALLED THIS SHIFT TO CHECK ON HOW THE PT WAS DOING AT THIS TIME. NURSE GAVE AN UPDATE ON PT WAS DOING AT THIS TIME. HE WAS YELLING OUT, CONFUSED, AND IS EATING. PT IS COMPLIANT WITH MEDS, VITALS AND ASSESSMENTS. SHE GAVE UPDATE ON HOW HE DID AT THE [facility]. HE WAS VERY COMBATIVE. SHE STATED SHE WOULD CALL BACK AT ANOTHER TIME TO SEE HOW HE IS DOING.
[2020-07-24 20:00] VITALS: BP 117/64
--- NOTE | 2020-07-24 20:09 | NUR ---
RECEIVED PATIENT IN [facility], ACTUALLY HAS A GOOD AFFECT AND IS BEING PLEASANT AND OFFERED A HUG, SHE WAS ALSO COMPLIANT WITH MEDS. SHE IS CONGNITIVELY LIMITED AND LABILE AT TIMES. SHE CAN MAKE HER NEEDS KNOWN. WILL FOLLOW POC
--- NOTE | 2020-07-24 20:49 | NUR ---
PATIENT RECEIVED IN HIS ROOM SLEEPING, EASILY AROUSED, NO AGGRESSION OR YELLING AT THIS TIME. COMPLIANT WITH MEDS. WILL FOLLOW POC
[2020-07-25 08:55] VITALS: BP 125/71
--- NOTE | 2020-07-25 09:30 | NUR ---
LAB CALLED AND SARS-19 RESULTS WERE NEGATIVE.
--- NOTE | 2020-07-25 10:01 | NUR ---
PT CALLED TO CHECK ON THE PT AT THIS TIME. PASSCODE GIVEN AT THIS TIME. CALLED TO LET NURSE KNOW PT BROTHER WAS COMING TO VISIT PT THIS SHIFT.
--- NOTE | 2020-07-25 16:09 | PN ---
PATIENT:ELLIOTT SILVERIO MEDICAL RECORD: [id number] LOCATION:[facility] ADMISSION DATE: 07/22/20 PROGRESS NOTE DATE OF SERVICE: 07/24/2020 SUBJECTIVE: The patient's case was discussed with staff. He has no new complaint. OBJECTIVE: The patient has been angry and irritable, but not openly aggressive with the exception of getting angry and throwing his breakfast or lunch tray on the ground. ASSESSMENT: Vascular dementia. PLAN: Supportive and educational interventions were made. Long-term prognosis is guarded. TRANSINT:[id number] Voice Confirmation ID: [id number] DOCUMENT ID: [id number] LINDEN SANTOS MD at 1609 CC: [id number] DICTATION DATE: 07/24/20 164 DRAINMAN: 07/24/20 2329 ADM IN [place] [id number] [place] [address]
--- NOTE | 2020-07-25 17:56 | NUR ---
PHARMACY CALLED AND NOTIFIED OF INCORRECT DOSAGE ON MEDICATION AT THIS TIME. INCORRECT ORDER WAS BUMEX 10 TID. ORDER WAS BUMEX 2 MG DAULY. NURSE NOTIFIED MANAGER GROCERY AND DR. SANTOS ABOUT INCORRECT DOSAGE. PT IS DOING WELL AND RESPONSIVE. NO C/O AT THIS TIME.
--- NOTE | 2020-07-25 18:37 | NUR ---
PT RESTING AT THIS TIME. CONFUSED AND ALERT TO SELF ONLY. REDIRECT AND REORIENT NEEDED. NO YELLING OUT NOTED. AC AND HS FSBS. CONT TO CLEAN AND REDRESS R BKA AND MISSING DIGITS ON LEFT FOOT. PT IS COOPERATIVE WITH MEDS, VITALS AND ASSESSMENTS. BED ALARM IN PLACE AND ACTIVE. WILL ASK FOR BED PANS AT TIMES. WILL CONT PLAN OF CARE.
[2020-07-25] MEDS ORDERED: BUMEX2 MG PO (18:53)
[2020-07-25 20:00] VITALS: BP 102/59
--- NOTE | 2020-07-26 01:37 | NUR ---
B) Patient is alert and oriented to person, calm and cooperative this shift, able to make needs known, I) Administered scheduled medications as ordered, monitored for safety, monitored FSBS, R) Medication compliant, resting quietly in his bed, P) Continue plan of care.
--- NOTE | 2020-07-26 08:42 | NUR ---
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 The report is to follow.
[2020-07-26 10:00] VITALS: BP 97/53
--- NOTE | 2020-07-26 13:34 | NUR ---
pt sitting up in bed. calm and cooperative with redirect, care, meds, vitals. No combative behavior noted. previous shift did report aggressive behavior with pericare. requires assistance with ALDs. turn and reposition q 2 hr and prn. apply barrier creams q 2 hr and prn. pt on contact isolation for VRE and MRSA. pt does better with assist feedings. pt can feed self at times. cont to encourage fluid intake. last BM 07/26/20. urinates well. will request a bed mendoza at times. no yelling out noted. will assist with pericare. wedges in place. heels floated. bed alarm in place and active. will cont plan of care.
[2020-07-26 18:02] LABS: ANION GAP 8.8 mmol/L (8-16); CALCIUM 8.3 mg/dL (8.5-10.1); CARBON DIOXIDE 33.7 mmol/L (21.0-32.0); CREATININE - SERUM 2.1 mg/dL (0.6-1.3); POTASSIUM - SERUM 3.5 mmol/L (3.5-5.1)
--- NOTE | 2020-07-26 18:31 | NUR ---
Dressing to right leg stump and to left toes 2 thru 5 assessment and dressing complete. Assessment to left toes 2 thru 5, areas to 2 and 3 areas cleaned and healing noted without open areas then cleaning to toe 4 and 5 area cleaned with wound boiler cleaner and patted dry. area to inside of incision line is one small opening. area measured with sterile q-tip and it measures 1/4 cm. area is very clean without any drainage or s/sx of infection. there is a small round blackened area to under side of the great toe. all areas cleaned, patted dry, Santyl applied then non adherring dressing then chanelle wrap and taped in place. Assessment to right stump noted a light green drainage to dirty guaze. areas with red blood and exposed sprayed with wound cleanser, pat dried, Santly applied then non-adhereing dressing, Chanelle and then taped in place.
[2020-07-26 20:00] VITALS: BP 108/56
--- NOTE | 2020-07-26 21:50 | NUR ---
PT IS ALERT AND ORIENTED TO SELF ONLY AND RELATES THAT HE IS IN THE HOSPITAL. RECEIVED IN BED WITH EYES OPEN. CALM AND COOPERATIVE WITH STAFF. COMPLIANT WITH ALL MEDICATIONS. PROVIDED HS SNACK. PT TOLERATED WELL. ABLE TO VOICE NEEDS AND WANTS. EASY TO REDIRECT. NO YELLING OUT AT THIS TIME. MONITOR FOR SAFETY.
[2020-07-27 08:45] VITALS: BP 106/61
--- NOTE | 2020-07-27 16:38 | NUR ---
RECEIVED THIS AM IN BED.REMAINS IN CONTACT ISOLATION FOR VRE AND MRSA.IS ORIENTED X 3.COMPLIANT WITH STAFF AND MEDS.DRESSING TO RT STUMP INTACT,CLEAN AND DRY.WILL CONTINUE WITH CURRENT PLAN OF CARE,MONITOR FOR CHANGES AND SAFETY.
--- NOTE | 2020-07-27 19:34 | NUR ---
DRESSING CHANGE DONE TO RT STUMP.RT STUMP WITH LARGE AMOUNT OF THICK YELLOWISH MUCUS LOOKING SUBSTANCE ON PINK TISSUE.NO FOUL ODOR DETECTED.WOUND CLEANED WITH SALINE AND SANTYL APPLIED TO YELLOW SUBSTANCE,ADAPTIC AND MIGUEL ANGEL UTILIZED.
[2020-07-27 20:00] VITALS: BP 114/60
--- NOTE | 2020-07-27 21:16 | NUR ---
PT IS ALERT AND ORIENTED TO SELF, PLACE AND SITUATION. RECEIVED IN HIS ROOM IN BED RESTING CALMLY. COOPERATIVE WITH STAFF. REPOSTIONED TO MAINTAIN SKIN INTEGRITY. COMPLIANT WITH ALL MEDICATIONS. NO AGGRESSION NOTED. MONITOR FOR SAFETY.
[2020-07-28 08:22] VITALS: BP 119/45
--- NOTE | 2020-07-28 15:36 | NUR ---
Rec'd patient this am up in bed. He is A/O times one to his person. He is med compliant and takes his meds whole.He has demonstrated no aggressive behavior today. He is calm and cooperative. He has a BKA to his right and to his left he has large toe is the only toe present on that foot, and his buttocks is slightly reddened. All areas were cleaned and redressed today by the staff nurse. fingerstick blood glucoses obtained and covered with Insulin as needed.
--- NOTE | 2020-07-28 19:09 | NUR ---
Dressing change to right stump. Area with pink healthy tissue and small areas of positive granulation. Area to left to 4th and 5th toe area tissue has opened up. no active s/sx of infection. cleaned area with wound shoe cleaner, pat dried , applied Santly, covered with non-adhering dressing. titi wrapped, and taped in place.
--- NOTE | 2020-07-28 19:57 | NUR ---
RECEIVED IN BEDROOM. RESTING IN BED WITH EYES CLOSED. CALM AND COOPERATIVE WITH CARE AND ASSESSMENT. NO SIGNS OF AGGRESSION. REDIRECT AND REORIENT NEEDED. CONTINUES TO REST QUIETLY IN BED. CONTINUE PLAN OF CARE.
[2020-07-28 21:20] VITALS: BP 105/33
[2020-07-29] VITALS: BP 104/56
[2020-07-29 08:00] VITALS: BP 109/43
--- NOTE | 2020-07-29 08:54 | PN ---
PATIENT:ELLIOTT SILVERIO MEDICAL RECORD: [id number] LOCATION:[facility] ADMISSION DATE: 07/22/20 PROGRESS NOTE DATE OF SERVICE: 07/25/2020 SUBJECTIVE: The patient's case was discussed with staff. He has no new complaint. OBJECTIVE: The patient is only oriented to person. He has been confused and agitated, yelling through much of the night with a fair amount of mood lability. ASSESSMENT: Vascular dementia. PLAN: The patient will be treated with a slightly higher dose of Geodon along with a low dose of Klonopin to relieve his agitation. TRANSINT:[id number] Voice Confirmation ID: [id number] DOCUMENT ID: [id number] LINDEN SANTOS MD at 0854 CC: [id number] DICTATION DATE: 07/25/201655 COIL ASSEMBLER: 07/25/203 ADM IN [facility] [address] [place] [address]
--- NOTE | 2020-07-29 10:07 | NUR ---
Nutrition Follow-up: Diet: Diabetic + Protonix BID PO intake: ~52% average x last 9 meals Last BM: 07/27/20 Wt: 256# (07/24/20) Meds noted: bumex, SSI, abx, probiotics, MVI Labs noted: POC Glu 174(H) Recommend continue current diet and nutrition supplements. Encourage PO intake. RD will follow-up 07/31/20.
--- NOTE | 2020-07-29 17:43 | NUR ---
ALERT, CALM, COOPERATIVE THIS SHIFT. MEDS ADMIN PER ORDERS WITH COMPLETE MED COMPLIANCE NOTED. NO ADVERSE REACTION TO MEDS. DRESSING TO LEFT FOOT AND RIGHT STUMP CHANGED PER ORDERS. SURGEON NOTIFIED TO EXAMINE WOUNDS WITH NO NEW ORDERS NOTED. APPETITE GOOD, FEEDS SELF WITHOUT DIFFICULTY.
--- NOTE | 2020-07-29 20:41 | NUR ---
RECEIVED IN BEDROOM. RESTING QUIETLY IN BED WITH EYES OPEN. CALM AND COOPERATIVE WITH CARE AND ASSESSMENT. NO SIGNS OF AGGRESSION. REDIRECT AND REORIENT NEEDED.. CONTINUES TO REST QUIETLY IN BED. CONTINUE PLAN OF CARE.
[2020-07-29 21:42] VITALS: BP 115/62
[2020-07-30 14:19] VITALS: BP 105/50
--- NOTE | 2020-07-30 14:19 | PN ---
PATIENT:ELLIOTT SILVERIO MEDICAL RECORD: [id number] LOCATION:[facility] ADMISSION DATE: 07/22/20 PROGRESS NOTE DATE OF SERVICE: 07/29/2020 SUBJECTIVE: The patient's case was discussed with staff. He has no new complaint. OBJECTIVE: The patient is in good behavioral control. He has poor insight about his situation. ASSESSMENT: Vascular dementia. PLAN: The patient will be maintained on current medicines. Long-term prognosis is guarded. His behavior has dramatically improved. TRANSINT:[id number] Voice Confirmation ID: [id number] DOCUMENT ID: [id number] LINDEN SANTOS MD at 1419 CC: [id number] DICTATION DATE: 07/29/20 1616 SALON SUPERVISOR: 07/29/20 2301 ADM IN [place] [id number] [place] [address]
--- NOTE | 2020-07-30 15:10 | NUR ---
PT SITTING IN CHAIR AT THIS TIME. YELLING OUT. CONFUSION NOTED. REDIRECT AND REORIENT NEEDED. PT CAN BE DIFFICULT TO REDIRECT. PT CONTS TO REMOVE DRESSINGS TO BKA. CONT TO REDIRECT PT BEHAVIOR AND EDUCATE REASON TO LEAVE DRESSING IN PLACE. COMPLIANT WITH MEDS, VITALS AND ASSESSMENTS. REQUIRES TOTAL ASSISTANCE WITH CARE. RESHMA LIFT AND 2X ASSISTANCE REQUIRED. CONT PERICARE Q 2 HR AND PRN. PT IS COOPERATIVE WITH PERICARE AND TURNS. W/C CUSHION IN PLACE. BED AND CHAIR ALARM IN PLACE AND ACTIVE. WILL CONT PLAN OF CARE.
--- NOTE | 2020-07-30 16:20 | NUR ---
PT YELLING OUT AT THIS TIME, MOANING IN PAIN, UNABLE TO TELL STAFF WHAT WAS WRONG AT THIS TIME. ATIVAN 0.5 MG PO GIVEN PER DR. SANTOS ORDER. WILL CONT TO MONITOR.
--- NOTE | 2020-07-30 17:20 | NUR ---
PRN EFFECTIVE AT THIS TIME.
--- NOTE | 2020-07-30 18:53 | NUR ---
[employer] CHANGED PTS BANDAGES 2X THIS SHIFT. PT CONTS TO REMOVE BANDAGES AT THIS TIME.
--- NOTE | 2020-07-30 20:15 | NUR ---
RECEIVED IN BEDROOM. RESTING IN BED WITH EYES CLOSED. SPONDS TO VOCIE. CALM AND COOPERATIVE WITH CARE AND ASSESSMENT. NO SIGNS OF AGGRESSION. REDIRECT AND REORIENT NEEDED. CONTINUES TO REST QUIETLY IN BED. CONTINUE PLAN OF CARE.
[2020-07-30 21:50] VITALS: BP 116/56
[2020-07-31 09:22] VITALS: BP 100/60
[2020-07-31 11:28] LABS: ANION GAP 10.4 mmol/L (8-16); CALCIUM 9.1 mg/dL (8.5-10.1); CARBON DIOXIDE 30.2 mmol/L (21.0-32.0); CREATININE - SERUM 1.9 mg/dL (0.6-1.3); POTASSIUM - SERUM 3.6 mmol/L (3.5-5.1)
[2020-07-31 12:36] LABS: BASOPHILS 0.4 % (0-2); HEMATOCRIT 32.6 % (42.0-54.0); HEMOGLOBIN 10.3 g/dL (13.5-17.5); IMMATURE GRANULOCYTES 0.1 % (0-5); LYMPHOCYTE ABS# 1.63 10x3/uL (1.32-3.57); LYMPHOCYTES 23.1 % (15-50); MCHC 31.6 g/dL (31.0-37.0); MCV 91.8 fL (80.0-100.0); MEAN PLATELET VOLUME 10.7 fL (7.4-10.4); MONOCYTES 8.2 % (2-11); NEUTROPHIL ABS# 4.59 10x3/uL (1.78-5.38); NEUTROPHILS 65.2 % (40-80); PLATELET COUNT 201 10x3/uL (130-400); RBC 3.55 10x6/uL (4.20-6.10); RDW 16.5 % (11.5-14.5); WBC 7.1 10x3/uL (4.8-10.8)
--- NOTE | 2020-07-31 15:03 | PN ---
PATIENT:ELLIOTT SILVERIO MEDICAL RECORD: [id number] LOCATION:[facility] ADMISSION DATE: 07/22/20 PROGRESS NOTE DATE OF SERVICE: 07/30/2020 SUBJECTIVE: The patient's case was discussed with staff. He has no new complaint. OBJECTIVE: The patient has been somewhat agitated with pretty limited insight about his situation. ASSESSMENT: Vascular dementia. PLAN: The patient is going to be given a low dose of tramadol. His long-term prognosis is guarded. TRANSINT:[id number] Voice Confirmation ID: [id number] DOCUMENT ID: [id number] LINDEN SANTOS MD at 1503 CC: [id number] DICTATION DATE: 07/30/20 172 RADIO MECHANIC HELPER: 07/30/20 2338 ADM IN [place] [id number] [place] [address]
--- NOTE | 2020-07-31 15:16 | NUR ---
Nutrition Re-Assessment: Diet: Diabetic + Proteinex BID PO intake: ~47% average x last 9 meals Last BM: 07/31/20 x 2 Wt: 235# (07/29/20); Admit Wt: 256# (07/24/20) Meds noted: lantus, bumex, SSI, MVI, probiotics Labs noted: BUN 40(H), Cr 1.9(H), GFR 36(L), Glu 177(H) Estimated nutrition needs: [id number] subha (25-30 Adj), 64-86gms protein (0.6-0.8), fluid per MD Nutrition diagnosis: Inadequate energy intake r/t inadequate oral intake AEB PO intake <50% average. Nutrition goals: -PO intake will increase to >65% -Meet fluid needs -Stable weight DHS Recommendations/Interventions: -Continue diabetic diet. Will continue to honor food preferences within diet restrictions. -Proteinex was added by MD. Recommend changing from proteinex to Leandro for nutritionally aided wound healing. Recommend d/c proteinex 2/2 low GFR. -RD will follow-up within 7 days.
--- NOTE | 2020-07-31 19:05 | NUR ---
RECEIVED THIS AM IN BED,TRANSFERED TO RECLINER WITH RESHMA LIFT.IS ORIENTED TO PERSON,PLACE,TIME,SITUATION.COMPLIANT WITH STAFF AND MEDS.REMAINS IN CONTACT ISOLATION VRE AND MRSA.DRESSING CHANGE TO RT.STUMP DONE,SITE WITH SOME YELLOWISH TISSUE AND LARGE AMT.OF PINK HEALTHY LOOKING TISSUE.NO FOUL ODOR DETECTED.DRESSING CHANGE TO LEFT FOOT DONE,LARGE SCABBED AREA WITH PINK TISSUE PRESENT,NO FOUL ODOR DETECTED.NO AGGRESSION OBSERVED.WILL CONTINUE WITH CURRENT PLAN OF CARE,MONITOR FOR SAFETY AND CHANGES.
[2020-07-31 20:00] VITALS: BP 128/67
--- NOTE | 2020-07-31 23:29 | NUR ---
PT IS ALERT AND ORIENTED TO SELF AND SITUATION. RECEIVED IN HIS ROOM IN BED WITH EYES CLOSED. RESPONDS TO VERBAL STIMULI. COMPLIANT WITH ALL MEDICATIONS. CALM, COOPERATIVE AND PLEASANT WITH STAFF. OFFERED PT HS SNACK AND PT EXPRESSED APPRECIATION. DENIES ANY NEEDS AT THIS TIME. REPOSITIONED TO LEFT SIDE TO MAINTAIN SKIN INTEGRITY. MONITOR FOR SAFETY.
[2020-08-01 10:08] VITALS: BP 106/51
--- NOTE | 2020-08-01 11:38 | PN ---
PATIENT:ELLIOTT SILVERIO MEDICAL RECORD: [id number] LOCATION:[facility] ADMISSION DATE: 07/22/20 PROGRESS NOTE DATE OF SERVICE: 07/31/2020 SUBJECTIVE: The patient's case was discussed with staff. He has no new complaint. OBJECTIVE: The patient is in good behavioral control. He has poor insight about his situation. ASSESSMENT: Dementia. PLAN: The patient will be treated with a higher dose of Zoloft. TRANSINT:[id number] Voice Confirmation ID: [id number] DOCUMENT ID: [id number] LINDEN SANTOS MD at 1138 CC: [id number] DICTATION DATE: 07/31/20 1525 PRECISION LENS CENTERER AND EDGER: 07/31/20 1709 ADM IN [place] [id number]
--- NOTE | 2020-08-01 17:47 | NUR ---
PT IN DAYAREA WITH STAFF. CALM AND COOPERATIVE WITH STAFF. PT IS CALM AND PLESANT. PT CONTS ON CONTACT ISOLATION. CONTACT GOWN IN PLACE. PT CAN MAKE SOME NEEDS KNOWN. PT CAN NOT AMBULATE. PT IS COMPLIANT WITH MEDS, VITALS AND ASSESSMENTS. PT CONTS WITH EVERY OTHER DRESSINGS. PT WILL REMOVE DRESSING AT TIMES. CONT DRESSING CHANGES TO AMPUTATED 2,3,4,5. CONTS ON FSBS. BED AND CHAIR ALARM IN PLACE AND ACTIVE. WILL CONT PLAN OF CARE.
[2020-08-01 20:00] VITALS: BP 106/60
--- NOTE | 2020-08-01 20:31 | NUR ---
RECEIVED PATIENT IN HIS ROOM, HE IS CONFUSED BUT CALM, VERY PLEASANT, COMPLIANT WITH MEDS. WILL FOLLOW POC
[2020-08-02 08:30] VITALS: BP 108/50
[2020-08-02 09:27] VITALS: BP 108/50
--- NOTE | 2020-08-02 11:25 | NUR ---
NURSE NOTIFIED DR. JORDAN OF PT HACKING UP STATING HE HAD A BURNING SENSATION AND WAS COUGHING UP YESTERDAY CHICKEN. NEW ORDERS: PEPCID 20 MG BID. FIRST DOSE GIVEN. WILL CONT TO MONITOR.
--- NOTE | 2020-08-02 11:28 | NUR ---
NURSE REWRAPPED MY STUMP WELL. NURSE CLEANED PER ORDER AND WRAPPED. PT TOLERATED WELL.
--- NOTE | 2020-08-02 13:42 | NUR ---
radial recheck on pulse after reported 60 bpm. pt resting quietly in bed. confusion noted. alert to self only. can make some needs known. pt c/o of not feeling well this shift. new order for pepcid ordered and administered. requires total assistance with adls. pericare q 2 hr and prn. turn and reposition q 2 hr and prn. pt can turn self at times. no agression noted. compliant with meds, vitals and assessments. bed alarm in place and active. will cont plan of care.
--- NOTE | 2020-08-02 17:27 | NUR ---
Patient dressings to right BKA and left toes area ( toes 2 thru 5). Areas cleaned with wound roller cleaner, pat dry, Santyl applied to area, covered with non-adherent dressing, covered with Chanelle wrap amd taped in place. areas to right stump with pink areas of tissue and few areas of eschar and to left toes areas with skin proximal with one area to 4-5 toe with some endintions. areas clean/dry without s/sx of infection.
[2020-08-02 20:00] VITALS: BP 101/43
--- NOTE | 2020-08-02 20:09 | NUR ---
PT IS ALERT AND ORIENTED TO SELF, PLACE AND SITUATION. RECEIVED IN HIS BED RESTING CALMLY. COMPLIANT WITH ALL MEDICATIONS. EASY TO REDIRECT. EXPRESSES APPRECIATION TO STAFF FOR CARE AND ASSISTANCE. PROVIDED HS SNACK. PT REQUIRED ASSISTANCE WITH FEEDING. REPOSITION TO MAINTAIN SKIN INTEGRITY.
[2020-08-03 08:00] VITALS: BP 105/53
--- NOTE | 2020-08-03 16:25 | NUR ---
ALERT, CALM, COOPERATIVE. DRESSING TO STUMP REMOVED PER PATIENT. DRESSINGS TO STUMP AND LEFT FOOT CHANGED PER ORDERS. MEDS ADMIN PER ORDERS WITH COMPLETE MED COMPLIANCE NOTED. CONT POC OUTLINED.
--- NOTE | 2020-08-03 17:43 | NUR ---
PT NOTED TO HAVE SEVERAL LOOSE BOWEL MOVEMENTS ON PREVIOUS SHIFT AND THIS SHIFT. NEW ORDER FOR MIRALAX 17 GRAM Q DAILY HOLD ON 08/04/2020. RESUME ON 08/04/2020.
[2020-08-03 20:00] VITALS: BP 97/49
--- NOTE | 2020-08-03 23:11 | NUR ---
B)RECEIVED PATIENT LYING IN BED. AROUSED TO VERBAL STIMULI. ORIENTED TO PERSON AND PLACE. COOPERATIVE AND PLEASANT WITH ASSESSMENT. LAUGHS FREQUENTLY. POOR EYE CONTACT HOWEVER PERSON RELATES HE DOES NOT SEE WELL. POST RIGHT BKA AND ONLY HAS GREAT TOE ON LEFT FOOT. I)ADMINISTER MEDS AND MONITOR COMPLIANCE. REORIENT NEEDED. R)MED COMPLIANT. ACTIVE IN REORIENTATION HOWEVER DOES NOT RETAIN INFORMATION. P)CONTINUE POC AND PROVIDE SAFE ENVIRONMENT.
[2020-08-04 08:00] VITALS: BP 105/59
--- NOTE | 2020-08-04 10:00 | NUR ---
Received patient in bed with eyes open. Calm and cooperative with staff. Awake and alert to person only. Prescribed medications provided as ordered. Med compliant. Patient is continued on contact isolation. Patient can make some needs known to staff. Patient is unable to ambulate. Patient's dressings was changed this morning per med nurse. Patient does attempt to remove dressings throughout the shift. No behaviors noted at this time. Patient's mood is pleasant. No loose stools noted at this time. Redirect and reorient as needed. Fall precautions in place for safety. Bed alarm in place and active. Will continue plan of care.
--- NOTE | 2020-08-04 20:25 | NUR ---
RECEIVED IN BEDROOM. RESTING IN BED WITH EYES OPEN. CALM AND COOPERATIVE WITH CARE AND ASSESSMENT. NO SIGNS OF AGGRESSION. REDIRECT AND REORIENT NEEDED. CONTINUES TO REST QUIETLY IN BED. CONTINUE PLAN OF CARE.
[2020-08-04 21:12] VITALS: BP 109/65
[2020-08-05 08:00] VITALS: BP 114/67
--- NOTE | 2020-08-05 15:16 | PN ---
PATIENT:ELLIOTT SILVERIO MEDICAL RECORD: [id number] LOCATION:[facility] ADMISSION DATE: 07/22/20 PROGRESS NOTE DATE OF SERVICE: 08/01/2020 SUBJECTIVE: The patient's case was discussed with staff. He has no new complaint. OBJECTIVE: The patient denies intent to harm himself or others. He is much more cooperative than he had previously been. ASSESSMENT: Dementia. PLAN: Current medicines have been reviewed and will be maintained. Long-term prognosis is guarded. TRANSINT:[id number] Voice Confirmation ID: [id number] DOCUMENT ID: [id number] LINDEN SANTOS MD at 1516 CC: [id number] DICTATION DATE: 08/01/20 1636 CHURCH ORGANIST: 08/01/20 1809 ADM IN [place] [id number] [place] [address]
--- NOTE | 2020-08-05 19:00 | NUR ---
PATIENT EXHIBITED NO BEHAVIORAL ISSUES THIS SHIFT. MED COMPLIANT. ALERT, CALM, AND COOPERATIVE.
[2020-08-05 20:59] VITALS: BP 101/50
--- NOTE | 2020-08-05 21:00 | NUR ---
RECEIVED IN BEDROOM. RESTING IN BED WITH EYES CLOSED. RESPONDS TO VOICE. CALM AND COOPERATIVE WITH CARE AND ASSESSMENT.NO SIGNS OF AGGRESSION. REDIRECT AND REORIENT NEEDED. RESTING IN BED WITH EYES CLOSED AT THIS TIME. CONTINUE PLAN OF CARE.
--- NOTE | 2020-08-06 06:40 | NUR ---
BI LAT DRESSING CHANGES.
[2020-08-06 08:00] VITALS: BP 127/62
--- NOTE | 2020-08-06 14:00 | NUR ---
ATTEMPTED TO CONTACT PT'S DTR TO DISCUSS DISCHARGE PLANS. PT WILL BE RETURNED TO THE [facility] TOMORROW. THIS WAS THE FIRST CHOICE OF THE FAMILY. SW WAS NOT ABLE TO LEAVE VOICEMAIL. MESSAGED STATED WAS NOT ABLE TO RECIEVE CALLS AT THIS TIME.
--- NOTE | 2020-08-06 14:00 | NUR ---
TEARS AND HOLDING OF RT LEG.C/O PAIN RATED A 10.TRAMADOL 50MG PO GIVEN FOR C/O PAIN.
--- NOTE | 2020-08-06 14:30 | NUR ---
RESTING QUIETLY WITH EYES CLOSED.GOOD RESPONSE TO TRAMADOL.
--- NOTE | 2020-08-06 15:49 | PN ---
PATIENT:ELLIOTT SILVERIO MEDICAL RECORD: [id number] LOCATION:[facility] ADMISSION DATE: 07/22/20 PROGRESS NOTE DATE OF SERVICE: 08/05/2020 SUBJECTIVE: The patient's case was discussed with staff. He has no new complaint. OBJECTIVE: The patient denies that he would seek to harm himself or others. He is in better behavioral control, but will still yell out intermittently. ASSESSMENT: Vascular dementia. PLAN: The patient's scheduled Klonopin will be increased slightly to address this anxiety and agitation. His long-term prognosis is guarded. TRANSINT:[id number] Voice Confirmation ID: [id number] DOCUMENT ID: [id number] LINDEN SANTOS MD at 1549 CC: [id number] DICTATION DATE: 08/05/20 165 HOG PUSHER: 08/05/[address] [facility] [address] [place] [address]
[2020-08-06] MEDS ORDERED: ZOLOFT50 MG PO (17:08)
[2020-08-06] MEDS ORDERED: KLONOPIN0.5 MG PO (17:09)
[2020-08-06] MEDS ORDERED: GEODON20 MG PO (17:09)
[2020-08-06] MEDS ORDERED: PEPCID PO (17:10)
[2020-08-06] MEDS ORDERED: MIRALAX17 GM PO (17:10)
[2020-08-06] MEDS ORDERED: COLACE100 MG PO (17:10)
[2020-08-06] MEDS ORDERED: GLUCOSAMINE HC500 MG PO (17:11)
--- NOTE | 2020-08-06 18:04 | NUR ---
RECEIVED RESTING QUIETLY IN BED THIS AM.[facility]IS COMPLIANT WITH STAFF AND MEDS.NO AGGRESSION OBSERVED TODAY.DRESSING CHANGE DONE THIS EVENING DUE TO OLD DRESSING COMMING OFF RT.STUMP.SITE CLEANED WITH NS AND STERILE DRESSING APPLIED PER ORDERS.WOUND HEALING WELL,NO FOUL ODOR PRESENT.WILL CONTINUE WITH CURRENT PLAN OF CARE,MONITOR FOR CHANGES AND SAFETY.
[2020-08-06 20:30] VITALS: BP 94/60
--- NOTE | 2020-08-06 20:45 | NUR ---
RECEIVED IN BEDROOM. RESTING IN BED WITH EYES CLOSED. RESPONDS TO VOICE. CALM AND COOPERATIVE WITH CARE AND ASSESSMENT. NO SIGNS OF AGGRESSION. REDIRECT AND REORIENT NEEDED. CONTINUES TO REST CALM IN BED. CONTINUE PLAN OF CARE.
--- NOTE | 2020-08-07 06:11 | NUR ---
PT O2 SATS FALLING INTO THE SIXTIES WHILE SLEEPING. PATIENT WILL BECOME RESTLESS AND THEN BREATHS AND SATS CLIMB INTO THE NINETIES. VERY RESTLESS SLEEP.
--- NOTE | 2020-08-07 08:30 | NUR ---
PT SITTING IN BED AT THIS TIME EATING BREAKFAST. PT IS CALM AND COOPERATIVE WITH STAFF AND PEERS. CONFUSION NOTED. POOR INSIGHT TO SITUATION. REDIRECT AND REORIENT NEEDED. DENIES ANY PAIN. NO AGRESSION NOTED. NO BEHAVIORS NOTED. PT IS COMPLIANT WITH MEDS, VITALS AND ASSESSMENTS. PT REQUIRES TOTAL ASSISTANCE WITH ADLS. PT CAN MAKE SOME NEEDS KNOWN. PERICARE Q 2 HR AND PRN. CHANGE DRESSING PER ORDER AND PRN. BED ALARM IN PLACE AND ACTIVE. CONTS ON CONTACT PRECAUTION FOR VRE AND MRSA IN URINE. WILL CONT PLAN OF CARE.
--- NOTE | 2020-08-07 10:10 | NUR ---
brando omalley rn cleaned and wrapped pts stump and amputated toes. pt tolerated well.
--- NOTE | 2020-08-07 10:20 | NUR ---
NURSE CALLED MYRANDA ENG AT THE [facility]. NURSE GAVE UPDATED MEDICATION LIST INCLUDING LANTUS CHANGED FROM 32 UNITS ON ADMISSION TO LANTUS 10 UNITS ON DISCHARGE. SHE VOICED UNDERSTANDING IN MEDICATION CHANGE. NURSE GAVE UPDATE ON BM, VITALS, WOUNDS. PAPERWORK FAXED TO THE [facility] AND PAPER COPY SENT WITH PT AT THIS TIME. NO BELONGINGS SENT WITH PT. PT WAS IN A GOOD MOOD UPON DISCHARGE.
--- NOTE | 2020-08-07 10:22 | NUR ---
SW ATTEMPTED TO CONTACT PT'S DTR AGAIN. SW WAS STILL UNABLE TO LEAVE VOICEMAIL. NUMBER STATES IT IS NOT ABLE TO RECIEVE CALLS AT THIS TIME.
--- NOTE | 2020-08-07 10:27 | NUR ---
CRISTY SPOKE TO PT'S DTR, HARITHA, ABOUT TODAY'S DISCHARGE. PT WILL BE PICKED UP BY [facility]. CRISTY GAVE UPDATE ON PT'S CONDITION AND PROGRESS THROUGH TREATMENT. HARITHA VOICED UNDERSTANDING OF DISCHARGE PLANS AND EXPRESSED NO NEEDS AT THIS TIME.
[2020-08-07 10:29] VITALS: BP 139/68
--- NOTE | 2020-08-07 11:45 | NUR ---
nurse swabbed pt for Sars-19. pt tolerated very well.
[2020-08-07 12:28] LABS: SARS-CoV-2 ANTIGEN NEGATIVE- SARS-COV-2 (NEGATIVE)
--- NOTE | 2020-08-08 11:16 | DS ---
PATIENT:ELLIOTT SILVERIO :42 MEDICAL RECORD: [id number] DISCHARGE SUMMARY ADMISSION DATE: 07/22/20 DISCHARGE DATE: 08/07/20 IDENTIFYING DATA: The patient is 80 years old and he is referred to us by a local penitentiary. CHIEF COMPLAINT: Aggression. HISTORY OF PRESENT ILLNESS: The patient is angry and uncooperative. The penitentiary says he has been sexually inappropriate. They also say he has been yelling out and confused. He does have dementia. He has been a resident in that penitentiary for 6 years. He has been hyper-oriental orthodox and speaking to people not present. HOSPITAL COURSE: The patient was admitted to the hospital and fully evaluated from both a medical, psychological, and social standpoint. The patient was treated with both mood stabilizing and memory enhancing medications. He did show improvement through the course of the hospitalization and was subsequently transitioned back to the penitentiary. DISCHARGE DIAGNOSES: AXIS I: Major neurocognitive disorder of the Alzheimer's type with behavioral disturbances. AXIS II: None. AXIS III: Right below-knee amputation, osteomyelitis of the foot and ankle, chronic kidney disease, anemia, hypertension, and metabolic encephalopathy. AXIS IV: Severe stressors. AXIS V: Global assessment of functioning is 35. PLAN: At the time of discharge, the patient was not aggressive and did not represent a direct risk to himself or others. He was very impaired cognitively, but he was cooperative. His long-term prognosis is guarded. TRANSINT:[id number] Voice Confirmation ID: [id number] DOCUMENT ID: [id number] LINDEN SANTOS MD at 1116 CC: [id number] DICTATION DATE: 08/07/201704 ANDROID FRAMEWORK DEVELOPER: 08/08/20 0540 DIS IN 08/07/20 [facility] [address] [place] [address]
--- NOTE | 2020-08-08 11:16 | PN ---
PATIENT:ELLIOTT SILVERIO MEDICAL RECORD: [id number] LOCATION:[facility] ADMISSION DATE: 07/22/20 PROGRESS NOTE DATE OF SERVICE: 08/06/2020 SUBJECTIVE: The patient's case was discussed with staff. He has no new complaint. OBJECTIVE: The patient is in good behavioral control with limited insight about his situation. ASSESSMENT: Dementia. PLAN: The patient will be transitioned from here to the group home tomorrow. His behavior has dramatically improved. TRANSINT:[id number] Voice Confirmation ID: [id number] DOCUMENT ID: [id number] LINDEN SANTOS MD at 1116 CC: [id number] DICTATION DATE: 08/06/20 170 SCREW MACHINE OPERATOR: 08/06/20 2345 DIS IN 08/07/20 [facility] [address] [place] [address]
== END 2020-08-07 11:45 | DRG 56 ==
LOC: D.PSYCH 21:23
PROVIDERS: Family Medicine; ADMIT Psychiatry & Neurology Psychiatry; ATTEND Psychiatry & Neurology Psychiatry
DX: G30.9 Alzheimer's disease, unspecified (principal); G93.41 Metabolic encephalopathy; N39.0 Urinary tract infection, site not specified; F02.81 Dementia in other diseases classified elsewhere, unspecified severity, with behavioral disturbance; M86.9 Osteomyelitis, unspecified; R41.82 Altered mental status, unspecified; Z20.822 Contact with and (suspected) exposure to COVID-19; I10 Essential (primary) hypertension; E11.22 Type 2 diabetes mellitus with diabetic chronic kidney disease; Z79.4 Long term (current) use of insulin; E78.5 Hyperlipidemia, unspecified; D64.9 Anemia, unspecified; N18.9 Chronic kidney disease, unspecified; Z89.511 Acquired absence of right leg below knee; R26.9 Unspecified abnormalities of gait and mobility; N40.0 Benign prostatic hyperplasia without lower urinary tract symptoms; H40.9 Unspecified glaucoma; K21.9 Gastro-esophageal reflux disease without esophagitis; G47.00 Insomnia, unspecified; K59.00 Constipation, unspecified; E11.40 Type 2 diabetes mellitus with diabetic neuropathy, unspecified; E55.9 Vitamin D deficiency, unspecified; F41.8 Other specified anxiety disorders; I12.9 Hypertensive chronic kidney disease with stage 1 through stage 4 chronic kidney disease, or unspecified chronic kidney disease

== ENCOUNTER 2020-08-10 13:22 | Inpatient (IN) | payer OTHER ==
[~2020-08-10] VITALS: Ht 185.4 cm; Wt 112.9 kg
[~2020-08-10 13:22] MED LIST changes: +ALDACTONE50 MG PO; +ALPHAGAN 0.2%5 ML EACH EYE; +ASCORBIC ACID500 MG PO; +BANOPHEN25 MG PO; +BASAGLAR K100 UNIT/1 SC; +BUPROPION XL150 MG PO; +CYMBALTA60 MG PO; +FLORANEX / LACT1 TAB PO; +GEODON20 MG PO; +GLUCOSAMINE HC500 MG PO; +HYDROCODON-ACE1 EAC7 PO; +KLONOPIN0.5 MG PO; +MIRALAX17 GM PO; +MULTI-DAY VITAM1 TAB PO; +NEURONTIN 400400 MG PO; +PEPCID PO; +SANTYL30 GM TP; +TRUSOPT 2 % OPT10 ML EACH EYE; +VITAMIN D325 MC1 PO; +ZOLOFT50 MG PO
[2020-08-10 13:54] LABS: BASOPHILS 0.5 % (0-2); EOSINOPHILS 4.2 % (0-7); HEMOGLOBIN 11.1 g/dL (13.5-17.5); IMMATURE GRANULOCYTES 0.2 % (0-5); LYMPHOCYTE ABS# 2.35 10x3/uL (1.32-3.57); LYMPHOCYTES 36.2 % (15-50); MCH 28.8 pg (26.0-34.0); MCHC 31.7 g/dL (31.0-37.0); MCV 90.9 fL (80.0-100.0); MEAN PLATELET VOLUME 10.1 fL (7.4-10.4); NEUTROPHIL ABS# 3.05 10x3/uL (1.78-5.38); NEUTROPHILS 46.9 % (40-80); RBC 3.85 10x6/uL (4.20-6.10); RDW 15.5 % (11.5-14.5); WBC 6.5 10x3/uL (4.8-10.8)
[2020-08-10 14:10] LABS: ANION GAP 12.8 mmol/L (8-16); CALCIUM 9.7 mg/dL (8.5-10.1); CARBON DIOXIDE 28.9 mmol/L (21.0-32.0); CREATININE - SERUM 1.7 mg/dL (0.6-1.3); POTASSIUM - SERUM 3.7 mmol/L (3.5-5.1)
[2020-08-10] MEDS ORDERED: SEROQUEL25 MG PO (14:10)
[2020-08-10] MEDS ORDERED: ULTRAM50 MG PO (14:11)
[2020-08-10 14:14] LABS: UDS - AMPHET NEGATIVE QUAL (NEGATIVE); UDS - BARB NEGATIVE QUAL (NEGATIVE); UDS - BENZO NEGATIVE QUAL (NEGATIVE); UDS - COCAINE NEGATIVE QUAL (NEGATIVE); UDS - OPIATE NEGATIVE QUAL (NEGATIVE); UDS - PCP NEGATIVE QUAL (NEGATIVE); UDS - THC NEGATIVE QUAL (NEGATIVE)
[2020-08-10 14:21] LABS: ALBUMIN 2.8 g/dL (3.4-5.0); BILIRUBIN - TOTAL 0.38 mg/dL (0.2-1.3); MAGNESIUM - SERUM 1.9 mg/dL (1.8-2.4); PROTEIN - SERUM 8.3 g/dL (6.4-8.2); THYROID STIMULATING HORMONE 1.95 uIU/mL (0.36-3.74)
[2020-08-10 14:22] LABS: PLATELET COUNT 132 10x3/uL (130-400)
[2020-08-10 14:34] LABS: BACTERIA FEW HPF (NONE SEEN); BILIRUBIN NEGATIVE (NEGATIVE); KETONE NEGATIVE (NEGATIVE); NITRITE NEGATIVE (NEGATIVE); SQUAMOUS EPITHELIAL NONE SEEN HPF (0-4); UROBILINOGEN NORMAL mg/dL (< 2); WHITE CELLS - URINE 0-5 HPF (0-1)
[2020-08-10 15:35] VITALS: BP 130/79
--- NOTE | 2020-08-10 17:40 | NUR ---
ALERT AND ORIENTED TO SELF ONLY BUT PLEASANTLY CONFUSED DUE TO DEMENTIA. WOUNDS TO BLE CLEANSES WITH SALINE WITH WET TO DRY DRESSING APPLIED. BLACK ESCHAR NOTED TO LL LATERAL ASPECT OF FOOT. ONLY HAS GREAT TOE ON THAT FOOT. YELLOW SLOUGH NOTED TO RIGHT BKA W/O DRAINAGE. FALL PRECAUTIONS IN PLACE.
[2020-08-10 17:48] VITALS: BP 118/66; BMI 32.9
[2020-08-10 20:00] VITALS: BP 113/69
--- NOTE | 2020-08-10 20:00 | NUR ---
RECEIVED ORDERS TO RESTART HOME MEDICATIONS. ALSO RECEIVED ORDER TO PLACED LORA CATHETER FOR URINARY RETENTION.
--- NOTE | 2020-08-10 20:38 | NUR ---
PLACED 16F LORA CATHETER PER ORDER AND RECEIVED RETURN OF YELLOW URINE. ATTACHED TUBE TO LEG AND PLACED BAG BELOW BLADDER. PT TOLERATED WELL.
[2020-08-11] VITALS: BP 121/47
--- NOTE | 2020-08-11 07:30 | NUR ---
RECIEVED BEDSIDE REPORT. BED LOW POSITION, CALL LIGHT IN REACH. PATIENT CONFUSED TO PLACE, TIME, AND SITUATION. LORA IN PLACE. DENIES NEEDS. FREE FROM SIGNS OF DISTRESS. WILL CONTINUE TO MONITOR.
[2020-08-11 07:40] VITALS: BP 103/53
[2020-08-11 08:29] VITALS: BP 125/59
[2020-08-11 12:01] LABS: BASOPHILS 0.3 % (0-2); EOSINOPHILS 3.1 % (0-7); HEMATOCRIT 30.1 % (42.0-54.0); HEMOGLOBIN 9.7 g/dL (13.5-17.5); LYMPHOCYTE ABS# 2.18 10x3/uL (1.32-3.57); LYMPHOCYTES 35.4 % (15-50); MCH 28.8 pg (26.0-34.0); MCHC 32.2 g/dL (31.0-37.0); MCV 89.3 fL (80.0-100.0); MEAN PLATELET VOLUME 9.9 fL (7.4-10.4); MONOCYTES 11.9 % (2-11); NEUTROPHIL ABS# 3.03 10x3/uL (1.78-5.38); NEUTROPHILS 49.3 % (40-80); PLATELET COUNT 122 10x3/uL (130-400); RBC 3.37 10x6/uL (4.20-6.10); RDW 15.5 % (11.5-14.5); WBC 6.2 10x3/uL (4.8-10.8)
[2020-08-11 12:12] LABS: ALBUMIN 2.3 g/dL (3.4-5.0); ANION GAP 10.9 mmol/L (8-16); BILIRUBIN - TOTAL 0.39 mg/dL (0.2-1.3); CARBON DIOXIDE 28.8 mmol/L (21.0-32.0); CREATININE - SERUM 1.6 mg/dL (0.6-1.3); POTASSIUM - SERUM 3.7 mmol/L (3.5-5.1)
[2020-08-11 13:34] VITALS: BP 119/57
[2020-08-11 17:30] VITALS: BP 96/60
--- NOTE | 2020-08-11 17:35 | NUR ---
IN BED RESTING. DENIES WANTING TO EAT AT THIS TIME. DEMENTIA RELATED CONFUSION. FREE FROM SIGNS OF DISTRESS. BED LOW POSITION, CALL LIGHT IN REACH. YANICK ALARM ON. WILL CONTINUE TO MONITOR.
--- NOTE | 2020-08-11 19:39 | NUR ---
SPOKE TO DR GIPSON ABOUT PERIPHERAL IV BEING PULLED OUT. INFORMED OF PATIENT BEING A VERY DIFFICULT STICK, AND THAT DR DEL VALLE HAS ALREADY ORDERED A PICC LINE TO BE PLACED TOMOROW MORNING FOR SHEET METAL ASSEMBLER ANTIBIOTICS. OKAY TO WAIT FOR PICC LINE TO BE PLACED SINCE UNABLE TO OBTAIN PERIPHERAL ACCESS PER DR. GIPSON.
[2020-08-12] VITALS: BP 110/52
[2020-08-12 04:00] VITALS: BP 92/52
[2020-08-12 08:58] VITALS: BP 124/58
[2020-08-12 13:21] VITALS: Ht 185.4 cm; Wt 112.9 kg
[2020-08-12 13:53] VITALS: BP 110/52
[2020-08-12 17:36] VITALS: BP 114/57
[2020-08-13] VITALS: BP 103/40
[2020-08-13 04:00] VITALS: BP 91/43
--- NOTE | 2020-08-13 07:28 | NUR ---
PATIENT HAS BEEN CONFUSED THIS SHIFT, HE HAS TRIED TO PULL AT HIS CATHETER VERBALLY REDIRECTED HIM NOT TO, HE DID NOT SLEEP MUCH THIS SHIFT, HE IS CURRENTLY RESTING IN BED.
--- NOTE | 2020-08-13 08:11 | NUR ---
ALERT AND ORIENTED TO SELF ONLY. ASSESSMENT COMPLETE. DENIES NEEDS. BED LOW. CALL ROB AND PERSONAL ITEMS IN REACH. WILL CONTINUE TO MONITOR.
[2020-08-13 09:25] VITALS: BP 111/47
[2020-08-13 12:42] VITALS: BP 125/64
--- NOTE | 2020-08-13 14:07 | NUR ---
IR CONSULT PLACED D/T NO VASCULAR ACCESS NURSE. SPOKE WITH JEAN-PIERRE IN IR WHO STATES PATIENT DOES NOT QUALIFY FOR PICC LINE. DR DIEGO SCHAEFER.
--- NOTE | 2020-08-13 14:16 | NUR ---
SPOKE WITH DR DEL VALLE WHO STATEST TO ASK ORTHO MD IF HE WANTS PATIENT TO HAVE DISABILITY CASE MANAGER ABX OR IF NEED TO GET ORDER FOR CENTRAL LINE. MESSAGE LEFT FOR DR SHIN.
--- NOTE | 2020-08-13 15:40 | NUR ---
DRSGS CHANGED TO RIGHT STUMP AND LEFT FOOT PER ORDER. ABX CHANGED TO PO AND NO IV ACCESS NEEDED PER DR SHIN ORDERS.
[2020-08-13 18:14] VITALS: BP 111/53
[2020-08-13 20:00] VITALS: BP 125/62
--- NOTE | 2020-08-14 02:51 | NUR ---
PATIENT HAS HAD PAIN MANAGED WITH THE PRESCRIBED PAIN MEDICATION, HE APPEARS TO BE RESTING WELL, HE IS CURRENTLY RESTING IN BED WITH HIS EYES CLOSED.
[2020-08-14 04:00] VITALS: BP 125/46
[2020-08-14 09:01] VITALS: BP 112/76
[2020-08-14 09:51] LABS: ALBUMIN 2.5 g/dL (3.4-5.0); ANION GAP 12.5 mmol/L (8-16); BILIRUBIN - TOTAL 0.35 mg/dL (0.2-1.3); CARBON DIOXIDE 28.6 mmol/L (21.0-32.0); CREATININE - SERUM 1.5 mg/dL (0.6-1.3); POTASSIUM - SERUM 4.1 mmol/L (3.5-5.1); PROTEIN - SERUM 7.6 g/dL (6.4-8.2)
[2020-08-14 09:53] LABS: BASOPHILS 0.1 % (0-2); EOSINOPHILS 1.7 % (0-7); HEMATOCRIT 33.4 % (42.0-54.0); HEMOGLOBIN 10.5 g/dL (13.5-17.5); IMMATURE GRANULOCYTES 0.2 % (0-5); LYMPHOCYTE ABS# 2.01 10x3/uL (1.32-3.57); LYMPHOCYTES 25.1 % (15-50); MCH 28.5 pg (26.0-34.0); MCHC 31.4 g/dL (31.0-37.0); MCV 90.8 fL (80.0-100.0); MEAN PLATELET VOLUME 10.4 fL (7.4-10.4); MONOCYTES 11.2 % (2-11); NEUTROPHIL ABS# 4.94 10x3/uL (1.78-5.38); NEUTROPHILS 61.7 % (40-80); RBC 3.68 10x6/uL (4.20-6.10); RDW 16.1 % (11.5-14.5)
[2020-08-14 09:55] LABS: PLATELET COUNT 244 10x3/uL (130-400)
--- NOTE | 2020-08-14 11:01 | NUR ---
RESTING IN BED, NO DISTRESS NOTED, CONFUSED, NO IV, TAKES PO MEDS WITH EASE, CONT TO MONITOR SUGARS
[2020-08-14 13:55] VITALS: BP 105/61
--- NOTE | 2020-08-14 16:34 | NUR ---
DRESSING CHANGED TO R STUMP AND L FOOT, YELLOWISH DRAINAGE NOTED, CONT TO CHANGE DAILY
[2020-08-14 17:46] VITALS: BP 119/69
[2020-08-14 20:00] VITALS: BP 92/51
[2020-08-15 04:00] VITALS: BP 96/54
--- NOTE | 2020-08-15 04:33 | NUR ---
TOLU APPEARED TO SLEEP WELL, DENIES PAIN, HE IS CURRENTLY RESTING IN BED WITH HIS EYES CLOSED.
--- NOTE | 2020-08-15 07:00 | NUR ---
0700 AWAKE ALERT ASSIST X 2 TO TURN IN BED
[2020-08-15 08:57] VITALS: BP 109/46
--- NOTE | 2020-08-15 12:46 | NUR ---
Nutrition follow-up: Pt continues with confusion per nurse Diet order: Consistent CHO PO intake ~60% average of last 3 meals Labs reviewed; Glucosed under better control Wt: 248# No BM charted since admit; colace ordered and being given Will continue to provide food choices with selective menus and honor food preferences within diet restrictions. Will offer Glucerna Shake with meals RDN follow-up: 08/21/20
[2020-08-15 13:10] VITALS: BP 123/60
[2020-08-15 16:29] VITALS: BP 120/67
[2020-08-15 20:00] VITALS: BP 110/45
--- NOTE | 2020-08-15 20:00 | NUR ---
PT HEART RATE GOING FROM 70s TO 30s. PT IS ALERT WITH SOME CONFUSION. PLACED TELE MONTIOR TO WATCH HEART RATE AND RYTHM CLOSE. WILL CONTINUE TO MONITOR.
[2020-08-16] VITALS: BP 90/36
--- NOTE | 2020-08-16 00:58 | NUR ---
PT HEART RATE 81 SINUS WITH PVCs. NO MORE DROPS IN HEART RATE AT THIS TIME. WILL CONTINUE TO MONITOR.
[2020-08-16 04:00] VITALS: BP 93/44
--- NOTE | 2020-08-16 06:14 | NUR ---
I have reviewed this patient and I concur with the Shift Assessment completed by the Licensed Practical Nurse today this shift.
[2020-08-16 10:18] VITALS: BP 99/51
[2020-08-16 10:49] LABS: BASOPHILS 0.1 % (0-2); EOSINOPHILS 1.6 % (0-7); HEMATOCRIT 28.8 % (42.0-54.0); HEMOGLOBIN 9.2 g/dL (13.5-17.5); IMMATURE GRANULOCYTES 0.3 % (0-5); LYMPHOCYTE ABS# 2.59 10x3/uL (1.32-3.57); LYMPHOCYTES 34.6 % (15-50); MCH 28.6 pg (26.0-34.0); MCHC 31.9 g/dL (31.0-37.0); MCV 89.4 fL (80.0-100.0); MEAN PLATELET VOLUME 10.7 fL (7.4-10.4); MONOCYTES 18.2 % (2-11); NEUTROPHIL ABS# 3.39 10x3/uL (1.78-5.38); NEUTROPHILS 45.2 % (40-80); PLATELET COUNT 235 10x3/uL (130-400); RBC 3.22 10x6/uL (4.20-6.10); WBC 7.5 10x3/uL (4.8-10.8)
[2020-08-16 10:56] LABS: ALBUMIN 2.1 g/dL (3.4-5.0); ANION GAP 13.3 mmol/L (8-16); BILIRUBIN - TOTAL 0.48 mg/dL (0.2-1.3); CALCIUM 8.8 mg/dL (8.5-10.1); CARBON DIOXIDE 26.6 mmol/L (21.0-32.0); CREATININE - SERUM 2.1 mg/dL (0.6-1.3); POTASSIUM - SERUM 3.9 mmol/L (3.5-5.1); PROTEIN - SERUM 7.2 g/dL (6.4-8.2)
[2020-08-16 13:05] VITALS: BP 108/58
[2020-08-16 17:31] VITALS: BP 131/65
--- NOTE | 2020-08-16 19:40 | NUR ---
0700 BEDSIDE REPORT RECEIVED ASLEEP AWAKENS TO TOUCH NO COMPLAINTS VOICED
[2020-08-16 21:01] VITALS: BP 96/46
[2020-08-17 01:18] VITALS: BP 100/56
--- NOTE | 2020-08-17 04:16 | NUR ---
I have reviewed this patient and I concur with the Shift Assessment completed by the Licensed Practical Nurse today this shift.
[2020-08-17 06:21] VITALS: BP 112/67
[2020-08-17 07:02] LABS: BASOPHILS 0.1 % (0-2); EOSINOPHILS 2.2 % (0-7); HEMATOCRIT 27.1 % (42.0-54.0); HEMOGLOBIN 8.8 g/dL (13.5-17.5); IMMATURE GRANULOCYTES 0.3 % (0-5); LYMPHOCYTE ABS# 2.15 10x3/uL (1.32-3.57); LYMPHOCYTES 23.4 % (15-50); MCHC 32.5 g/dL (31.0-37.0); MCV 89.4 fL (80.0-100.0); MEAN PLATELET VOLUME 10.6 fL (7.4-10.4); MONOCYTES 12.4 % (2-11); NEUTROPHIL ABS# 5.67 10x3/uL (1.78-5.38); NEUTROPHILS 61.6 % (40-80); PLATELET COUNT 244 10x3/uL (130-400); RBC 3.03 10x6/uL (4.20-6.10); RDW 15.9 % (11.5-14.5); WBC 9.2 10x3/uL (4.8-10.8)
[2020-08-17 07:40] LABS: ALBUMIN 1.9 g/dL (3.4-5.0); ANION GAP 11.4 mmol/L (8-16); BILIRUBIN - TOTAL 0.35 mg/dL (0.2-1.3); CALCIUM 8.8 mg/dL (8.5-10.1); CARBON DIOXIDE 28.3 mmol/L (21.0-32.0); CREATININE - SERUM 2.1 mg/dL (0.6-1.3); POTASSIUM - SERUM 3.7 mmol/L (3.5-5.1)
[2020-08-17 09:11] VITALS: BP 97/50
--- NOTE | 2020-08-17 11:35 | NUR ---
SLEEPY THIS AM, CONT TO MONITOR SUGARS, TELE IN PLACE, DRESSING CHANGED TO FEET, CONT TO MONITOR
[2020-08-17 13:20] VITALS: BP 100/55
[2020-08-17 18:27] VITALS: BP 109/49
[2020-08-17 22:08] VITALS: BP 99/59
[2020-08-18 01:24] VITALS: BP 105/49
--- NOTE | 2020-08-18 03:55 | NUR ---
I have reviewed this patient and I concur with the Shift Assessment completed by the Licensed Practical Nurse today this shift.
[2020-08-18 05:54] VITALS: BP 108/38
--- NOTE | 2020-08-18 07:44 | NUR ---
resting in bed, no distress noted, eyes closed, dressing to legs in place, cont to monitor sugars
[2020-08-18 09:42] VITALS: BP 112/51
[2020-08-18 14:35] VITALS: BP 100/53
[2020-08-18 18:35] VITALS: BP 102/54
[2020-08-18 20:00] VITALS: BP 115/58
[2020-08-19] VITALS: BP 151/55
--- NOTE | 2020-08-19 00:58 | NUR ---
I have reviewed this patient and I concur with the Shift Assessment completed by the Licensed Practical Nurse today this shift.
[2020-08-19 04:00] VITALS: BP 101/57
[2020-08-19 06:00] LABS: BASOPHILS 0.4 % (0-2); EOSINOPHILS 5.5 % (0-7); HEMATOCRIT 28.2 % (42.0-54.0); HEMOGLOBIN 8.8 g/dL (13.5-17.5); LYMPHOCYTES 39.8 % (15-50); MCH 28.6 pg (26.0-34.0); MCHC 31.2 g/dL (31.0-37.0); MEAN PLATELET VOLUME 10.5 fL (7.4-10.4); MONOCYTES 13.6 % (2-11); NEUTROPHIL ABS# 1.94 10x3/uL (1.78-5.38); NEUTROPHILS 40.7 % (40-80); PLATELET COUNT 288 10x3/uL (130-400); RBC 3.08 10x6/uL (4.20-6.10); RDW 16.1 % (11.5-14.5)
[2020-08-19 06:12] LABS: ALBUMIN 1.9 g/dL (3.4-5.0); ANION GAP 7.8 mmol/L (8-16); BILIRUBIN - TOTAL 0.19 mg/dL (0.2-1.3); CALCIUM 9.1 mg/dL (8.5-10.1); MAGNESIUM - SERUM 2.1 mg/dL (1.8-2.4); POTASSIUM - SERUM 3.8 mmol/L (3.5-5.1)
[2020-08-19 06:31] LABS: MCV 91.6 fL (80.0-100.0); WBC 4.8 10x3/uL (4.8-10.8)
[2020-08-19 08:00] VITALS: BP 130/80
--- NOTE | 2020-08-19 16:48 | NUR ---
OT NOTE: PT COMPLETED POSITIONING WITH MIN-MOD A. PT COMPLETED FACE HYGEINE WITH MIN A. [phone] THANK YOU,JOSE RAUL CUMMINGS
--- NOTE | 2020-08-19 17:07 | NUR ---
0700 BEDSIDE REPORT RECEIVED ASLEEP IN BED AWAKENS TO TOUCH ASSESSMENT COMPLETE INCONTINENT LIQUID BM NOTED PT HAS LORA TO GRAVITY DRAINAGE YELLOW URINE NOTED
--- NOTE | 2020-08-19 17:10 | NUR ---
1130 [facility] [address] POOR APPETITE NO COVERAGE GIVEN
[2020-08-20 04:00] VITALS: BP 132/66
--- NOTE | 2020-08-20 05:06 | NUR ---
I have reviewed this patient and I concur with the Shift Assessment completed by the Licensed Practical Nurse today this shift.
[2020-08-20 06:11] LABS: BASOPHILS 0.7 % (0-2); EOSINOPHILS 3.9 % (0-7); HEMATOCRIT 27.9 % (42.0-54.0); HEMOGLOBIN 9.3 g/dL (13.5-17.5); LYMPHOCYTES 42.7 % (15-50); MCH 29.4 pg (26.0-34.0); MCHC 33.4 g/dL (31.0-37.0); MEAN PLATELET VOLUME 8.4 fL (7.4-10.4); MONOCYTES 10.8 % (2-11); NEUTROPHILS 41.9 % (40-80); PLATELET COUNT 318 10x3/uL (130-400); RBC 3.17 10x6/uL (4.20-6.10); RDW 16.6 % (11.5-14.5); WBC 5.8 10x3/uL (4.8-10.8)
[2020-08-20 06:22] LABS: MCV 88.1 fL (80.0-100.0)
[2020-08-20 06:52] LABS: ALBUMIN 2.2 g/dL (3.4-5.0); ANION GAP 12.8 mmol/L (8-16); BILIRUBIN - TOTAL 0.24 mg/dL (0.2-1.3); CALCIUM 9.4 mg/dL (8.5-10.1); CARBON DIOXIDE 27.8 mmol/L (21.0-32.0); MAGNESIUM - SERUM 2.2 mg/dL (1.8-2.4); POTASSIUM - SERUM 3.6 mmol/L (3.5-5.1); PROTEIN - SERUM 7.2 g/dL (6.4-8.2)
--- NOTE | 2020-08-20 07:37 | NUR ---
ALERT AND ORIENTED TO SELF. ASSESSMENT COMPLETE. DENIES NEEDS. BED LOW. CALL ROB AND PERSONAL ITEMS REACH. WILL CONTINUE TO MONITOR.
[2020-08-20 10:12] VITALS: BP 90/41
[2020-08-20 12:29] VITALS: BP 120/53
--- NOTE | 2020-08-20 14:55 | MORECARE ---
CASE MANAGEMENT DISCHARGE SUMMARY PATIENT: ELLIOTT SILVERIO UNIT: [id number] ADM DATE: 08/10/20 AGE: 80 : 41 SEX: M ROOM/BED: D.2230 AUTHOR: MAGALIS,DOC PHYSICIAN: REFERRING PHYSICIAN: MARIZA DEL VALLE MD DATE OF SERVICE: 08/20/20 Case Management Discharge Planning Summary COMMENTS ENTERED DATE: 08/20/20 14:43 CT COMMENT TYPE: Discharge Planning REVIEWER: Kate Sneha Patient was previously at the [facility] for rehab and then plans to transition to salvage determiner care at their facility. The facility states he had broke a window and their administration is looking to see if they will accept him back. It is possible that his outburst at the [facility] was due to his illness. CM to follow and assist as needed. I am faxing updates to the [facility] now. DCP REVIEW SUMMARY ANTICIPATED D/C DATE: EXPECTED LOS : CASE STATUS: DCP Initiated INITIAL REVIEW: 08/10/2020 INITIAL REVIEWER: Kate Hoover FINAL DISCHARGE DISPOSITION: : FINAL REVIEWER: FINAL REVIEW DATE: DCP [employer] Questions [employer] Answers QUESTION: ANSWER : PATIENT: ELLIOTT SILVERIO ENCOUNTER: [id number] MEDICAL RECORD#: [id number] ADMISSION DATE: 08/10/2020 DISCHARGE DATE: ATTENDING MD: MARIZA SHARPE : AGE: 80 MARITAL STATUS: D DC PLAN ID: [id number] FACILITY: [facility] PRINTED ON: 08/20/20 14:55 CT All edits/amendments must be made on the electronic document DICTATION DATE: 08/20/201454 CLAY PREPARATION SUPERVISOR: DM 08/20/20 145 RPT#: [id number] DC DATE: STATUS: ADM IN [facility] [address] [place] [address] END OF REPORT
--- NOTE | 2020-08-20 16:18 | NUR ---
OT NOTE: PERFORMED UE AROM EXS . PT VERY MOTIVATED.. WANTS TO STAND UP BUT WILL REQUIRE ASSIST OF ANOTHER PERSON FOR SIT TO STAND. PRACTICED BED MOB WITH MOD ASSIST FOR SUPINE TO SIT.. EOB SITTING WITH SBA.. OCCASSIONAL ASSIST REQUIRED DURING LE AROM EX DUE TO PT FALLING BACKWARDS. ABLE TO WASH FACE ADN HANDS WITH CLOTH.. DIFFICULTY WITH OTHER ADLS DUE TO IMPAIRED VISION. DUSTY MEAD, OTR/L
[2020-08-20 16:59] VITALS: BP 101/47
[2020-08-20 20:00] VITALS: BP 121/51
[2020-08-21 04:00] VITALS: BP 99/53
--- NOTE | 2020-08-21 04:03 | NUR ---
PATIENT DENIES PAIN, HE APPEARS TO HAVE RESTED WELL LAST NIGHT, HE IS CURRENTLY RESTING IN BED WITH HIS EYES CLOSED.
[2020-08-21 06:13] LABS: BASOPHILS 0.7 % (0-2); EOSINOPHILS 3.1 % (0-7); HEMATOCRIT 27.4 % (42.0-54.0); HEMOGLOBIN 9.3 g/dL (13.5-17.5); LYMPHOCYTES 36.7 % (15-50); MCH 29.7 pg (26.0-34.0); MCHC 33.8 g/dL (31.0-37.0); MCV 87.8 fL (80.0-100.0); MEAN PLATELET VOLUME 7.9 fL (7.4-10.4); MONOCYTES 9.7 % (2-11); NEUTROPHILS 49.8 % (40-80); PLATELET COUNT 323 10x3/uL (130-400); RBC 3.12 10x6/uL (4.20-6.10); RDW 16.5 % (11.5-14.5); WBC 6.7 10x3/uL (4.8-10.8)
[2020-08-21 06:29] LABS: ALBUMIN 2.3 g/dL (3.4-5.0); ANION GAP 12.1 mmol/L (8-16); BILIRUBIN - TOTAL 0.22 mg/dL (0.2-1.3); CALCIUM 8.8 mg/dL (8.5-10.1); CARBON DIOXIDE 28.9 mmol/L (21.0-32.0); PROTEIN - SERUM 6.7 g/dL (6.4-8.2)
--- NOTE | 2020-08-21 07:25 | NUR ---
RECIEVED BEDSIDE REPORT. IN BED SLEEPING, FREE FROM SIGNS OF DISTRESS. BED LOW POSITION, CALL LIGHT IN REACH. WILL CONITNUE TO MONITOR. BED ALARM ON.
[2020-08-21 08:25] VITALS: BP 118/56
[2020-08-21] MEDS ORDERED: BACTRIM 400/80 MG TA PO (09:39)
--- NOTE | 2020-08-21 12:43 | NUR ---
DRESSING CHANGED TO RIGHT STUMP AND LEFT FOOT. CLEANED WITH WOUND CLEANSER, APPLIED SANTYL OINTMENT. COVERED WITH NONADHERANT PAD, DRY 4X4'S, AND WRAPPED. PATIENT TOLLERATED WELL.
[2020-08-21 12:58] VITALS: BP 113/53
--- NOTE | 2020-08-21 13:38 | NUR ---
Nutrition reassessment: Pt in bed sleeping with covers over head at time of RD visit. Pt ate 100% of breakfast this morning. Diet order: Consistent CHO PO intake improving; ~50-100% of meals now Labs reviewed; glucose under better control Wt: 248# +BM Estimated needs remain the same as initial assessment on 08/12/20 Nutrition diagnosis: Inadequate oral intake R/T AMS AEB po intake is still not consistent with > 75% of meals at this time. Nutrition goals: - PO intake =/> 75% of meals, snacks - Meet est fluid needs - Stable wt - Glucose maintained at or near normal range Nutrition intervention: Will continue to provide food choices with selective menus and honor food preferences within diet restrictions. Will offer Glucerna Shake nutritional supplement. RDN follow-up: 08/26/20
--- NOTE | 2020-08-21 14:40 | NUR ---
REPORT CALLED TO CONCHITA AT THE [facility]. NO FURTHER QUESTIONS. BELONGINGS GATHERED. LEFT UNIT VIA WHEELCHAIR BACK TO FACILITY AT THIS TIME. NO IV. TELEMETRY REMOVED. LORA CATHETER REMOVED.
--- NOTE | 2020-08-21 15:45 | NUR ---
OT NOTE: PT PERFORMED WELL TODAY. PT VEYR MOTIVATED TO PARTICIPATE IN THERAPY. BED MOB WITH MIN ASSIST FOR SUPINE TO SIT; EOB SITTING WITH SBA. REUQIRES INCREASED ASSIST WITH ADLS DUE TO IMPAIRED VISION. MIN ASSIST WITH WASHING FACE AND HANDS WITH WASH CLOTH.. MOD ASSIST WITH GOWN DUE TO DIFFICULT SEEING SLEEVES. ABLE TO PERFORM UE AROM EXS WHILE SITTING ON EOB WITH ASSIST FOR SITTING BALANCE. INCREASED ASSIST FOR SIT TO STAND TODAY. REQUIRED MAX ASSIST X 2 AND MAX BLOCKING OF L LE WHILE IN STANDING. BACK TO BED WITH MOD ASSIST; PRACTICED BED MOB ADN ROLLING SIDE TO SIDE WHILE PERFORMING PERINEAL CARE. DUSTY MEAD, OTR/L [id number]
--- NOTE | 2020-08-22 15:20 | MORECARE ---
CASE MANAGEMENT DISCHARGE SUMMARY PATIENT: ELLIOTT SILVERIO UNIT: [id number] ADM DATE: 08/10/20 AGE: 80 : 42 SEX: M ROOM/BED: D.2230 AUTHOR: MAGALIS,DOC PHYSICIAN: REFERRING PHYSICIAN: MARIZA DEL VALLE MD DATE OF SERVICE: 08/22/20 Case Management Discharge Planning Summary COMMENTS ENTERED DATE: 08/20/20 14:43 CT COMMENT TYPE: Discharge Planning REVIEWER: Kate Sneha Patient was previously at the 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 The facility states he had broke a window and their administration is looking to see if they will accept him back. It is possible that his outburst at the [facility] was due to his illness. CM to follow and assist as needed. I am faxing updates to the [facility] now. DCP REVIEW SUMMARY ANTICIPATED D/C DATE: EXPECTED LOS : CASE STATUS: DCP Initiated INITIAL REVIEW: 08/10/2020 INITIAL REVIEWER: Kate Hoover FINAL DISCHARGE DISPOSITION: : FINAL REVIEWER: FINAL REVIEW DATE: DCP [employer] QUESTION: ANSWER : PATIENT: ELLIOTT SILVERIO ENCOUNTER: [id number] MEDICAL RECORD#: [id number] ADMISSION DATE: 08/10/2020 DISCHARGE DATE: 08/21/2020 ATTENDING MD: MARIZA SHARPE : AGE: 80 MARITAL STATUS: D DC PLAN ID: [id number] FACILITY: [facility] PRINTED ON: 08/22/20 15:20 CT All edits/amendments must be made on the electronic document DICTATION DATE: 08/22/20 152 EKG TECH: ERIC 08/22/20 1520 RPT#: [id number] DC DATE:08/21/20 STATUS: DIS IN [place] [id number] [place] [address] END OF REPORT
== END 2020-08-21 14:40 | DRG 565 ==
LOC: D.ER 13:22 → D.MS 14:54
PROVIDERS: Emergency Medicine; Family Medicine; ADMIT Legal Medicine; ATTEND Legal Medicine
DX: T87.43 Infection of amputation stump, right lower extremity (principal); F02.81 Dementia in other diseases classified elsewhere, unspecified severity, with behavioral disturbance; I13.0 Hypertensive heart and chronic kidney disease with heart failure and stage 1 through stage 4 chronic kidney disease, or unspecified chronic kidney disease; M86.8X7 Other osteomyelitis, ankle and foot; E11.69 Type 2 diabetes mellitus with other specified complication; Y83.9 Surgical procedure, unspecified as the cause of abnormal reaction of the patient, or of later complication, without mention of misadventure at the time of the procedure; E11.65 Type 2 diabetes mellitus with hyperglycemia; I25.10 Atherosclerotic heart disease of native coronary artery without angina pectoris; G30.9 Alzheimer's disease, unspecified; E11.22 Type 2 diabetes mellitus with diabetic chronic kidney disease; N18.9 Chronic kidney disease, unspecified